=== PATIENT | female | born 1980 | race Caucasian/White ===

== ENCOUNTER 2023-08-12 08:25 | Outpatient (OUT) | payer OTHER, SELFPAY ==
[2023-08-12 09:38] LABS: Cholesterol 136 mg/dL (<=200); Glucose 84 mg/dL (74-106); HDL Cholesterol 46 mg/dL (40-60); Triglycerides 50 mg/dL (<=150)
== END 2023-08-12 08:26 | disposition home or self-care (01) ==
PROVIDERS: PCP Family Medicine; Visit Provider Family Medicine
DX: Z00.00 Encounter for general adult medical examination without abnormal findings (principal)
CPT/HCPCS: 36415; 80061; 82947

== ENCOUNTER 2024-02-26 10:38 | Emergency (ER) | payer OTHER, SELFPAY ==
[2024-02-26 10:43] VITALS: BP 126/83; PULSE 81; TEMP 36.6; O2SAT 99; BMI 25.8
--- NOTE | 2024-02-26 11:30 | ED_ITS ---
HPI - Dizziness General Chief Complaint: Dizziness Stated Complaint: DIZZINESS/VOMITTING Time Seen by Provider: 02/26/24 10:50 Source: patient Mode of arrival: walk-in Limitations: no limitations History of Present Illness HPI Narrative: When the patient woke this morning she had intense vertigo - the sensation of spinning that is worse with movement of the head or change in body position. She denied any recent injury to the head or neck. No ear pain or eac occlusion. No recent URI symptoms, although she did admit to sore throat yesterday. No fever or chills. She had similar episode about 5 years ago that responded to meclizine She admits to nausea and vomiting due to the intense vertigo. No visual changes. Related Data Home Medications ?Medication ?Instructions ?Recorded ?Confirmed L norgest/E estradiol-E estrad 1 tab PO Q24H 02/26/24 02/26/24 0.15 mg-30 mcg (84)/10 mcg(7) tabs,3mos (Jaimiess) bupropion HCl 300 mg 24 hr tablet, 300 mg PO DAILY 02/26/24 02/26/24 extended release hydroxychloroquine 200 mg tablet 200 mg PO DAILY 02/26/24 02/26/24 prucalopride 2 mg tablet 2 mg PO Q24H 02/26/24 02/26/24 (Motegrity) sertraline 25 mg tablet 25 mg PO DAILY 02/26/24 02/26/24 sucralfate 1 gram tablet 1 g PO Q6H 02/26/24 02/26/24 Previous Rx's ?Medication ?Instructions ?Recorded meclizine 25 mg tablet 25 mg PO TID PRN dizziness #20 tabs 02/26/24 ondansetron 4 mg disintegrating 4 mg PO Q6H PRN nausea and 02/26/24 tablet vomiting #14 tabs Allergies Allergy/AdvReac Type Severity Reaction Status Date / Time No Known Drug Allergies Allergy Verified 02/26/24 10:42 Exam Narrative Exam Narrative: Nurses notes and vital signs reviewed and patient is not hypoxic. afebrile General: Well-appearing and in no apparent distress. Skin: Warm, dry, no pallor noted. No rash. Head: Normocephalic, atraumatic. Neck: Supple, non-tender. No meningismus. No cervical lymphadenopathy Eye: Pupils are equal, round and EOMI. No scleral icterus. Mild horizontal nystagmus noted Ears, Nose, Mouth, and Throat: TM are clear, no posterior oropharynx erythema or nasal mucosal hypertrophy, uvula is mid-line Oral mucosa is moist Cardiovascular: Regular Rate and Rhythm without murmur, gallop or rub. Respiratory: No accessory muscle use or respiratory distress. Lungs are clear to auscultation, no wheezing, rales or rhonchi Musculoskeletal: normal ROM GI: Abdomen is soft, non-distended. Normal bowel sounds. No masses appreciated. No tenderness to palpation. No rebound, guarding, or rigidity noted. Neurological: A&O x4. No cranial nerve dysfunction observed. No truncal ataxia. Moves all extremities. Sensation intact. Psychiatric: Cooperative and interactive. Normal mood and affect. Constitutional Vital Signs, click to edit/add: Last Vital Signs Temp 97.8 F 02/26/24 10:43 Pulse 81 02/26/24 10:43 Resp 18 02/26/24 10:43 BP 126/83 02/26/24 10:43 Pulse Ox 99 02/26/24 10:43 Course Vital Signs Vital signs: Vital Signs Temperature 97.8 F 02/26/24 10:43 Pulse Rate 81 02/26/24 10:43 Respiratory Rate 18 02/26/24 10:43 Blood Pressure 126/83 02/26/24 10:43 Pulse Oximetry 99 02/26/24 10:43 Temperature 97.8 F 02/26/24 10:43 Pulse Rate 81 02/26/24 10:43 Respiratory Rate 18 02/26/24 10:43 Blood Pressure 126/83 02/26/24 10:43 Pulse Oximetry 99 02/26/24 10:43 MDM - Dizziness MDM Narrative Medical decision making narrative: The patient declined offer for peripheral IV access with IV medications. She has since that if we could try oral medication. She was given oral dissolvable Zofran and then a 25 mg dose of oral meclizine. On recheck at 1210pm, she didn't feel any better and decided to allow the IV placement, so she was given NS IVF, IV Valium, IV solumedrol. She immediately felt resolution of her vertigo after getting the IV Valium. She was discharged home with prescriptions for Meclizine and Zofran. Discharge Plan Discharge Stand Alone Forms: Portal Instructions Chief Complaint: Dizziness Clinical Impression: Vertigo Patient Disposition: Home, Self-Care Time of Disposition Decision: 12:38 Prescriptions / Home Meds: New meclizine 25 mg tablet 25 mg PO TID PRN (Reason: dizziness) Qty: 20 0RF ondansetron 4 mg tablet,disintegrating 4 mg PO Q6H PRN (Reason: nausea and vomiting) Qty: 14 0RF No Action bupropion HCl 300 mg tablet extended release 24 hr 300 mg PO DAILY hydroxychloroquine 200 mg tablet 200 mg PO DAILY L norgest/e.estradiol-e.estrad [Jaimiess] 0.15 mg-30 mcg (84)/10 mcg (7) tablets,dose pack,3 month 1 tab PO Q24H Motegrity 2 mg tablet 2 mg PO Q24H sertraline 25 mg tablet 25 mg PO DAILY sucralfate 1 gram tablet 1 g PO Q6H Print Language: Panamanian Instructions: Vertigo (ED) Referrals: Mimi Hoang MD [Primary Care Provider] - 1 week
[2024-02-26] MEDS: ONDANSETRON 4 MG RAPDIS TABLET SL (11:40)
[2024-02-26] MEDS: MECLIZINE HCL 12.5 MG TABLET 25 MG PO (11:41)
[2024-02-26] MEDS: DIAZEPAM 10 MG/2 ML SYRINGE 2 MG IV (12:19)
[2024-02-26] MEDS: 0.9 % SODIUM CHLORIDE 1,000 ML 1000 ML IV (12:19)
[2024-02-26] MEDS: METHYLPREDNISOLONE SOD SUCC PF 125 MG/2 ML VIAL IVP (12:20)
[2024-02-26 12:48] VITALS: BP 116/85; PULSE 65; O2SAT 98
== END 2024-02-26 12:50 | disposition home or self-care (01) ==
PROVIDERS: Emergency Provider Emergency Medicine; PCP Family Medicine
DX: R42 Dizziness and giddiness (principal); Z79.899 Other long term (current) drug therapy
CPT/HCPCS: 96374; 96375; 99284; J2919

== ENCOUNTER 2024-08-24 08:05 | Outpatient (OUT) | payer OTHER, SELFPAY ==
[2024-08-24 08:51] LABS: Estimated Average Glucose 85 mg/dL; Glycohemoglobin A1C 4.6 % (4.5-6.2)
[2024-08-24 08:59] LABS: Anion Gap 15.3; BUN Creatinine Ratio 12.1; Calcium 8.5 mg/dL (8.5-10.1); Carbon Dioxide 24.7 mmol/L (21.0-32.0); Chloride 105 mmol/L (98-107); Chol HDL Ratio 2.9; Cholesterol 142 mg/dL (<=200); Estimated GFR (African America >60 (>=60 mL/min/1.73m^2); Estimated GFR (Non-African Ame 56 (>=60 mL/min/1.73m^2); Glucose 75 mg/dL (74-106); HDL Cholesterol 49 mg/dL (40-60); LDL Cholesterol Calculated 81.4 mg/dL; Sodium 141 mmol/L (136-145); Triglycerides 58 mg/dL (<=150); VLDL CHOLESTEROL 11.6 mg/dL
== END 2024-08-24 08:06 | disposition home or self-care (01) ==
LOC: LAB 08:06
PROVIDERS: PCP Family Medicine; Visit Provider Family Medicine
DX: Z00.00 Encounter for general adult medical examination without abnormal findings (principal)
CPT/HCPCS: 36415; 80048; 80061; 83036

== ENCOUNTER 2025-08-08 06:44 | Outpatient (OUT) | payer OTHER, SELFPAY ==
--- OUTSIDE RECORDS SUMMARY | 2025-08-08 06:49 | XMS_ITS | CCD ---
Author Organization [facility] Care Team Providers Care Salesperson Books Name Role Phone Eveline Aleman Unavailable Unavailable Eveline Aleman Unavailable Unavailable ABIMAEL VALENZUELA~[id number] UNKNOWN Unavailable Unavailable ELICEO, JOSE ANTONIO Attending Unavailable BIANCA, ABIMAEL Primary Care Unavailable ELICEO, JOSE ANTONIO Attending Unavailable BIANCA, ABIMAEL Primary Care Unavailable ELICEO, JOSE ANTONIO Attending Unavailable BIANCA, ABIMAEL Primary Care Unavailable ELICEO, JOSE ANTONIO Attending Unavailable BIANCA, ABIMAEL Primary Care Unavailable Eliceo, Jose Antonio Unavailable Unavailable Abimael Valenzuela Unavailable Unavailable Eliceo, Jose Antonio Unavailable Unavailable Eliceo, Jose Antonio Unavailable Unavailable Abimael Valenzuela Unavailable Unavailable Unavailable DR ABIMAEL VALENZUELA Primary Care Unavailable NAPOLEON GILL Attending Unavailable NAPOLEON GILL Admitting Unavailable MATEUSZ STEVENS Consulting Unavailable NAPOLEON GILL Consulting Unavailable BIANCA, DR ABIMAEL Saenz Attending Unavailable BIANCA, DR ABIMAEL Saenz Consulting Unavailable BIANCA, DR ABIMAEL Saenz Primary Care Unavailable BIANCA, DR ABIMAEL Saenz Admitting Unavailable VALENZUELA, DR ABIMAEL Saenz Admitting Unavailable VALENZUELA, DR ABIMAEL Saenz Attending Unavailable BIANCA, DR ABIMAEL Saenz Consulting Unavailable BIANCA, DR ABIMAEL Saenz Primary Care Unavailable VALEZNUELA, DR ABIMAEL Saenz Attending Unavailable VALNEZUELA, DR ABIMAEL Saenz Primary Care Unavailable VALENZUELA, DR ABIMAEL Saenz Admitting Unavailable Abimael Valenzuela MD Primary Care Provider Micheal Galicia Unavailable MD Abimael Valenzuela Primary Care Provider DO Micheal Galicia Attending Provider [phone] Jose Antonio Fenton Attending Provider [phone] Abimael Valenzuela MD Primary Care Provider Abimael Valenzuela MD Primary Care Provider Abimael Valenzuela MD Primary Care Provider Abimael Valenzuela Unavailable Eliceo, Dr. Lr Referring Unavailabl e Eliceo, Dr. Lr Attending Unavailabl e Bianca, Dr. Abimael Stone Primary Care Unav ailable Bianca, Dr. Abimael Stone Primary Care Unav ailable Eliceo, Dr. Lr Attending Unavailabl e Bianca, Dr. Abimael Stone Referring Unav ailable MD Abimael Valenzuela Primary Care Provider Jose Antonio Fenton Attending Provider MD Abimael Valenzuela Primary Care Provider MD Abimael Valenzuela Attending Provider Abimael Valenzuela MD Primary Care Provider Abimael Valenzuela MD Primary Care Provider KARAMLOU, DIONNA Referring Unavailable VALENZUELA, ABIMAEL E Primary Care Unavailable KARAMLOU, DIONNA Referring Unavailable BIANCA ABIMAEL E Primary Care Unavailable Abimael Valenzuela MD Primary Care Provider Jose Antonio Fenton Attending Provider [phone] KARAMLOU, DIONNA Attending Unavailable VALENZUELA, ABIMAEL E Primary Care Unavailable KARAMLOU, DIONNA Referring Unavailable VALENZUELA, ABIMAEL E Primary Care Unavailable VALENZUELA, ABIMAEL E Primary Care Unavailable KARAMLOU, DIONNA Attending Unavailable VALENZUELA, ABIMAEL E Primary Care Unavailable KARAMLOU, DIONNA Referring Unavailable CAYLA REN Attending Unavailable VALENZUELA, ABIMAEL E Primary Care Unavailable KARAMLOU, DIONNA Referring Unavailable VALENZUELA, ABIMAEL E Primary Care Unavailable KARAMLOU, DIONNA Attending Unavailable VALENZUELA, ABIMAEL E Primary Care Unavailable KARAMLOU, DIONNA Referring Unavailable VALENZUELA, ABIMAEL E Primary Care Unavailable JOSE ANTONIO FENTON Attending Unavailable VALENZUELA, ABIMAEL E Primary Care Unavailable JOSE ANTONIO FENTON Attending Unavailable VALENZUELA, ABIMAEL E Primary Care Unavailable Abimael Valenzuela MD Primary Care Provider Abimael Valenzuela MD Attending Provider Abimael Valenzuela MD Referring Provider Self, Referral Attending Provider Unavailable Self, Referral Attending Unavailable Self, Referral Admitting Unavailable Valenzuela, Abimael E Referring Unavailable Abimael Valenzuela Primary Care Unavailable Abimael Valenzuela Primary Care Unavailable Jose Antonio Fenton Attending Unavailable Jose Antonio Fenton Admitting Unavailable Dionna Gutierrez MD Attending Provider Unavailelina saenz Allergies Allergy Classification Reported Allergen(s) Allergy Type Date of Onset Reaction(s) Facility (20 sources) environmental [Other] Propensity to adverse reactions 08-25-20 Other: See Comments [facility] (19 sources) diphenhydrAMINE Drug Allergy 07-22-20 irritablity [facility] (2 sources) Amoxicillin / Clavulanate Drug Allergy Unknown [facility] Other (13 sources) Minocycline Drug Allergy 07-22-20 Unknown, [facility] (2 sources) Allergies Reconciled Propensity to adverse reactions Unknown [facility] Other (2 sources) patient allergy list reviewed by nurse or physicia Propensity to adverse reactions 08-12-20 Comment:Done [facility] Other (6 sources) Amoxicillin / Clavulanate Drug Allergy Unknown [facility] Other (3 sources) Amoxicillin; Translations: [amoxicillin] Drug Allergy 07-22-20 [facility] (6 sources) Clavulanate; Translations: [clavulanic acid] Drug Allergy 07-22-20 [facility] (2 sources) OTHER; Translations: [OTHER] Propensity to adverse reactions (disorder) 08-25-20 [facility] Other [facility] (1 source) diphenhydrAMINE Drug Allergy 05-13-20 [facility] (1 source) Minocycline Drug Allergy 05-13-20 [facility] Medications Current Medications Medication Drug Class(es) Dates Sig (Normalized) Sig (Original) L Norgest/E.Estradio l-E.Estrad (20 sources) Progestin, Estrogen, Progestin-containin g Intrauterine Device Start: 05-14-2025 take 1 tablet by mouth once daily L Norgest/E.Estradi ol-E.Estrad 0.15 mg-30 mcg (84)/10 mcg (7) tablets,dose pack,3 month Active 0 .ROUTE .COMPLEX 91 Sera 25th, 2025 12:27pm TAKE 1 TABLET BY MOUTH EVERY DAY Complies with drug therapy Start: 05-14-2025 take 1 tablet by pina th once daily Start: 06-24-2024 End: 05-14-2025 take 1 tablet by mouth once daily L Norgest/E.Estradiol-E.Estrad 0.15 mg-30 mcg (84)/10 mcg (7) tablets,dose pack,3 month Discontinued 0 .ROUTE .COMPLEX June 24, 2024 9:40am May 14, 2025 12:27pm TAKE 1 TABLET BY MOUTH EVERY DAY Start: 06-24-2024 take 1 tablet by pina th once daily L Norgest/E.Estradiol-E.Estrad 0.15 mg-30 mcg (84)/10 mcg (7) tablets,dose pack,3 month Active 0 .ROUTE .COMPLEX June 24, 2024 8:40am TAKE 1 TABLET BY MOUTH EVERY DAY Start: 06-24-2024 take 1 tablet by pina th once daily L Norgest/E.Estradiol-E.Estrad Active 0 .ROUTE .COMPLEX June 24, 2024 9:40am TAKE 1 TABLET BY MOUTH EVERY DAY Start: 01-08-2024 End: 06-24-2024 take 1 tablet by mouth once daily L Norgest/E.Estradiol-E.Estrad 0.15 mg-30 mcg (84)/10 mcg (7) tablets,dose pack,3 month Discontinued 1 TAB PO Daily January 08, 2024 10:57am June 24, 2024 9:41am Start: 01-08-2024 End: 06-24-2024 take 1 tablet by mouth once daily L Norgest/E.Estradiol-E.Estrad 0.15 mg-30 mcg (84)/10 mcg (7) tablets,dose pack,3 month Discontinued 1 TAB PO Daily January 08, 2024 9:57am June 24, 2024 8:41am Start: 01-08-2024 End: 06-24-2024 take 1 tablet by mouth once daily L Norgest/E.Estradiol-E.Estrad Discontinued 1 TAB PO Daily January 08, 2024 10:57am June 24, 2024 9:41am Start: 01-08-2024 take 1 tablet by pina th once daily L Norgest/E.Estradiol-E.Estrad Active 1 TAB PO Daily January 08, 2024 10:57am Start: 01-08-2024 End: 01-08-2024 take 1 tablet by mouth once daily L Norgest/E.Estradiol-E.Estrad 0.15 mg-30 mcg (84)/10 mcg (7) tablets,dose pack,3 month Discontinued 1 TAB PO Daily January 08, 2024 1:00am January 08, 2024 10:58am Start: 01-08-2024 End: 01-08-2024 take 1 tablet by mouth once daily L Norgest/E.Estradiol-E.Estrad 0.15 mg-30 mcg (84)/10 mcg (7) tablets,dose pack,3 month Discontinued 1 TAB PO Daily January 08, 2024 12:00am January 08, 2024 9:58am Start: 01-08-2024 End: 01-08-2024 take 1 tablet by mouth once daily L Norgest/E.Estradiol-E.Estrad Discontinued 1 TAB PO Daily January 08, 2024 1:00am January 08, 2024 10:58am Start: 05-09-2022 End: 03-01-2024 take 1 tablet by mouth once daily L Norgest/E.Estradiol-E.Estrad 0.15 mg-30 mcg (84)/10 mcg (7) tablets,dose pack,3 month Discontinued 1 TAB PO Daily May 09, 2022 12:00am March 01, 2024 9:25am Start: 05-09-2022 End: 03-01-2024 take 1 tablet by mouth once daily L Norgest/E.Estradiol-E.Estrad 0.15 mg-30 mcg (84)/10 mcg (7) tablets,dose pack,3 month Discontinued 1 TAB PO Daily May 08, 2022 11:00pm March 01, 2024 8:25am Start: 05-09-2022 End: 03-01-2024 take 1 tablet by mouth once daily L Norgest/E.Estradiol-E.Estrad Discontinued 1 TAB PO Daily May 09, 2022 12:00am March 01, 2024 9:25am Start: 05-09-2022 take 1 tablet by pina once daily L Norgest/E.Estradiol-E.Estrad Active 1 TAB PO Daily May 08, 2022 11:00pm Start: 05-09-2022 take 1 tablet by pina th once daily L Norgest/E.Estradiol-E.Estrad Active 1 TAB PO Daily May 09, 2022 12:00am Start: 04-05-2022 End: 11-09-2022 take 1 tablet by mouth once daily L-Norgest and E Estradiol-E Estrad 0.15 mg-30 mcg (84)/10 mcg (7) Take 1 tablet by mouth once daily. 0 04/05/2022 11/09/2022 Discontinued (Duplicate Entry) Start: 04-05-2022 take 1 tablet by pina th once daily L-Norgest and E Estradiol-E Estrad 0.15 mg-30 mcg (84)/10 mcg (7) Take 1 tablet by mouth once daily. 0 04/05/2022 Active take 1 tablet by pina th once daily, then take 1 tablet by mouth every three months levonorgestrel-ethinyl estradiol 0.15 mg-30 mcg (91) per tab, 3 month pack Take 1 tablet by mouth once daily. Active take 1 tablet by pina th once daily levonorgestreL-ethinyl estrad (Seasonale) 0.15 mg-30 mcg (91) tablet Take 1 tablet by mouth once daily. Active take 1 tablet by pina th once daily Levonorgest-Eth Estrad 91-Day 0.15-0.03 &0.01 MG TAKE 1 TABLET BY MOUTH EVERY DAY for 91 Active take 1 tablet by pina th once daily, then take 1 tablet by mouth every three months levonorgestrel-ethinyl estradiol 0.15 mg-30 mcg (91) per tab, 3 month pack Take 1 tablet by mouth once daily. 0 Active Comment on above: Take 1 tablet by pina th once daily. hydroxychloroquine sulfate 200 mg oral tablet (20 sources) Antimalarial, Antirheumatic Agent Start: 2013 End: 2024 take 1 tablet by mouth once daily Hydroxychloroquine 200 mg tablet Active 200 MG PO Daily July 26, 2019 12:00am Complies with drug therapy Start: 02-12-2014 take 1 tablet by pina th twice daily at mealtime Hydroxychloroquine Sulfate 200 MG Oral Tablet TAKE 1 TABLET TWICE A DAY WITH FOOD Quantity: 180 Refills: 3 Ordered: 21-Jun-2021 Jose Antonio Fenton MD Start : 12-Feb-2014 Active Comment on above: Take 200 mg by mouth once daily. polyethylene glycol 3350 09406 mg powder for oral solution (18 sources) Osmotic Laxative Start: 05-12-2025 Polyethylene Glycol 3350 (Miralax) 17 gram/dose powder Active 17 GM FEEDTUBE as needed May 12, 2025 12:00am Medication Name: MiraLax; Note: Source Status: TakingPRN; Provider: Bianca Le ( ) Complies with drug therapy MiraLax PRN Acti ve prucalopride 2 mg oral tablet (20 sources) Start: 08-05-2025 take 1 tablet by mouth once daily Prucalopride (Motegrity) 2 mg tablet Active 0 .ROUTE .COMPLEX August 05, 2025 8:30am TAKE ONE TABLET BY MOUTH EVERY DAY Complies with drug therapy Start: 07-11-2019 End: 08-05-2025 take 1 tablet by mouth once daily Prucalopride (Motegrity) 2 mg tablet Discontinued 2 MG PO Daily January 08, 2024 10:58am October 09, 2024 12:33pm Comment on above: Take 1 tablet by pina once daily. sertraline 50 mg oral tablet (20 sources) Serotonin Reuptake Inhibitor Start: 01-13-2025 take 1 tablet by mouth once daily Sertraline 50 mg tablet Active 50 MG PO Daily January 13, 2025 4:48pm Complies with drug therapy Start: 08-10-2020 End: 12-18-2020 take 1 tablet by mouth once daily Sertraline 100 mg tablet Discontinued 100 MG PO Daily August 10, 2020 12:00am December 18, 2020 10:29am Start: 07-26-2019 End: 02-27-2025 take 1 tablet by mouth once daily Sertraline 25 mg tablet Discontinued 25 MG PO Daily January 08, 2024 10:57am January 13, 2025 4:52pm Start: 05-06-2015 take 2 tablets by mo [facility] once daily Sertraline HCl - 50 MG Oral Tablet TAKE 2 TABLETS DAILY. Quantity: 180 Refills: 1 Jose Antonio Fenton MD Start : 06-May-2015 Active sucralfate 1000 mg oral tablet (20 sources) Aluminum Complex Start: 05-09-2022 End: 12-28-2022 take 1 tablet by mouth at bedtime Sucralfate 1 gram tablet Active 1 GM PO Before meals and at bedtime May 09, 2022 12:00am Complies with drug therapy Start: 01-18-2022 End: 01-27-2023 take 1 tablet by mouth every six hours Carafate 1 GM 1 TABLET Orally FOUR TIMES A DAY for 30 days Jan, Active Start: 01-18-2022 take 1 tablet by pina th every six hours Carafate 1 GM 1 TABLET Orally FOUR TIMES A DAY for 30 days Jan, Active Comment on above: Take 1 tablet by pina th four times daily. Take 1 tablet by pina th once daily. terbinafine 250 mg oral tablet (2 sources) Allylamine Antifungal Start: 5 take 1 tablet by mouth once daily Terbinafine Hcl 250 mg tablet Active 250 MG PO daily May 13, 2025 12:00am Complies with drug therapy {20 (nirmatrelvir 150 MG Oral Tablet) / 10 (ritonavir 100 MG Oral Tablet) } Pack [Paxlovid 5-Day] (1 source) Start: 3 take 3 tablets by mouth every twelve hours Paxlovid (300/100) 20 x 150 MG & 10 x 100MG 3 tablets Orally Twice a day for 5 day(s) Jun, Active Completed/Discontinued Medications Medication Drug Class(es) Dates Sig (Normalized) Sig (Original) acetaminophen 325 mg oral tablet (1 source) Start: 07-02-2024 End: 07-02-2024 acetaminophen 650 mg tab(s) (TYLENOL) Start: 07-02-2024 End: 07-02-2024 acetaminophen 650 mg tab(s) (TYLENOL) Blisovi 24 Fe 1-20 MG-MCG(24) Oral Tablet (2 sources) Start: 03-11-2022 Blisovi 24 Fe 1-20 MG-MCG(24) Oral Tablet Quantity: 28 Refills: 0 Ordered: 11-Mar-2022 DO Start : 11-Mar-2022 Active 24 hr buPROPion hydrochloride 300 mg extended release oral tablet (20 sources) Aminoketone Start: 01-08-2024 End: 01-13-2025 take 1 tablet by mouth once daily in the morning Bupropion Hcl 300 mg tablet extended release 24 hr Discontinued 300 MG PO Every morning 90 January 08, 2024 10:57am January 13, 2025 4:52pm Start: 10-20-2022 buPROPion XL ( WELLBUTRIN XL) 300 mg 24 hr tablet 300 mg. 10/20/2022 Active Start: 10-20-2022 take 1 tablet by pina th once daily in the morning buPROPion XL (WELLBUTRIN XL) 150 mg 24 hr tablet TAKE 1 TABLET BY MOUTH EVERY DAY IN THE MORNING 0 10/20/2022 Active Comment on above: TAKE 1 TABLET BY PINA TH EVERY DAY IN THE MORNING 300 mg. busPIRone hydrochloride 10 mg oral tablet (14 sources) Start: End: take 1 tablet by mouth twice daily as needed Buspirone 10 mg tablet Discontinued 10 MG PO Daily May 13, 2025 12:00am May 13, 2025 9:26am FreeTextSig: TAKE 1 TABLET BY MOUTH TWICE A DAY NEEDED; Note: Source Status: Taking; Refills: 1; Qty: 180 Tablet; Provider: Bianca Le ( ) Start: 04-28-2023 End: 03-18-2024 take 1 tablet by mouth twice daily as needed busPIRone (BUSPAR) 10 mg tablet TAKE 1 TABLET BY MOUTH TWICE A DAY NEEDED FOR 30 DAYS 0 04/28/2023 03/18/2024 Discontinued (Discontinued by Patient) Comment on above: TAKE 1 TABLET BY PINA TH TWICE A DAY NEEDED FOR 30 DAYS ciprofloxacin 500 mg oral tablet (13 sources) Quinolone Antimicrobial Start: 05-11-20 take 1 tablet by mouth every twelve hours Cipro 500 MG 1 tablet Orally every 12 hrs for 5 days Apr, Not-Taking/PRN dicyclomine hydrochloride 20 mg oral tablet (15 sources) Anticholinergic Start: 05-13-20 End: 05-13-20 take 1 tablet by mouth four times daily Dicyclomine 20 mg tablet Discontinued 1 TAB PO Four times daily May 13, 2025 12:00am May 13, 2025 9:26am FreeTextSi tablet Orally Four times a day; Note: Source Status: Not-Takingundefined PRN; Refills: 11; Provider: Frida Edawrds Start: 05-11-2022 take 1 tablet by pina th every six hours Dicyclomine HCl 20 MG 1 tablet Orally Four times a day for 30 days Apr, Not-Taking/PRN diphenhydrAMINE hydrochloride 25 mg oral capsule (1 source) Histamine-1 Receptor Antagonist Start: 07-02-2024 End: 07-02-2024 diphenhydrAMINE 25 mg capsule (BENADRYL) Start: 07-02-2024 End: 07-02-2024 diphenhydrAMINE 25 mg capsul e (BENADRYL) ferric derisomaltose 1,000 mg in NaCl 0.9% 100 mL (MONOFERRIC) (1 source) Start: 07-02-2024 End: 07-02-2024 ferric derisomaltose 1,000 mg in NaCl 0.9% 100 mL (MONOFERRIC) Levonorgest-Eth Estrad 91-Day 0.15-0.03 &0.01 MG Oral Tablet (4 sources) Start: 04-05-2022 take 1 tablet by mouth once daily Levonorgest-Eth Estrad 91-Day 0.15-0.03 &0.01 MG Oral Tablet TAKE 1 TABLET DAILY. Quantity: 0 Refills: 0 Ordered: 05-Apr-2022 DO Start : 05-Apr-2022 Active linaclotide 0.29 mg oral capsule (5 sources) Guanylate Cyclase-C Agonist Start: 05-13-2025 End: 05-13-2025 Linaclotide 290 mcg capsule Discontinued 290 MCG PO Daily May 13, 2025 12:00am May 13, 2025 9:27am FreeTextSi capsule at least 30 minutes before the first meal of the day on an empty stomach Orally Once a day; Note: Source Status: Taking; Provider: Bianca Saenz Start: 11-21-2023 Linzess 290 MC G 1 capsule at least 30 minutes before the first meal of the day on an empty stomach Orally Once a day for 30 day(s) Nov, Active methylPREDNISolone 4 mg oral tablet (4 sources) Corticosteroid Start: 08-13-2024 End: 01-13-2025 take 1 tablet by mouth once Methylprednisolone (Medrol (Moises)) 4 mg tablets,dose pack Discontinued 0 PO per package directions August 13, 2024 12:00am January 13, 2025 4:27pm PO PER PKG DIR for 6 days Motegrity 2 MG Oral Tablet (4 sources) Start: 07-11-2019 take 1 tablet by mouth once daily Motegrity 2 MG Oral Tablet Take 1 tablet daily Refills: 0 DO Start : 11-Jul-2019 Active Start: 07-11-2019 take 1 tablet by pina once daily Motegrity 2 MG Oral Tablet Take 1 tablet daily Refills: 0 Start : 11-Jul-2019 Active ofloxacin 3 mg/ml otic solution (5 sources) Quinolone Antimicrobial Start: 07-22-2024 End: 01-13-2025 Ofloxacin 0.3 % drops Discontinued 10 DROPS OTIC Daily 03 26July 22, 2024 12:00am January 13, 2025 4:50pm to right ear Start: 07-22-2024 Ofloxacin Acti ve 10 DROPS OTIC Daily 03 26July 22, 2024 12:00am to right ear omeprazole 40 mg delayed release oral capsule (3 sources) Proton Pump Inhibitor Start: 12-28-2022 End: 05-11-2023 take 1 capsule by mouth twice daily omeprazole (PRILOSEC) 40 mg capsule Indications: Chronic superficial gastritis with bleeding Take 1 capsule by mouth twice daily. 60 capsule 2 12/28/2022 05/11/2023 Discontinued (Discontinued by Patient) Comment on above: Take 1 capsule by mo [facility] twice daily. ondansetron 4 mg disintegrating oral tablet (19 sources) Serotonin-3 Receptor Antagonist Start: 05-13-2025 End: 05-13-2025 take 1 tablet by mouth every four hours as needed Ondansetron 4 mg tablet,disintegrati ng Discontinued MG PO May 13, 2025 12:00am May 13, 2025 9:27am FreeTextSi tablet on the tongue and allow to dissolve Orally EVERY 4 HRS NEEDED; Note: Source Status: Taking; Refills: 0; Provider: Frida Edwards Start: 05-11-2022 take 1 tablet by pina th every four hours as needed Zofran ODT 4 MG 1 tablet on the tongue and allow to dissolve Orally EVERY 4 HRS NEEDED for 30 day(s) Apr, Active Start: 03-09-2021 End: 04-12-2022 take 1 tablet by mouth three times daily as needed ondansetron (ZOFRAN) 4 mg tablet TAKE 1 TABLET BY MOUTH THREE TIMES A DAY NEEDED 0 03/09/2021 04/12/2022 Discontinued (Discontinued by Patient) Comment on above: TAKE 1 TABLET BY PINA TH THREE TIMES A DAY NEEDED pantoprazole 40 mg delayed release oral tablet (20 sources) Proton Pump Inhibitor Start: 0 End: take 1 tablet by mouth once daily Pantoprazole 40 mg tablet,delayed release (DR/EC) Discontinued 40 MG PO Daily August 10, 2020 12:00am March 01, 2024 9:25am Start: 07-26-2019 End: 12-28-2022 take 1 tablet by mouth every twelve hours Pantoprazole Sodium 40 MG 1 tablet Orally bid for 30 days Jul, Not-Taking/PRN Comment on above: Take 40 mg by mouth twice daily. Sulfamethoxazole / Trimethoprim (3 sources) Dihydrofolate Reductase Inhibitor Antibacterial, Sulfonamide Antimicrobial End: 10-04-2022 sulfamethoxazole/trime thoprim (BACTRIM DS ORAL) Take by mouth. 0 10/04/2022 Discontinued sulfamethoxazole /trimethoprim (BACTRIM DS ORAL) Take by mouth. 0 Active Comment on above: Take by mouth. vitamin b12 1 mg oral capsule (20 sources) Vitamin B12 Start: 05-13-2025 End: 05-13-2025 take 1 capsule by mouth every month Cyanocobalamin (Vitamin B-12) 1,000 mcg capsule Discontinued 1000 MCG PO every month May 13, 2025 12:00am May 13, 2025 9:26am Start: 07-26-2019 take 1000 mg by mout h once daily Cyanocobalamin (Vitamin B-12) Active 1000 MG PO Daily July 26, 2019 12:00am Start: 02-21-2019 End: 01-13-2025 Cyanocobalamin (Vitamin B-12 ) 1,000 mcg tablet Discontinued 1000 MG PO Daily July 26, 2019 12:00am January 13, 2025 4:26pm Vitamin B 12 Act nell Comment on above: TAKE 1 TABLET BY PINA TH EVERY DAY Wrist Splint/Cock-Up/Right L (5 sources) Start: 11-11-2015 Wrist Splint/Cock-Up/Right L USE DIRECTED. Quantity: 1 Refills: 0 Jose Antonio Fenton MD Start : 11-Nov-2015 Active Problems Active Problems Problem Classification Problem Date Documented Da te Episodic/Chronic Abdominal pain (20 sources) Abdominal pain; Translations: [Unspecified abdominal pain] Onset: 01-22-2019 Resolved: 05-11-2022 Episodic Allergic reactions (20 sources) Gluten sensitivity; Translations: [Non-celiac gluten sensitivity] Onset: 09-16-2015 09-16-2015 Chronic Anxiety disorders (18 sources) Anxiety disorder; Translations: [Anxiety disorder, unspecified] 02-29-2024 Chronic Coagulation and hemorrhagic disorders (20 sources) Platelet count below reference range; Translations: [Thrombocytopenia, unspecified] Onset: 01-17-2011 01-17-2011 Chronic Conditions associated with dizziness or vertigo (20 sources) Benign paroxysmal vertigo, unspecified ear; Translations: [Dizziness and giddiness] Onset: 03-26-2021 Episodic Deficiency and other anemia (20 sources) Iron 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; Translations: [Iron deficiency anemia secondary to blood loss (chronic)] Onset: 02-21-2019 Chronic Deficiency and other anemia (2 sources) Iron deficiency anemia secondary to blood loss (chronic); Translations: [Iron deficiency anemia due to chronic blood loss] Onset: 02-21-2019 Chronic Deficiency and other anemia (20 sources) Iron deficiency anemia; Translations: [Iron deficiency anemia, unspecified] 07-26-2019 Episodic Deficiency and other anemia (3 sources) Nutritional anemia; Translations: [Nutritional anemia, unspecified] 03-18-2024 Episodic Deficiency and other anemia (2 sources) Megaloblastic anemia due to vitamin B>12< deficiency; Translations: [Vitamin B12 deficiency anemia, unspecified] Episodic Diseases of white blood cells (20 sources) Leukopenia; Translations: [Decreased white blood cell count, unspecified] Onset: 01-17-2011 Chronic Gastritis and duodenitis (1 source) Chronic superficial gastritis; Translations: [Chronic superficial gastritis with bleeding] Chronic Gastritis and duodenitis (16 sources) Gastritis; Translations: [Gastritis, unspecified, without bleeding] Episodic Gastroduodenal ulcer (except hemorrhage) (20 sources) Antral ulcer; Translations: [Gastric ulcer, unspecified as acute or chronic, without hemorrhage or perforation] Onset: 01-31-2022 Resolved: 05-11-2022 Chronic Gastroduodenal ulcer (except hemorrhage) (11 sources) H/O: peptic ulcer; Translations: [Personal history of peptic ulcer disease] 08-10-2020 Episodic Menstrual disorders (2 sources) Excessive and frequent menstruation; Translations: [Excessive and frequent menstruation with regular cycle] Chronic Miscellaneous mental health disorders (2 sources) Other symptoms and signs involving emotional state Episodic Mycoses (6 sources) Candidal vulvovaginitis; Translations: [Candidiasis of vulva and vagina] Onset: 02-17-2015 05-13-2025 Episodic Nausea and vomiting (16 sources) Nausea and vomiting; Translations: [Nausea with vomiting, unspecified] Onset: 05-11-2022 Resolved: 05-11-2022 Episodic Nonspecific chest pain (2 sources) Chest pain; Translations: [Other chest pain] Episodic Nutritional deficiencies (20 sources) Vitamin D deficiency; Translations: [Vitamin D deficiency, unspecified] Onset: 01-17-2011 01-17-2011 Chronic Other acquired deformities (1 source) Contracture of hip joint; Translations: [Contracture, right hip] Chronic Other acquired deformities (1 source) Contracture, right hip Chronic Other and unspecified benign neoplasm (14 sources) Gastric polyp; Translations: [Polyp of stomach and duodenum] Episodic Other circulatory disease (20 sources) Raynaud's phenomenon; Translations: [Raynaud's syndrome without gangrene] Onset: 01-17-2011 01-17-2011 Chronic Other ear and sense organ disorders (2 sources) Otitis externa; Translations: [Unspecified otitis externa, right ear] 07-22-2024 Chronic Other ear and sense organ disorders (1 source) Unspecified otitis externa, right ear; Translations: [Infective otitis externa, unspecified] 07-22-2024 Chronic Other ear and sense organ disorders (2 sources) Otitis externa of right ear; Translations: [Unspecified otitis externa, right ear] 01-14-2025 Chronic Other gastrointestinal disorders (20 sources) Irritable bowel syndrome; Translations: [Irritable bowel syndrome without diarrhea] Onset: 06-29-2015 06-29-2015 Chronic Other gastrointestinal disorders (20 sources) Irritable bowel syndrome characterized by constipation; Translations: [Irritable bowel syndrome with constipation] 02-29-2024 Chronic Other gastrointestinal disorders (1 source) Irritable bowel syndrome with constipation Onset: 04-27-2022 Resolved: 04-27-2022 Chronic Other gastrointestinal disorders (9 sources) Chronic idiopathic constipation; Translations: [Chronic idiopathic constipation] 02-29-2024 Chronic Other gastrointestinal disorders (1 source) Chronic idiopathic constipation Chronic Other gastrointestinal disorders (2 sources) Ulceration of intestine; Translations: [Ulcer of intestine] Episodic Other injuries and conditions due to external causes (1 source) Contusion; Translations: [Other injury of unspecified body region, initial encounter] 03-18-2024 Episodic Other nervous system disorders (12 sources) Carpal tunnel syndrome; Translations: [Carpal tunnel syndrome] Chronic Other non-traumatic joint disorders (2 sources) Arthralgia of the lower leg; Translations: [Pain in unspecified knee] Episodic Other nutritional; endocrine; and metabolic disorders (2 sources) Simple obesity ; Translations: [Other obesity due to excess calories] Onset: 02-09-2017 Chronic Other nutritional; endocrine; and metabolic disorders (2 sources) Body mass index 30+ - obesity; Translations: [Body mass index 30.0-30.9, adult] Onset: 02-09-2017 Chronic Other nutritional; endocrine; and metabolic disorders (2 sources) Body mass index 25-29 - overweight; Translations: [Body mass index (BMI) 25.0-25.9, adult] Episodic Other screening for suspected conditions (not mental disorders or infectious disease) (15 sources) Liver enzymes abnormal; Translations: [Other nonspecific abnormal serum enzyme levels] Onset: 06-19-2025 Episodic Other skin disorders (12 sources) Yellow skin; Translations: [Jaundice, unspecified, not of ] Episodic Other upper respiratory disease (20 sources) Allergic rhinitis; Translations: [Allergic rhinitis, unspecified] Onset: 01-17-2011 01-17-2011 Chronic Other upper respiratory disease (2 sources) Seasonal allergic rhinitis; Translations: [Other seasonal allergic rhinitis] Onset: 08-22-2018 Chronic Other upper respiratory disease (3 sources) Nasal congestion; Translations: [Nasal congestion] 08-14-2024 Episodic Superficial injury; contusion (7 sources) Cat scratch injury; Translations: [Abrasion, unspecified lower leg, initial encounter] 06-12-2024 Episodic Systemic lupus erythematosus and connective tissue disorders (20 sources) Systemic involvement of connective tissue, unspecified; Translations: [Systemic lupus erythematosus] Onset: 01-17-2011 Resolved: 01-31-2022 01-17-2011 Chronic Unclassified (3 sources) Unspecified jaundice; Translations: [Unspecified jaundice] Onset: 02-08-2019 Unclassified (2 sources) Vaccine product containing only acellular Bordetella pertussis and Clostridium tetani and Corynebacterium diphtheriae antigens (medicinal product); Translations: [Wbmfyuqqpw-fyeznkn-s ertussis, combined [DTP] [DtaP]] Onset: 04-18-2017 Unclassified (2 sources) Long-term current use of drug therapy; Translations: [Long-term (current) use of other medications] Onset: 02-09-2017 Viral infection (2 sources) Disease caused by 2019-nCoV; Translations: [COVID-19] Past or Other Problems Problem Classification Problem Date Documented Date Episodic/Chronic Allergic reactions (2 sources) Contact dermatitis; Translations: [Contact dermatitis and other eczema, due to unspecified cause] Onset: Episodic Deficiency and other anemia (1 source) Anemia, unspecified Onset: Episodic Deficiency and other anemia (4 sources) Nutritional anemia, unspecified; Translations: [NUTRITIONAL ANEMIA UNSPECIFIED] Onset: Episodic Deficiency and other anemia (3 sources) Iron deficiency anemia, unspecified Onset: 022 Resolve d: 022 Episodic Deficiency and other anemia (2 sources) Anemia; Translations: [Anemia, unspecified] Onset: Episodic Deficiency and other anemia (1 source) Other vitamin B12 deficiency anemias; Translations: [Other vitamin B12 deficiency anemia] Onset: Episodic Headache; including migraine (20 sources) Chronic headache disorder; Translations: [Chronic headache] Onset: 015 06-29-2015 Episodic Immunizations and screening for infectious disease (20 sources) Abnormal blood test; Translations: [Abnormal immunological finding in serum, unspecified] Onset: 011 11-15-2021 Episodic Malaise and fatigue (20 sources) Fatigue; Translations: [Other fatigue] Onset: 06-29-2015 Episodic Other aftercare (1 source) Other [place] [facility] (current[facility] drug therapy; Translations: [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] Onset: Episodic Other and unspecified benign neoplasm (1 source) Polyp of stomach and duodenum Onset: Resolve d: Episodic Other connective tissue disease (2 sources) Patellar tendonitis; Translations: [Patellar tendinitis] Onset: Episodic Other gastrointestinal disorders (20 sources) Constipation; Translations: [Constipation, unspecified] Onset: 09-14-2012 Episodic Other gastrointestinal disorders (20 sources) Bacterial overgrowth syndrome ; Translations: [Other specified diseases of intestine] Onset: 09-16-2015 Episodic Other hematologic conditions (20 sources) History of anemia; Translations: [Personal history of diseases of the blood and blood-forming organs and certain disorders involving the immune mechanism] Onset: 01-17-2011 Episodic Other liver diseases (3 sources) Abnormal levels of other serum enzymes; Translations: [Abnormal levels of other serum enzymes] Onset: Episodic Other liver diseases (2 sources) Jaundice; Translations: [Unspecified jaundice] Onset: Episodic Other nutritional; endocrine; and metabolic disorders (20 sources) Weight gain; Translations: [Abnormal weight gain] Onset: 06-29-2015 Episodic Other nutritional; endocrine; and metabolic disorders (4 sources) Weight increased; Translations: [Abnormal weight gain] Onset: 06-29-2015 Episodic Other skin disorders (2 sources) Atrophoderma; Translations: [Unspecified hypertrophic and atrophic condition of skin] Onset: Episodic Other upper respiratory infections (4 sources) Acute sinusitis; Translations: [Acute sinusitis, unspecified] Onset: Episodic Residual codes; unclassified (20 sources) Body fluid retention; Translations: [Edema, unspecified] Onset: 011 01-17-2011 Episodic Residual codes; unclassified (20 sources) Heterozygous methylenetetrahydrofolate reductase mutation; Translations: [Genetic susceptibility to other disease] Onset: 015 09-16-2015 Episodic Unclassified (3 sources) Onset: Resolve d: 024 05-08-2024 NEGATED: Highlighted row has not occurred!Residual codes; unclassified (20 sources) Disease Episodic Results Test Name Value Interpretation Reference Range Facility Basophils Auto (Bld) [#/Vol] Ordered By: Dionna Gutierrez on 06-24-2025 Basophils (Bld) [#/Vol] 10*3/uL <0.11 [facility] Basophils/100 WBC Auto (Bld) Ordered By: Dionna Gutierrez on 06-24-2025 Basophils/100 WBC (Bld) 0.7 % [facility] Blood manual differential co mment interpretation narrativeOrdered By: Dionna Gutierrez on 06-24-2025 Manual differential comment Victor M (Bld) [Interp] Auto [facility] Eosinophils/100 WBC Auto (Bl d)Ordered By: Dionna Gutierrez on 06-24-2025 Eosinophils/100 WBC (Bld) 0.0 % [facility] Erythrocyte distribution wid th Auto (RBC) [Ratio]Ordered By: Dionna Gutierrez on 06-24-2025 Erythrocyte distribution width (RBC) [Ratio] 13.6 % 11.5-15.0 [facility] Glomerular filtration rate [ Volume Rate/Area] in Serum, Plasma or Blood by CreatinineOrdered By: Dionna Gutierrez on 06-24-2025 Glomerular filtration rate [Volume Rate/Area] in Serum, Plasma or Blood by Creatinine 73 mL/min/1.73m??? >=60 [facility] Comment on above: Estimated Glomerular Filtration Rate (eGFR) is calculated using the 2020 CKD-EPI creatinine equation. This equation utilizes serum creatinine, sex, and age as parameters. The creatinine assay has traceable calibration to isotope dilution-mass spectrometry. Refer to KDIGO guidelines for clinical interpretation. In patients with unstable renal function, e.g. those with acute kidney injury, the eGFR may not accurately reflect actual GFR. Hematocrit Auto (Bld) [Volum e fraction]Ordered By: Dionna Gutierrez on 06-24-2025 Hematocrit (Bld) [Volume fraction] 42.0 % 36.0-46.0 [facility] Hemoglobin [Mass/volume] in BloodOrdered By: Dionnara Gutierrez on 06-24-2025 Hemoglobin (Bld) [Mass/Vol] 14.5 g/dL 11.5-15.5 [facility] Iron binding capacity [Mass/ volume] in Serum or PlasmaOrdered By: Dionna Gutierrez on 06-24-2025 Iron binding capacity [Mass/Vol] 294 ug/dL 232-386 [facility] Iron saturation [Mass Fracti on] in Serum or PlasmaOrdered By: Dionna Gutierrez on 06-24-2025 Iron saturation [Mass fraction] 41.8 % 15.0-57.0 [facility] Laboratory - Chemistry and C hemistry - challengeOrdered By: Dionna Gutierrez on 06-24-2025 Albumin [Mass/Vol] 3.8 g/dL Low 3.9-4.9 [facility] ALP [Catalytic activity/Vol] 92 U/L 34-123 [facility] ALT [Catalytic activity/Vol] 20 U/L 7-38 [facility] AST [Catalytic activity/Vol] 23 U/L 13-35 [facility] Bilirubin [Mass/Vol] 0.4 mg/dL 0.2-1.3 [facility] Calcium [Mass/Vol] 8.7 mg/dL 8.5-10.2 [facility] Chloride [Moles/Vol] 107 mmol/L 98-107 [facility] CO2 [Moles/Vol] 24 mmol/L 22-30 [facility] Creatinine [Mass/Vol] 0.98 mg/dL High 0.58-0.96 [facility] Ferritin [Mass/Vol] 41.4 ng/mL 14.7-205.1 [facility] Glucose [Mass/Vol] 105 mg/dL High 74-99 [facility] Comment on above: The [place] [employer] (ADA) provides guidance for cutoff values for fasting glucose and random glucose. The ADA defines fasting as no caloric intake for at least 8 hours. Fasting plasma glucose results between 100 to 125 mg/dL indicate increased risk for diabetes (prediabetes).Fasting plasma glucose results greater than or equal to 126 mg/dL meet the criteria for diagnosis of diabetes. In the absence of unequivocal hyperglycemia, results should be confirmed by repeat testing. In a patient with classic symptoms of hyperglycemia or hyperglycemic crisis, random plasma glucose results greater than or equal to 200 mg/dL meet the criteria for diagnosis of diabetes.Reference: Standards of Medical Care in Diabetes 2016, [place] [employer]. Diabetes Care. 2016.39(Suppl 1). Iron [Mass/Vol] 123 ug/dL 41-186 [facility] Potassium [Moles/Vol] 4.5 mmol/L 3.7-5.1 [facility] Sodium [Moles/Vol] 138 mmol/L 136-144 [facility] Urea nitrogen [Mass/Vol] 12 mg/dL 7-21 [facility] Laboratory - Hematology and Cell countsOrdered By: Dionna Gutierrez on 06-24-2025 Eosinophils (Bld) [#/Vol] 10*3/uL <0.46 [facility] Immature granulocytes/100 WBC (Bld) 0.0 % [facility] Leukocytes [#/volume] correc missael for nucleated erythrocytes in Blood by Automated counOrdered By: Dionna Gutierrez on 06-24-2025 WBC corrected for nucl RBC Auto (Bld) [#/Vol] 3.02 k/uL Low 3.70-11.00 [facility] Lymphocytes Auto (Bld) [#/Vo l]Ordered By: Dionna Gutierrez on 06-24-2025 Lymphocytes (Bld) [#/Vol] 1.33 10*3/uL 1.00-4.00 [facility] Lymphocytes/100 WBC Auto (Bl d)Ordered By: Dionna Gutierrez on 06-24-2025 Lymphocytes/100 WBC (Bld) 44.0 % [facility] MCH Auto (RBC) [Entitic mass ]Ordered By: Dionna Gutierrez on 06-24-2025 MCH (RBC) [Entitic mass] 33.7 pg 26.0-34.0 [facility] MCHC Auto (RBC) [Mass/Vol]Or dered By: Dionna Gutierrez on 06-24-2025 MCHC (RBC) [Mass/Vol] 34.5 g/dL 30.5-36.0 [facility] MCV Auto (RBC) [Entitic vol] Ordered By: Dionna Gutierrez on 06-24-2025 MCV (RBC) [Entitic vol] 97.7 fL 80.0-100.0 [facility] Monocytes Auto (Bld) [#/Vol] Ordered By: Dionna Gutierrez on 06-24-2025 Monocytes (Bld) [#/Vol] 0.43 10*3/uL <0.87 [facility] Monocytes/100 WBC Auto (Bld) Ordered By: Dionna Gutierrez on 06-24-2025 Monocytes/100 WBC (Bld) 14.2 % [facility] Neutrophils Auto (Bld) [#/Vo l]Ordered By: Dionna Gutierrez on 06-24-2025 Neutrophils (Bld) [#/Vol] 1.24 10*3/uL Low 1.45-7.50 [facility] Neutrophils/100 WBC Auto (Bl d)Ordered By: Dionna Gutierrez on 06-24-2025 Neutrophils/100 WBC (Bld) 41.1 % [facility] No Panel InformationOrdered By: Dionna Gutierrez on 06-24-2025 Immature Granulocyte # (Auto) <0.03 k/uL <0.10 [facility] Nucleated RBC Auto (Bld) [#/ Vol]Ordered By: Dionna Gutierrez on 06-24-2025 Nucleated RBC (Bld) [#/Vol] 10*3/uL <0.01 [facility] Nucleated erythrocytes [Pres ence] in Blood by Automated countOrdered By: Dionna Gutierrez on 06-24-2025 Nucleated RBC Auto Ql (Bld) 0.0 /100{WBC} [facility] Platelet mean volume Auto (B ld) [Entitic vol]Ordered By: Dionna Gutierrez on 06-24-2025 Platelet mean volume (Bld) [Entitic vol] 12.4 fL 9.0-12.7 [facility] Platelets Auto (Bld) [#/Vol] Ordered By: Dionna Gutierrez on 06-24-2025 Platelets (Bld) [#/Vol] 75 10*3/uL Low 150-400 [facility] Comment on above: No clot detected. Protein [Mass/volume] in Ser um or PlasmaOrdered By: Dionna Gutierrez on 06-24-2025 Protein [Mass/Vol] 6.3 g/dL 6.3-8.0 [facility] RBC Auto (Bld) [#/Vol]Ordere d By: Dionna Gutierrez on 06-24-2025 RBC (Bld) [#/Vol] 4.30 10*6/uL 3.90-5.20 [facility] Serum or plasma anion gap de terminationOrdered By: Dionna Gutierrez on 06-24-2025 Anion gap [Moles/Vol] 7 mmol/L Low 8-15 [facility] MM screening mammo BI w/CADo n 06-19-2025 MM screening mammo BI w/CAD [facility] [address] [place] [address] Mammography Report Signed Patient: Bertha Green MR#: [id number] : 1980 Acct:[id number] Age/Sex: 45 / F Adm Date: 06/19/25 Loc: [place] Room: Type: [facility] Attending Dr: Referral Self Ordering Provider: SELF,REFERRAL Date of Service: 06/19/25 Procedure(s): MM screening mammo BI w/CAD Accession Number(s): ([id number]) MM/MM screening mammo BI w/CAD: SCREENING Copies to: Abimael Valenzuela MD SELF,REFERRAL CLINICAL DATA: Screening for malignancy. BILATERAL SCREENING MAMMOGRAMS - FULL FIELD DIGITAL WITH TOMOSYNTHESIS AND CAD Tomosynthesis craniocaudal and mediolateral oblique views of both breasts were obtained using low- dose digital technique. Comparison is made to prior studies from 09/29/2023 and 04/23/2020. This examination was reviewed with the aid of CAD. There are scattered fibroglandular densities. Benign-appearing lymph nodes are noted along the chest wall. There are no dominant masses, typically malignant calcifications or architectural distortion. There has been no significant interval change. MM/MM screening mammo BI w/CAD IMPRESSION: NO MAMMOGRAPHIC EVIDENCE OF MALIGNANCY. ROUTINE FOLLOW-UP IS RECOMMENDED IN ONE YEAR. RESULT CODE: 1 Negative DENSITY CODE: 2 (approximately 25-50% glandular) There are scattered areas of fibroglandular density. FOLLOW UP: 1YR The false-negative rate of mammography is approximately 10-percent. Management of a palpable abnormality must be based on clinical grounds. Patient was entered into a reminder system with a target due date for the next mammogram. Impression dictated by: Gildardo Elena M.D. 06/19/2025 4:09 PM Dictation Location: [facility] Dictated By: Gildardo Elena II, MD 06/19/251605 Signed By: 06/19/25 1609 Normal [facility] Mammography reportOrdered By : Gildardo Elena on 06-19-2025 Diagnostic imaging study [facility] [address] [place] [address] Mammography Report Signed Patient: Bertha Green R#: [id number] : 1980 Acct:[id number] Age/Sex: 45 / F Adm Date: 5 Loc: [place] Room: Type: [facility] Attending Dr: Referral Self Ordering Provider: SELF,REFERRAL Date of Service: 06/19/25 Procedure(s): MM screening mammo BI w/CAD Accession Number(s): ([id number]) MM/MM screening mammo BI w/CAD: SCREENING Copies to: Abimael Valenzuela MD SELF,REFERRAL ~ CLINICAL DATA: Screening for malignancy. BILATERAL SCREENING MAMMOGRAMS - FULL FIELD DIGITAL WITH TOMOSYNTHESIS AND CAD Tomosynthesis craniocaudal and mediolateral oblique views of both breasts were obtained using low-dose digital technique. Comparison is made to prior studies from 09/29/2023 and 04/23/2020. This examination was reviewed with the aid of CAD. There are scattered fibroglandular densities. Benign-appearing lymph nodes are noted along the chest wall. There are no dominant masses, typically malignant calcifications or architectural distortion. There has been no significant interval change. MM/MM screening mammo BI w/CAD IMPRESSION: NO MAMMOGRAPHIC EVIDENCE OF MALIGNANCY. ROUTINE FOLLOW-UP IS RECOMMENDED IN ONE YEAR. RESULT CODE: 1 Negative DENSITY CODE: 2 (approximately 25-50% glandular) There are scattered areas of fibroglandular density. FOLLOW UP: 1YR The false-negative rate of mammography is approximately 10-percent. Management of a palpable abnormality must be based on clinical grounds. Patient was entered into a reminder system with a target due date for the next mammogram. Impression dictated by: Gildardo Elena M.D. 06/19/2025 4:09 PM Dictation Location: [facility] Dictated By: Gildardo Elena II, MD 06/19/25 1606 Signed By: 06/19/25 1608 [facility] Work Phone: [email or web address] 02-27-2025 [facility] Visit (SP) Office ([facility]) -------- GREENANITHA VICENTEBERTHA H ([id number]) 1980 F Date Time Provider Department 02/27/25 12:00 PM DIONNA GUTIERREZ During your visit today, we recorded the following information about you: Temperature Pulse Respiration Blood pressure 98.3 degrees 74/minute 18/minute 122/82 Weight Height 76.5 kg 1.702 m Dionna Gutierrez MD 02/27/2025 1:07 PM Signed PATIENT NAME: Bertha H Peter CLINIC NO.: [id number] ATTENDING PHYSICIAN: Dionna Gutierrez MD DATE OF SERVICE: February 27, 2025 Some of the elements of the node have been extracted from my previous progress note dated 10/22/2024. All the information has been reviewed carefully. Dear Dr. Abimael Valenzuela MD, here is an update on a follow up visit on female Berthaisacc Green at the clinic February 27, 2025 Diagnosis: B12 and Iron deficiency Anemia SLE on Hydroxychlroquine. Treatment History: 1. Injectafer - Last Monoferric 03/03/2021- EGD- gastritis Venofer 4 doses last 08/2021 Repeat Venofer 11/2022 2. B12 Oral replacement 02/20/2019 3. EGD 12/2022: Normal esophagus. - Three gastric polyps. Resected and retrieved. Clip was placed. 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 - Non-bleeding gastric ulcers with no stigmata of bleeding. - Normal examined duodenum. HPI: Alesia is a 44 year old year old female here for follow up. She is doing well and continues to take care of father , She had another EGD 12/2022 noted above. PAST MEDICAL HISTORY Diagnosis Date Anemia Gastric polyps Gastric ulcer Lupus (HCC) Right flank pain Social History Tobacco Use Smoking status: Never Passive exposure: Past Smokeless tobacco: Never Vaping Use Vaping status: Never Used Substance Use Topics Alcohol use: Never Drug use: Never FAMILY HISTORY Problem Relation Age of Onset other (schitzoaffective disorder) Mother Hypertension Father Schizophrenia Brother Diabetes Other other (scieroderma) Other Past medical, social and family history reviewed without any changes. REVIEW OF SYSTEMS GENERAL: No weight loss, malaise or fevers. No night sweats. HEENT: Negative for headaches, No changes in hearing or vision, no nose bleeds or other nasal problems. RESPIRATORY: Negative for cough, wheezing and shortness of breath CARDIOVASCULAR: Negative for chest pain, leg swelling and palpitations GI: Negative for abdominal discomfort, blood in stools or black stools and change in bowel habits : Negative for dysuria, frequency and incontinence MUSCULOSKELETAL: Negative for joint pain or swelling, back pain, and muscle pain. SKIN: Negative for lesions, rash, and itching. HEMATOLOGY/LYMPHOLOGY Negative for prolonged bleeding, bruising easily, and swollen nodes. NEURO: Negative for numbness or tingling of hands/feet. No weakness. PHYSICAL EXAMINATION: BP 122/82 Pulse 74 Temp (Src) 98.3 (Temporal Artery) Resp 18 Ht 5' 7 (1.70m) Wt 168 lb 8.7 oz (76.5kg) SpO2 97% LMP 11/22/2022 BMI 26.39 kg/(m2). Wt 83.9 kg (185 lb) BMI 29.31 kg/m2 Last 3 Encounter Wt Readings: Date: Wt: 04/29/2019 83.9 kg (185 lb) 02/20/2019 84.4 kg (186 lb) 07/04/2016 87.2 kg (192 lb 4.8 oz) General appearance:ECOG PERFORMANCE STATUS: 0- Fully active, able to carry on all pre-disease performance w/o restriction. Patient in NAD. Skin: Skin color, texture, turgor normal. No rashes or lesions. Eyes: Anicteric sclera. Pupils are equally round and reactive to light. Extraocular movements are intact. Breast: No palpable breast masses. No nipple change or discharge. Lymph Nodes: No cervical, supraclavicular, axillary or inguinal adenopathy. Oropharynx: Lips, mucosa, and tongue normal. Back: No pain to percussion. Negative SLR test Lungs clear to auscultation, No wheezing or rhonchi Heart: RRR without murmur, gallop, or rubs. Abdomen soft, non-tender. No masses, organomegaly Extremities: No deformities. No edema Neuro: Gait and speech normal. Reflexes normal and symmetric. Muscular strength intact. Sensation grossly intact. Rectal: Deferred : Deferred LABS: Glucose (mg/dL) Date Value 10/22/2024 88 11/16/2021 87 Potassium (mmol/L) Date Value 10/22/2024 4.9 11/16/2021 4.4 Sodium (mmol/L) Date Value 10/22/2024 139 11/16/2021 140 Chloride (mmol/L) Date Value 10/22/2024 105 11/16/2021 108 CO2 (mmol/L) Date Value 10/22/2024 22 11/16/2021 26 Creatinine (mg/dL) Date Value 10/22/2024 0.97 11/16/2021 0.87 BUN (mg/dL) Date Value 10/22/2024 13 11/16/2021 14 Anion Gap (mmol/L) Date Value 10/22/2024 12 11/16/2021 6 Calcium (mg/dL) Date Value 11/16/2021 8.6 Calcium, Total (mg/dL) Date Value 10/22/2024 8.7 Protein, Total (g/dL) Date Value 10/22/2024 6.7 11/16/2021 5.9 Albumin (g/dL) Date Value 10/22/2024 4.0 11/16/2021 3.9 Bilirubin, Total (mg/dL) Date Value 12 (more content not included)... Normal [facility] CBC W Auto Differential pane l (Bld)on 02-18-2025 Basophils (Bld) [#/Vol] 0.00 10*3/uL Normal <0.11 [facility] Comment on above: Order Comment: Speci men Type: BLOOD SPECIMENOrdering Facility: [facility] Address: [address] [place] [address] Performed By: #### 5 7021-8 ####[facility] LABCLIA [id number] [address] LABCLIA [id number] [place] [address] [place] Basophils/100 WBC (Bld) 0.0 % Normal [facility] Comment on above: Order Comment: Speci men Type: BLOOD SPECIMENOrdering Facility: [facility] Address: [address] [place] [address] Performed By: #### 5 7021-8 ####[facility] LABCLIA [id number] [address] LABCLIA [id number] [place] [address] [place] Differential cell count method Nom (Bld) Manual Normal [facility] Comment on above: Order Comment: Speci men Type: BLOOD SPECIMENOrdering Facility: [facility] Address: [address] [place] [address] Performed By: #### 5 7021-8 ####[facility] LABCLIA [id number] [address] LABCLIA [id number] [facility] [place] [address] [place] Eosinophils (Bld) [#/Vol] 0.18 10*3/uL Normal <0.46 [facility] Comment on above: Order Comment: Speci men Type: BLOOD SPECIMENOrdering Facility: [facility] Address: [address] [place] [address] Performed By: #### 5 7021-8 ####[facility] LABCLIA [id number] [address] LABCLIA [id number] [place] [address] [place] Eosinophils/100 WBC (Bld) 5.3 % Normal [facility] Comment on above: Order Comment: Speci men Type: BLOOD SPECIMENOrdering Facility: [facility] Address: [address] [place] [address] Performed By: #### 5 7021-8 ####[facility] LABCLIA [id number] [address] LABCLIA [id number] [place] [address] [place] Erythrocyte distribution width (RBC) [Ratio] 14.2 % Normal 11.5-15.0 [facility] Comment on above: Order Comment: Speci men Type: BLOOD SPECIMENOrdering Facility: [facility] Address: [address] [place] [address] Performed By: #### 5 7021-8 ####[facility] LABCLIA [id number] [address] LABCLIA [id number] [place] [address] [place] Hematocrit (Bld) [Volume fraction] 44.8 % Normal 36.0-46.0 [facility] Comment on above: Order Comment: Speci men Type: BLOOD SPECIMENOrdering Facility: [facility] Address: [address] [place] [address] Performed By: #### 5 7021-8 ####[facility] LABCLIA [id number] [place] [id number] LABCLIA [id number] [place] [address] [place] Hemoglobin (Bld) [Mass/Vol] 15.4 g/dL Normal 11.5-15.5 [facility] Comment on above: Order Comment: Speci men Type: BLOOD SPECIMENOrdering Facility: [facility] Address: [address] [place] [address] Performed By: #### 5 7021-8 ####[facility] LABCLIA [id number] [address] LABCLIA [id number] [place] [address] [place] Lymphocytes (Bld) [#/Vol] 1.90 10*3/uL Normal 1.00-4.00 [facility] Comment on above: Order Comment: Speci men Type: BLOOD SPECIMENOrdering Facility: [facility] Address: [address] [place] [address] Performed By: #### 5 7021-8 ####[facility] LABCLIA [id number] [address] LABCLIA [id number] [place] [address] [place] Lymphocytes/100 WBC (Bld) 55.3 % Normal [facility] Comment on above: Order Comment: Speci men Type: BLOOD SPECIMENOrdering Facility: [facility] Address: [address] [place] [address] Performed By: #### 5 7021-8 ####[facility] LABCLIA [id number] [address] LABCLIA [id number] [place] [address] [place] MCH (RBC) [Entitic mass] 33.5 pg Normal 26.0-34.0 [facility] Comment on above: Order Comment: Speci men Type: BLOOD SPECIMENOrdering Facility: [facility] Address: [address] [place] [address] Performed By: #### 5 7021-8 ####[facility] LABCLIA [id number] [address] LABCLIA [id number] [place] [address] [place] MCHC (RBC) [Mass/Vol] 34.4 g/dL Normal 30.5-36.0 [facility] Comment on above: Order Comment: Speci men Type: BLOOD SPECIMENOrdering Facility: [facility] Address: [address] [place] [address] Performed By: #### 5 7021-8 ####[facility] LABCLIA [id number] [address] LABCLIA [id number] [place] [address] [place] MCV (RBC) [Entitic vol] 97.4 fL Normal 80.0-100.0 [facility] Comment on above: Order Comment: Speci men Type: BLOOD SPECIMENOrdering Facility: [facility] Address: [address] [place] [address] Performed By: #### 5 7021-8 ####[facility] LABCLIA [id number] [address] LABCLIA [id number] [place] [address] [place] Monocytes (Bld) [#/Vol] 0.36 10*3/uL Normal <0.87 [facility] Comment on above: Order Comment: Speci men Type: BLOOD SPECIMENOrdering Facility: [facility] Address: [address] [place] [address] Performed By: #### 5 7021-8 ####[facility] LABCLIA [id number] [place] [id number] LABCLIA [id number] [place] [address] [place] Monocytes/100 WBC (Bld) 10.6 % Normal [facility] Comment on above: Order Comment: Speci men Type: BLOOD SPECIMENOrdering Facility: [facility] Address: [address] [place] [address] Performed By: #### 5 7021-8 ####[facility] LABCLIA [id number] [place] [address] LABCLIA [id number] [place] [address] [place] Neutrophils (Bld) [#/Vol] 0.99 10*3/uL Low 1.45-7.50 [facility] Comment on above: Order Comment: Speci men Type: BLOOD SPECIMENOrdering Facility: [facility] Address: [address] [place] [address] Performed By: #### 5 7021-8 ####[facility] LABCLIA [id number] [place] [address] LABCLIA [id number] [place] [address] [place] Neutrophils/100 WBC (Bld) 28.8 % Normal [facility] Comment on above: Order Comment: Speci men Type: BLOOD SPECIMENOrdering Facility: [facility] Address: [address] [place] [address] Performed By: #### 5 7021-8 ####[facility] LABCLIA [id number] [place] [id number] LABCLIA [id number] [place] [address] [place] Nucleated RBC (Bld) [#/Vol] 10*3/uL Normal <0.01 [facility] Comment on above: Order Comment: Speci men Type: BLOOD SPECIMENOrdering Facility: [facility] Address: [address] [place] [address] Performed By: #### 5 7021-8 ####[facility] LABCLIA [id number] [place] [id number] LABCLIA [id number] [place] [address] [place] Nucleated RBC/100 WBC (Bld) [Ratio] 0.0 /100 WBC Normal [facility] Comment on above: Order Comment: Speci men Type: BLOOD SPECIMENOrdering Facility: [facility] Address: [address] [place] [address] Performed By: #### 5 7021-8 ####[facility] LABCLIA [id number] [address] LABCLIA [id number] [place] [address] [place] Platelet mean volume (Bld) [Entitic vol] 13.1 fL High 9.0-12.7 [facility] Comment on above: Order Comment: Speci men Type: BLOOD SPECIMENOrdering Facility: [facility] Address: [address] [place] [address] Performed By: #### 5 7021-8 ####[facility] LABCLIA [id number] [address] LABCLIA [id number] [place] [address] [place] Platelets (Bld) [#/Vol] 76 10*3/uL Low 150-400 [facility] Comment on above: Order Comment: Speci men Type: BLOOD SPECIMENOrdering Facility: [facility] Address: [address] [place] [address] Result Comment: No c lot detected.Results checked and verified. Performed By: #### 5 7021-8 ####[facility] LABCLIA [id number] [facility]MILSGLR[facility] LABCLIA [id number] [address] [place] [address] [place] Platelets Estimate (Bld) [#/Vol] Decreased Normal [facility] Comment on above: Order Comment: Speci men Type: BLOOD SPECIMENOrdering Facility: [facility] Address: [address] [place] [address] Performed By: #### 5 7021-8 ####[facility] LABCLIA [id number] [place] [address] LABCLIA [id number] [address] [place] [address] [place] Polychromasia LM Ql (Bld) Slight Normal [facility] Comment on above: Order Comment: Speci men Type: BLOOD SPECIMENOrdering Facility: [facility] Address: [address] [place] [address] Performed By: #### 5 7021-8 ####[facility] LABCLIA [id number] [place] [address] LABCLIA [id number] [address] [place] [address] [place] RBC (Bld) [#/Vol] 4.60 10*6/uL Normal 3.90-5.20 [facility] Comment on above: Order Comment: Speci men Type: BLOOD SPECIMENOrdering Facility: [facility] Address: [address] [place] [address] Performed By: #### 5 7021-8 ####[facility] LABCLIA [id number] [place] [address] LABCLIA [id number] [address] [place] [address] [place] RED CELL MORPH Reviewed: unremarkable Normal [facility] Comment on above: Order Comment: Speci men Type: BLOOD SPECIMENOrdering Facility: [facility] Address: [address] [place] [address] Performed By: #### 5 7021-8 ####[facility] LABCLIA [id number] [place] [address] LABCLIA [id number] [place] [address] [place] WBC (Bld) [#/Vol] 3.44 10*3/uL Low 3.70-11.00 [facility] Comment on above: Order Comment: Speci men Type: BLOOD SPECIMENOrdering Facility: [facility] Address: [address] [place] [address] Result Comment: No c lot detected.Results checked and verified. Performed By: #### 5 7021-8 ####[facility] LABCLIA [id number] [place] [address] LABCLIA [id number] [place] [address] [place] Ferritin SerPl-ncon 2024 Ferritin [Mass/Vol] 48.7 ng/mL Normal 14.7-205.1 [facility] Comment on above: Order Comment: Speci men Type: BLOOD SPECIMENOrdering Facility: [facility] Address: [address] [place] [address] Performed By: #### 2 276-4, 68355-1 ####[facility] LABCLIA [id number] [place] [address] [place] Iron and Iron binding capaci ty panelon 02-18-2025 Iron [Mass/Vol] 69 ug/dL Normal 41-186 [facility] Comment on above: Order Comment: Speci men Type: BLOOD SPECIMENOrdering Facility: [facility] Address: [address] [place] [address] Performed By: #### 2 276-4, 95702-8 ####[facility] LABCLIA [id number] [place] [address] [place] Iron binding capacity [Mass/Vol] 285 ug/dL Normal 232-386 [facility] Comment on above: Order Comment: Speci men Type: BLOOD SPECIMENOrdering Facility: [facility] Address: [address] [place] [address] Performed By: #### 2 276-4, 70039-3 ####[facility] LABIA [id number] [address] Iron/TIBC [Molar ratio] 24.2 % Normal 15.0-57.0 [facility] Comment on above: Order Comment: Speci men Type: BLOOD SPECIMENOrdering Facility: [facility] Address: [address] [place] [address] Performed By: #### 2 276-4, 96218-3 ####[facility] LABCLIA [id number] [address] CNPIrma 02-04-2025 CNPN Telephone (HEMAVN) -------- BERTHA GREEN ([id number]) 1980 F Date Time Provider Department 02/04/25 IZABEL GLOVER HEMAVN During your visit today, we recorded the following information about you: Izabel Glover, RN 02/04/2025 3:45 PM Signed Pt left VM on [facility] phone that she needs to reschedule 02/20 appointments. [phone] (home) Please call with new appt options Allergies As of Date: 02/04/2025 Noted Allergy Reaction environmental [Other] 08/25/2005 14 - Other: See Comments Date Reviewed: 10/22/2024 Reviewed by: Bruna Rose MA - Fully Assessed Reason for Visit: Appointment [186] Prescriptions as of 02/04/2025 - sertraline (ZOLOFT) 25 mg tablet Take 25 mg by mouth once daily. - buPROPion XL (WELLBUTRIN XL) 300 mg 24 hr tablet 300 mg. - levonorgestrel-ethinyl estradiol 0.15 mg-30 mcg (91) per tab, 3 month pack Take 1 tablet by mouth once daily. - cyanocobalamin (VITAMIN B-12) 1,000 mcg tab TAKE 1 TABLET BY MOUTH EVERY DAY - MOTEGRITY 2 mg tab tablet Take 1 tablet by mouth once daily. Problem List As Of Date 02/04/2025 Noted Resolved Abnormal immunological finding in serum [R76.9] 01/17/2011 History of systemic lupus erythematosus (SLE) [*01/17/2011 Body fluid retention [R60.9] 01/17/2011 Allergic rhinitis [J30.9] 01/17/2011 History of anemia [Z86.2] 01/17/2011 History of Leukopenia [D72.819] 01/17/2011 History of Thrombocytopenia [D69.6] 01/17/2011 Raynaud's phenomenon (by history not observed) *01/17/2011 Vitamin D deficiency-Hist of [E55.9] 01/17/2011 Constipation [K59.00] 09/14/2012 JAVIER positive [R76.8] 06/29/2015 Fatigue [R53.83] 06/29/2015 IBS (irritable bowel syndrome) [K58.9] 06/29/2015 Weight gain [R63.5] 06/29/2015 Chronic headache [R51.9, G89.29] 06/29/2015 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*09/16/2015 Bacterial overgrowth syndrome [K63.89] 09/16/2015 Gluten intolerance [K90.41] 09/16/2015 Iron deficiency anemia due to chronic blood los*02/21/2019 Peptic ulcer disease [K27.9] 12/26/2022 Encounter Status:Closed by IZABEL GLOVER on 02/04/25 Normal [facility] CNOVSPon 10-22-2024 CNOVSP Visit (SP) Office (HEMAVN) -------- BERTHA GREEN ([id number]) 1980 F Date Time Provider Department 10/22/24 9:30 AM DIONNA GUTIERREZ During your visit today, we recorded the following information about you: Temperature Pulse Respiration Blood pressure 99.1 degrees 76/minute 18/minute 123/76 Weight Height 75 kg 1.702 m Dionna Gutierrez MD 10/22/2024 5:11 PM Signed PATIENT NAME: Bertha Green CLINIC NO.: [id number] ATTENDING PHYSICIAN: Dionna Gutierrez MD DATE OF SERVICE: October 22, 2024 Some of the elements of the node have been extracted from my previous progress note dated 06/20/2024. All the information has been reviewed carefully. Dear Dr. Abimael Valenzuela MD, here is an update on a follow up visit on female Bertha Green at the clinic October 22, 2024 Diagnosis: B12 and Iron deficiency Anemia SLE on Hydroxychlroquine. Treatment History: 1. Injectafer - Last Monoferric 03/03/2021- EGD- gastritis Venofer 4 doses last 08/2021 Repeat Venofer 11/2022 2. B12 Oral replacement 02/20/2019 3. EGD 12/2022: Normal esophagus. - Three gastric polyps. Resected and retrieved. Clip was placed. 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 - Non-bleeding gastric ulcers with no stigmata of bleeding. - Normal examined duodenum. HPI: Alesia is a 44 year old year old female here for follow up. Doing well and also father had an SD and she is taking care of him. Denies any new complaints. She had another EGD 12/2022 noted above. PAST MEDICAL HISTORY Diagnosis Date Anemia Gastric polyps Gastric ulcer Lupus (HCC) Right flank pain Social History Tobacco Use Smoking status: Never Passive exposure: Past Smokeless tobacco: Never Vaping Use Vaping status: Never Used Substance Use Topics Alcohol use: Never Drug use: Never FAMILY HISTORY Problem Relation Age of Onset other (schitzoaffective disorder) Mother Hypertension Father Schizophrenia Brother Diabetes Other other (scieroderma) Other Past medical, social and family history reviewed without any changes. REVIEW OF SYSTEMS GENERAL: No weight loss, malaise or fevers. No night sweats. HEENT: Negative for headaches, No changes in hearing or vision, no nose bleeds or other nasal problems. RESPIRATORY: Negative for cough, wheezing and shortness of breath CARDIOVASCULAR: Negative for chest pain, leg swelling and palpitations GI: Negative for abdominal discomfort, blood in stools or black stools and change in bowel habits : Negative for dysuria, frequency and incontinence MUSCULOSKELETAL: Negative for joint pain or swelling, back pain, and muscle pain. SKIN: Negative for lesions, rash, and itching. HEMATOLOGY/LYMPHOLOGY Negative for prolonged bleeding, bruising easily, and swollen nodes. NEURO: Negative for numbness or tingling of hands/feet. No weakness. PHYSICAL EXAMINATION: BP 123/76 Pulse 76 Temp (Src) 99.1 (Temporal Artery) Resp 18 Ht 5' 7 (1.70m) Wt 165 lb 5.5 oz (75.0kg) SpO2 100% LMP 11/22/2022 BMI 25.89 kg/(m2). Wt 83.9 kg (185 lb) BMI 29.31 kg/m2 Last 3 Encounter Wt Readings: Date: Wt: 04/29/2019 83.9 kg (185 lb) 02/20/2019 84.4 kg (186 lb) 07/04/2016 87.2 kg (192 lb 4.8 oz) General appearance:ECOG PERFORMANCE STATUS: 0- Fully active, able to carry on all pre-disease performance w/o restriction. Patient in NAD. Skin: Skin color, texture, turgor normal. No rashes or lesions. Eyes: Anicteric sclera. Pupils are equally round and reactive to light. Extraocular movements are intact. Breast: No palpable breast masses. No nipple change or discharge. Lymph Nodes: No cervical, supraclavicular, axillary or inguinal adenopathy. Oropharynx: Lips, mucosa, and tongue normal. Back: No pain to percussion. Negative SLR test Lungs clear to auscultation, No wheezing or rhonchi Heart: RRR without murmur, gallop, or rubs. Abdomen soft, non-tender. No masses, organomegaly Extremities: No deformities. No edema Neuro: Gait and speech normal. Reflexes normal and symmetric. Muscular strength intact. Sensation grossly intact. Rectal: Deferred : Deferred LABS: Glucose (mg/dL) Date Value 03/18/2024 105 11/16/2021 87 Potassium (mmol/L) Date Value 03/18/2024 4.5 11/16/2021 4.4 Sodium (mmol/L) Date Value 03/18/2024 139 11/16/2021 140 Chloride (mmol/L) Date Value 03/18/2024 108 11/16/2021 108 CO2 (mmol/L) Date Value 03/18/2024 23 11/16/2021 26 Creatinine (mg/dL) Date Value 03/18/2024 1.19 11/16/2021 0.87 BUN (mg/dL) Date Value 03/18/2024 18 11/16/2021 14 Anion Gap (mmol/L) Date Value 03/18/2024 8 11/16/2021 6 Calcium (mg/dL) Date Value 11/16/2021 8.6 Calcium, Total (mg/dL) Date Value 03/18/2024 8.7 Protein, Total (g/dL) Date Value 03/18/2024 6.4 11/16/2021 5.9 Albumin (g/dL) Date Value 03/18/2024 4.0 11/16/2021 3.9 B (more content not included)... Normal [facility] Comprehensive metabolic 2000 panelon 10-22-2024 Albumin [Mass/Vol] 4.0 g/dL Normal 3.9-4.9 [facility] Comment on above: Order Comment: Speci cornelius Type: BLOOD SPECIMEN Ordering Facility: [facility] Address: [address] [place] [address] Performed By: #### 2 4323-8, 2276-4, 65845-1 #### [facility] CLIA [id number] [address] [facility] [place] [address] [place] ALP [Catalytic activity/Vol] 88 U/L Normal 34-123 [facility] Comment on above: Order Comment: Speci men Type: BLOOD SPECIMEN Ordering Facility: [facility] Address: [address] [place] [address] Performed By: #### 2 4323-8, 6-4, 90799-4 #### [facility] CLIA [id number] [address] [place] [address] [place] ALT [Catalytic activity/Vol] 22 U/L Normal 7-38 [facility] Comment on above: Order Comment: Speci men Type: BLOOD SPECIMEN Ordering Facility: [facility] Address: [address] [place] [address] Performed By: #### 2 4323-8, 2275-4, 09449-1 #### [facility] CLIA [id number] [address] [place] [address] [place] Anion gap [Moles/Vol] 12 mmol/L Normal 8-15 [facility] Comment on above: Order Comment: Speci men Type: BLOOD SPECIMEN Ordering Facility: [facility] Address: [address] [place], [place] [address] Performed By: #### 2 4323-8, 2275-4, 41742-2 #### [facility] CLIA [id number] [address] [place] [address] [place] AST [Catalytic activity/Vol] 28 U/L Normal 13-35 [facility] Comment on above: Order Comment: Speci men Type: BLOOD SPECIMEN Ordering Facility: [facility] Address: [address] [place] [address] Performed By: #### 2 4323-8, 4, 04677-4 #### [facility] CLIA [id number] [address] [place] [address] [place] Bilirubin [Mass/Vol] 0.4 mg/dL Normal 0.2-1.3 [facility] Comment on above: Order Comment: Speci men Type: BLOOD SPECIMEN Ordering Facility: [facility] Address: [address] [place] [address] Performed By: #### 2 4323-8, 2275-4, 61395-5 #### [facility] CLIA [id number] [address] [place] [address] [place] Calcium [Mass/Vol] 8.7 mg/dL Normal 8.5-10.2 [facility] Comment on above: Order Comment: Speci men Type: BLOOD SPECIMEN Ordering Facility: [facility] Address: [address] [place] [address] Performed By: #### 2 4323-8, 6-4, 08639-4 #### [facility] CLIA [id number] [address] [place] [address] [place] Chloride [Moles/Vol] 105 mmol/L Normal 98-107 [facility] Comment on above: Order Comment: Speci men Type: BLOOD SPECIMEN Ordering Facility: [facility] Address: [address] [place] [address] Performed By: #### 2 4323-8, 2275-4, 20353-9 #### [facility] CLIA [id number] [address] [place] [address] [place] CO2 [Moles/Vol] 22 mmol/L Normal 22-30 [facility] Comment on above: Order Comment: Speci men Type: BLOOD SPECIMEN Ordering Facility: [facility] Address: [address] [place] [address] Performed By: #### 2 4323-8, 2275-4, 23235-6 #### [facility] CLIA [id number] [address] [place] [address] [place] Creatinine [Mass/Vol] 0.97 mg/dL High 0.58-0.96 [facility] Comment on above: Order Comment: Speci men Type: BLOOD SPECIMEN Ordering Facility: [facility] Address: [address] [place] [address] Performed By: #### 2 4323-8, 2275-4, 53882-0 #### [facility] CLIA [id number] [place] [id number] [place] Creatinine and Glomerular filtration rate.predicted panel (S/P/Bld) 74 mL/min/1.73m??? Normal >=60 [facility] Comment on above: Order Comment: Leesa shields Type: BLOOD SPECIMEN Ordering Facility: [facility] Address: [address] [place] [address] Result Comment: Wali mated Glomerular Filtration Rate (eGFR) is calculated using the 2020 CKD-EPI creatinine equation. This equation utilizes serum creatinine, sex, and age as parameters. The creatinine assay has traceable calibration to isotope dilution-mass spectrometry. Refer to KDIGO guidelines for clinical interpretation. In patients with unstable renal function, e.g. those with acute kidney injury, the eGFR may not accurately reflect actual GFR. Performed By: #### 2 4323-8, 2276-4, 31462-9 #### [facility] CLIA [id number] [facility] [place] [address] [place] Glucose [Mass/Vol] 88 mg/dL Normal 74-99 [facility] Comment on above: Order Comment: Leesa shields Type: BLOOD SPECIMEN Ordering Facility: [facility] Address: [address] [place] [address] Result Comment: The [place] Diabetes Association (ADA) provides guidance for cutoff values for fasting glucose and random glucose. The ADA defines fasting as no caloric intake for at least 8 hours. Fasting plasma glucose results between 100 to 125 mg/dL indicate increased risk for diabetes (prediabetes). Fasting plasma glucose results greater than or equal to 126 mg/dL meet the criteria for diagnosis of diabetes. In the absence of unequivocal hyperglycemia, results should be confirmed by repeat testing. In a patient with classic symptoms of hyperglycemia or hyperglycemic crisis, random plasma glucose results greater than or equal to 200 mg/dL meet the criteria for diagnosis of diabetes. Reference: Standards of Medical Care in Diabetes 2016, [place] [employer]. Diabetes Care. 2016.39(Suppl 1). Performed By: #### 2 4323-8, 2276-4, 44131-0 #### [facility] CLIA [id number] [facility] [place] [address] [place] Potassium [Moles/Vol] 4.9 mmol/L Normal 3.7-5.1 [facility] Comment on above: Order Comment: Leesa shields Type: BLOOD SPECIMEN Ordering Facility: [facility] Address: [address] [place] [address] Performed By: #### 2 4323-8, 6-4, 04540-2 #### [facility] CLIA [id number] [address] [place] [address] [place] Protein [Mass/Vol] 6.7 g/dL Normal 6.3-8.0 [facility] Comment on above: Order Comment: Speci men Type: BLOOD SPECIMEN Ordering Facility: [facility] Address: [address] [place], [place] [id number] Performed By: #### 2 4323-8, 6-4, 97343-6 #### [facility] CLIA [id number] [address] [place] [address] [place] Sodium [Moles/Vol] 139 mmol/L Normal 136-144 [facility] Comment on above: Order Comment: Speci men Type: BLOOD SPECIMEN Ordering Facility: [facility] Address: [address] [place], [place] [id number] Performed By: #### 2 4323-8, 2275-4, 45618-6 #### [facility] CLIA [id number] [address] [place] [address] [place] Urea nitrogen [Mass/Vol] 13 mg/dL Normal 7-21 [facility] Comment on above: Order Comment: Speci men Type: BLOOD SPECIMEN Ordering Facility: [facility] Address: [address] [place] [address] Performed By: #### 2 4323-8, 2275-4, 43191-8 #### [facility] CLIA [id number] [address] [place] [address] [place] Ferritin SerPl-mCncon 2023 Ferritin [Mass/Vol] 120.0 ng/mL Normal 14.7-205.1 [facility] Comment on above: Order Comment: Speci men Type: BLOOD SPECIMEN Ordering Facility: [facility] Address: [address] [place] [address] Performed By: #### 2 4323-8, 2275-4, 08561-1 #### [facility] CLIA [id number] [facility] [place] [address] [place] Iron and Iron binding capaci ty panelon 10-22-2024 Iron [Mass/Vol] 126 ug/dL Normal 41-186 [facility] Comment on above: Order Comment: Speci men Type: BLOOD SPECIMEN Ordering Facility: [facility] Address: [address] [place] [address] Performed By: #### 2 4323-8, 2276-4, 20369-4 #### [facility] CLIA [id number] [address] [place] [address] [place] Iron binding capacity [Mass/Vol] Normal [facility] Comment on above: Order Comment: Speci men Type: BLOOD SPECIMEN Ordering Facility: [facility] Address: [address] [place] [address] Result Comment: Unab le to calculate due to hemolysis. Performed By: #### 2 4323-8, 2276-4, 76705-6 #### [facility] CLIA [id number] [facility] [place] [address] [place] Iron/TIBC [Molar ratio] Normal [facility] Comment on above: Order Comment: Speci men Type: BLOOD SPECIMEN Ordering Facility: [facility] Address: [address] [place] [address] Result Comment: Unab le to calculate due to hemolysis. Performed By: #### 2 4323-8, 6-4, 09626-6 #### [facility] CLIA [id number] [facility] [place] [address] [place] Iron binding capacity [Mass/ volume] in Serum or Plasmaon 10-22-2024 Iron binding capacity [Mass/Vol] Iron binding capacity [Mass/volume] in Serum or Plasma [facility] Comment on above: Unable to calculate due to hemolysis. Iron saturation [Mass Fracti on] in Serum or Plasmaon 10-22-2024 Iron saturation [Mass fraction] Iron saturation [Mass Fraction] in Serum or Plasma [facility] Comment on above: Unable to calculate due to hemolysis. Laboratory - Chemistry and C hemistry - challengeon 10-22-2024 Albumin [Mass/Vol] 4.0 g/dL 3.9-4.9 [facility] ALP [Catalytic activity/Vol] 88 U/L 34-123 [facility] ALT [Catalytic activity/Vol] 22 U/L 7-38 [facility] AST [Catalytic activity/Vol] 28 U/L 13-35 [facility] Bilirubin [Mass/Vol] 0.4 mg/dL 0.2-1.3 [facility] Calcium [Mass/Vol] 8.7 mg/dL 8.5-10.2 [facility] Chloride [Moles/Vol] 105 mmol/L 98-107 [facility] CO2 [Moles/Vol] 22 mmol/L 22-30 [facility] Creatinine [Mass/Vol] 0.97 mg/dL High 0.58-0.96 [facility] Ferritin [Mass/Vol] 120.0 ng/mL 14.7-205.1 [facility] Glucose [Mass/Vol] 88 mg/dL 74-99 [facility] Comment on above: The [place] Diabete s Association (ADA) provides guidance for cutoff values for fasting glucose and random glucose. The ADA defines fasting as no caloric intake for at least 8 hours. Fasting plasma glucose results between 100 to 125 mg/dL indicate increased risk for diabetes (prediabetes).Fasting plasma glucose results greater than or equal to 126 mg/dL meet the criteria for diagnosis of diabetes. In the absence of unequivocal hyperglycemia, results should be confirmed by repeat testing. In a patient with classic symptoms of hyperglycemia or hyperglycemic crisis, random plasma glucose results greater than or equal to 200 mg/dL meet the criteria for diagnosis of diabetes.Reference: Standards of Medical Care in Diabetes 2016, [place] [employer]. Diabetes Care. 2016.39(Suppl 1). Iron [Mass/Vol] 126 ug/dL 41-186 [facility] Potassium [Moles/Vol] 4.9 mmol/L 3.7-5.1 [facility] Sodium [Moles/Vol] 139 mmol/L 136-144 [facility] Urea nitrogen [Mass/Vol] 13 mg/dL 7-21 [facility] No Panel Informationon 10-22 Estimated GFR (CKD-EPI) 74 mL/min/1.73m??? >=60 [facility] Comment on above: Estimated Glomerular Filtration Rate (eGFR) is calculated using the 2020 CKD-EPI creatinine equation. This equation utilizes serum creatinine, sex, and age as parameters. The creatinine assay has traceable calibration to isotope dilution-mass spectrometry. Refer to KDIGO guidelines for clinical interpretation. In patients with unstable renal function, e.g. those with acute kidney injury, the eGFR may not accurately reflect actual GFR. Protein [Mass/volume] in Ser um or Plasmaon 10-22-2024 Protein [Mass/Vol] Protein [Mass/volume ] in Serum or Plasma 6.3-8.0 [facility] Serum or plasma anion gap de terminationon 10-22-2024 Anion gap [Moles/Vol] Serum or plasma an ion gap determination 8-15 [facility] JAVIER Reflex Testingon 024 JAVIER with Reflex Positive Critically abnormal Negative [facility] Comment on above: Result Comment: PERF ORMED BY: [place] [address] PATHOLOGIST HELMINTHOLOGIST NEYMAR GÓMEZ M.D. Performed By: #### U RTP, UA #### [address] #### JAVIER RFX ADD ON #### [facility] , Anti-Centromere B Antibodies <0.2 Normal 0.0-0.9 [facility] Comment on above: Performed By: #### U RTP, UA #### [facility] [address] [place] [address] #### JAVIER RFX ADD ON #### [facility] , Anti-dsDNA(DBL)Ab 3 [IU]/mL Normal 0-9 [facility] Comment on above: Result Comment: Nega tive <5 Equivocal 5 - 9 Positive >9 Performed By: #### U RTP, UA #### [place] [address] [place] #### JAVIER RFX ADD ON #### [facility] , Anti-POLICE DEPARTMENT SECRETARY 0.3 Normal 0.0-0.9 [facility] Comment on above: Performed By: #### U RTP, UA #### [facility] [address] [place] [address] #### JAVIER RFX ADD ON #### [facility] , Anti-Jackson Antibodies <0.2 Normal 0.0-0.9 [facility] Comment on above: Performed By: #### U RTP, UA #### [facility] [address] [place] [address] #### JAVIER RFX ADD ON #### [facility] , Chromatin Antibody <0.2 Normal 0.0-0.9 [facility] Comment on above: Performed By: #### U RTP, UA #### [facility] [address] [place] [address] [place] #### JAVIER RFX ADD ON #### [facility] , KRISTY-1 Antibody <0.2 Normal 0.0-0.9 [facility] Comment on above: Performed By: #### U RTP, UA #### [facility] [address] [place] [address] [place] #### JAVIER RFX ADD ON #### [facility] , Scleroderma 70 Antibodies <0.2 Normal 0.0-0.9 [facility] Comment on above: Performed By: #### U RTP, UA #### [facility] [address] [place] [address] #### JAVIER RFX ADD ON #### [facility] , See Below: Comment Normal . [facility] Comment on above: Result Comment: Auto antibody Disease Association Condition Frequency --------- Antinuclear Antibody, SLE, mixed connective Direct (JAVIER-D) tissue diseases --------- dsDNA SLE 40 - 60% --------- Chromatin Drug induced SLE 90% SLE 48 - 97% --------- SSA (Ro) SLE 25 - 35% Sjogren's Syndrome 40 - 70% Lupus 100% --------- SSB (La) SLE 10% Sjogren's Syndrome 30% --------- Sm (anti-Jackson) SLE 15 - 30% --------- POLICE DEPARTMENT SECRETARY Mixed Connective Tissue Disease 95% (U1 nRNP, SLE 30 - 50% anti-ribonucleoprotein) Polymyositis and/or Dermatomyositis 20% --------- Scl-70 (antiDNA Scleroderma (diffuse) 20 - 35% topoisomerase) Crest 13% --------- Kristy-1 Polymyositis and/or Dermatomyositis 20 - 40% --------- Centromere B Scleroderma - Crest variant 80% Performed at: [facility] [id number] Forepart Laster: Favio Soto PhD, Phone: [phone] PERFORMED BY: [place] [address] PATHOLOGIST HELMINTHOLOGIST NEYMAR GÓMEZ M.D. Performed By: #### U RTP, UA #### [facility] [address] [place] [address] #### JAVIER RFX ADD ON #### [facility] , SS-A/Ro Sjogrens Antibody 7.7 High 0.0-0.9 [facility] Comment on above: Performed By: #### U RTP, UA #### [facility] [address] [place] [address] [place] #### JAVIER RFX ADD ON #### [facility] , SS-B/La Sjogrens Antibody <0.2 Normal 0.0-0.9 [facility] Comment on above: Performed By: #### U RTP, UA #### [facility] [address] [place] [address] [place] #### JAVIER RFX ADD ON #### [facility] , Appearance of UrineOrdered B y: Jose Antonio Fenton on 10-16-2024 Appearance (U) Urine appearance Clear [facility] Bilirubin Test strip Ql (U)O rdered By: Jose Antonio Fenton on 10-16-2024 Bilirubin Ql (U) Bilirubin.total [Presence] in Urine by Test strip Negative [facility] Color Auto (U)Ordered By: Cristal Fenton on 10-16-2024 Color (U) Color of Urine by Auto Yellow Fi [facility] DNA double strand Ab [Units/ volume] in SerumOrdered By: Jose Antonio Fenton on 10-16-2024 DNA double strand Ab Qn (S) DNA double strand Ab [Units/volume] in Serum 0-9 [facility] Comment on above: Negative <5 Equivoca l 5 - 9 Positive >9 Glucose [Mass/volume] in Uri ne by Test stripOrdered By: Jose Antonio Fenton on 10-16-2024 Glucose Test strip (U) [Mass/Vol] Glucose [Mass/volume] in Urine by Test strip Normal [facility] Hemoglobin Test strip Ql (U) Ordered By: Jose Antonio Fenton on 10-16-2024 Hemoglobin Ql (U) Hemoglobin [Presence ] in Urine by Test strip Negative [facility] Ketones Test strip Ql (U)Ord ered By: Jose Antonio Fenton on 10-16-2024 Ketones Ql (U) Ketones [Presence] i n Urine by Test strip Negative [facility] Leukocyte esterase [Presence ] in Urine by Test stripOrdered By: Jose Antonio Fenton on 10-16-2024 Leukocyte esterase Test strip Ql (U) Leukocyte esterase [Presence] in Urine by Test strip Negative [facility] Nitrite Test strip Ql (U)Ord ered By: Jose Antonio Fenton on 10-16-2024 Nitrite Ql (U) Nitrite [Presence] i n Urine by Test strip Negative [facility] No Panel InformationOrdered By: Jose Antonio Fenton on 10-16-2024 Anti-Nuclear Antibody Interpret Comment . [facility] Comment on above: Autoantibody Disease Association ------- Condition Frequency ---------Antinuclear Antibody, SLE, mixed connectiveDirect (JAVIER-D) tissue diseases ---------dsDNA SLE 40 - 60% ---------Chromatin Drug induced SLE 90% SLE 48 - 97% ---------SSA (Ro) SLE 25 - 35% Sjogren's Syndrome 40 - 70% Lupus 100% ---------SSB (La) SLE 10% Sjogren's Syndrome 30% ---------Sm (anti-Jackson) SLE 15 - 30% ---------POLICE DEPARTMENT SECRETARY Mixed Connective Tissue Disease 95%(U1 nRNP, SLE 30 - 50%anti-ribonucleoprotein) Polymyositis and/or Dermatomyositis 20% ---------Scl-70 (antiDNA Scleroderma (diffuse) 20 - 35%topoisomerase) Crest 13% ---------Kristy-1 Polymyositis and/or Dermatomyositis 20 - 40% ---------Centromere B Scleroderma - Crest variant 80%Performed at: [facility] [id number] Director: Favio Soto PhD, Phone: [phone] Protein Test strip (U) [Mass /Vol]Ordered By: Jose Antonio Fenton on 10-16-2024 Protein (U) [Mass/Vol] Protein [Mass/volume] in Urine by Test strip Negative [facility] Protein [Mass/volume] in Uri neOrdered By: Jose Antonio Fenton on 10-16-2024 Protein (U) [Mass/Vol] Protein [Mass/volume] in Urine 0-9 [facility] Ribonucleoprotein antibody a ssayOrdered By: Jose Antonio Fenton on 10-16-2024 POLICE DEPARTMENT SECRETARY Antibody 0.3 AI 0.0-0.9 [facility] Scl-70 antibody assayOrdered By: Jose Antonio Fenton on 10-16-2024 Scl-70 (Scleroderma) Antibody <0.2 AI 0.0-0.9 [facility] Serum Kristy-1 extractable nucle ar antibody assay (units/volume)Ordered By: Jose Antonio Fenton on 10-16-2024 Kristy-1 extractable nuclear Ab Qn (S) Serum Kristy-1 extractable nuclear antibody assay (units/volume) 0.0-0.9 [facility] Serum Sjogrens syndrome-A ex tractable nuclear antibody assay (units/volume)Ordered By: Jose Antonio Fenton on 10-16-2024 Sjogrens syndrome-A extractable nuclear Ab Qn (S) Serum Sjogrens syndrome-A extractable nuclear antibody assay (units/volume) High 0.0-0.9 [facility] Serum Sjogrens syndrome-B ex tractable nuclear antibody assay (units/volume)Ordered By: Jose Antonio Fenton on 10-16-2024 Sjogrens syndrome-B extractable nuclear Ab Qn (S) Serum Sjogrens syndrome-B extractable nuclear antibody assay (units/volume) 0.0-0.9 [facility] Serum Jackson extractable nucl ear antigen (JOSE F) antibody assay (units/volume)Ordered By: Jose Antonio Fenton on 10-16-2024 Jackson extractable nuclear Ab Qn (S) Serum Jackson extractable nuclear antigen (JOSE F) antibody assay (units/volume) 0.0-0.9 [facility] Serum centromere protein B a ntibody assay (units/volume)Ordered By: Jose Antonio Fenton on 10-16-2024 Centromere protein B Ab Qn (S) Serum centromere protein B antibody assay (units/volume) 0.0-0.9 [facility] Serum or plasma chromatin an tibody assay (units/volume)Ordered By: Jose Antonio Fenton on 10-16-2024 Chromatin Ab Qn Serum or plasma chromatin antibody assay (units/volume) 0.0-0.9 [facility] Serum or plasma free cefurox kenny measurement (mass/volume)Ordered By: Jose Antonio Fenton on 10-16-2024 Cefuroxime free [Mass/Vol] Serum or plasma free cefuroxime measurement (mass/volume) Abnormal Negative [facility] Specific gravity Test strip (U) [Rel density]Ordered By: Jose Antonio Fenton on 10-16-2024 Specific gravity (U) [Rel density] Specific gravity of Urine by Test strip 1.001-1.030 [facility] Total Protein, Urineon 10-16 Total Protein, Urine <4 Normal 0-9 [facility] Comment on above: Result Comment: PERF ORMED BY: [facility] [address] [place] [address] PATHOLOGIST HELMINTHOLOGIST NEYMAR GÓMEZ M.D. Performed By: #### U RTP, UA #### [address] #### JAVIER RFX ADD ON #### [facility] , Urinalysison 10-16-2024 Appearance (U) Clear Normal Clear [facility] Comment on above: Order Comment: Name Collection Type:: Clean-Voided Midstream Performed By: #### U RTP, UA #### [address] #### JAVIER RFX ADD ON #### [facility] , Bilirubin,Urine Negative Normal Negative [facility] Comment on above: Order Comment: Name Collection Type:: Clean-Voided Midstream Performed By: #### U RTP, UA #### [address] #### JAVIER RFX ADD ON #### [facility] , Color (U) Colorless Normal Yellow [facility] Comment on above: Order Comment: Name Collection Type:: Clean-Voided Midstream Performed By: #### U RTP, UA #### [address] #### JAVIER RFX ADD ON #### [facility] , Glucose Ql (U) Normal Normal Normal [facility] Comment on above: Order Comment: Name Collection Type:: Clean-Voided Midstream Performed By: #### U RTP, UA #### [facility] [address] [place] [address] #### JAVIER RFX ADD ON #### [facility] , Ketones Ql (U) Negative Normal Negative [facility] Comment on above: Order Comment: Name Collection Type:: Clean-Voided Midstream Performed By: #### U RTP, UA #### [address] #### JAVIER RFX ADD ON #### [facility] , Leukocyte esterase Test strip Ql (U) Negative Normal Negative [facility] Comment on above: Order Comment: Name Collection Type:: Clean-Voided Midstream Performed By: #### U RTP, UA #### [address] #### JAVIER RFX ADD ON #### [facility] , Nitrite,Urine Negative Normal Negative [facility] Comment on above: Order Comment: Name Collection Type:: Clean-Voided Midstream Performed By: #### U RTP, UA #### [address] #### JAVIER RFX ADD ON #### [facility] , Occult Blood,Urine Negative Normal Negative [facility] Comment on above: Order Comment: Name Collection Type:: Clean-Voided Midstream Result Comment: PERF ORMED BY: [place] [address] PATHOLOGIST HELMINTHOLOGIST NEYMAR GÓMEZ M.D. Performed By: #### U RTP, UA #### [address] #### JAVIER RFX ADD ON #### [facility] , pH (U) 6.0 [pH] Normal 5.0-9.0 [facility] Comment on above: Order Comment: Name Collection Type:: Clean-Voided Midstream Performed By: #### U RTP, UA #### [facility] [address] [place] [address] #### JAVIER RFX ADD ON #### [facility] , Protein,Urine Negative Normal Negative [facility] Comment on above: Order Comment: Name Collection Type:: Clean-Voided Midstream Performed By: #### U RTP, UA #### [place] [address] [place] #### JAVIER RFX ADD ON #### [facility] , Specificy [place],Urine 1.006 Normal 1.001-1.030 [facility] Comment on above: Order Comment: Name Collection Type:: Clean-Voided Midstream Performed By: #### U RTP, UA #### [facility] [address] [place] [address] [place] #### JAVIER RFX ADD ON #### [facility] , Urobilinogen,Urine Normal Normal Normal [facility] Comment on above: Order Comment: Name Collection Type:: Clean-Voided Midstream Performed By: #### U RTP, UA #### [facility] [address] #### JAVIER RFX ADD ON #### [facility] , Urobilinogen Test strip (U) [Mass/Vol]Ordered By: Jose Antonio Fenton on 10-16-2024 Urobilinogen (U) [Mass/Vol] Urobilinogen [Mass/volume] in Urine by Test strip Normal [facility] pH Test strip (U)Ordered By: Jose Antonio Fenton on 10-16-2024 pH (U) pH of Urine by Test strip 5.0-9.0 [facility] CNPNon 06-21-2024 CNPN Telephone ([facility]) -------- BERTHA GREEN ([id number]) 1980 F Date Time Provider Department 06/21/24 ALONDRA HOLDER During your visit today, we recorded the following information about you: Alondra Holder RN 06/21/2024 10:34 AM Signed ----- Message from Vicenta Syed RN sent at 06/21/2024 9:16 AM EDT ----- ----- Message ----- From: Dionna Gutierrez MD Sent: 06/20/2024 7:12 PM EDT To: Vicenta Syed RN Can you please arrange IV Iron for her at [place] and she already has follow up with me in [place]. Thanks Alondra Holder RN 06/21/2024 10:42 AM Signed Pt notified and verbalizes understanding. PSS: Please call pt and schedule her for IV iron ( Monferric ) infusion only. 3 hours. Thanks! .ADAM Kam Amy S 06/21/2024 10:54 AM Signed Can we see if we can get this IV iron infusion approved AND scheduled?? Thank you. Noa Kaur, PSS Dionna Gutierrez MD 06/21/2024 11:10 AM Signed Suraj Lechuga 06/24/2024 12:06 PM Signed Call placed to patient, no answer. Left message on voicemail to call back to schedule for Iron. Suraj He 06/24/2024 12:10 PM Signed Patient called back and has been scheduled for Monoferric on Monday, 07/02. Thanks! Suraj Lunsfrod Allergies As of Date: 06/21/2024 Noted Allergy Reaction environmental [Other] 08/25/2005 14 - Other: See Comments Date Reviewed: 06/20/2024 Reviewed by: Dionna Gutierrez MD - Fully Assessed Reason for Visit: Results [95] Prescriptions as of 06/24/2024 - sertraline (ZOLOFT) 25 mg tablet Take 25 mg by mouth once daily. - buPROPion XL (WELLBUTRIN XL) 300 mg 24 hr tablet 300 mg. - levonorgestrel-ethinyl estradiol 0.15 mg-30 mcg (91) per tab, 3 month pack Take 1 tablet by mouth once daily. - cyanocobalamin (VITAMIN B-12) 1,000 mcg tab TAKE 1 TABLET BY MOUTH EVERY DAY - MOTEGRITY 2 mg tab tablet Take 1 tablet by mouth once daily. Problem List As Of Date 06/21/2024 Noted Resolved Abnormal immunological finding in serum [R76.9] 01/17/2011 History of systemic lupus erythematosus (SLE) [*01/17/2011 Body fluid retention [R60.9] 01/17/2011 Allergic rhinitis [J30.9] 01/17/2011 History of anemia [Z86.2] 01/17/2011 History of Leukopenia [D72.819] 01/17/2011 History of Thrombocytopenia [D69.6] 01/17/2011 Raynaud's phenomenon (by history not observed) *01/17/2011 Vitamin D deficiency-Hist of [E55.9] 01/17/2011 Constipation [K59.00] 09/14/2012 JAVIER positive [R76.8] 06/29/2015 Fatigue [R53.83] 06/29/2015 IBS (irritable bowel syndrome) [K58.9] 06/29/2015 Weight gain [R63.5] 06/29/2015 Chronic headache [R51.9, G89.29] 06/29/2015 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*09/16/2015 Bacterial overgrowth syndrome [K63.89] 09/16/2015 Gluten intolerance [K90.41] 09/16/2015 Iron deficiency anemia due to chronic blood los*02/21/2019 Peptic ulcer disease [K27.9] 12/26/2022 Encounter Status:Closed by SURAJ LUNSFORD on 06/24/24 Normal [facility] Basophils Auto (Bld) [#/Vol] on 06-20-2024 Basophils (Bld) [#/Vol] 0.04 10*3/uL <0.11 [facility] Basophils/100 WBC Auto (Bld) on 06-20-2024 Basophils/100 WBC (Bld) 1.0 % [facility] Blood manual differential co mment interpretation narrativeon 06-20-2024 Manual differential comment Victor M (Bld) [Interp] Auto [facility] CBC W Auto Differential pane l (Bld)on 06-20-2024 Basophils (Bld) [#/Vol] 0.04 10*3/uL NINF [facility] Basophils/100 WBC (Bld) 1.0 % [facility] Differential cell count method Nom (Bld) Auto [facility] Eosinophils (Bld) [#/Vol] 0.06 10*3/uL [facility] Eosinophils/100 WBC (Bld) 1.5 % [facility] Erythrocyte distribution width (RBC) [Ratio] 12.9 % 11.5 - 15.0 % [facility] Hematocrit (Bld) [Volume fraction] 44.2 % 36.0 - 46.0 % [facility] Hemoglobin (Bld) [Mass/Vol] 14.8 g/dL 11.5 - 15.5 g/dL [facility] Immature granulocytes (Bld) [#/Vol] [facility] Immature granulocytes/100 WBC (Bld) 0.2 % [facility] Interpretation and review of laboratory results Abnormal [facility] Lymphocytes (Bld) [#/Vol] 1.64 10*3/uL [facility] Lymphocytes/100 WBC (Bld) 40.5 % [facility] MCH (RBC) [Entitic mass] 30.8 pg 26.0 - 34.0 pg [facility] MCHC (RBC) [Mass/Vol] 33.5 g/dL 30.5 - 36.0 g/dL [facility] MCV (RBC) [Entitic vol] 91.9 fL 80.0 - 100.0 fL [facility] Monocytes (Bld) [#/Vol] 0.41 10*3/uL [facility] Monocytes/100 WBC (Bld) 10.1 % [facility] Neutrophils (Bld) [#/Vol] 1.89 10*3/uL [facility] Neutrophils/100 WBC (Bld) 46.7 % [facility] Nucleated RBC (Bld) [#/Vol] [facility] Nucleated RBC/100 WBC (Bld) [Ratio] 0.0 % /100 WBC [facility] Platelet mean volume (Bld) [Entitic vol] 12.6 fL 9.0 - 12.7 fL [facility] Platelets (Bld) [#/Vol] 116 10*3/uL Low [facility] RBC (Bld) [#/Vol] 4.81 10*6/uL 3.90 - 5.2 0 m/uL [facility] WBC (Bld) [#/Vol] 4.05 10*3/uL [facility] Basophils (Bld) [#/Vol] 0.04 10*3/uL Normal <0.11 [facility] Comment on above: Order Comment: Speci men Type: BLOOD SPECIMEN Ordering Facility: [facility] Address: [address] [place] [address] Performed By: #### 5 7021-8 #### [facility] CLIA [id number] [place] [address] [place] Basophils/100 WBC (Bld) 1.0 % [facility] Comment on above: Order Comment: Speci men Type: BLOOD SPECIMEN Ordering Facility: [facility] Address: [address] [place] [address] Performed By: #### 5 7021-8 #### [facility] CLIA [id number] [address] [place] [address] [place] Differential cell count method Nom (Bld) Auto Normal [facility] Comment on above: Order Comment: Speci men Type: BLOOD SPECIMEN Ordering Facility: [facility] Address: [address] [place] [address] Performed By: #### 5 7021-8 #### [facility] CLIA [id number] [address] [place] [id number] [place] Eosinophils (Bld) [#/Vol] 0.06 10*3/uL Normal <0.46 [facility] Comment on above: Order Comment: Speci men Type: BLOOD SPECIMEN Ordering Facility: [facility] Address: [address] [place] [address] Performed By: #### 5 7021-8 #### [facility] CLIA [id number] [address] [place] [address] [place] Eosinophils/100 WBC (Bld) 1.5 % Normal [facility] Comment on above: Order Comment: Speci men Type: BLOOD SPECIMEN Ordering Facility: [facility] Address: [address] [place] [address] Performed By: #### 5 7021-8 #### [facility] CLIA [id number] [facility] [place] [address] [place] Erythrocyte distribution width (RBC) [Ratio] 12.9 % Normal 11.5-15.0 [facility] Comment on above: Order Comment: Speci men Type: BLOOD SPECIMEN Ordering Facility: [facility] Address: [address] [place] [address] Performed By: #### 5 7021-8 #### [facility] CLIA [id number] [address] [place], [place] [id number] [place] [address] [place] Hematocrit (Bld) [Volume fraction] 44.2 % Normal 36.0-46.0 [facility] Comment on above: Order Comment: Speci men Type: BLOOD SPECIMEN Ordering Facility: [facility] Address: [address] [place] [address] Performed By: #### 5 7021-8 #### [facility] CLIA [id number] [address] [place] [address] [place] Hemoglobin (Bld) [Mass/Vol] 14.8 g/dL Normal 11.5-15.5 [facility] Comment on above: Order Comment: Speci men Type: BLOOD SPECIMEN Ordering Facility: [facility] Address: [address] [place] [address] Performed By: #### 5 7021-8 #### [facility] CLIA [id number] [place] Immature granulocytes (Bld) [#/Vol] 10*3/uL Normal <0.10 [facility] Comment on above: Order Comment: Speci men Type: BLOOD SPECIMEN Ordering Facility: [facility] Address: [address] [place] [address] Performed By: #### 5 7021-8 #### [facility] CLIA [id number] [place] Immature granulocytes/100 WBC (Bld) 0.2 % Normal [facility] Comment on above: Order Comment: Speci men Type: BLOOD SPECIMEN Ordering Facility: [facility] Address: [address] [place] [address] Performed By: #### 5 7021-8 #### [facility] [place] [id number] [address] [place] [address] [place] Lymphocytes (Bld) [#/Vol] 1.64 10*3/uL Normal 1.00-4.00 [facility] Comment on above: Order Comment: Speci men Type: BLOOD SPECIMEN Ordering Facility: [facility] Address: [address] [place] [address] Performed By: #### 5 7021-8 #### [facility] IA [id number] [address] [place] [address] [place] Lymphocytes/100 WBC (Bld) 40.5 % Normal [facility] Comment on above: Order Comment: Speci men Type: BLOOD SPECIMEN Ordering Facility: [facility] Address: [address] [place] [address] Performed By: #### 5 7021-8 #### [facility] [place] [id number] [place] [address] [place] MCH (RBC) [Entitic mass] 30.8 pg Normal 26.0-34.0 [facility] Comment on above: Order Comment: Speci men Type: BLOOD SPECIMEN Ordering Facility: [facility] Address: [address] [place] [address] Performed By: #### 5 7021-8 #### [facility] IA [id number] [address] [place] [address] [place] MCHC (RBC) [Mass/Vol] 33.5 g/dL Normal 30.5-36.0 [facility] Comment on above: Order Comment: Speci men Type: BLOOD SPECIMEN Ordering Facility: [facility] Address: [address] [place] [address] Performed By: #### 5 7021-8 #### [facility] IA [id number] [address] [place] [address] [place] MCV (RBC) [Entitic vol] 91.9 fL Normal 80.0-100.0 [facility] Comment on above: Order Comment: Speci men Type: BLOOD SPECIMEN Ordering Facility: [facility] Address: [address] [place] [address] Performed By: #### 5 7021-8 #### [facility] IA [id number] [address] [place] [address] [place] Monocytes (Bld) [#/Vol] 0.41 10*3/uL Normal <0.87 [facility] Comment on above: Order Comment: Speci men Type: BLOOD SPECIMEN Ordering Facility: [facility] Address: [address] [place] [address] Performed By: #### 5 7021-8 #### [facility] IA [id number] [address] [place] [address] [place] Monocytes/100 WBC (Bld) 10.1 % Normal [facility] Comment on above: Order Comment: Speci men Type: BLOOD SPECIMEN Ordering Facility: [facility] Address: [address] [place] [address] Performed By: #### 5 7021-8 #### [facility] IA [id number] [address] [place] [address] [place] Neutrophils (Bld) [#/Vol] 1.89 10*3/uL Normal 1.45-7.50 [facility] Comment on above: Order Comment: Speci men Type: BLOOD SPECIMEN Ordering Facility: [facility] Address: [address] [place] [address] Performed By: #### 5 7021-8 #### [facility] IA [id number] [address] [place] [address] [place] Neutrophils/100 WBC (Bld) 46.7 % Normal [facility] Comment on above: Order Comment: Speci men Type: BLOOD SPECIMEN Ordering Facility: [facility] Address: [address] [place] [address] Performed By: #### 5 7021-8 #### [facility] IA [id number] [address] [place] [address] [place] Nucleated RBC (Bld) [#/Vol] 10*3/uL Normal <0.01 [facility] Comment on above: Order Comment: Speci men Type: BLOOD SPECIMEN Ordering Facility: [facility] Address: [address] [place] [address] Performed By: #### 5 7021-8 #### [facility] CLIA [id number] [address] [place] [address] [place] Nucleated RBC/100 WBC (Bld) [Ratio] 0.0 /100 WBC Normal [facility] Comment on above: Order Comment: Speci men Type: BLOOD SPECIMEN Ordering Facility: [facility] Address: [address] [place] [address] Performed By: #### 5 7021-8 #### [facility] CLIA [id number] [address] [place] [address] [place] Platelet mean volume (Bld) [Entitic vol] 12.6 fL Normal 9.0-12.7 [facility] Comment on above: Order Comment: Speci men Type: BLOOD SPECIMEN Ordering Facility: [facility] Address: [address] [place] [address] Performed By: #### 5 7021-8 #### [facility] CLIA [id number] [address] [place] [address] [place] Platelets (Bld) [#/Vol] 116 10*3/uL Low 150-400 [facility] Comment on above: Order Comment: Speci men Type: BLOOD SPECIMEN Ordering Facility: [facility] Address: [address] [place] [address] Performed By: #### 5 7021-8 #### [facility] CLIA [id number] [address] [place] [address] [place] RBC (Bld) [#/Vol] 4.81 10*6/uL Normal 3.90-5.20 [facility] Comment on above: Order Comment: Speci men Type: BLOOD SPECIMEN Ordering Facility: [facility] Address: [address] [place] [address] Performed By: #### 5 7021-8 #### [facility] CLIA [id number] [address] [facility], [place] [id number] [place] [address] [place] WBC (Bld) [#/Vol] 4.05 10*3/uL Normal 3.70-11.00 [facility] Comment on above: Order Comment: Speci men Type: BLOOD SPECIMEN Ordering Facility: [facility] Address: [address] [place] [address] Performed By: #### 5 7021-8 #### [facility] CLIA [id number] [address] [place] [address] [facility] CNOVSPon 06-20-2024 CNOVSP Visit (SP) Office (HEMAVN) -------- ANITHA GREENZABENAYELI Proctor ([id number]) 1980 F Date Time Provider Department 06/20/24 3:00 PM DIONNA GUTIERREZ HEMAVN During your visit today, we recorded the following information about you: Temperature Pulse Respiration Blood pressure 98.5 degrees 87/minute 18/minute 132/86 Weight Height 75.4 kg 1.702 m Dionna Gutierrez MD 06/21/2024 12:36 PM Signed PATIENT NAME: Bertha Green CLINIC NO.: [id number] ATTENDING PHYSICIAN: Dionna Gutierrez MD DATE OF SERVICE: June 20, 2024 Some of the elements of the node have been extracted from my previous progress note dated 11/17/2023. All the information has been reviewed carefully. Dear Dr. Abimael Valenzuela MD, here is an update on a follow up visit on female Bertha Green at the clinic June 20, 2024 Diagnosis: B12 and Iron deficiency Anemia SLE on Hydroxychlroquine. Treatment History: 1. Injectafer - Last Monoferric 03/03/2021- EGD- gastritis Venofer 4 doses last 08/2021 Repeat Venofer 11/2022 2. B12 Oral replacement 02/20/2019 3. EGD 12/2022: Normal esophagus. - Three gastric polyps. Resected and retrieved. Clip was placed. 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 - Non-bleeding gastric ulcers with no stigmata of bleeding. - Normal examined duodenum. HPI: Alesia is a 44 year old year old female here for follow up. Doing well and denies any new complaints. Continues to have a great relationship with her foster parents family. She had another EGD 12/2022 noted above. PAST MEDICAL HISTORY No date: Anemia No date: Gastric polyps No date: Gastric ulcer No date: Lupus (HCC) No date: Right flank pain Social History Tobacco Use Smoking status: Never Passive exposure: Past Smokeless tobacco: Never Vaping Use Vaping Use: Never used Substance Use Topics Alcohol use: Never Drug use: Never FAMILY HISTORY Problem Relation Age of Onset other (schitzoaffective disorder) Mother Hypertension Father Schizophrenia Brother Diabetes Other other (scieroderma) Other Past medical, social and family history reviewed without any changes. REVIEW OF SYSTEMS GENERAL: No weight loss, malaise or fevers. No night sweats. HEENT: Negative for headaches, No changes in hearing or vision, no nose bleeds or other nasal problems. RESPIRATORY: Negative for cough, wheezing and shortness of breath CARDIOVASCULAR: Negative for chest pain, leg swelling and palpitations GI: Negative for abdominal discomfort, blood in stools or black stools and change in bowel habits : Negative for dysuria, frequency and incontinence MUSCULOSKELETAL: Negative for joint pain or swelling, back pain, and muscle pain. SKIN: Negative for lesions, rash, and itching. HEMATOLOGY/LYMPHOLOGY Negative for prolonged bleeding, bruising easily, and swollen nodes. NEURO: Negative for numbness or tingling of hands/feet. No weakness. PHYSICAL EXAMINATION: BP 132/86 Pulse 87 Temp (Src) 98.5 (Oral) Resp 18 Ht 5' 7 (1.70m) Wt 166 lb 3.6 oz (75.4kg) SpO2 98% LMP 11/22/2022 BMI 26.03 kg/(m2). Wt 83.9 kg (185 lb) BMI 29.31 kg/m2 Last 3 Encounter Wt Readings: Date: Wt: 04/29/2019 83.9 kg (185 lb) 02/20/2019 84.4 kg (186 lb) 07/04/2016 87.2 kg (192 lb 4.8 oz) General appearance:ECOG PERFORMANCE STATUS: 0- Fully active, able to carry on all pre-disease performance w/o restriction. Patient in NAD. Skin: Skin color, texture, turgor normal. No rashes or lesions. Eyes: Anicteric sclera. Pupils are equally round and reactive to light. Extraocular movements are intact. Breast: No palpable breast masses. No nipple change or discharge. Lymph Nodes: No cervical, supraclavicular, axillary or inguinal adenopathy. Oropharynx: Lips, mucosa, and tongue normal. Back: No pain to percussion. Negative SLR test Lungs clear to auscultation, No wheezing or rhonchi Heart: RRR without murmur, gallop, or rubs. Abdomen soft, non-tender. No masses, organomegaly Extremities: No deformities. No edema Neuro: Gait and speech normal. Reflexes normal and symmetric. Muscular strength intact. Sensation grossly intact. Rectal: Deferred : Deferred LABS: Glucose (mg/dL) Date Value 03/18/2024 105 11/16/2021 87 Potassium (mmol/L) Date Value 03/18/2024 4.5 11/16/2021 4.4 Sodium (mmol/L) Date Value 03/18/2024 139 11/16/2021 140 Chloride (mmol/L) Date Value 03/18/2024 108 11/16/2021 108 CO2 (mmol/L) Date Value 03/18/2024 23 11/16/2021 26 Creatinine (mg/dL) Date Value 03/18/2024 1.19 11/16/2021 0.87 BUN (mg/dL) Date Value 03/18/2024 18 11/16/2021 14 Anion Gap (mmol/L) Date Value 03/18/2024 8 11/16/2021 6 Calcium (mg/dL) Date Value 11/16/2021 8.6 Calcium, Total (mg/dL) Date Value 03/18/2024 8.7 Protein, Total (g/dL) Date Value 03/18/2024 6.4 11/16/2021 5.9 Albumin (g/dL) Date Value (more content not included)... Normal [facility] Eosinophils/100 WBC Auto (Bl d)on 06-20-2024 Eosinophils/100 WBC (Bld) 1.5 % [facility] Erythrocyte distribution wid th Auto (RBC) [Ratio]on 06-20-2024 Erythrocyte distribution width (RBC) [Ratio] 12.9 % 11.5-15.0 [facility] FERRITINon 06-20-2024 Ferritin [Mass/Vol] 12.2 ng/mL Low 14.7 - 2 05.1 ng/mL [facility] Ferritin SerPl-mCncon 2023 Ferritin [Mass/Vol] 12.2 ng/mL Low 14.7-205.1 [facility] Comment on above: Order Comment: Speci men Type: BLOOD SPECIMEN Ordering Facility: [facility] Address: [address] [place] [address] Performed By: #### 2 276-4, 62105-2 #### [facility] CLIA [id number] [address] [facility] [place] [address] [place] Hematocrit Auto (Bld) [Volum e fraction]on 06-20-2024 Hematocrit (Bld) [Volume fraction] 44.2 % 36.0-46.0 [facility] Hemoglobin [Mass/volume] in Bloodon 06-20-2024 Hemoglobin (Bld) [Mass/Vol] 14.8 g/dL 11.5-15.5 [facility] Iron and Iron binding capaci ty panelon 06-20-2024 Iron [Mass/Vol] 78 ug/dL 41 - 186 ug/dL [facility] Iron binding capacity [Mass/Vol] 396 ug/dL High 232 - 386 ug/dL [facility] Iron/TIBC [Molar ratio] 19.7 % 15.0 - 57.0 % [facility] Iron [Mass/Vol] 78 ug/dL Normal 41-186 [facility] Comment on above: Order Comment: Speci men Type: BLOOD SPECIMEN Ordering Facility: [facility] Address: [address] [place] [id number] Performed By: #### 2 276-4, 81949-4 #### [facility] CLIA [id number] [facility] [place] [address] [place] Iron binding capacity [Mass/Vol] 396 ug/dL High 232-386 [facility] Comment on above: Order Comment: Speci men Type: BLOOD SPECIMEN Ordering Facility: [facility] Address: [address] [place] [address] Performed By: #### 2 276-4, 00243-3 #### [facility] CLIA [id number] [address] [place] [address] [place] Iron/TIBC [Molar ratio] 19.7 % Normal 15.0-57.0 [facility] Comment on above: Order Comment: Speci men Type: BLOOD SPECIMEN Ordering Facility: [facility] Address: [address] [place] [address] Performed By: #### 2 276-4, 66841-5 #### [facility] CLIA [id number] [address] [place] [address] [place] Iron binding capacity [Mass/ volume] in Serum or Plasmaon 06-20-2024 Iron binding capacity [Mass/Vol] 396 ug/dL High 232-386 [facility] Iron saturation [Mass Fracti on] in Serum or Plasmaon 06-20-2024 Iron saturation [Mass fraction] 19.7 % 15.0-57.0 [facility] Laboratory - Chemistry and C hemistry - challengeon 06-20-2024 Ferritin [Mass/Vol] 12.2 ng/mL Low 14.7-205.1 [facility] Iron [Mass/Vol] 78 ug/dL 41-186 [facility] Laboratory - Hematology and Cell countson 06-20-2024 Eosinophils (Bld) [#/Vol] 0.06 10*3/uL <0.46 [facility] Immature granulocytes/100 WBC (Bld) 0.2 % [facility] Leukocytes [#/volume] correc missael for nucleated erythrocytes in Blood by Automated counon 06-20-2024 WBC corrected for nucl RBC Auto (Bld) [#/Vol] 4.05 k/uL 3.70-11.00 [facility] Lymphocytes Auto (Bld) [#/Vo l]on 06-20-2024 Lymphocytes (Bld) [#/Vol] 1.64 10*3/uL 1.00-4.00 [facility] Lymphocytes/100 WBC Auto (Bl d)on 06-20-2024 Lymphocytes/100 WBC (Bld) 40.5 % [facility] MCH Auto (RBC) [Entitic mass ]on 06-20-2024 MCH (RBC) [Entitic mass] 30.8 pg 26.0-34.0 [facility] MCHC Auto (RBC) [Mass/Vol]on 06-20-2024 MCHC (RBC) [Mass/Vol] 33.5 g/dL 30.5-36.0 [facility] MCV Auto (RBC) [Entitic vol] on 06-20-2024 MCV (RBC) [Entitic vol] 91.9 fL 80.0-100.0 [facility] Monocytes Auto (Bld) [#/Vol] on 06-20-2024 Monocytes (Bld) [#/Vol] 0.41 10*3/uL <0.87 [facility] Monocytes/100 WBC Auto (Bld) on 06-20-2024 Monocytes/100 WBC (Bld) 10.1 % [facility] Neutrophils Auto (Bld) [#/Vo l]on 06-20-2024 Neutrophils (Bld) [#/Vol] 1.89 10*3/uL 1.45-7.50 [facility] Neutrophils/100 WBC Auto (Bl d)on 06-20-2024 Neutrophils/100 WBC (Bld) 46.7 % [facility] No Panel Informationon 06-20 Interpretation and review of laboratory results Abnormal [facility] Immature Granulocyte # (Auto) <0.03 k/uL <0.10 [facility] Nucleated RBC Auto (Bld) [#/ Vol]on 06-20-2024 Nucleated RBC (Bld) [#/Vol] 10*3/uL <0.01 [facility] Nucleated erythrocytes [Pres ence] in Blood by Automated counton 06-20-2024 Nucleated RBC Auto Ql (Bld) 0.0 /100{WBC} [facility] Platelet mean volume Auto (B ld) [Entitic vol]on 06-20-2024 Platelet mean volume (Bld) [Entitic vol] 12.6 fL 9.0-12.7 [facility] Platelets Auto (Bld) [#/Vol] on 06-20-2024 Platelets (Bld) [#/Vol] 116 10*3/uL Low 150-400 [facility] RBC Auto (Bld) [#/Vol]on RBC (Bld) [#/Vol] 4.81 10*6/uL 3.90-5.20 [facility] CNPNon 06-17-2024 CNPN Telephone (NCCAP) -------- BERTHA GREEN ([id number]) 1980 F Date Time Provider Department 06/17/24 DIONNA GUTIERREZ NCCAP During your visit today, we recorded the following information about you: Robyn Odell 06/17/2024 10:05 AM Signed Hey there, This patient would like to reschedule her appt on 07/03 for labs and 16 week follow up with Dr. Gutierrez. Could you please reach out to her to get her scheduled. Thanks so much, Kayli Ruiz 06/18/2024 10:11 AM Signed Patient has been scheduled for 06/20 at 3pm in [place] with Dr. Gutierrez Allergies As of Date: 06/17/2024 Noted Allergy Reaction environmental [Other] 08/25/2005 14 - Other: See Comments Date Reviewed: 03/19/2024 Reviewed by: Cayla Ren PA-C - Fully Assessed Prescriptions as of 06/18/2024 - sertraline (ZOLOFT) 25 mg tablet Take 25 mg by mouth once daily. - buPROPion XL (WELLBUTRIN XL) 300 mg 24 hr tablet 300 mg. - levonorgestrel-ethinyl estradiol 0.15 mg-30 mcg (91) per tab, 3 month pack Take 1 tablet by mouth once daily. - cyanocobalamin (VITAMIN B-12) 1,000 mcg tab TAKE 1 TABLET BY MOUTH EVERY DAY - MOTEGRITY 2 mg tab tablet Take 1 tablet by mouth once daily. Problem List As Of Date 06/17/2024 Noted Resolved Abnormal immunological finding in serum [R76.9] 01/17/2011 History of systemic lupus erythematosus (SLE) [*01/17/2011 Body fluid retention [R60.9] 01/17/2011 Allergic rhinitis [J30.9] 01/17/2011 History of anemia [Z86.2] 01/17/2011 History of Leukopenia [D72.819] 01/17/2011 History of Thrombocytopenia [D69.6] 01/17/2011 Raynaud's phenomenon (by history not observed) *01/17/2011 Vitamin D deficiency-Hist of [E55.9] 01/17/2011 Constipation [K59.00] 09/14/2012 JAVIRE positive [R76.8] 06/29/2015 Fatigue [R53.83] 06/29/2015 IBS (irritable bowel syndrome) [K58.9] 06/29/2015 Weight gain [R63.5] 06/29/2015 Chronic headache [R51.9, G89.29] 06/29/2015 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) [Z15.8*09/16/2015 Bacterial overgrowth syndrome [K63.89] 09/16/2015 Gluten intolerance [K90.41] 09/16/2015 Iron deficiency anemia due to chronic blood los*02/21/2019 Peptic ulcer disease [K27.9] 12/26/2022 Encounter Status:Closed by ROBYN ODELL on 06/17/24 Normal [facility] ACTIVATED PARTIAL THROMBOPLA LEELA Chiu 03-19-2024 aPTT Coag (PPP) [Time] 25.8 s [facility] Comment on above: Frozen Plasma Edwino t Norma 03-19-2024 ALETHEAN Telephone (HEMASA) -------- BERTHA GREEN ([id number]) 1980 F Date Time Provider Department 03/19/24 CAYLA REN During your visit today, we recorded the following information about you: Cayla Ren PA-C 03/19/2024 1:27 PM Signed Please call with lab results. Iron stable. And coag studies show no indication of any reason for her bruising. DEE Simpson Natalie, RN 03/19/2024 1:34 PM Signed Pt informed of MM message. Pt concerned kidney function steadily increasing . She did see nephrology in October and will call for their recommendations. Pt denies additional questions, needs or concerns at this time, for our provider at this time. Appointment verified. Juve Israel RN Allergies As of Date: 03/19/2024 Noted Allergy Reaction environmental [Other] 08/25/2005 14 - Other: See Comments Date Reviewed: 03/19/2024 Reviewed by: Cayla Ren PA-C - Fully Assessed Reason for Visit: Results [95] Prescriptions as of 03/19/2024 - sertraline (ZOLOFT) 25 mg tablet Take 25 mg by mouth once daily. - buPROPion XL (WELLBUTRIN XL) 300 mg 24 hr tablet 300 mg. - levonorgestrel-ethinyl estradiol 0.15 mg-30 mcg (91) per tab, 3 month pack Take 1 tablet by mouth once daily. - cyanocobalamin (VITAMIN B-12) 1,000 mcg tab TAKE 1 TABLET BY MOUTH EVERY DAY - MOTEGRITY 2 mg tab tablet Take 1 tablet by mouth once daily. Problem List As Of Date 03/19/2024 Noted Resolved Abnormal immunological finding in serum [R76.9] 01/17/2011 History of systemic lupus erythematosus (SLE) [*01/17/2011 Body fluid retention [R60.9] 01/17/2011 Allergic rhinitis [J30.9] 01/17/2011 History of anemia [Z86.2] 01/17/2011 History of Leukopenia [D72.819] 01/17/2011 History of Thrombocytopenia [D69.6] 01/17/2011 Raynaud's phenomenon (by history not observed) *01/17/2011 Vitamin D deficiency-Hist of [E55.9] 01/17/2011 Constipation [K59.00] 09/14/2012 JAVIER positive [R76.8] 06/29/2015 Fatigue [R53.83] 06/29/2015 IBS (irritable bowel syndrome) [K58.9] 06/29/2015 Weight gain [R63.5] 06/29/2015 Chronic headache [R51.9, G89.29] 06/29/2015 Heterozygous MTHFR mutation O4816J (HCC) [Z15.8*09/16/2015 Bacterial overgrowth syndrome [K63.89] 09/16/2015 Gluten intolerance [K90.41] 09/16/2015 Iron deficiency anemia due to chronic blood los*02/21/2019 Peptic ulcer disease [K27.9] 12/26/2022 Encounter Status:Closed by JUVE ISRAEL on 03/19/24 Normal [facility] FIBRINOGENon 03-19-2024 Fibrinogen Coag (PPP) [Mass/Vol] 285 mg/dL 200 - 400 mg/dL [facility] Comment on above: Frozen Plasma Aliquo t No Panel InformationOrdered By: Wendy Kessler on 03-19-2024 Interpretation and review of laboratory results Normal [facility] PT panel Coag (PPP)Ordered B y: Wendy Kessler on 03-19-2024 INR Coag (PPP) [Relative time] 1.0 {INR} 0.9 - 1.3 [facility] Comment on above: Vitamin K Antagonist (VKA) Therapeutic Range: INR 2 to 3 (Target INR of 2.5) Note: For patients treated with VKA drugs, such as warfarin, the [place] [employer] 2012 Guideline recommends a therapeutic INR range of 2 to 3 (target INR of 2.5). This recommendation includes high-risk patients with antiphospholipid syndrome with previous arterial or venous thromboembolism, current-generation mechanical or bioprosthetic aortic heart valve replacement. Note: Patients with mechanical aortic valve replacement and additional risk factors for thromboembolic events (atrial fibrillation, previous thromboembolism, LV dysfunction, hypercoagulable conditions) or an older generation mechanical AVR (i.e., ball in-Cage) or any mechanical MVR should have a INR therapeutic range of 2.5 to 3.5 (target INR of 3). Orlando GH, et al. Chest 2012, 141:7S-47S Roro RA, et al. [facility] 2017, 70: 252-289 PT Coag (PPP) [Time] 10.4 s [facility] aPTT Coag (PPP) [Time]on Unfractionated Hepar in Therapeutic Ranges: Standard Heparin Nomogram: 53 to 78 seconds (anti-Xa level of 0.3 to 0.7 U/ml) Low Dose/ACS Nomogram: 49 to 67 seconds (anti-Xa level of 0.2 to 0.5 U/ml) Stroke Treatment Nomogram: 49 to 67 seconds (anti-Xa level of 0.2 to 0.5 U/ml) Note: The APTT therapeutic range has been determined for the current lot of laboratory APTT reagent in use throughout the [facility]. [facility] Activated partial thrombopla stin time (aPTT) in platelet poor plasma by coagulation aon 03-18-2024 aPTT Coag (PPP) [Time] 25.8 s 23.0-32.4 [facility] Comment on above: Frozen Plasma Aliquo t Basophils Auto (Bld) [#/Vol] on 03-18-2024 Basophils (Bld) [#/Vol] 0.03 10*3/uL <0.11 [facility] Basophils/100 WBC Auto (Bld) on 03-18-2024 Basophils/100 WBC (Bld) 0.8 % [facility] Blood manual differential co mment interpretation narrativeon 03-18-2024 Manual differential comment Victor M (Bld) [Interp] Auto [facility] CBC W Auto Differential pane l (Bld)on 03-18-2024 Basophils (Bld) [#/Vol] 0.03 10*3/uL Normal <0.11 [facility] Comment on above: Order Comment: Speci men Type: BLOOD SPECIMENOrdering Facility: [facility] Address: [address] [place], [place] [address] Performed By: #### 5 7021-8 ####[facility] LABCLIA [id number] [place] [address] Basophils/100 WBC (Bld) 0.8 % Normal [facility] Comment on above: Order Comment: Speci men Type: BLOOD SPECIMENOrdering Facility: [facility] Address: [address] [place] [address] Performed By: #### 5 7021-8 ####[facility] LABCLIA [id number] [place] [address] Differential cell count method Nom (Bld) Auto Normal [facility] Comment on above: Order Comment: Speci men Type: BLOOD SPECIMENOrdering Facility: [facility] Address: [address] [place] [address] Performed By: #### 5 7021-8 ####[facility] LABCLIA [id number] [place] [address] Eosinophils (Bld) [#/Vol] 0.08 10*3/uL Normal <0.46 [facility] Comment on above: Order Comment: Speci men Type: BLOOD SPECIMENOrdering Facility: [facility] Address: [address] [place] [address] Performed By: #### 5 7021-8 ####[facility] LABCLIA [id number] [place] [address] Eosinophils/100 WBC (Bld) 2.2 % Normal [facility] Comment on above: Order Comment: Speci men Type: BLOOD SPECIMENOrdering Facility: [facility] Address: [address] [place] [address] Performed By: #### 5 7021-8 ####[facility] LABCLIA [id number] [place] [address] Erythrocyte distribution width (RBC) [Ratio] 14.1 % Normal 11.5-15.0 [facility] Comment on above: Order Comment: Speci men Type: BLOOD SPECIMENOrdering Facility: [facility] Address: [address] [place] [address] Performed By: #### 5 7021-8 ####[facility] LABCLIA [id number] [place] [address] Hematocrit (Bld) [Volume fraction] 42.8 % Normal 36.0-46.0 [facility] Comment on above: Order Comment: Speci men Type: BLOOD SPECIMENOrdering Facility: [facility] Address: [address] [place] [address] Performed By: #### 5 7021-8 ####[facility] LABCLIA [id number] [place] [address] Hemoglobin (Bld) [Mass/Vol] 14.3 g/dL Normal 11.5-15.5 [facility] Comment on above: Order Comment: Speci men Type: BLOOD SPECIMENOrdering Facility: [facility] Address: [address] [place] [address] Performed By: #### 5 7021-8 ####[facility] LABCLIA [id number] [place] [address] Immature granulocytes (Bld) [#/Vol] 10*3/uL Normal <0.10 [facility] Comment on above: Order Comment: Speci men Type: BLOOD SPECIMENOrdering Facility: [facility] Address: [address] [place] [address] Performed By: #### 5 7021-8 ####[facility] LABCLIA [id number] [place] [address] Immature granulocytes/100 WBC (Bld) 0.0 % Normal [facility] Comment on above: Order Comment: Speci men Type: BLOOD SPECIMENOrdering Facility: [facility] Address: [address] [place] [address] Performed By: #### 5 7021-8 ####[facility] LABCLIA [id number] [place] [address] Lymphocytes (Bld) [#/Vol] 1.40 10*3/uL Normal 1.00-4.00 [facility] Comment on above: Order Comment: Speci men Type: BLOOD SPECIMENOrdering Facility: [facility] Address: [address] [place] [address] Performed By: #### 5 7021-8 ####[facility] LABCLIA [id number] [place] [address] Lymphocytes/100 WBC (Bld) 38.6 % Normal [facility] Comment on above: Order Comment: Speci men Type: BLOOD SPECIMENOrdering Facility: [facility] Address: [address] [place] [address] Performed By: #### 5 7021-8 ####[facility] LABCLIA [id number] [place] [address] MCH (RBC) [Entitic mass] 31.0 pg Normal 26.0-34.0 [facility] Comment on above: Order Comment: Speci men Type: BLOOD SPECIMENOrdering Facility: [facility] Address: [address] [place] [address] Performed By: #### 5 7021-8 ####[facility] LABCLIA [id number] [place] [address] MCHC (RBC) [Mass/Vol] 33.4 g/dL Normal 30.5-36.0 [facility] Comment on above: Order Comment: Speci men Type: BLOOD SPECIMENOrdering Facility: [facility] Address: [address] [place] [address] Performed By: #### 5 7021-8 ####[facility] LABCLIA [id number] [place] [address] MCV (RBC) [Entitic vol] 92.8 fL Normal 80.0-100.0 [facility] Comment on above: Order Comment: Speci men Type: BLOOD SPECIMENOrdering Facility: [facility] Address: [address] [place] [address] Performed By: #### 5 7021-8 ####[facility] LABCLIA [id number] [place] [address] Monocytes (Bld) [#/Vol] 0.45 10*3/uL Normal <0.87 [facility] Comment on above: Order Comment: Speci men Type: BLOOD SPECIMENOrdering Facility: [facility] Address: [address] [place] [address] Performed By: #### 5 7021-8 ####[facility] LABCLIA [id number] [place] [address] Monocytes/100 WBC (Bld) 12.4 % Normal [facility] Comment on above: Order Comment: Speci men Type: BLOOD SPECIMENOrdering Facility: [facility] Address: [address] [place] [address] Performed By: #### 5 7021-8 ####[facility] LABCLIA [id number] [place] [address] Neutrophils (Bld) [#/Vol] 1.67 10*3/uL Normal 1.45-7.50 [facility] Comment on above: Order Comment: Speci men Type: BLOOD SPECIMENOrdering Facility: [facility] Address: [address] [place] [address] Performed By: #### 5 7021-8 ####[facility] LABCLIA [id number] [place] [address] Neutrophils/100 WBC (Bld) 46.0 % Normal [facility] Comment on above: Order Comment: Speci men Type: BLOOD SPECIMENOrdering Facility: [facility] Address: [address] [place] [address] Performed By: #### 5 7021-8 ####[facility] LABCLIA [id number] [place] [address] Nucleated RBC (Bld) [#/Vol] 10*3/uL Normal <0.01 [facility] Comment on above: Order Comment: Speci men Type: BLOOD SPECIMENOrdering Facility: [facility] Address: [address] [place] [address] Performed By: #### 5 7021-8 ####[facility] LABCLIA [id number] [place] [address] Nucleated RBC/100 WBC (Bld) [Ratio] 0.0 /100 WBC Normal [facility] Comment on above: Order Comment: Speci men Type: BLOOD SPECIMENOrdering Facility: [facility] Address: [address] [place] [address] Performed By: #### 5 7021-8 ####[facility] LABCLIA [id number] [place] [address] Platelet mean volume (Bld) [Entitic vol] 12.9 fL High 9.0-12.7 [facility] Comment on above: Order Comment: Speci men Type: BLOOD SPECIMENOrdering Facility: [facility] Address: [address] [place] [address] Performed By: #### 5 7021-8 ####[facility] LABCLIA [id number] [place] [address] Platelets (Bld) [#/Vol] 86 10*3/uL Low 150-400 [facility] Comment on above: Order Comment: Speci men Type: BLOOD SPECIMENOrdering Facility: [facility] Address: [address] [place] [address] Result Comment: No c lot detected. Performed By: #### 5 7021-8 ####[facility] LABCLIA [id number] [place] [address] RBC (Bld) [#/Vol] 4.61 10*6/uL Normal 3.90-5.20 [facility] Comment on above: Order Comment: Speci men Type: BLOOD SPECIMENOrdering Facility: [facility] Address: [address] [place] [address] Performed By: #### 5 7021-8 ####[facility] LABCLIA [id number] [place] [address] WBC (Bld) [#/Vol] 3.63 10*3/uL Low 3.70-11.00 [facility] Comment on above: Order Comment: Speci men Type: BLOOD SPECIMENOrdering Facility: [facility] Address: [address] [address] Performed By: #### 5 7021-8 ####[facility] LABCLIA [id number] [place] [address] CNOVSPon 03-18-2024 CNOVSP Visit (SP) Office (HEMASA) -------- BERTHA GREEN ([id number]) 1980 F Date Time Provider Department 03/18/24 2:00 PM CAYLA REN During your visit today, we recorded the following information about you: Temperature Pulse Respiration Blood pressure 98.7 degrees 70/minute 16/minute 126/70 Weight Height 76.3 kg 1.676 m Cayla Ren PA-C 03/18/2024 3:08 PM Signed PATIENT NAME: Bertha Proctor Peter CLINIC NO.: [id number] ATTENDING PHYSICIAN: Dionna Gutierrez MD DATE OF SERVICE: March 18, 2024 (Elements copied from Dr. Gutierrez's note dated November 17, 2023, have been reviewed and updated where appropriate, and all reflect current assessment and medical decision making during today's encounter, March 18, 2024) CC: Follow up Diagnosis: B12 and Iron deficiency Anemia SLE on Hydroxychlroquine. Treatment History: 1. Injectafer - Last Monoferric 03/03/2021- EGD- gastritis Venofer 4 doses last 08/2021 Repeat Venofer 11/2022 2. B12 Oral replacement 02/20/2019 3. EGD 12/2022: Normal esophagus. - Three gastric polyps. Resected and retrieved. Clip was placed. 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 - Non-bleeding gastric ulcers with no stigmata of bleeding. - Normal examined duodenum. HPI: Alesia returns for 4 month follow up. Overall doing well. 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 She has noticed increased bruising on her arms and legs. They are always round bruises. No bleeding. PAST MEDICAL HISTORY Diagnosis Date Anemia Gastric polyps Gastric ulcer Lupus (HCC) Right flank pain Social History Tobacco Use Smoking status: Never Passive exposure: Past Smokeless tobacco: Never Vaping Use Vaping Use: Never used Substance Use Topics Alcohol use: Never Drug use: Never FAMILY HISTORY Problem Relation Age of Onset other (schitzoaffective disorder) Mother Hypertension Father Schizophrenia Brother Diabetes Other other (scieroderma) Other Past medical, social and family history reviewed without any changes. REVIEW OF SYSTEMS GENERAL: No weight loss, malaise or fevers. No night sweats. HEENT: Negative for headaches, No changes in hearing or vision, no nose bleeds or other nasal problems. RESPIRATORY: Negative for cough, wheezing and shortness of breath CARDIOVASCULAR: Negative for chest pain, leg swelling and palpitations GI: Negative for abdominal discomfort, blood in stools or black stools and change in bowel habits : Negative for dysuria, frequency and incontinence MUSCULOSKELETAL: Negative for joint pain or swelling, back pain, and muscle pain. SKIN: Negative for lesions, rash, and itching. HEMATOLOGY/LYMPHOLOGY Negative for prolonged bleeding, and swollen nodes. +easy bruising NEURO: Negative for numbness or tingling of hands/feet. No weakness. PHYSICAL EXAMINATION: BP 126/70 Pulse 70 Temp (Src) 98.7 (Temporal) Resp 16 Ht 5' 5.984 (1.68m) Wt 168 lb 3.4 oz (76.3kg) SpO2 100% LMP 11/22/2022 BMI 27.16 kg/(m2). ECOG PERFORMANCE STATUS: 0- Fully active, able to carry on all pre-disease performance w/o restriction. General: Alert and oriented, no distress, pleasant and cooperative. Heart: Regular, normal S1 and S2, no murmurs, rubs, or gallops Lungs: Clear to auscultation bilaterally Abdomen: Benign Extremities: Feet/ankles without edema, posterior tibial pulses full and symmetrical Skin: bruising noted to right arm LABS: Glucose (mg/dL) Date Value 03/18/2024 105 11/16/2021 87 Potassium (mmol/L) Date Value 03/18/2024 4.5 11/16/2021 4.4 Sodium (mmol/L) Date Value 03/18/2024 139 11/16/2021 140 Chloride (mmol/L) Date Value 03/18/2024 108 11/16/2021 108 CO2 (mmol/L) Date Value 03/18/2024 23 11/16/2021 26 Creatinine (mg/dL) Date Value 03/18/2024 1.19 11/16/2021 0.87 BUN (mg/dL) Date Value 03/18/2024 18 11/16/2021 14 Anion Gap (mmol/L) Date Value 03/18/2024 8 11/16/2021 6 Calcium (mg/dL) Date Value 11/16/2021 8.6 Calcium, Total (mg/dL) Date Value 03/18/2024 8.7 Protein, Total (g/dL) Date Value 03/18/2024 6.4 11/16/2021 5.9 Albumin (g/dL) Date Value 03/18/2024 4.0 11/16/2021 3.9 Bilirubin, Total (mg/dL) Date Value 03/18/2024 0.3 11/16/2021 0.3 Alkaline Phosphatase (U/L) Date Value 03/18/2024 101 11/16/2021 101 AST (U/L) Date Value 03/18/2024 26 11/16/2021 27 ALT (U/L) Date Value 03/18/2024 20 11/16/2021 27 WBC Date Value Ref Range Status 03/18/2024 3.63 (L) 3.70 - 11.00 k/uL Final RBC Date Value Ref Range Status 03/18/2024 4.61 3.90 - 5.20 m/uL Final Hemoglobin Date Value Ref Range Status 03/18/2024 14.3 11.5 - 15.5 g/dL Final Hematocrit Date Value Ref Range Status 03/18/2024 42.8 36.0 - 46.0 % Final MCV Date Value Ref Range Status 03/18/2024 (more content not included)... Normal [place] [address] panelon 03-18-2024 Albumin [Mass/Vol] 4.0 g/dL Normal 3.9-4.9 [facility] Comment on above: Order Comment: Speci men Type: BLOOD SPECIMENOrdering Facility: [facility] Address: [address] [place] [address] Performed By: #### 2 4323-8 ####[facility] LABCLIA [id number] [place] [address] ALP [Catalytic activity/Vol] 101 U/L Normal 34-123 [facility] Comment on above: Order Comment: Speci men Type: BLOOD SPECIMENOrdering Facility: [facility] Address: [address] [place] [address] Performed By: #### 2 4323-8 ####[facility] LABCLIA [id number] [place] [address] ALT [Catalytic activity/Vol] 20 U/L Normal 7-38 [facility] Comment on above: Order Comment: Speci men Type: BLOOD SPECIMENOrdering Facility: [facility] Address: [address] [place] [address] Performed By: #### 2 4323-8 ####[facility] LABCLIA [id number] [place] [address] Anion gap [Moles/Vol] 8 mmol/L Low 9-18 [facility] Comment on above: Order Comment: Speci men Type: BLOOD SPECIMENOrdering Facility: [facility] Address: [address] [place] [address] Performed By: #### 2 4323-8 ####[facility] LABCLIA [id number] [place] [address] AST [Catalytic activity/Vol] 26 U/L Normal 13-35 [facility] Comment on above: Order Comment: Speci men Type: BLOOD SPECIMENOrdering Facility: [facility] Address: [address] [place] [address] Performed By: #### 2 4323-8 ####[facility] LABCLIA [id number] [place] [address] Bilirubin [Mass/Vol] 0.3 mg/dL Normal 0.2-1.3 [facility] Comment on above: Order Comment: Speci men Type: BLOOD SPECIMENOrdering Facility: [facility] Address: [address] [place] [address] Performed By: #### 2 4323-8 ####[facility] LABCLIA [id number] [place] [address] Calcium [Mass/Vol] 8.7 mg/dL Normal 8.5-10.2 [facility] Comment on above: Order Comment: Speci men Type: BLOOD SPECIMENOrdering Facility: [facility] Address: [address] [place] [address] Performed By: #### 2 4323-8 ####[facility] LABCLIA [id number] [place] [address] Chloride [Moles/Vol] 108 mmol/L High 97-105 [facility] Comment on above: Order Comment: Speci men Type: BLOOD SPECIMENOrdering Facility: [facility] Address: [address] [place] [address] Performed By: #### 2 4323-8 ####[facility] LABCLIA [id number] [place] [address] CO2 [Moles/Vol] 23 mmol/L Normal 22-30 [facility] Comment on above: Order Comment: Speci men Type: BLOOD SPECIMENOrdering Facility: [facility] Address: [address] [place] [address] Performed By: #### 2 4323-8 ####[facility] LABCLIA [id number] [place] [address] Creatinine [Mass/Vol] 1.19 mg/dL High 0.58-0.96 [facility] Comment on above: Order Comment: Speci men Type: BLOOD SPECIMENOrdering Facility: [facility] Address: [address] [place], [place] [address] Performed By: #### 2 4323-8 ####[facility] LABCLIA [id number] [place] [address] Creatinine and Glomerular filtration rate.predicted panel (S/P/Bld) 58 mL/min/1.73m??? Low >=60 [facility] Comment on above: Order Comment: Timlayla shields Type: BLOOD SPECIMENOrdering Facility: [facility] Address: [address] [place] [address] Result Comment: Wali mated Glomerular Filtration Rate (eGFR) is calculated using the 2020 CKD-EPI creatinine equation. This equation utilizes serum creatinine, sex, and age as parameters. The creatinine assay has traceable calibration to isotope dilution-mass spectrometry. Refer to KDIGO guidelines for clinical interpretation. In patients with unstable renal function, e.g. those with acute kidney injury, the eGFR may not accurately reflect actual GFR. Performed By: #### 2 4323-8 ####[facility] LABCLIA [id number] [place] [address] Glucose [Mass/Vol] 105 mg/dL High 74-99 [facility] Comment on above: Order Comment: Leesa shields Type: BLOOD SPECIMENOrdering Facility: [facility] Address: [address] [place] [address] Result Comment: The [place] [employer] (ADA) provides guidance for cutoff values for fasting glucose and random glucose. The ADA defines fasting as no caloric intake for at least 8 hours. Fasting plasma glucose results between 100 to 125 mg/dL indicate increased risk for diabetes (prediabetes). Fasting plasma glucose results greater than or equal to 126 mg/dL meet the criteria for diagnosis of diabetes. In the absence of unequivocal hyperglycemia, results should be confirmed by repeat testing. In a patient with classic symptoms of hyperglycemia or hyperglycemic crisis, random plasma glucose results greater than or equal to 200 mg/dL meet the criteria for diagnosis of diabetes. Reference: Standards of Medical Care in Diabetes 2016, [place] [employer]. Diabetes Care. 2016.39(Suppl 1). Performed By: #### 2 4323-8 ####[facility] [facility] LABCLIA [id number] [place] [address] Potassium [Moles/Vol] 4.5 mmol/L Normal 3.7-5.1 [facility] Comment on above: Order Comment: Speci men Type: BLOOD SPECIMENOrdering Facility: [facility] Address: [address] [place] [address] Performed By: #### 2 4323-8 ####[facility] LABCLIA [id number] [place] [address] Protein [Mass/Vol] 6.4 g/dL Normal 6.3-8.0 [facility] Comment on above: Order Comment: Speci men Type: BLOOD SPECIMENOrdering Facility: [facility] Address: [address] [place] [address] Performed By: #### 2 4323-8 ####[facility] LABCLIA [id number] [place] [address] Sodium [Moles/Vol] 139 mmol/L Normal 136-144 [facility] Comment on above: Order Comment: Speci men Type: BLOOD SPECIMENOrdering Facility: [facility] Address: [address] [place] [address] Performed By: #### 2 4323-8 ####[facility] LABCLIA [id number] [place] [address] Urea nitrogen [Mass/Vol] 18 mg/dL Normal 7-21 [facility] Comment on above: Order Comment: Speci men Type: BLOOD SPECIMENOrdering Facility: [facility] Address: [address] [place] [address] Performed By: #### 2 4323-8 ####[facility] LABCLIA [id number] [place] [address] Eosinophils/100 WBC Auto (Bl d)on 03-18-2024 Eosinophils/100 WBC (Bld) 2.2 % [facility] Erythrocyte distribution wid th Auto (RBC) [Ratio]on 03-18-2024 Erythrocyte distribution width (RBC) [Ratio] 14.1 % 11.5-15.0 [facility] Ferritin SerPl-mCncon 2023 Ferritin [Mass/Vol] 16.2 ng/mL Normal 14.7-205.1 [facility] Comment on above: Order Comment: Speci men Type: BLOOD SPECIMENOrdering Facility: [facility] Address: [address] [place] [address] Performed By: #### 5 0190-8, 2276-4 ####[facility] LABIA [id number] [place] [address] [place] Fibrinogen PPP-mCncon 2023 Fibrinogen Coag (PPP) [Mass/Vol] 285 mg/dL Normal 200-400 [facility] Comment on above: Order Comment: Speci men Type: BLOOD SPECIMENOrdering Facility: [facility] Address: [address] [place] [address] Result Comment: Froz en Plasma Aliquot Performed By: #### 3 4528-0, 98333-5, 3255-7 ####[facility] LABIA [id number] [place] [address] [place] Fibrinogen [Mass/volume] in Platelet poor plasma by Coagulation assayon 03-18-2024 Fibrinogen Coag (PPP) [Mass/Vol] 285 mg/dL 200-400 [facility] Comment on above: Frozen Plasma Aliquo t Hematocrit Auto (Bld) [Volum e fraction]on 03-18-2024 Hematocrit (Bld) [Volume fraction] 42.8 % 36.0-46.0 [facility] Hemoglobin [Mass/volume] in Bloodon 03-18-2024 Hemoglobin (Bld) [Mass/Vol] 14.3 g/dL 11.5-15.5 [facility] INR in Platelet poor plasma by Coagulation assayon 03-18-2024 INR Coag (PPP) [Relative time] 1.0 {INR} 0.9-1.3 [facility] Comment on above: Vitamin K Antagonist (VKA) Therapeutic Range: INR 2 to 3 (Target INR of 2.5)Note: For patients treated with VKA drugs, such as warfarin, the [place] [employer] 2012 Guideline recommends a therapeutic INR range of 2 to 3 (target INR of 2.5). This recommendation includes high-risk patients with antiphospholipid syndrome with previous arterial or venous thromboembolism, current-generation mechanical or bioprosthetic aortic heart valve replacement.Note: Patients with mechanical aortic valve replacement and additional risk factors for thromboembolic events (atrial fibrillation, previous thromboembolism, LV dysfunction, hypercoagulable conditions) or an older generation mechanical AVR (i.e., ball in-Cage) or any mechanical MVR should have a INR therapeutic range of 2.5 to 3.5 (target INR of 3).Orlando GH, et al. Chest 2012, 141:7S-47SNishantony RA, et al. [facility] 2017, 70: 252-289 Iron and Iron binding capaci [facility] 03-18-2024 Iron [Mass/Vol] 105 ug/dL Normal 41-186 [facility] Comment on above: Order Comment: Leesa shields Type: BLOOD SPECIMENOrdering Facility: [facility] Address: [address] [place] [address] Performed By: #### 5 0190-8, 2276-4 ####[facility] LABIA [id number] [place] [address] [place] Iron binding capacity [Mass/Vol] 371 ug/dL Normal 232-386 [facility] Comment on above: Order Comment: Leesa shields Type: BLOOD SPECIMENOrdering Facility: [facility] Address: [address] [place] [address] Performed By: #### 5 0190-8, 2276-4 ####[facility] LABCLIA [id number] [place] [address] [place] Iron/TIBC [Molar ratio] 28.3 % Normal 15.0-57.0 [facility] Comment on above: Order Comment: Leesa shields Type: BLOOD SPECIMENOrdering Facility: [facility] Address: [address] [place] [address] Performed By: #### 5 0190-8, 2276-4 ####[facility] LABCLIA [id number] [address] [id number] [id number] [place] Iron binding capacity [Mass/ volume] in Serum or Plasmaon 03-18-2024 Iron binding capacity [Mass/Vol] 371 ug/dL 232-386 [facility] Iron saturation [Mass Fracti on] in Serum or Plasmaon 03-18-2024 Iron saturation [Mass fraction] 28.3 % 15.0-57.0 [facility] Laboratory - Chemistry and C hemistry - challengeon 03-18-2024 Albumin [Mass/Vol] 4.0 g/dL 3.9-4.9 [facility] ALP [Catalytic activity/Vol] 101 U/L 34-123 [facility] ALT [Catalytic activity/Vol] 20 U/L 7-38 [facility] AST [Catalytic activity/Vol] 26 U/L 13-35 [facility] Bilirubin [Mass/Vol] 0.3 mg/dL 0.2-1.3 [facility] Calcium [Mass/Vol] 8.7 mg/dL 8.5-10.2 [facility] Chloride [Moles/Vol] 108 mmol/L High 97-105 [facility] CO2 [Moles/Vol] 23 mmol/L 22-30 [facility] Creatinine [Mass/Vol] 1.19 mg/dL High 0.58-0.96 [facility] Ferritin [Mass/Vol] 16.2 ng/mL 14.7-205.1 [facility] Glucose [Mass/Vol] 105 mg/dL High 74-99 [facility] Comment on above: The [place] [employer] Association (ADA) provides guidance for cutoff values for fasting glucose and random glucose. The ADA defines fasting as no caloric intake for at least 8 hours. Fasting plasma glucose results between 100 to 125 mg/dL indicate increased risk for diabetes (prediabetes).Fasting plasma glucose results greater than or equal to 126 mg/dL meet the criteria for diagnosis of diabetes. In the absence of unequivocal hyperglycemia, results should be confirmed by repeat testing. In a patient with classic symptoms of hyperglycemia or hyperglycemic crisis, random plasma glucose results greater than or equal to 200 mg/dL meet the criteria for diagnosis of diabetes.Reference: Standards of Medical Care in Diabetes 2016, [place] [employer]. Diabetes Care. 2016.39(Suppl 1). Iron [Mass/Vol] 105 ug/dL 41-186 [facility] Potassium [Moles/Vol] 4.5 mmol/L 3.7-5.1 [facility] Sodium [Moles/Vol] 139 mmol/L 136-144 [facility] Urea nitrogen [Mass/Vol] 18 mg/dL 7-21 [facility] Laboratory - Hematology and Cell countson 03-18-2024 Eosinophils (Bld) [#/Vol] 0.08 10*3/uL <0.46 [facility] Immature granulocytes/100 WBC (Bld) 0.0 % [facility] Leukocytes [#/volume] correc missael for nucleated erythrocytes in Blood by Automated counon 03-18-2024 WBC corrected for nucl RBC Auto (Bld) [#/Vol] 3.63 k/uL Low 3.70-11.00 [facility] Lymphocytes Auto (Bld) [#/Vo l]on 03-18-2024 Lymphocytes (Bld) [#/Vol] 1.40 10*3/uL 1.00-4.00 [facility] Lymphocytes/100 WBC Auto (Bl d)on 03-18-2024 Lymphocytes/100 WBC (Bld) 38.6 % [facility] MCH Auto (RBC) [Entitic mass ]on 03-18-2024 MCH (RBC) [Entitic mass] 31.0 pg 26.0-34.0 [facility] MCHC Auto (RBC) [Mass/Vol]on 03-18-2024 MCHC (RBC) [Mass/Vol] 33.4 g/dL 30.5-36.0 [facility] MCV Auto (RBC) [Entitic vol] on 03-18-2024 MCV (RBC) [Entitic vol] 92.8 fL 80.0-100.0 [facility] Monocytes Auto (Bld) [#/Vol] on 03-18-2024 Monocytes (Bld) [#/Vol] 0.45 10*3/uL <0.87 [facility] Monocytes/100 WBC Auto (Bld) on 03-18-2024 Monocytes/100 WBC (Bld) 12.4 % [facility] Neutrophils Auto (Bld) [#/Vo l]on 03-18-2024 Neutrophils (Bld) [#/Vol] 1.67 10*3/uL 1.45-7.50 [facility] Neutrophils/100 WBC Auto (Bl d)on 03-18-2024 Neutrophils/100 WBC (Bld) 46.0 % [facility] No Panel Informationon 03-18 Estimated GFR (CKD-EPI) 58 mL/min/1.73m??? Low >=60 [facility] Comment on above: Estimated Glomerular Filtration Rate (eGFR) is calculated using the 2020 CKD-EPI creatinine equation. This equation utilizes serum creatinine, sex, and age as parameters. The creatinine assay has traceable calibration to isotope dilution-mass spectrometry. Refer to KDIGO guidelines for clinical interpretation. In patients with unstable renal function, e.g. those with acute kidney injury, the eGFR may not accurately reflect actual GFR. Immature Granulocyte # (Auto) <0.03 k/uL <0.10 [facility] Nucleated RBC Auto (Bld) [#/ Vol]on 03-18-2024 Nucleated RBC (Bld) [#/Vol] 10*3/uL <0.01 [facility] Nucleated erythrocytes [Pres ence] in Blood by Automated counton 03-18-2024 Nucleated RBC Auto Ql (Bld) 0.0 /100{WBC} [facility] PT panel Coag (PPP)on 2023 INR Coag (PPP) [Relative time] 1.0 {INR} Normal 0.9-1.3 [facility] Comment on above: Order Comment: Speci men Type: BLOOD SPECIMENOrdering Facility: [facility] Address: [address] [place] [address] Result Comment: Yael min K Antagonist (VKA) Therapeutic Range: INR 2 to 3 (Target INR of 2.5) Note: For patients treated with VKA drugs, such as warfarin, the [place] [employer] 2012 Guideline recommends a therapeutic INR range of 2 to 3 (target INR of 2.5). This recommendation includes high-risk patients with antiphospholipid syndrome with previous arterial or venous thromboembolism, current-generation mechanical or bioprosthetic aortic heart valve replacement. Note: Patients with mechanical aortic valve replacement and additional risk factors for thromboembolic events (atrial fibrillation, previous thromboembolism, LV dysfunction, hypercoagulable conditions) or an older generation mechanical AVR (i.e., ball in-Cage) or any mechanical MVR should have a INR therapeutic range of 2.5 to 3.5 (target INR of 3). Orlando GH, et al. Chest 2012, 141:7S-47S Roro RA, et al. [facility] 2017, 70: 252-289 Performed By: #### 3 4528-0, 71749-2, 3255-7 ####[facility] LABCLIA [id number] [place] [address] [place] PT Coag (PPP) [Time] 10.4 s Normal 9.7-13.0 [facility] Comment on above: Order Comment: Speci men Type: BLOOD SPECIMENOrdering Facility: [facility] Address: [address] [place] [address] Performed By: #### 3 4528-0, 11403-9, 3255-7 ####[facility] [id number] [place] [address] [place] Platelet mean volume Auto (B ld) [Entitic vol]on 03-18-2024 Platelet mean volume (Bld) [Entitic vol] 12.9 fL High 9.0-12.7 [facility] Platelets Auto (Bld) [#/Vol] on 03-18-2024 Platelets (Bld) [#/Vol] 86 10*3/uL Low 150-400 [facility] Comment on above: No clot detected. Protein [Mass/volume] in Ser um or Plasmaon 03-18-2024 Protein [Mass/Vol] 6.4 g/dL 6.3-8.0 [facility] Prothrombin time (PT)on 02-19 PT Coag (PPP) [Time] 10.4 s 9.7-13.0 [facility] RBC Auto (Bld) [#/Vol]on RBC (Bld) [#/Vol] 4.61 10*6/uL 3.90-5.20 [facility] Serum or plasma anion gap de terminationon 03-18-2024 Anion gap [Moles/Vol] 8 mmol/L Low 9-18 [facility] aPTT PPPon 03-18-2024 aPTT Coag (PPP) [Time] 25.8 s Normal 23.0-32.4 [facility] Comment on above: Order Comment: Speci men Type: BLOOD SPECIMENOrdering Facility: [facility] Address: [address] [place] [address] Result Comment: Froz en Plasma Aliquot Performed By: #### 3 4528-0, 36173-0, 3255-7 ####[facility] LABCLIA [id number] [place] [address] [place] Anisocytosis LM Ql (Bld)Orde red By: Jose Antonio Fenton on 06-17-2023 Anisocytosis Ql (Bld) Slight [facility] Basophils Auto (Bld) [#/Vol] Ordered By: Jose Antonio Fenton on 06-17-2023 Basophils (Bld) [#/Vol] 0.0 10*3/uL 0.0-0.2 [facility] Basophils/100 WBC Auto (Bld) Ordered By: Jose Antonio Fenton on 06-17-2023 Basophils/100 WBC (Bld) 0.6 % . [facility] C reactive protein [Mass/vol ume] in Serum or PlasmaOrdered By: Jose Antonio Fenton on 06-17-2023 CRP [Mass/Vol] < 0.5 mg/dL 0.0-0.5 [facility] Eosinophils Auto (Bld) [#/Vo l]Ordered By: Jose Antonio Fenton on 06-17-2023 Eosinophils (Bld) [#/Vol] 0.1 10*3/uL 0.0-0.45 [facility] Eosinophils/100 WBC Auto (Bl d)Ordered By: Jose Antonio Fenton on 06-17-2023 Eosinophils/100 WBC (Bld) 2.1 % . [facility] Erythrocyte distribution wid th Auto (RBC) [Ratio]Ordered By: Jose Antonio Fenton on 06-17-2023 Erythrocyte distribution width (RBC) [Ratio] 13.3 % 11.9-15.3 [facility] Hematocrit Auto (Bld) [Volum e fraction]Ordered By: Jose Antonio Fenton on 06-17-2023 Hematocrit (Bld) [Volume fraction] 44.6 % 34.0-46.4 [facility] Hemoglobin [Mass/volume] in BloodOrdered By: Jose Antonio Fenton on 06-17-2023 Hemoglobin (Bld) [Mass/Vol] 15.2 g/dL 11.8-15.4 [facility] Leukocytes [#/volume] correc missael for nucleated erythrocytes in Blood by Automated counOrdered By: Jose Antonio Fenton on 06-17-2023 WBC corrected for nucl RBC Auto (Bld) [#/Vol] 3.3 10*3/uL 3.8-11.6 [facility] Lymphocytes Auto (Bld) [#/Vo l]Ordered By: Jose Antonio Fenton on 06-17-2023 Lymphocytes (Bld) [#/Vol] 0.7 10*3/uL 1.00-4.8 [facility] Lymphocytes/100 WBC Auto (Bl d)Ordered By: Jose Antonio Fenton on 06-17-2023 Lymphocytes/100 WBC (Bld) 20.6 % . [facility] MCH Auto (RBC) [Entitic mass ]Ordered By: Jose Antonio Fenton on 06-17-2023 MCH (RBC) [Entitic mass] 31.3 pg 24.7-34.3 [facility] MCHC Auto (RBC) [Mass/Vol]Or dered By: Jose Antonio Fenton on 06-17-2023 MCHC (RBC) [Mass/Vol] 34.1 g/dL 32.0-35.0 [facility] MCV Auto (RBC) [Entitic vol] Ordered By: Jose Antonio Fenton on 06-17-2023 MCV (RBC) [Entitic vol] 91.8 fL 80-100 [facility] Monocytes Auto (Bld) [#/Vol] Ordered By: Jose Antonio Fenton on 06-17-2023 Monocytes (Bld) [#/Vol] 0.4 10*3/uL 0.0-0.8 [facility] Monocytes/100 WBC Auto (Bld) Ordered By: Jose Antonio Fenton on 06-17-2023 Monocytes/100 WBC (Bld) 12.9 % . [facility] Neutrophils Auto (Bld) [#/Vo l]Ordered By: Jose Antonio Fenton on 06-17-2023 Neutrophils (Bld) [#/Vol] 2.1 10*3/uL 1.8-7.7 [facility] Neutrophils/100 WBC Auto (Bl d)Ordered By: Jose Antonio Fenton on 06-17-2023 Neutrophils/100 WBC (Bld) 63.8 % . [facility] Nucleated erythrocytes [Pres ence] in Blood by Automated countOrdered By: Jose Antonio Fenton on 06-17-2023 Nucleated RBC Auto Ql (Bld) 0.8 /100{WBC} 0-0.5 [facility] Platelet adequacy [Presence] in Blood by Light microscopyOrdered By: Jose Antonio Fenton on 06-17-2023 Platelets LM Ql (Bld) Decreased Normal [facility] Platelet mean volume Auto (B ld) [Entitic vol]Ordered By: Jose Antonio Fenton on 06-17-2023 Platelet mean volume (Bld) [Entitic vol] 11.8 fL 6.3-10.7 [facility] Platelet morphology finding [Identifier] in BloodOrdered By: Jose Antonio Fenton on 06-17-2023 Platelet morphology finding Nom (Bld) N/A [facility] Platelets Auto (Bld) [#/Vol] Ordered By: Jose Antonio Fenton on 06-17-2023 Platelets (Bld) [#/Vol] 59 10*3/uL 150-450 [facility] Platelets Large [Presence] i n Blood by Light microscopyOrdered By: Jose Antonio Fenton on 06-17-2023 Platelets Large LM Ql (Bld) Moderate [facility] RBC Auto (Bld) [#/Vol]Ordere d By: Jose Antonio Fenton on 06-17-2023 RBC (Bld) [#/Vol] 4.86 10*6/uL 3.60-5.00 [facility] RBC morphologyOrdered By: Cristal Fenton on 06-17-2023 RBC morphology finding Nom (Bld) N/A [facility] WBC Auto (Bld) [#/Vol]Ordere d By: Jose Antonio Fenton on 06-17-2023 WBC (Bld) [#/Vol] 3.3 10*3/uL 3.8-11.6 [facility] Blood Pressure Cuff Sizeon 0 05-10-2023 Fall risk assessment a) No falls within the last year [facility] Work Phone: Tobacco use status CPHS b) No [facility] Work Phone: Blood Pressure Cuff Size Adult [facility] Work Phone: Follow Up (Rheumatology)on 0 05-10-2023 Follow Up (Rheumatology) Chief Complaint 6 month follow up visit. LW History of Present IllnessShe denies any joint pain. She has not had any significant abdominal pain. The Prilosec was discontinued because of gastric polyps. She continues to take Carafate. She is following up with gastroenterology and with hematology regarding leukopenia and thrombocytopenia. She does note recurrent rash in the malar aspect of the face bilaterally. She continues to take hydroxychloroquine 200 mg daily. There is good passive range of motion of the upper and lower extremity joints without joint effusions. There is slight crepitus on range of motion of the knees. There is good active range of motion of the cervical spine. There is reddish discoloration in the malar aspect of the face bilaterally. The lungs, heart, abdomen, and extremities are benign. Laboratory (02/01/2023) WBC 2.57, hemoglobin 15.4, hematocrit 45.2, MCV 92.4, MCHC 34.1, platelets 83, absolute neutrophil count 0.95, BUN 14, creatinine 1.08, glucose 94, sodium 137, potassium 4.4, chloride 103, bicarbonate 22, alkaline phosphatase 71, AST 23, ALT 26, (11/10/2022) C3 111, C4 22, haptoglobin 113. Renal ultrasound (11/10/2022) normal echogenicity of both kidneys. The left kidney measures 11.5 cm in the right kidney 11.3 cm. There is a 5 mm calculus in the upper pole of the left kidney. Esophagogastroduodenosco py (12/26/2022) normal esophagus and normal duodenum. There are 3 gastric polyps with and nonbleeding gastric ulcers. The systemic lupus appears to be under good control with respect to the musculoskeletal system. However she has chronic leukopenia and has some progression of the thrombocytopenia that may be either related to lupus or potentially related to the hydroxychloroquine. She has history of iron deficiency anemia and gastritis. She has slightly elevated serum creatinine. She is to stop the hydroxychloroquine for 3 weeks and then have a repeat blood test for CBC with differential. NAD to consider changing or discontinuing the hydroxychloroquine hematologic evaluation improves of the hydroxychloroquine. She is to return at the next available office appointment. Active Problems Problems Abnormal liver enzymes (790.5) (R74.8) Carpal tunnel syndrome (354.0) (G56.00) Constipation (564.00) (K59.00) Systemic lupus erythematosus (710.0) (M32.9) Yellow skin (782.4) (R17) Social History Problems Never smoker Allergies Medication No Known Drug Allergies Recorded By: Karrie Wen; 01/08/2014 11:07:00 AM Current Meds Medication NameInstruction Blisovi 24 Fe 1-20 MG-MCG(24) Oral Tablet [facility] Vitamin B-12 1000 MCG Oral TabletTAKE 1 TABLET DAILY DIRECTED. Hydroxychloroquine Sulfate 200 MG Oral TabletTAKE 1 TABLET DAILY WITH FOOD Levonorgest-Eth Estrad -Day 0.15-0.03 AND0.01 MG Oral TabletTAKE 1 TABLET DAILY. Motegrity 2 MG Oral TabletTake 1 tablet daily Pantoprazole Sodium 40 MG Oral Tablet Delayed ReleaseTAKE 1 TABLET TWICE DAILY 30 MINUTES BEFORE BREAKFAST AND DINNER. Sucralfate 1 GM Oral TabletTAKE 1 TABLET 4 TIMES DAILY. Wrist Splint/Cock-Up/Right LUSE DIRECTED. Vitals Vital Signs Recorded: 10May2023 09:31AM Stenpalztim28.6 F Heart Rate70 Cwkkdhoc607 Urpucjyhq04 Blood Pressure Cuff SizeAdult Height5 ft 7 in Kgovey644 lb BMI Bihjadeyvx61.53 kg/m2 BSA Calculated1.85 Tobacco Useb) No Falls Screening (Age 18+)a) No falls within the last year Pain Scale0 Signatures Electronically signed by : Jose Antonio Fenton MD; May 11 2023 7:43AM EST (Author) Normal Touchworks CBC W Auto Differential pane l (Bld)on 12-01-2022 Basophils (Bld) [#/Vol] <0.11 k/uL [facility] Basophils/100 WBC (Bld) 0.4 % [facility] Differential cell count method Nom (Bld) Auto [facility] Eosinophils (Bld) [#/Vol] 0.04 10*3/uL <0.46 k/uL [facility] Eosinophils/100 WBC (Bld) 1.4 % [facility] Erythrocyte distribution width (RBC) [Ratio] 14.1 % 11.5 - 15.0 % [facility] Hematocrit (Bld) [Volume fraction] 38.1 % 36.0 - 46.0 % [facility] Hemoglobin (Bld) [Mass/Vol] 12.8 g/dL 11.5 - 15.5 g/dL [facility] Immature granulocytes (Bld) [#/Vol] <0.10 k/uL [facility] Immature granulocytes/100 WBC (Bld) 0.0 % [facility] Lymphocytes (Bld) [#/Vol] 1.33 10*3/uL 1.00 - 4.00 k/uL [facility] Lymphocytes/100 WBC (Bld) 46.7 % [facility] MCH (RBC) [Entitic mass] 30.3 pg 26.0 - 34.0 pg [facility] MCHC (RBC) [Mass/Vol] 33.6 g/dL 30.5 - 36.0 g/dL [facility] MCV (RBC) [Entitic vol] 90.1 fL 80.0 - 100.0 fL [facility] Monocytes (Bld) [#/Vol] 0.32 10*3/uL <0.87 k/uL [facility] Monocytes/100 WBC (Bld) 11.2 % [facility] Neutrophils (Bld) [#/Vol] 1.15 10*3/uL Low 1.45 - 7.50 k/uL [facility] Neutrophils/100 WBC (Bld) 40.3 % [facility] Nucleated RBC (Bld) [#/Vol] <0.01 k/uL [facility] Nucleated RBC/100 WBC (Bld) [Ratio] 0.0 /100 WBC [facility] Platelet mean volume (Bld) [Entitic vol] 12.4 fL 9.0 - 12.7 fL [facility] Platelets (Bld) [#/Vol] 84 10*3/uL Low 150 - 400 k/uL [facility] RBC (Bld) [#/Vol] 4.23 10*6/uL 3.90 - 5.2 0 m/uL [facility] WBC (Bld) [#/Vol] 2.85 10*3/uL Low 3.70 - 11. 00 k/uL [facility] US KIDNEY/BLADDERon 11-10-20 [facility] Follow Up (Rheumatology)on 12-19-2021 Follow Up (Rheumatology) Chief Complaint F/u RW, MA History of Present IllnessShe denies any musculoskeletal pain. She had developed significant abdominal pain and nausea the day after undergoing upper endoscopy with gastric biopsy 05/16/2022. The gastric biopsy demonstrated benign gastric hyperplastic polyp with erosions and reactive epithelial. She lost weight, but the gastrointestinal symptoms have since resolved. She had another iron infusion because of recurrence of low iron levels. She has menstrual periods that have not been excessively heavy taking control pills. She has not noted any rashes but did have a nasal sore. She has not noted any joint swelling. She is referred to nephrology regarding gradually increasing serum creatinine level. She has continued to take hydroxychloroquine 200 mg once per day. She notes that the hair is thinning on her scalp. There is thinning of hair on the top of her scalp without any ulcerations. The lungs, heart, abdomen, and extremities are benign. The musculoskeletal examination does not show any active synovitis. Laboratory (10/04/2022) urinalysis: No protein glucose or leukocytes, (08/15/2022) WBC 2.23, hemoglobin 12.8, hematocrit 37.3, MCV 90.3, MCHC 34.3, platelets 97, alkaline phosphatase 57, AST 29, ALT 22, BUN 9, creatinine 1.13, glucose 95, ferritin 18.5, iron 63, TIBC 339, saturation 18.6%, (04/12/2022) WBC 2.75, hemoglobin 11.1, hematocrit 36.2, MCV 91.4, MCHC 30.7, platelets 105, ferritin 13.1, iron 24, TIBC 394, saturation 6%. She has systemic lupus erythematosus, leukopenia, thrombocytopenia, slightly elevated serum creatinine, recurrent iron deficiency anemia, recurrent gastritis with recent development of gastric polyp. Question leukopenia and thrombocytopenia to be associated with systemic lupus erythematosus or hydroxychloroquine therapy. She is to continue with plans for laboratory testing per nephrology for evaluation for possible lupus nephritis. She is planning to have laboratory for C3, C4, dsDNA, haptoglobin and 10/2022. No new medications were prescribed pending test results. She is to return at the next available office appointment. Active Problems Problems Abnormal liver enzymes (790.5) (R74.8) Carpal tunnel syndrome (354.0) (G56.00) Constipation (564.00) (K59.00) Systemic lupus erythematosus (710.0) (M32.9) Yellow skin (782.4) (R17) Social History Problems Never smoker Allergies Medication No Known Drug Allergies Recorded By: Karrie Wen; 01/08/2014 11:07:00 AM Current Meds Medication NameInstruction [facility] Vitamin B-12 1000 MCG Oral TabletTAKE 1 TABLET DAILY DIRECTED. Hydroxychloroquine Sulfate 200 MG Oral TabletTAKE 1 TABLET DAILY WITH FOOD Levonorgest-Eth Estrad -Day 0.15-0.03 AND0.01 MG Oral TabletTAKE 1 TABLET DAILY. Motegrity 2 MG Oral TabletTake 1 tablet daily Pantoprazole Sodium 40 MG Oral Tablet Delayed ReleaseTAKE 1 TABLET TWICE DAILY 30 MINUTES BEFORE BREAKFAST AND DINNER. Sucralfate 1 GM Oral TabletTAKE 1 TABLET 4 TIMES DAILY. Wrist Splint/Cock-Up/Right LUSE DIRECTED. Vitals Vital Signs Recorded: 19Oct2022 03:23PM Zeureldekkj11 F Heart Rate70 Pasdtyza882 Mngpbgnzu07 Height5 ft 7 in Haahdc891 lb BMI Hcmhelxdng88.53 kg/m2 BSA Calculated1.85 Tobacco Useb) No Falls Screening (Age 18+)a) No falls within the last year Pain Scale0 Signatures Electronically signed by : Jose Antonio Fenton MD; Oct 19 2022 7:32PM EST (Author) Normal [employer] UA DIP, URINE (POC)on 2021 BILIRUBIN UA (POCT) Negative Negative [facility] CLARITY UA (POCT) Clear [facility] COLOR UA (POCT) Light yellow [facility] GLUCOSE UA (POCT) Negative Negative mg/dL [facility] HEMOGLOBIN/BLOOD UA (POCT) Trace-intact Abnormal Negative [facility] KETONE UA (POCT) Negative Negative mg/dL [facility] LEUKOCYTES UA (POCT) Negative [facility] NITRITE UA (POCT) Negative Negative [facility] PH UA (POCT) 7.0 4.5 - 8.0 [facility] Protein Ql (U) Negative Negative mg/dL [facility] SPECIFIC GRAVITY UA (POCT) 1.010 1.005 - 1.030 [facility] UROBILINOGEN UA (POCT) 0.2 E.U./dL Normal E.U./dL [facility] Bilirubin Auto test strip Ql (U)Ordered By: Jose Antonio Fenton on 06-23-2022 Bilirubin Ql (U) Negative Negative [facility] IgA [Mass/volume] in Serum o r PlasmaOrdered By: Jose Antonio Fenton on 06-23-2022 IgA [Mass/Vol] 236 mg/dL 87-352 [facility] IgG [Mass/volume] in Serum o r PlasmaOrdered By: Jose Antonio Fenton on 06-23-2022 IgG [Mass/Vol] 947 mg/dL [phone] [facility] IgM [Mass/volume] in Serum o r PlasmaOrdered By: Jose Antonio Fenton on 06-23-2022 IgM [Mass/Vol] 176 mg/dL 26-217 [facility] Comment on above: Performed at: [address] [id number] Forepart Laster: Favio Soto PhD, Phone: [phone] Ketones Auto test strip (U) [Mass/Vol]Ordered By: Jose Antonio Fenton on 06-23-2022 Ketones (U) [Mass/Vol] Negative Negative [facility] Myeloperoxidase Ab [Units/vo lume] in Serum by ImmunoassayOrdered By: Jose Antonio Fenton on 06-23-2022 Myeloperoxidase Ab IA Qn (S) 0.8 units 0.0-0.9 [facility] Protein Auto test strip (U) [Mass/Vol]Ordered By: Jose Antonio Fenton on 06-23-2022 Protein (U) [Mass/Vol] Negative Negative [facility] Proteinase 3 Ab [Units/volum e] in Serum by ImmunoassayOrdered By: Jose Antonio Fenton on 06-23-2022 Proteinase 3 Ab IA Qn (S) <0.2 units 0.0-0.9 [facility] Comment on above: Performed at: - [facility] [address] [id number] Forepart Laster: José Beckett MD, Phone: [phone] Serum cryoglobulin detection Ordered By: Jose Antonio Fenton on 06-23-2022 Cryoglobulin Ql (S) See comment None detected [facility] Comment on above: None Detected at 72 hours This test was developed and its performance characteristics determined by [employer]. It has not been cleared or approved by the Food and Drug Administration. Performed at: [facility] [id number] Forepart Laster: Favio Soto PhD, Phone: [phone] Urine appearanceOrdered By: Jose Antonio Fenton on 06-23-2022 Appearance (U) Clear Clear [facility] Urine colorOrdered By: Jose Antonio mota on 06-23-2022 Color (U) Yellow Yellow [facility] Urine glucose measurement by automated test strip (mass/volume)Ordered By: Jose Antonio Fenton on 06-23-2022 Glucose Auto test strip (U) [Mass/Vol] Normal mg/dL Normal [facility] Urine hemoglobin detection b y automated test stripOrdered By: Jose Antonio Fenton on 06-23-2022 Hemoglobin Auto test strip Ql (U) Negative Negative [facility] Urine leukocyte esterase det ection by automated test stripOrdered By: Jose Antonio Fenton on 06-23-2022 Leukocyte esterase Auto test strip Ql (U) Negative Negative [facility] Urine nitrite detection by a utomated test stripOrdered By: Jose Antonio Fenton on 06-23-2022 Nitrite Auto test strip Ql (U) Negative Negative [facility] Urobilinogen Auto test strip (U) [Mass/Vol]Ordered By: Jose Antonio Fenton on 06-23-2022 Urobilinogen (U) [Mass/Vol] Normal mg/dL Normal [facility] pH Auto test strip (U)Ordere d By: Jose Antonio Fenton on 06-23-2022 pH (U) 1.005 [pH] 1.001-1.030 [facility] pH (U) 7.0 [pH] 5.0-9.0 [facility] XR acute abdomen serieson XR acute abdomen series [facility] Other XR acute abdomen series [facility] Other XR acute abdomen series [address] [facility] [place] [address] [facility] Other XR acute abdomen series XRay Report [facility] Other XR acute abdomen series Signed [facility] Other XR acute abdomen series Patient: Bertha Green MR#: [id number] Other XR acute abdomen series [id number] [facility] Other XR acute abdomen series : 1980 Acct:[id number] [facility] Other XR acute abdomen series Age/Sex: 42 / F ADM Date: 05/11/22 [facility] Other XR acute abdomen series Loc: XD Room: [facility] Other XR acute abdomen series Attending Dr: Micheal Galicia DO [facility] Other XR acute abdomen series Copies to: Micheal Galicia Jr, DO [facility] Other XR acute abdomen series Ordering Provider: Micheal Galicia Jr, [facility] Other XR acute abdomen series Date of Service: 05/11/22 [facility] Other XR acute abdomen series XR/XR acute abdomen series: Abdominal pain [facility] Other XR acute abdomen series Acute abdominal series [facility] [employer] Other XR acute abdomen series COMPARISON: None [place] [employer] Other XR acute abdomen series HISTORY: No acute chest findings. [facility] Other XR acute abdomen series Nondistended air-filled small bowel loops identified. [facility] Other XR acute abdomen series Moderate amount of stool is in the proximal portion of the colon. [facility] Other XR acute abdomen series No abdominal calcification identified. [facility] Other XR acute abdomen series No soft tissue mass seen. [facility] Other XR acute abdomen series Bony structures are intact. [facility] Other XR acute abdomen series XR/XR acute abdomen series [place] [employer] Other XR acute abdomen series IMPRESSION: Moderate stool proximal colon. No pneumoperitoneum. [facility] Other XR acute abdomen series Impression dictated by: Tino Ennis M.D.05/11/2022 2:48 PM [facility] Other XR acute abdomen series Dictation Location: [place] [address] [facility] Other XR acute abdomen series Transcribed By: JEANETTE 05/11/22 [facility] Other XR acute abdomen series Dictated By: Tino Ennis DO 05/11/22 [facility] Other XR acute abdomen series Signed By: [facility] Other XR acute abdomen series 05/11/22 [facility] Other HCG ( test) IA.rapi d Ql (U)Ordered By: Micheal Galicia on 05-10-2022 HCG ( test) Ql (U) Negative [facility] COVID-19 Positive/NegativeOr dered By: Micheal Galicia on 05-06-2022 SARS-CoV-2 (COVID-19) N gene EMEKA+probe Ql (Resp) Negative Negative [facility] Comment on above: Testing for SARS-CoV -2 by RT-PCR This test was developed and its performance characteristics determined by [employer] ([employer]) and validated at the [facility]. This test has not been FDA cleared or approved. This test has been authorized by FDA under an Emergency Use Authorization (EUA). This test has been validated in accordance with the FDA's Guidance Document (Policy for Diagnostics Testing in Laboratories Certified to Perform High Complexity Testing under CLIA prior to Emergency Use Authorization for Coronavirus Disease-2019 during the Public Health Emergency) issued on February 20, 2020. This test is only authorized for the duration of time the declaration that circumstances exist justifying the authorization of the emergency use of in vitro diagnostic tests for detection of SARS-CoV-2 virus and/or diagnosis of COVID-19 infection under section 564(b)(1) of the Act, 21 U.S.C. 360bbb-3(b)(1), unless the authorization is terminated or revoked sooner. Tobacco Screening.on 022 Fall risk assessment a) No falls within the last year [facility] Work Phone: Tobacco use status [facility] b) No [facility] Work Phone: ANTI-CHROMATINon 07-31-2021 ANTI-CHROMATIN <0.2 Normal [facility] Comment on above: Order Comment: call critical results to [phone] Result Comment: REF VALUES < 1.0 = NEGATIVE >=1.0 = POSITIVE Performed By: #### A -CHR #### [facility] [address] [place] [address] ANTI-DNA [DS]on 07-31-2021 ANTI-DNA [DS] 1.0 IU/mL Normal [facility] Comment on above: Order Comment: call critical results to [phone] Result Comment: REF VALUES NEGATIVE: <= 4 IU/ML EQUIVOCAL: 5- 9 IU/ML POSITIVE: >=10 IU/ML Performed By: #### D NADS #### [facility] [address] [place] [address] ANTI-SM/RNPon 07-31-2021 ANTI-SM/POLICE DEPARTMENT SECRETARY <0.2 Normal [facility] Comment on above: Order Comment: call critical results to [phone] Result Comment: REF VALUES < 1.0 = NEGATIVE >=1.0 = POSITIVE Performed By: #### A SMRN #### [facility] [address] [place] [address] C3 COMPLEMENTon 07-31-2021 C3 COMPLEMENT 92 mg/dL Normal 87 - 200 [facility] Comment on above: Order Comment: call critical results to [phone] Performed By: #### C 3 #### [facility] [address] [place] [address] C4 COMPLEMENTon 07-31-2021 C4 COMPLEMENT 17 mg/dL Normal 10 - 50 [facility] Comment on above: Order Comment: call critical results to [phone] Performed By: #### C 4 #### [facility] [address] [place] [address] G-6-PD SCREENon 07-31-2021 G-6-PD SCREEN NORMAL Normal NORMAL [facility] Comment on above: Order Comment: call critical results to [phone] Performed By: #### G PD #### [facility] [address] [place] [address] Anti Sm/Rnpon 07-30-2021 [facility] extractable nuclear Ab+Ribonucleoprotein extractable nuclear Ab IA Ql (S) <0.2 [facility] [address] Work Phone: Comment on above: REF VALUES < 1.0 = N EGATIVE >=1.0 = POSITIVE Anti-Chromatinon 07-30-2021 Chromatin Ab Qn <0.2 MG-Rheuma tolo [facility] [address] Work Phone: [phone] Comment on above: REF VALUES < 1.0 = N EGATIVE >=1.0 = POSITIVE Anti-dsDNA (Double Stranded) Antibodieson 07-30-2021 DNA double strand Ab Qn (S) 1.0 [IU]/mL [address] Work Phone: Comment on above: REF VALUESNEGATIVE: <= 4 IU/MLEQUIVOCAL: 5- 9 IU/MLPOSITIVE: >=10 IU/ML C Reactive Protein, Serumon 07-30-2021 CRP [Mass/Vol] mg/L [address] Work Phone: Comment on above: REF VALUE< 1.00 C-REACTIVE PROTEINon 021 CRP [Mass/Vol] mg/L Normal [facility] Comment on above: Order Comment: call critical results to [phone] Result Comment: REF VALUE < 1.00 Performed By: #### C RP #### [address] [id number] C3 Complement, Serumon 07-30 Complement C3 [Mass/Vol] 92 mg/dL 87 - [address] Work Phone: C4 Complement, Serumon 07-30 Complement C4 [Mass/Vol] 17 mg/dL 10 - [address] Work Phone: FOLATE, SERUMon 07-30-2021 Folate [Mass/Vol] 5.3 ng/mL Normal >5.0 [facility] Comment on above: Order Comment: call critical results to [phone] Result Comment: Low <3.4 Borderline 3.4-5.0 Normal >5.0 . Patients receiving more than 5 mg/day of biotin may have interference in test results. A sample should be taken no sooner than eight hours after previous dose. Contact the testing laboratory for additional information. Performed By: #### F OLA2 #### [address] [id number] Folate, Serumon 07-30-2021 Folate [Mass/Vol] 5.3 ng/mL >5.0 -[facility] [address] [facility] Work Phone: Comment on above: Low <3.4Borderline 3 .4-5.0Normal >5.0. Patients receiving more than 5 mg/day of biotin may have interference in test results. A sample should be taken no sooner than eight hours after previous dose. Contact the testing laboratory for additional information. Glucose 6-Phosphate Dehydrog enase Screenon 07-30-2021 G6PD Ql (RBC) NORMAL NORMAL -Rheumato [facility] [address] [facility] Work Phone: VITAMIN B12on 07-30-2021 Cobalamin (Vitamin B12) [Mass/Vol] 1370 pg/mL High 211 - 911 [facility] Comment on above: Order Comment: call critical results to [phone] Performed By: #### V TB12 #### [address] [id number] Vitamin B12, Serumon 021 Cobalamin (Vitamin B12) [Mass/Vol] 1370 pg/mL above high threshold 211 - 911 [facility] [address] [facility] Work Phone: Tobacco Screening.on 021 Fall risk assessment a) No falls within the last year [facility] Work Phone: Tobacco use status [facility] b) No [facility] Work Phone: CBC AUTO DIFFon 06-25-2021 BASO # 0.0 103/ul Normal 0.0-0.1 [facility] Comment on above: Performed By: #### C BC #### [facility] [address] [place], [place] [address] Hong Amarilis Basophils/100 WBC (Bld) 0.7 % Normal 0.2-2.0 [facility] Comment on above: Performed By: #### C BC #### [facility] [address] [place] [address] Hong Amarilis EO # 0.2 103/ul Normal 0.0-0.7 [facility] Comment on above: Performed By: #### C BC #### [facility] [address] [place] [address] [place] Amarilis Eosinophils/100 WBC (Bld) 6.4 % Normal 0.9-7.0 [facility] Comment on above: Performed By: #### C BC #### [facility] [address] [place] [address] [place] Amarilis Erythrocyte distribution width (RBC) [Ratio] 13.7 % Normal 11.0-15.0 [facility] Comment on above: Performed By: #### C BC #### [facility] [address] [place] [address] Hong Amarilis Hematocrit (Bld) [Volume fraction] 37.6 % Normal 36.0-48.0 [facility] Comment on above: Performed By: #### C BC #### [facility] [address] [place] [address] [place]arilis Hemoglobin (Bld) [Mass/Vol] 12.1 g/dL Normal 12.0-16.0 [facility] Comment on above: Performed By: #### C BC #### [facility] [address] [place] [address] Hong Amarilis IG # 0.01 10e3/ul Normal 0.00-0.03 [facility] Comment on above: Performed By: #### C BC #### [facility] [address] [place] [address] Hong Amarilis IG % 0.4 % Normal 0.0-0.5 [facility] Comment on above: Performed By: #### C BC #### [facility] [address] [place] [address] Hong Amarilis LYMPH # 1.1 103/ul Critically low 1.2-3.8 [facility] Comment on above: Performed By: #### C BC #### [facility] [address] [place], [place] [id number] Hong [place]mos Lymphocytes/100 WBC (Bld) 38.2 % Normal 20.5-60.0 [facility] Comment on above: Performed By: #### C BC #### [facility] [address] [place], [place] [id number] [place] MANUAL DIFF REQ NO Normal [facility] Comment on above: Performed By: #### C BC #### [facility] [address] [place], [place] [id number] Hongsusan Olmos MCH (RBC) [Entitic mass] 32.4 pg Normal 26.7-34.0 [facility] Comment on above: Performed By: #### C BC #### [facility] [address] [place], [place] [id number] Hong Olmos MCHC (RBC) [Mass/Vol] 32.2 g/dL Normal 29.9-35.2 [facility] Comment on above: Performed By: #### C BC #### [facility] [address] [place] [address] Hongsusan Olmos MCV (RBC) [Entitic vol] 100.5 fL Critically high 81.0-99.0 [facility] Comment on above: Performed By: #### C BC #### [facility] [address] [place], [place] [address] Hongsusan Randhawaen MONO # 0.4 103/ul Normal 0.3-0.8 [facility] Comment on above: Performed By: #### C BC #### [facility] [address] [place] [address] Hong Olmos Monocytes/100 WBC (Bld) 13.9 % Critically high 1.7-12.0 [facility] Comment on above: Performed By: #### C BC #### [facility] [address] [place], [place] [address] Hong Amarilis NEUT # 1.1 103/ul Critically low 1.4-6.5 [facility] Comment on above: Performed By: #### C BC #### [facility] [address] [place], [place] [address] Hong Amarilis Neutrophils/100 WBC (Bld) 40.4 % Critically low 43.0-75.0 [facility] Comment on above: Performed By: #### C BC #### [facility] [address] [place] [id number] Hong Olmos Platelet mean volume (Bld) [Entitic vol] 13.7 fL Critically high 9.5-13.5 [facility] Comment on above: Performed By: #### C BC #### [facility] [address] [place] [id number] Hong Amarilis PLT 78 103/ul Critically low 150-450 [facility] Comment on above: Performed By: #### C BC #### [facility] [address] [place], [place] [address] Hong Randhawaen RBC 3.74 106/ul Critically low 4.20-5.40 [facility] Comment on above: Performed By: #### C BC #### [facility] [address] [place] [id number] Hongsusan Randhawaen WBC 2.8 103/ul Critically low 4.0-11.0 [facility] Comment on above: Performed By: #### C BC #### [facility] [address] [place], [place] [address] Hong [place]mos GLUCOSE BLOODon 06-25-2021 Glucose [Mass/Vol] 78 mg/dL Normal 74-[address] [facility] Comment on above: Performed By: #### G FARHAN, LIPID #### [facility] [address] [place], [place] [address] Hong [place] LIPID PROFILEon 06-25-2021 CHOL-HDL RATIO NORM SEE BELOW Normal [facility] Comment on above: Result Comment: 3.3 - 4.4 LOW RISK 4.4 - 7.1 AVERAGE RISK 7.1 - 11.0 MODERATE RISK >11.0 HIGH RISK Performed By: #### G FARHAN, LIPID #### [facility] [address] [place], [place] [address] Hongsusan Olmos Cholesterol [Mass/Vol] 119 mg/dL Normal <=200 [facility] Comment on above: Performed By: #### G FARHAN, LIPID #### [facility] [address] [place], [place] [address] Hong Amarilis Cholesterol in HDL [Mass/Vol] 53 mg/dL Normal [facility] Comment on above: Performed By: #### G FARHAN, LIPID #### [facility] [address] [place], [place] [address] Hong Amarilis Cholesterol in LDL [Mass/Vol] 58.6 mg/dL Normal [facility] Comment on above: Performed By: #### G FARHAN, LIPID #### [facility] [address] [place], [place] [address] Hong Amarilis Cholesterol.total/Cho lesterol in HDL [Mass ratio] 2.2 {ratio} Normal [facility] Comment on above: Performed By: #### G FARHAN, LIPID #### [facility] [address] [place], [place] [address] Hong Amarilis HDL NORMAL > or = 60 mg/dl - LO W CARDIOVASCULAR RISK <40 mg/dl - HIGH CARDIOVASCULAR RISK Normal [facility] Comment on above: Performed By: #### G FARHAN, LIPID #### [facility] [address] [place], [place] [address] Hong Amarilis LDL CALC NORMAL SEE BELOW Normal [facility] Comment on above: Result Comment: <100 mg/dl OPTIMAL 100 - 129 mg/dl NEAR OR ABOVE OPTIMAL 130 - 159 mg/dl BORDERLINE HIGH 160 - 189 mg/dl HIGH >190 mg/dl VERY HIGH Performed By: #### G FARHAN, LIPID #### [facility] [address] [place] [id number] Hong Amarilis Triglyceride [Mass/Vol] 37 mg/dL Normal <=150 [facility] Comment on above: Performed By: #### G FARHAN, LIPID #### [facility] [address] [place], [place] [address] Hong Amarilis VLDL CALC 7.4 mg/dL Normal [facility] Comment on above: Performed By: #### G FARHAN, LIPID #### [facility] [address] [place], [place] [address] HEAD WO CONon 03-26-2021 CT HEAD WO CON EXAM TYPE: CT HEAD W O CON EXAM DATE AND TIME: 03/26/2021 5:26 PM EDT INDICATION: 40 years old Female with dizziness COMPARISON: None. TECHNIQUE: Multiple axial CT images of the head were obtained without contrast. Dose reduction techniques were achieved by using automated exposure control and/or adjustment of mA and/or kV according to patient size and/or use of iterative reconstruction technique. FINDINGS: Ventricles and sulci are normal in size and configuration. No extra-axial collection. No intracranial hemorrhage. No mass effect or edema. No CT evidence of large territorial infarction. Visualized paranasal sinuses are well aerated. Mastoids are clear. Calvarium is unremarkable. IMPRESSION: No intracranial hemorrhage or mass effect. Electronically authenticated by: MATEUSZ STEVENS Date: 2021-03-26 18:31 Normal [facility] CBC AUTO DIFFon 11-30-2020 BASO # 0.0 103/ul Normal 0.0-0.1 [facility] Comment on above: Performed By: #### C BC #### [facility] [address] [place], [place] [id number] Hong Amarilis Basophils/100 WBC (Bld) 0.9 % Normal 0.2-2.0 [facility] Comment on above: Performed By: #### C BC #### [facility] [address] [place], [place] [address] Hong Amarilis EO # 0.1 103/ul Normal 0.0-0.7 [facility] Comment on above: Performed By: #### C BC #### [facility] [address] [place], [place] [id number] Hong Amarilis Eosinophils/100 WBC (Bld) 3.1 % Normal 0.9-7.0 [facility] Comment on above: Performed By: #### C BC #### [facility] [address] [place] [address] Hong Amarilis Erythrocyte distribution width (RBC) [Ratio] 15.7 % Critically high 11.0-15.0 [facility] Comment on above: Performed By: #### C BC #### [facility] [address] [place], [place] [phone] Hong Amarilis Hematocrit (Bld) [Volume fraction] 36.8 % Normal 36.0-48.0 [facility] Comment on above: Performed By: #### C BC #### [facility] [address] [phone] Hong Amarilis Hemoglobin (Bld) [Mass/Vol] 11.4 g/dL Critically low 12.0-16.0 [facility] Comment on above: Performed By: #### C BC #### [facility] [address] [phone] Hong Amarilis IG # 0.01 10e3/ul Normal 0.00-0.03 [facility] Comment on above: Performed By: #### C BC #### [facility] [address] [place] [address] Hong Amarilis IG % 0.3 % Normal 0.0-0.5 [facility] Comment on above: Performed By: #### C BC #### [facility] [address] [place] [address] Hong Amarilis LYMPH # 1.0 103/ul Critically low 1.2-3.8 [facility] Comment on above: Performed By: #### C BC #### [facility] [address] [place], [place] [phone] Hong Olmos Lymphocytes/100 WBC (Bld) 31.1 % Normal 20.5-60.0 [facility] Comment on above: Performed By: #### C BC #### [facility] [address] [place], [place] [address] Hong Olmos MANUAL DIFF REQ NO Normal [facility] Comment on above: Performed By: #### C BC #### [facility] [address] [place], [place] [phone] Hong Amarilis MCH (RBC) [Entitic mass] 28.7 pg Normal 26.7-34.0 [facility] Comment on above: Performed By: #### C BC #### [facility] [address] [place], [place] [phone] Hongsusan Randhawaen MCHC (RBC) [Mass/Vol] 31.0 g/dL Normal 29.9-35.2 [facility] Comment on above: Performed By: #### C BC #### [facility] [address] [place], [place] [address] Hongsusan Olmos MCV (RBC) [Entitic vol] 92.7 fL Normal 81.0-99.0 [facility] Comment on above: Performed By: #### C BC #### [facility] [address] [phone] Hong Amarilis MONO # 0.4 103/ul Normal 0.3-0.8 [facility] Comment on above: Performed By: #### C BC #### [facility] [address] [phone] Hong Amarilis Monocytes/100 WBC (Bld) 12.7 % Critically high 1.7-12.0 [facility] Comment on above: Performed By: #### C BC #### [facility] [address] [address] Hong Amarilis NEUT # 1.7 103/ul Normal 1.4-6.5 [facility] Comment on above: Performed By: #### C BC #### [facility] [address] [phone] Hong Olmos Neutrophils/100 WBC (Bld) 51.9 % Normal 43.0-75.0 [facility] Comment on above: Performed By: #### C BC #### [facility] [address] [place], [place] [address] Hongsusan Olmos Platelet mean volume (Bld) [Entitic vol] 13.0 fL Normal 9.5-13.5 [facility] Comment on above: Performed By: #### C BC #### [facility] [address] [phone] Hong Amarilis PLT 135 103/ul Critically low 150-450 [facility] Comment on above: Performed By: #### C BC #### [facility] [address] [phone] Hong Amarilis RBC 3.97 106/ul Critically low 4.20-5.40 [facility] Comment on above: Performed By: #### C BC #### [facility] [address] [address] Hong Olmos WBC 3.2 103/ul Critically low 4.0-11.0 [facility] Comment on above: Performed By: #### C BC #### [facility] [address] [place], [place] [address] Hong Olmos Anti Nuclear Antibody (refle xes JOSE F panel if Positive)on 07-24-2019 Nuclear Ab Hep2 substrate Ql (S) Positive Abnormal NEGATIVE [facility] [address] [employer] Work Phone: Creatinine, Serumon 07-24-20 19 Creatinine [Mass/Vol] 0.93 mg/dL See Below MG- Rheumatolo gy-Admin Marie Work Phone: Comment on above: Reference Range: 0.5 0 - 1.05 Creatinine [Mass/Vol] mg/dL >60 [facility]- [facility]umatolo [facility]-Admin Marie Work Phone: Comment on above: CALCULATIONS OF WALI MATED GFR ARE PERFORMED USING THE MDRD STUDY EQUATION FOR THE IDMS-TRACEABLE CREATININE METHODS. CLIN CHEM 2007;53:766-72 Imm/Pathon 07-24-2019 DNA double strand Ab Qn (S) 1.0 {IU/mL} [facility] Marie Work Phone: Comment on above: REF VALUESNEGATIVE: <= 4 IU/MLEQUIVOCAL: 5- 9 IU/MLPOSITIVE: >=10 IU/ML Nuclear Ab IF (S) [Titer] 1:80 [facility] [address] Work Phone: Nuclear Ab pattern (S) [Interp] [facility] [address] Work Phone: Otheron 07-24-2019 Centromere protein B Ab Qn (S) <0.2 [facility]umatolo [facility]-Admin Marie Work Phone: Comment on above: REF VALUES < 1.0 = N EGATIVE >=1.0 = POSITIVE Chromatin Ab Qn <0.2 MG-Rheuma tolo gy-Admin Marie Work Phone: Comment on above: REF VALUES < 1.0 = N EGATIVE >=1.0 = POSITIVE Kristy-1 extractable nuclear Ab IA Ql (S) <0.2 MG-Rheumato lo gy-Admin [employer] Work Phone: Comment on above: REF VALUES < 1.0 = N EGATIVE >=1.0 = POSITIVE Ribonucleoprotein extractable nuclear Ab IA Qn (S) <0.2 [facility]-Rheumatolo gy-Admin [employer] Work Phone: Comment on above: REF VALUES < 1.0 = N EGATIVE >=1.0 = POSITIVE Ribosomal P Ab Qn (S) <0.2 MG- Rheumatolo gy-Admin [employer] Work Phone: Comment on above: REF VALUES < 1.0 = N EGATIVE >=1.0 = POSITIVE SCL-70 extractable nuclear Ab IA Ql (S) <0.2 MG-Rheumato lo gy-Admin [employer] Work Phone: Comment on above: REF VALUES < 1.0 = N EGATIVE >=1.0 = POSITIVE Sjogrens syndrome-A extractable nuclear Ab IA Qn (S) >8.0 Abnormal MG-Rheumatolo gy-Admin [employer] Work Phone: Comment on above: REF VALUES < 1.0 = N EGATIVE >=1.0 = POSITIVE Sjogrens syndrome-B extractable nuclear Ab IA Qn (S) <0.2 [facility]-Rheumatolo gy-Admin [employer] Work Phone: Comment on above: REF VALUES < 1.0 = N EGATIVE >=1.0 = POSITIVE Jackson extractable nuclear Ab IA Qn (S) <0.2 [facility]-Rheumato lo gy-Admin [employer] Work Phone: Comment on above: REF VALUES < 1.0 = N EGATIVE >=1.0 = POSITIVE Jackson extractable nuclear Ab+Ribonucleoprotein extractable nuclear Ab IA Ql (S) <0.2 [facility]umatolo [facility]-Admin [employer] Work Phone: Comment on above: REF VALUES < 1.0 = N EGATIVE >=1.0 = POSITIVE Imm/Pathon 05-30-2019 IgG [Mass/Vol] 538 mg/dL below low threshold 700 - 1600 [facility]-[address] Work Phone: Comment on above: MONOCLONAL PROTEINS MAY CAUSE FALSELY LOWRESULTS IN THIS ASSAY. SERUM PROTEINELECTROPHORESIS SHOULD BE DONE THEFIRST TEST TO EVALUATE MONOCLONAL GAMMOPATHY. Otheron 05-30-2019 339 mg/dL below low threshold 490 - 1140 [facility]-Rheumatolo [facility] [address] [facility] Work Phone: 143 mg/dL below low threshold 150 - 640 [facility] [address] [facility] Work Phone: 38 mg/dL 11 - 85 [facility] [address] [facility] Work Phone: 8 mg/dL 3 - 200 [facility] [id number] [facility] Work Phone: Comment on above: DUE TO INHERENT IMPR ECISION OF METHODS, THE SUM OF COMPONENTS MAY DIFFER FROM TOTAL IGG BY MUCH 20%. CBC With Differentialon 01-19 Absolute Neutrophil Count 3.04 10*3/uL Normal 1.95-6.85 [facility] Comment on above: Performed By: #### 2 [id number] #### [facility] [address] [place] [address] Acanthocytes Few Normal [facility] Comment on above: Performed By: #### 2 [id number] #### [facility] [address] [place] [address] Bands 0.0 % Normal 0.0-4.0 [facility] Comment on above: Performed By: #### 2 [id number] #### [facility] [address] [place] [address] Eosinophils/100 WBC (Bld) 9.0 % High 0.0-8.1 [facility] Comment on above: Performed By: #### 2 [id number] #### [facility] [address] [place] [address] Erythrocyte distribution width Ratio (RBC) 19.3 % High 12.0-15.4 [facility] Comment on above: Performed By: #### 2 [id number] #### [facility] [address] [place] [address] Hematocrit Volume Fraction (Bld) 20.2 % Low 36.5-46.6 [facility] Comment on above: Performed By: #### 2 [id number] #### [facility] [address] [place] [address] Hemoglobin mass conc (Bld) 5.6 g/dL Critically low 11.8-15.3 [facility] Comment on above: Performed By: #### 2 [id number] #### [facility] [address] [place] [address] Hypochromia Few Normal [facility] Comment on above: Performed By: #### 2 [id number] #### [facility] [address] [place] [address] Lymphocytes #/vol (Bld) 1.58 10*3/uL Normal 0.40-2.84 [facility] Comment on above: Performed By: #### 2 [id number] #### [facility] [address] [place] [address] Lymphocytes/100 WBC (Bld) 28.0 % Normal 15.7-50.5 [facility] Comment on above: Performed By: #### 2 [id number] #### [facility] [address] [place] [address] MCH Entitic mass (RBC) 20.7 pg Low 27.5-33.0 [facility] Comment on above: Performed By: #### 2 [id number] #### [facility] [address] [place] [address] MCHC mass conc (RBC) 27.7 g/dL Low 30.1-35.0 [facility] Comment on above: Performed By: #### 2 [id number] #### [facility] [address] [place] [address] MCV Entitic volume (RBC) 74.8 fL Low 85.4-100.0 [facility] Comment on above: Performed By: #### 2 [id number] #### [facility] [address] [place] [address] Microcytosis Few Normal [facility] Comment on above: Performed By: #### 2 [id number] #### [facility] [address] [place] [address] Monocytes/100 WBC (Bld) 9.0 % Normal 4.8-12.7 [facility] Comment on above: Performed By: #### 2 [id number] #### [facility] [address] [place] [address] Neutrophils/100 WBC (Bld) 54.0 % Normal 36.8-73.2 [facility] Comment on above: Performed By: #### 2 [id number] #### [facility] [address] [place] [address] NRBC Absolute 0.00 10*3/uL Normal [facility] Comment on above: Performed By: #### 2 [id number] #### [facility] [address] [place] [address] NRBC Automated 0.0 /100{WBCs} Normal [facility] Comment on above: Performed By: #### 2 [id number] #### [facility] [address] [place] [address] Platelet mean volume Entitic volume (Bld) 11.3 fL Normal 9.9-12.1 [facility] Comment on above: Performed By: #### 2 [id number] #### [facility] [address] [place] [address] Platelet Morphology Adequate Normal [facility] Comment on above: Performed By: #### 2 [id number] #### [facility] [address] [place] [address] Platelets #/vol (Bld) 199 10*3/uL Normal 155-404 [facility] Comment on above: Performed By: #### 2 [id number] #### [facility] [address] [place] [address] RBC #/vol (Bld) 2.70 10*6/uL Low 3.85-5.10 [facility] Comment on above: Performed By: #### 2 [id number] #### [facility] [address] [place] [address] RDW SD 51.9 fL High 39.3-48.6 [facility] Comment on above: Performed By: #### 2 [id number] #### [facility] [address] [place] [address] WBC #/vol (Bld) 5.6 10*3/uL Normal 4.4-9.9 [facility] Comment on above: Performed By: #### 2 [id number] #### [facility] [address] [place] [address] Carotene, Serum, Totalon Carotene, Serum, Total 120 ug/dL Normal 60-200 [facility] Comment on above: Result Comment: Spec imen exposed to light. Specimen integrity may be compromised and affect the validity of the result. Performed by [facility], [address] [place] [address],[place] [address] [email or web address] Martin [email or web address] MD - Lab. Director Performed By: #### 2 [id number] #### [facility] [address] [place] [address] Ferritinon 02-08-2019 Ferritin mass conc 2 ng/mL Low 8-150 [facility] Comment on above: Performed By: #### 2 [id number] #### [facility] [address] [place] [address] Iron Profileon 02-08-2019 Iron Binding Capacity 419 ug/dL Normal 250-565 [facility] Comment on above: Performed By: #### 2 [id number] #### [facility] [address] [place] [address] Iron mass conc 12 ug/dL Low 35-150 [facility] Comment on above: Performed By: #### 2 [id number] #### [facility] [address] [place] [address] Percent Saturation 3 % Low 14-27 [facility] Comment on above: Performed By: #### 2 952196 #### [facility] [address] [place] [address] Unbound Iron Binding Capacity 407 ug/dL High 90-340 [facility] Comment on above: Performed By: #### 2 [id number] #### [facility] [address] [place] [address] Hepatitis Panel, Acuteon Hepatitis A IgM Antibody NON-REACTIVE Normal NONREACTIVE [facility] Comment on above: Result Comment: Faiza ents receiving more than 5 mg/day of biotin may have interf in test results. A sample should be taken no sooner than eight ho after previous dose. Contact [phone] for additional information. Hepatitis B Core Antibody NON-REACTIVE Normal NONREACTIVE [facility] Comment on above: Result Comment: Fa[place] ents receiving more than 5 mg/day of biotin may have interf in test results. A sample should be taken no sooner than eight after previous dose. Contact [phone] for additional infor Hepatitis B Surface Antigen NONREACTIVE Normal NONREACTIVE [facility] Comment on above: Result Comment: [place] ents receiving more than 5 mg/day of biotin may have interf in test results. A sample should be taken no sooner than eight after previous dose. Contact [phone] for additional infor Hepatitis C Antibody NON-REACTIVE Normal NONREACTIVE [facility] Comment on above: Result Comment: Fa[place] ents receiving more than 5 mg/day of biotin may have interf in test results. A sample should be taken no sooner than eight after previous dose. Contact [phone] for additional infor ALT (SGPT)on 10-26-2018 ALT enzyme act/vol 76 U/L High 7-45 [facility] Comment on above: Performed By: #### 1 [id number] #### [facility] [address] [place] [address] AST (SGOT)on 10-26-2018 AST enzyme act/vol 54 U/L High 13-39 [facility] Comment on above: Performed By: #### 1 [id number] #### [facility] [address] [place] [address] Alkaline Phosphataseon 10-26 ALP enzyme act/vol 122 U/L High 45-117 [facility] Comment on above: Performed By: #### 1 [id number] #### [facility] [address] [place] [address] Basic Metabolic Panelon 12-0 Anion gap molar conc 11 mmol/L Normal 10-20 [facility] Comment on above: Performed By: #### 1 [id number] #### [facility] [address] [place] [address] Calcium mass conc 9.2 mg/dL Normal 8.6-10.3 [facility] Comment on above: Performed By: #### 1 [id number] #### [facility] [address] [place] [address] Chloride molar conc 104 mmol/L Normal 98-107 [facility] Comment on above: Performed By: #### 1 [id number] #### [facility] [address] [place] [address] Creatinine mass conc 0.78 mg/dL Normal 0.50-1.05 [facility] Comment on above: Performed By: #### 1 [id number] #### [facility] [address] [place] [address] GFR/1.73 sq M.predicted MDRD vol rate/area mL/min/{1.73_m2} Normal [facility] Comment on above: Result Comment: Inte rpretation for Chronic Kidney Disease: Stages 1&2 >60 Healthy or potential kidney damage. Mild decrease of GFR. Stage 3 30-59 Moderate decrease of GFR. Stage 4 15-29 Severe decrease of GFR. Stage 5 <15 Kidney failure or on dialysis. Performed By: #### 1 [id number] #### [facility] [address] [place] [address] Glucose mass conc 89 mg/dL Normal 70-100 [facility] Comment on above: Performed By: #### 1 [id number] #### [facility] [address] [place] [address] HCO3 molar conc (Bld) 26 mmol/L Normal 21-32 [facility] Comment on above: Performed By: #### 1 [id number] #### [facility] [address] [place] [address] Potassium molar conc 4.0 mmol/L Normal 3.5-5.1 [facility] Comment on above: Performed By: #### 1 405007 #### [facility] [address] [place] [address] Sodium molar conc 137 mmol/L Normal 136-145 [facility] Comment on above: Performed By: #### 1 [id number] #### [facility] [address] [place] [address] Urea nitrogen mass conc 20 mg/dL Normal 6-23 [facility] Comment on above: Performed By: #### 1 [id number] #### [facility] [address] [place] [address] Urea nitrogen/Creatinine mass ratio 26 mg/mg High 5-25 [facility] Comment on above: Performed By: #### 1 [id number] #### [facility] [address] [place] [address] Bilirubin, Directon 10-26-20 18 Bilirubin.direct mass conc 0.1 mg/dL Normal 0.0-0.3 [facility] Comment on above: Performed By: #### 1 [id number] #### [facility] [address] [place] [address] Bilirubin, Totalon 8 Bilirubin mass conc 0.4 mg/dL Normal 0.0-1.2 [facility] Comment on above: Performed By: #### 1 [id number] #### [facility] [address] [place] [address] CBC With Differentialon 12-0 Basophils #/vol (Bld) 0.02 10*3/uL Normal 0.01-0.07 [facility] Comment on above: Performed By: #### 2 [id number] #### [facility] [address] [place] [address] Basophils/100 WBC (Bld) 0.4 % Normal 0.1-1.2 [facility] Comment on above: Performed By: #### 2 354883 #### [facility] [address] [place] [address] Eosinophils #/vol (Bld) 0.23 10*3/uL Normal 0.04-0.50 [facility] Comment on above: Performed By: #### 2 [id number] #### [facility] [address] [place] [address] Eosinophils/100 WBC (Bld) 4.1 % Normal 0.0-8.1 [facility] Comment on above: Performed By: #### 2 552279 #### [facility] [address] [place] [address] Erythrocyte distribution width Ratio (RBC) 20.0 % High 12.0-15.4 [facility] Comment on above: Performed By: #### 2 848065 #### [facility] [address] [place] [address] Hematocrit Volume Fraction (Bld) 31.3 % Low 36.5-46.6 [facility] Comment on above: Performed By: #### 2 [id number] #### [facility] [address] [place] [address] Hemoglobin mass conc (Bld) 8.9 g/dL Low 11.8-15.3 [facility] Comment on above: Performed By: #### 2 794629 #### [facility] [address] [place] [address] Imm Grans Absolute 0.01 10*3/uL Normal 0.00-0.21 [facility] Comment on above: Performed By: #### 2 [id number] #### [facility] [address] [place] [address] Immature granulocytes #/vol (Bld) 0.2 % Normal [facility] Comment on above: Performed By: #### 2 [id number] #### [facility] [address] [place] [address] Lymphocytes #/vol (Bld) 1.26 10*3/uL Normal 0.40-2.84 [facility] Comment on above: Performed By: #### 2 607003 #### [facility] [address] [place] [address] Lymphocytes/100 WBC (Bld) 22.5 % Normal 15.7-50.5 [facility] Comment on above: Performed By: #### 2 [id number] #### [facility] [address] [place] [address] MCH Entitic mass (RBC) 22.2 pg Low 27.5-33.0 [facility] Comment on above: Performed By: #### 2 [id number] #### [facility] [address] [place] [address] MCHC mass conc (RBC) 28.4 g/dL Low 30.1-35.0 [facility] Comment on above: Performed By: #### 2 [id number] #### [facility] [address] [place] [address] MCV Entitic volume (RBC) 78.1 fL Low 85.4-100.0 [facility] Comment on above: Performed By: #### 2 [id number] #### [facility] [address] [place] [address] Monocytes #/vol (Bld) 0.72 10*3/uL Normal 0.25-0.83 [facility] Comment on above: Performed By: #### 2 [id number] #### [facility] [address] [place] [address] Monocytes/100 WBC (Bld) 12.9 % High 4.8-12.7 [facility] Comment on above: Performed By: #### 2 [id number] #### [facility] [address] [place] [address] Neutrophils Absolute 3.36 10*3/uL Normal 1.95-6.85 [facility] Comment on above: Performed By: #### 2 [id number] #### [facility] [address] [place] [address] Neutrophils/100 WBC (Bld) 59.9 % Normal 36.8-73.2 [facility] Comment on above: Performed By: #### 2 [id number] #### [facility] [address] [place] [address] NRBC Absolute 0.00 10*3/uL Normal [facility] Comment on above: Performed By: #### 2 [id number] #### [facility] [address] [place] [address] NRBC Automated 0.0 /100{WBCs} Normal [facility] Comment on above: Performed By: #### 2 [id number] #### [facility] [address] [place] [address] Platelet mean volume Entitic volume (Bld) 11.5 fL Normal 9.9-12.1 [facility] Comment on above: Performed By: #### 2 [id number] #### [facility] [address] [place] [address] Platelets #/vol (Bld) 199 10*3/uL Normal 155-404 [facility] Comment on above: Performed By: #### 2 [id number] #### [facility] [address] [place] [address] RBC #/vol (Bld) 4.01 10*6/uL Normal 3.85-5.10 [facility] Comment on above: Performed By: #### 2 [id number] #### [facility] [address] [place] [address] RDW SD 56.9 fL High 39.3-48.6 [facility] Comment on above: Performed By: #### 2 924055 #### [facility] [address] [place] [address] WBC #/vol (Bld) 5.6 10*3/uL Normal 4.4-9.9 [facility] Comment on above: Performed By: #### 2 [id number] #### [facility] [address] [place] [address] Carotene, Serum, Totalon Carotene, Serum, Total 597 ug/dL High 60-200 [facility] Comment on above: Result Comment: Spec imen exposed to light. Specimen integrity may be compromised and affect the validity of the result. Performed by [employer], [facility] [address] www.Ranberry, Martin Baugh MD - Lab. Director Performed By: #### 2 [id number] #### [facility] [address] [place] [address] Direct [place]son 10-26-2018 Direct Ria C3 Negative Normal [facility] Comment on above: Performed By: #### 2 [id number] #### [facility] [address] [place] [address] Direct Ria IGG Negative Normal [facility] Comment on above: Performed By: #### 2 [id number] #### [facility] [address] [place] [id number] ESR, Westergrenon 10-26-2018 ESR, Westergren 14 mm/h Normal 0-20 [facility] Comment on above: Performed By: #### 2 [id number] #### [facility] [address] [place] [address] Fibrinogenon 10-26-2018 Fibrinogen 281 mg/dL Normal 200-400 [facility] Comment on above: Result Comment: NOTE NEW REFERENCE RANGE OF 12/07/2017 Performed By: #### 3 [id number] #### [facility] [address] [place] [address] Fibrinogen Degrad Split Prod on 10-26-2018 Protein mass conc g/dL Normal <10 [facility] Healthcare Gluc-6-Phos Dehydrogon 10-26 Gluc-6-Phos Dehydrog 20.5 U/g Hb High 9.9-16.6 [facility] Comment on above: Result Comment: Gluc pqe-2-sqpgvkhkz dehydrogenase activity that is greater than the reference interval is of no known clinical importance. Performed by [employer], [address] [place] [id number] www.Ranberry, Martin Baugh MD - Lab. Director Performed By: #### 2 [id number] #### [facility] [address] [place] [address] Haptoglobinon 10-26-2018 Haptoglobin 149 mg/dL Normal 30-200 [facility] Healthcare Retic Counton 10-26-2018 Absolute Reticulocyte 0.0581 10*6/uL Normal [facility] Comment on above: Performed By: #### 2 [id number] #### [facility] [address] [place] [address] Immature Retic Fraction 29.8 % High 5.0-25.0 [facility] Comment on above: Performed By: #### 2 [id number] #### [facility] [address] [place] [address] Percent Reticulocyte 1.45 % Normal 0.86-1.92 [facility] Comment on above: Performed By: #### 2 [id number] #### [facility] [address] [place] [address] Reticulocyte Hemoglobin Equivalent 23.0 pg Low 28.0-38.0 [facility] Comment on above: Performed By: #### 2 [id number] #### [facility] [address] [place] [address] dsDNA Ab, IgGon 10-26-2018 dsDNA Ab, IgG 1.0 IU/mL Normal [facility] Comment on above: Result Comment: REF VALUES NEGATIVE: <= 4 IU/ML EQUIVOCAL: 5- 9 IU/ML POSITIVE: >=10 IU/ML Coding Summary.on 07-13-2017 Coding Summary. CODING DATE: 017 FINAL [facility] STATUS: Home (Routine DC) PAYOR: [facility] [place] ADMIT DX: REASON FOR VISIT DX: Z01.419 Encounter for gynecological examination (general) (routine) without abnormal findings FINAL DX: PRINCIPAL: Z01.419 Encounter for gynecological examination (general) (routine) without abnormal findings SECONDARY: Z11.51 Encounter for screening for human papillomavirus (HPV) PROCEDURES DOCTOR NAME DATE NOTE: The code number assigned matches the documented diagnosis and / or procedure in the patient's chart. However, the narrative phrase printed from the coding software may appear abbreviated, or result in slightly different terminology. Revised Coded By: Salud Patel Revised Date Saved: 07/12/2017 11:46 am Normal [facility] IG PAP [id number] HPV-hron 07-13 Internal Grinder (cervix/vaginal) Comment Invalid Interpretation Code [facility] Comment on above: Result Comment: Gema Arroyo, Grain Sampler (ASCP) Performed By: #### 1 [id number] ####[facility] [id number] [place] [address] Cytology report (cervical/vaginal) COMMENT Invalid Interpretation Code [facility] Comment on above: Result Comment: The [employer](R) [employer] was unable to read and evaluate thisspecimen. Therefore a manual review was performed. Performed By: #### 1 [id number] ####[place] [address] Diagnosis: Comment Invalid Interpretation Code [facility] Comment on above: Result Comment: NEGA TIVE FOR INTRAEPITHELIAL LESION AND MALIGNANCY. Performed By: #### 1 [id number] ####[place] [address] HPV (subset 1 of 2) Presence Negative Invalid Interpretation Code Negative [facility] Comment on above: Result Comment: This test was developed and its performance characteristicsdetermined by [employer]. It has not been cleared or approvedby the Food and Drug Administration.This high-risk HPV test detects thirteen high-risk types(16/18/31/33/35/39/45/51/52/56/58/59/68) without differentiation.No. of containers..01 [facility] Collection VialPerformed at: [facility] [id number] [facility], [place] [id number] MD Yadiel MackPerformed at: =G [address] [facility], [place] [id number] MD Yadiel Mack Performed By: #### 1 [id number] ####[place] [id number] MICROSCOPIC OBSERVATION:PRID:[id number] XX:NOM:XXX STAIN . Invalid Interpretation Code [facility] Comment on above: Performed By: #### 1 [id number] ####[place] [id number] Note Comment Invalid Interpretation Code [facility] Comment on above: Result Comment: The Pap smear is a screening test designed to aid in the detection ofpremalignant and malignant conditions of the uterine cervix. It is not adiagnostic procedure and should not be used as the sole means of detectingcervical cancer. Both false-positive and false-negative reports do occur. Performed By: #### 1 [id number] ####[place] [id number] Statement of adequacy (cervix/vaginal) Comment Invalid Interpretation Code [facility] Comment on above: Result Comment: Sati sfactory for evaluation. Endocervical and/or squamous metaplasticcells (endocervical component) are present. Performed By: #### 1 [id number] ####[facility] [id number] [place] [id number] Vital Signs Date Time Vital Sign Value Performing Clinician Facility 08-06-2025 10:39-0400 Body height 170.18 cm Abimael Valenzuela MD Work Phone: [facility] 08-06-2025 10:39-0400 Body mass index (BMI) [Ratio] 24.5 kg/m2 Abimael Valenzuela MD Work Phone: [facility] 08-06-2025 10:39-0400 Body weight 71.21 kg Abimael Valenzuela MD Work Phone: [facility] 08-06-2025 10:39-0400 Diastolic blood pressure 78 mm[Hg] Abimael Valenzuela MD Work Phone: [facility] 08-06-2025 10:39-0400 Heart rate 78 /min Abimael Valenzuela MD Work Phone: [facility] 08-06-2025 10:39-0400 Systolic blood pressure 115 mm[Hg] Abimael Valenzuela MD Work Phone: [facility] 05-14-2025 08:56-0400 Body height 170.2 cm Jose Antonio Fenton MD Work Phone: [facility] 05-14-2025 08:56-0400 Body mass index (BMI) [Ratio] 24.9 kg/m2 Jose Antonio Fenton MD Work Phone: [facility] 05-14-2025 08:56-0400 Body weight 72.12 kg Jose Antonio Fenton MD Work Phone: [facility] 05-14-2025 08:56-0400 Diastolic blood pressure 59 mm[Hg] Jose Antonio Fenton MD Work Phone: [facility] 05-14-2025 08:56-0400 Heart rate 66 /min Jose Antonio Fenton MD Work Phone: [facility] 05-14-2025 08:56-0400 Systolic blood pressure 103 mm[Hg] Jose Antonio Fenton MD Work Phone: [facility] 05-13-2025 09:23-0400 Body height 170.18 cm Abimael Valenzuela MD Work Phone: [facility] 05-13-2025 09:23-0400 Body mass index (BMI) [Ratio] 24.5 kg/m2 Abimael Valenzuela MD Work Phone: [facility] 05-13-2025 09:23-0400 Body weight 71.21 kg Abimael Valenzuela MD Work Phone: [facility] 05-13-2025 09:23-0400 Diastolic blood pressure 70 mm[Hg] Abimael Valenzuela MD Work Phone: [facility] 05-13-2025 09:23-0400 Heart rate 72 /min Abimael Valenzuela MD Work Phone: [facility] 05-13-2025 09:23-0400 Systolic blood pressure 101 mm[Hg] Abimael Valenzuela MD Work Phone: [facility] 02-27-2025 11:23-0400 Body height 170.2 cm Dionna Gutierrez MD Work Phone: [facility] 02-27-2025 11:23-0400 Body mass index (BMI) [Ratio] 26.4 kg/m2 Dionna Gutierrez MD Work Phone: [facility] 02-27-2025 11:23-0400 Body temperature 98.29 [degF] Dionna Gutierrez MD Work Phone: [facility] 02-27-2025 11:23-0400 Body weight 76.45 kg Dionna Gutierrez MD Work Phone: [facility] 02-27-2025 11:23-0400 Diastolic blood pressure 82 mm[Hg] Dionna Gutierrez MD Work Phone: [facility] 02-27-2025 11:23-0400 Heart rate 74 /min Dionna Gutierrez MD Work Phone: [facility] 02-27-2025 11:23-0400 Respiratory rate 18 /min Dionna Gutierrez MD Work Phone: [facility] 02-27-2025 11:23-0400 SaO2% (BldA) [Mass fraction] 97 % Dionna Gutierrez MD Work Phone: [facility] 02-27-2025 11:23-0400 Systolic blood pressure 122 mm[Hg] Dionna Gutierrez MD Work Phone: [facility] 01-13-2025 15:24-0500 Body height 170.18 cm Abimael Valenzuela MD Work Phone: [facility] 01-13-2025 15:24-0500 Body mass index (BMI) [Ratio] 25.9 kg/m2 Abimael Valenzuela MD Work Phone: [facility] 01-13-2025 15:24-0500 Body weight 75.29 kg Abimael Valenzuela MD Work Phone: [facility] 01-13-2025 15:24-0500 Diastolic blood pressure 60 mm[Hg] Abimael Valenzuela MD Work Phone: [facility] 01-13-2025 15:24-0500 Heart rate 70 /min Abimael Valenzuela MD Work Phone: [facility] 01-13-2025 15:24-0500 Respiratory rate 18 /min Abimael Valenzuela MD Work Phone: [facility] 01-13-2025 15:24-0500 SaO2% (BldA) [Mass fraction] 98 % Abimael Valenzuela MD Work Phone: [facility] 01-13-2025 15:24-0500 Systolic blood pressure 110 mm[Hg] Abimael Valenzuela MD Work Phone: [facility] 11-06-2024 09:18-0500 Body mass index (BMI) [Ratio] 26 kg/m2 Jose Antonio Fenton MD Work Phone: [facility] 11-06-2024 09:18-0500 Body weight 75.3 kg Jose Antonio Fenton MD Work Phone: [facility] 11-06-2024 09:18-0500 Diastolic blood pressure 67 mm[Hg] Jose Antonio Fenton MD Work Phone: [facility] 11-06-2024 09:18-0500 Heart rate 67 /min Jose Antonio Fenton MD Work Phone: [facility] 11-06-2024 09:18-0500 Systolic blood pressure 99 mm[Hg] Jose Antonio Fenton MD Work Phone: [facility] 10-22-2024 09:45-0500 Body height 170.2 cm Dionna Gutierrez MD Work Phone: [facility] 10-22-2024 09:45-0500 Body mass index (BMI) [Ratio] 25.9 kg/m2 Dionna Gutierrez MD Work Phone: [facility] 10-22-2024 09:45-0500 Body temperature 99.1 [degF] Dionna Gutierrez MD Work Phone: [facility] 10-22-2024 09:45-0500 Body weight 75 kg Dionna Gutierrez MD Work Phone: [facility] 10-22-2024 09:45-0500 Diastolic blood pressure 76 mm[Hg] Dionna Gutierrez MD Work Phone: [facility] 10-22-2024 09:45-0500 Heart rate 76 /min Dionna Gutierrez MD Work Phone: [facility] 10-22-2024 09:45-0500 Respiratory rate 18 /min Dionna Gutierrez MD Work Phone: [facility] 10-22-2024 09:45-0500 SaO2% (BldA) [Mass fraction] 100 % Dionna Gutierrez MD Work Phone: [facility] 10-22-2024 09:45-0500 Systolic blood pressure 123 mm[Hg] Dionna Gutierrez MD Work Phone: [facility] 08-13-2024 15:57-0400 Body height 170.18 cm [facility] 08-13-2024 15:57-0400 Body mass index (BMI) [Ratio] 26 kg/m2 [facility] 08-13-2024 15:57-0400 Body weight 75.46 kg [facility] 08-13-2024 15:57-0400 Diastolic blood pressure 79 mm[Hg] [facility] 08-13-2024 15:57-0400 Heart rate 85 /min [facility] 08-13-2024 15:57-0400 Systolic blood pressure 117 mm[Hg] [facility] 07-22-2024 12:04-0400 Body height 170.18 cm [facility] 07-22-2024 12:04-0400 Body mass index (BMI) [Ratio] 25.9 kg/m2 [facility] 07-22-2024 12:04-0400 Body temperature 98.5 [degF] [facility] 07-22-2024 12:04-0400 Body weight 75.29 kg [facility] 07-22-2024 12:04-0400 Heart rate 71 /min [facility] 07-22-2024 12:04-0400 Respiratory rate 18 /min [facility] 07-22-2024 12:04-0400 SaO2% (BldA) [Mass fraction] 99 % [facility] 07-02-2024 13:00-0400 Body temperature 98.01 [degF] Chair April Work Phone: [facility] 07-02-2024 13:00-0400 Diastolic blood pressure 77 mm[Hg] Chair April Work Phone: [facility] 07-02-2024 13:00-0400 Heart rate 90 /min Chair Bathgate Work Phone: [facility] 07-02-2024 13:00-0400 Respiratory rate 16 /min Chair Chen Work Phone: [facility] 07-02-2024 13:00-0400 SaO2% (BldA) [Mass fraction] 97 % Chair Chen Work Phone: [facility] 07-02-2024 13:00-0400 Systolic blood pressure 111 mm[Hg] Chair Chen Work Phone: [facility] 06-20-2024 14:19-0400 Body height 170.2 cm Dionna Gutierrez MD Work Phone: [facility] 06-20-2024 14:19-0400 Body mass index (BMI) [Ratio] 26.03 kg/m2 Dionna Gutierrez MD Work Phone: [facility] 06-20-2024 14:19-0400 Body temperature 98.49 [degF] Dionna Gutierrez MD Work Phone: [facility] 06-20-2024 14:19-0400 Body weight 75.4 kg Dionna Gutierrez MD Work Phone: [facility] 06-20-2024 14:19-0400 Diastolic blood pressure 86 mm[Hg] Dionna Gutierrez MD Work Phone: [facility] 06-20-2024 14:19-0400 Heart rate 87 /min Dionna Gutierrez MD Work Phone: [facility] 06-20-2024 14:19-0400 Respiratory rate 18 /min Dionna Gutierrez MD Work Phone: [facility] 06-20-2024 14:19-0400 SaO2% (BldA) [Mass fraction] 98 % Dionna Gutierrez MD Work Phone: [facility] 06-20-2024 14:19-0400 Systolic blood pressure 132 mm[Hg] Dionna Gutierrez MD Work Phone: [facility] 05-30-2024 11:59-0400 Body height 168.91 cm [facility] 05-30-2024 11:59-0400 Body mass index (BMI) [Ratio] 26 kg/m2 [facility] 05-30-2024 11:59-0400 Body weight 74.38 kg [facility] 05-30-2024 11:59-0400 Diastolic blood pressure 77 mm[Hg] [facility] 05-30-2024 11:59-0400 Heart rate 78 /min [facility] 05-30-2024 11:59-0400 Systolic blood pressure 116 mm[Hg] [facility] 05-08-2024 10:18-0400 Body mass index (BMI) [Ratio] 25.84 kg/m2 Jose Antonio Fenton MD Work Phone: [facility] 05-08-2024 10:18-0400 Body weight 74.84 kg Jose Antonio Fenton MD Work Phone: [facility] 05-08-2024 10:18-0400 Diastolic blood pressure 61 mm[Hg] Jose Antonio Fenton MD Work Phone: [facility] 05-08-2024 10:18-0400 Heart rate 73 /min Jose Antonio Fenton MD Work Phone: [facility] 05-08-2024 10:18-0400 Systolic blood pressure 108 mm[Hg] Jose Antonio Fenton MD Work Phone: [facility] 03-18-2024 13:57-0400 Body height 167.6 cm Cayla Phillip PA-C Work Phone: [facility] 03-18-2024 13:57-0400 Body mass index (BMI) [Ratio] 27.16 kg/m2 Cayla Phillip PA-C Work Phone: [facility] 03-18-2024 13:57-0400 Body temperature 98.71 [degF] Cayla Phillip PA-C Work Phone: [facility] 03-18-2024 13:57-0400 Body weight 76.3 kg Cayla Phillip PA-C Work Phone: [facility] 03-18-2024 13:57-0400 Diastolic blood pressure 70 mm[Hg] Cayla Phillip PA-C Work Phone: [facility] 03-18-2024 13:57-0400 Heart rate 70 /min Cayla Phillip PA-C Work Phone: [facility] 03-18-2024 13:57-0400 Respiratory rate 16 /min Cayla Phillip PA-C Work Phone: [facility] 03-18-2024 13:57-0400 SaO2% (BldA) [Mass fraction] 100 % Cayla Phillip PA-C Work Phone: [facility] 03-18-2024 13:57-0400 Systolic blood pressure 126 mm[Hg] Cayla Phillip PA-C Work Phone: [facility] 03-01-2024 09:18-0400 Body height 168.91 cm [facility] 03-01-2024 09:18-0400 Body mass index (BMI) [Ratio] 26.9 kg/m2 [facility] 03-01-2024 09:18-0400 Body weight 76.77 kg [facility] 03-01-2024 09:18-0400 Diastolic blood pressure 79 mm[Hg] [facility] 03-01-2024 09:18-0400 Heart rate 70 /min [facility] 03-01-2024 09:18-0400 Systolic blood pressure 118 mm[Hg] [facility] 12-21-2023 15:00-0500 Body height 168.91 cm Abimael Valenzuela Other [facility] 12-21-2023 15:00-0500 Body mass index (BMI) [Ratio] 26.99 kg/m2 Abimael Valenzuela Other [facility] Other 12-21-2023 15:00-0500 Body weight 77.02 kg Abimael Valenzuela Other [facility] [employer] Other 12-21-2023 15:00-0500 Body weight 77.01 kg [facility] 12-21-2023 15:00-0500 Diastolic blood pressure 73 mm[Hg] Abimael Valenzuela Other [facility] 12-21-2023 15:00-0500 Systolic blood pressure 108 mm[Hg] Abimael Valenzuela Other [facility] 09-26-2023 13:00-0500 Body height 168.91 cm Abimael Valenzuela Other [facility] [employer] Other 09-26-2023 13:00-0500 Body mass index (BMI) [Ratio] 25.59 kg/m2 Abimael Valenzuela Other [facility] [employer] Other 09-26-2023 13:00-0500 Body weight 73.03 kg Abimael Valenzuela Other [facility] Other 09-26-2023 13:00-0500 Diastolic blood pressure 74 mm[Hg] Abimael Valenzuela Other [facility] Other 09-26-2023 13:00-0500 Systolic blood pressure 115 mm[Hg] Abimael Valenzuela Other [facility] Other 08-11-2023 08:30-0400 Body height 168.91 cm Abimael Valenzuela Other [facility] Other 08-11-2023 08:30-0400 Body mass index (BMI) [Ratio] 24.96 kg/m2 Abimael Valenzuela Other [facility] Other 08-11-2023 08:30-0400 Body weight 71.22 kg Aibmael Valenzuela Other [facility] Other 08-11-2023 08:30-0400 Diastolic blood pressure 83 mm[Hg] Abimael Valenzuela Other [facility] Other 08-11-2023 08:30-0400 Systolic blood pressure 123 mm[Hg] Abimael Valenzuela Other [facility] Other 05-11-2023 10:29-0400 Body height 167.6 cm Dionna Gutierrez MD Work Phone: [facility] 05-11-2023 10:29-0400 Body temperature 97.81 [degF] Dionna Gutierrez MD Work Phone: [facility] 05-11-2023 10:29-0400 Body weight 72.94 kg Dionna Gutierrez MD Work Phone: [facility] 05-11-2023 10:29-0400 Diastolic blood pressure 76 mm[Hg] Dionna Gutierrez MD Work Phone: [facility] 05-11-2023 10:29-0400 Heart rate 66 /min Dionna Gutierrez MD Work Phone: [facility] 05-11-2023 10:29-0400 Respiratory rate 18 /min Dionna Gutierrez MD Work Phone: [facility] 05-11-2023 10:29-0400 SaO2% (BldA) [Mass fraction] 100 % Dionna Gutierrez MD Work Phone: [facility] 05-11-2023 10:29-0400 Systolic blood pressure 129 mm[Hg] Dionna Gutierrez MD Work Phone: [facility] 05-10-2023 09:31-0400 Body height 170.18 cm Abimael Valenzuela Work Phone: [facility] Work Phone: 05-10-2023 09:31-0400 Body mass index (BMI) [Ratio] 25.53 kg/m2 Abimael Valenzuela Work Phone: [facility] [place] Work Phone: 05-10-2023 09:31-0400 Body surface area Derived from formula 1.85 m2 Abimael Valenzuela Work Phone: [facility]Sy[facility]q [place] Work Phone: 05-10-2023 09:31-0400 Body temperature 98.6 [degF] Abimael Valenzuela Work Phone: [facility] [place] Work Phone: 05-10-2023 09:31-0400 Body weight 73.94 kg Abimael Valenzuela Work Phone: [facility]ytsgvcdpj[facility]Cgid [place] Work Phone: 05-10-2023 09:31-0400 Diastolic blood pressure 60 mm[Hg] Abimael Valenzuela Work Phone: [facility] [place] Work Phone: 05-10-2023 09:31-0400 Heart rate 70 /min Abimael Valenzuela Work Phone: [facility]as[facility] [place] Work Phone: 05-10-2023 09:31-0400 Systolic blood pressure 114 mm[Hg] Abimael Valenzuela Work Phone: [facility]Hmhc[facility]ensfzi[facility]Gwjq [place] Work Phone: 05-10-2023 09:31-0400 0 1 Abimael Valenzuela Work Phone: NM[facility]Otkmsrfnoyhp-Tjda [place] Work Phone: Comment on above: [employer] 02-01-2023 09:48-0400 Body height 167.6 cm Dionna Gutierrez MD Work Phone: [facility] 02-01-2023 09:48-0400 Body temperature 98.2 [degF] Dionna Gutierrez MD Work Phone: [facility] 02-01-2023 09:48-0400 Body weight 73.94 kg Dionna Gutierrez MD Work Phone: [facility] 02-01-2023 09:48-0400 Diastolic blood pressure 84 mm[Hg] Dionna Gutierrez MD Work Phone: [facility] 02-01-2023 09:48-0400 Heart rate 70 /min Dionna Gutierrez MD Work Phone: [facility] 02-01-2023 09:48-0400 Respiratory rate 16 /min Dionna Gutierrez MD Work Phone: [facility] 02-01-2023 09:48-0400 SaO2% (BldA) [Mass fraction] 100 % Dionna Gutierrez MD Work Phone: [facility] 02-01-2023 09:48-0400 Systolic blood pressure 140 mm[Hg] Dionna Gutierrez MD Work Phone: [facility] 12-14-2022 09:16-0500 Body temperature 98.01 [degF] Chair Bathgate Work Phone: [facility] 12-14-2022 09:16-0500 Diastolic blood pressure 86 mm[Hg] Chair April Work Phone: [facility] 12-14-2022 09:16-0500 Heart rate 68 /min Chair Bathgate Work Phone: [facility] 12-14-2022 09:16-0500 Respiratory rate 18 /min Chair April Work Phone: [facility] 12-14-2022 09:16-0500 SaO2% (BldA) [Mass fraction] 100 % Chair Bathgate Work Phone: [facility] 12-14-2022 09:16-0500 Systolic blood pressure 122 mm[Hg] Chair Bathgate Work Phone: [facility] 12-02-2022 08:11-0500 Body weight 76.2 kg Micheal Galicia Jr., DO Work Phone: [facility] 12-02-2022 08:11-0500 Diastolic blood pressure 74 mm[Hg] Micheal Galicia Jr., DO Work Phone: [facility] 12-02-2022 08:11-0500 Heart rate 66 /min Micheal Galicia Jr., DO Work Phone: [facility] 12-02-2022 08:11-0500 SaO2% (BldA) [Mass fraction] 100 % Micheal Galicia Jr., DO Work Phone: [facility] 12-02-2022 08:11-0500 Systolic blood pressure 119 mm[Hg] Micheal Galicia Jr., DO Work Phone: [facility] 12-01-2022 13:19-0500 Body temperature 98.29 [degF] Chair Bathgate Work Phone: [facility] 12-01-2022 13:19-0500 Diastolic blood pressure 68 mm[Hg] Chair April Work Phone: [facility] 12-01-2022 13:19-0500 Heart rate 67 /min Chair Bathgate Work Phone: [facility] 12-01-2022 13:19-0500 Respiratory rate 18 /min Chair Bathgate Work Phone: [facility] 12-01-2022 13:19-0500 Systolic blood pressure 115 mm[Hg] Chair Bathgate Work Phone: [facility] 11-09-2022 09:40-0500 Body height 167.6 cm Dionna Gutierrez MD Work Phone: [facility] 11-09-2022 09:40-0500 Body temperature 98.8 [degF] Dionna Gutierrez MD Work Phone: [facility] 11-09-2022 09:40-0500 Body weight 74.93 kg Dionna Gutierrez MD Work Phone: [facility] 11-09-2022 09:40-0500 Diastolic blood pressure 72 mm[Hg] Dionna Gutierrez MD Work Phone: [facility] 11-09-2022 09:40-0500 Heart rate 88 /min Dionna Gutierrez MD Work Phone: [facility] 11-09-2022 09:40-0500 Respiratory rate 18 /min Dionna Gutierrez MD Work Phone: [facility] 11-09-2022 09:40-0500 SaO2% (BldA) [Mass fraction] 100 % Dionna Gutierrez MD Work Phone: [facility] 11-09-2022 09:40-0500 Systolic blood pressure 124 mm[Hg] Dionna Gutierrez MD Work Phone: [facility] 10-04-2022 10:14-0500 Body height 167.6 cm Donaldo Mendez MD Work Phone: [facility] 10-04-2022 10:14-0500 Body weight 71.67 kg Donaldo Mendez MD Work Phone: [facility] 10-04-2022 10:14-0500 Diastolic blood pressure 77 mm[Hg] Donaldo Mendez MD Work Phone: [facility] 10-04-2022 10:14-0500 Heart rate 66 /min Donaldo Mendez MD Work Phone: [facility] 10-04-2022 10:14-0500 Systolic blood pressure 119 mm[Hg] Donaldo Mendez MD Work Phone: [facility] 05-11-2022 14:00-0400 Body height 168.91 cm Micheal Galicia Other [facility] Other 05-11-2022 14:00-0400 Body mass index (BMI) [Ratio] 23.85 kg/m2 Micheal Galicia Other [facility] [employer] Other 05-11-2022 14:00-0400 Body weight 68.04 kg Micheal Galicia Other [place] [employer] Other 05-11-2022 14:00-0400 Diastolic blood pressure 85 mm[Hg] Micheal Galicia Other [facility] [employer] Other 05-11-2022 14:00-0400 Systolic blood pressure 125 mm[Hg] Micheal Galicia Other [facility] [employer] Other 05-10-2022 11:10-0400 Diastolic blood pressure 57 mm[Hg] MD Abimael Valenzuela Work Phone: [facility] 05-10-2022 11:10-0400 Heart rate 65 /min MD Abimael Valenzuela Work Phone: [facility] 05-10-2022 11:10-0400 Respiratory rate 18 /min MD Abimael Valenzuela Work Phone: [facility] 05-10-2022 11:10-0400 SaO2% (BldA) [Mass fraction] 99 % MD Abimael Valenzuela Work Phone: [facility] 05-10-2022 11:10-0400 Systolic blood pressure 103 mm[Hg] MD Abimael Valenzuela Work Phone: [facility] 05-10-2022 09:06-0400 Body height 170.18 cm MD Abimael Valenzuela Work Phone: [facility] 05-10-2022 09:06-0400 Body mass index (BMI) [Ratio] 25.2 kg/m2 MD Abimael Valenzuela Work Phone: [facility] 05-10-2022 09:06-0400 Body temperature 98 [degF] MD Abimael Valenzuela Work Phone: [facility] 05-10-2022 09:06-0400 Body weight 73.02 kg MD Abimael Valenzuela Work Phone: [facility] 04-27-2022 14:15-0400 Body height 168.91 cm Micheal Galicia Other [facility] Other 04-27-2022 14:15-0400 Body mass index (BMI) [Ratio] 25.59 kg/m2 Micheal Galicia Other [facility] [employer] Other 04-27-2022 14:15-0400 Body weight 73.03 kg Micheal Galicia Other [facility] [employer] Other 04-26-2022 13:20-0400 Body temperature 98.71 [degF] Chair Bathgate Work Phone: [facility] 04-26-2022 13:20-0400 Diastolic blood pressure 60 mm[Hg] Chair Bathgate Work Phone: [facility] 04-26-2022 13:20-0400 Heart rate 52 /min Chair Bathgate Work Phone: [facility] 04-26-2022 13:20-0400 Respiratory rate 16 /min Chair April Work Phone: [facility] 04-26-2022 13:20-0400 SaO2% (BldA) [Mass fraction] 97 % Chair Bathgate Work Phone: [facility] 04-26-2022 13:20-0400 Systolic blood pressure 104 mm[Hg] Chair Bathgate Work Phone: [facility] 04-12-2022 10:34-0400 Body height 169.2 cm Dionna Gutierrez MD Work Phone: [facility] 04-12-2022 10:34-0400 Body temperature 97.59 [degF] Dionna Gutierrez MD Work Phone: [facility] 04-12-2022 10:34-0400 Body weight 74.93 kg Dionna Gutierrez MD Work Phone: [facility] 04-12-2022 10:34-0400 Diastolic blood pressure 79 mm[Hg] Dionna Gutierrez MD Work Phone: [facility] 04-12-2022 10:34-0400 Heart rate 67 /min Dionna Gutierrez MD Work Phone: [facility] 04-12-2022 10:34-0400 Respiratory rate 16 /min Dionna Gutierrez MD Work Phone: [facility] 04-12-2022 10:34-0400 SaO2% (BldA) [Mass fraction] 100 % Dionna Gutierrez MD Work Phone: [facility] 04-12-2022 10:34-0400 Systolic blood pressure 130 mm[Hg] Dionna Gutierrez MD Work Phone: [facility] 04-06-2022 14:15-0400 Body height 170.18 cm Abimael Valenzuela Work Phone: IR-Twyvwlwlvuhs-Zaaq [place] Work Phone: 04-06-2022 14:15-0400 Body mass index (BMI) [Ratio] 26.16 kg/m2 Abimael Valenzuela Work Phone: ST-Uktemouuypyu-Zblr [place] Work Phone: 04-06-2022 14:15-0400 Body surface area Derived from formula 1.87 m2 Abimael Valenzuela Work Phone: KF-Lhlzkhdpxhyn-Kchc [place] Work Phone: 04-06-2022 14:15-0400 Body temperature 97.1 [degF] Abimael Valenzuela Work Phone: CU-Bgcobjutfvvu-Fzbz [place] Work Phone: 04-06-2022 14:15-0400 Body weight 75.75 kg Abimael Valenzuela Work Phone: MY-Gpkblktbwzpm-Akdm [place] Work Phone: 04-06-2022 14:15-0400 Diastolic blood pressure 69 mm[Hg] Abimael Valenzuela Work Phone: MC-Dzkctrwysilc-Orxp [place] Work Phone: 04-06-2022 14:15-0400 Heart rate 63 /min Abimael Valenzuela Work Phone: AJ-Etwlffomtdyr-Gbaz [place] Work Phone: 04-06-2022 14:15-0400 Systolic blood pressure 105 mm[Hg] Abimael Valenzuela Work Phone: YJ-Ltpjrsrpfhmz-Bkmd [place] Work Phone: 04-06-2022 14:15-0400 0 1 Abimael Valenzuela Work Phone: RB-Yilbjcwzzkwf-Njja [place] Work Phone: Comment on above: [employer] 01-31-2022 10:00-0400 Body height 168.91 cm Micheal Kingsleylaura Other [facility] Other 01-31-2022 10:00-0400 Body mass index (BMI) [Ratio] 24.8 kg/m2 Micheal Galicia Other [facility] Other 01-31-2022 10:00-0400 Body weight 70.76 kg Micheal Galicia Other [facility] Other 01-31-2022 10:00-0400 Diastolic blood pressure 74 mm[Hg] Micheal Galicia Other [facility] Other 01-31-2022 10:00-0400 Systolic blood pressure 107 mm[Hg] Micheal Galicia Other [facility] Other 07-28-2021 14:43-0400 Body height 170.18 cm Abimael Valenzuela Work Phone: IT-Fqmrohlemqpi-Uoye [place] Work Phone: 07-28-2021 14:43-0400 Body mass index (BMI) [Ratio] 26 kg/m2 Abimael Valenzuela Work Phone: XU-Lqhsferfpyky-Xuft [place] Work Phone: 07-28-2021 14:43-0400 Body surface area Derived from formula 1.87 m2 Abimael Valenzuela Work Phone: GO-Cbmbxedahaqc-Xwxg [place] Work Phone: 07-28-2021 14:43-0400 Body temperature 97.7 [degF] Abimael Valenzuela Work Phone: NT-Pmavvcjthkaq-Bzmz [place] Work Phone: 07-28-2021 14:43-0400 Body weight 75.3 kg Abimael Valenzuela Work Phone: WJ-Vxfvcnvkjslh-Kofe [place] Work Phone: 07-28-2021 14:43-0400 Diastolic blood pressure 72 mm[Hg] Abimael Valenzuela Work Phone: CV-Yikggyoegotn-Skco [place] Work Phone: 07-28-2021 14:43-0400 Heart rate 66 /min Abimael Valenzuela Work Phone: UW-Rynrdveqzrfc-Rsif [place] Work Phone: 07-28-2021 14:43-0400 Systolic blood pressure 110 mm[Hg] Abimael Valenzuela Work Phone: KG-Vzuvqshrcbhh-Cpuy [place] Work Phone: 07-28-2021 14:43-0400 0 1 Abimael Valenzuela Work Phone: TX-Jjyzqxglcoau-Dxfq [place] Work Phone: Comment on above: [place] 07-24-2019 11:51-0400 BMI (Body Mass Index) 28.27 kg/m2 Jose Antonio Fenton MH-Ekrlkgufburi-Skkk [place] Work Phone: 07-24-2019 11:51-0400 Body Temperature 98.3 [degF] Jose Antonio MOE-Rheumatology -[place] Work Phone: 07-24-2019 11:51-0400 Body weight 81.87 kg Jose Antonio Fenton MG-Rheumatology- [place] Work Phone: 07-24-2019 11:51-0400 BP Diastolic 65 mm[Hg] Jose Antonio MOE-Rheumatology- [place] Work Phone: 07-24-2019 11:51-0400 BP Systolic 116 mm[Hg] Jose Antonio Fenton MG-Rheumatology- [place] Work Phone: 07-24-2019 11:51-0400 BSA (Body Surface Area) 1.94 m2 Jose Antonio MOEJU-Ylomsdqftudj-Kiyn [place] Work Phone: 07-24-2019 11:51-0400 Height 170.18 cm Jose Antonio MOE-Rheumatology- [place] Work Phone: 07-24-2019 11:51-0400 Pulse (Heart Rate) 68 /min Jose Antonio GUZMANRheumatolo gy-Stro [place] Work Phone: Encounters Encounter Date Encounter Type Care Provider Facility Start: 08-06-2025 End: 08-06-2025 ambulatory Abimael Valenzuela MD Work Phone: [facility] Work Phone: Start: 08-06-2025 End: 08-06-2025 Patient encounter procedure Abimael Valenzuela MD -[facility] Work Phone: Start: 08-06-2025 End: 08-06-2025 Patient encounter status Abimael Valenzuela MD [facility] Start: 06-24-2025 Non-patient / Non-visit Dionna Gutierrez MD -[facility] Work Phone: Start: 06-19-2025 End: 06-19-2025 Patient encounter procedure [facility]AL SELF [facility] Work Phone: Start: 06-19-2025 End: 06-19-2025 ambulatory Abimael Valenzuela MD Work Phone: [facility] Work Phone: Start: 05-14-2025 End: 05-14-2025 Office outpatient visit 15 minutes Jose Antonio Fenton MD Work Phone: [facility] Comment on above: Sjogren's syndrome, with unspecified organ involvement (Multi) (Primary Dx) Start: 05-14-2025 End: 05-14-2025 ambulatory WHEATON Nolan [facility] Ambulatory Start: 05-13-2025 End: 05-13-2025 Patient encounter procedure Abimael Valenzuela MD -[facility] Work Phone: Start: 02-27-2025 End: 02-27-2025 Patient encounter procedure Dionna Gutierrez MD Work Phone: Hematology Comment on above: Iron deficiency anem ia due to chronic blood loss (Primary Dx) Start: 02-27-2025 End: 02-27-2025 ambulatory [facility] Start: 02-19-2025 End: 04-21-2025 Follow-up encounter Dionna Gutierrez MD Work Phone: Hematology Start: 02-18-2025 End: 02-18-2025 ambulatory [facility] Start: 02-04-2025 End: 02-04-2025 Telephone encounter Izabel Glover RN Hematology Comment on above: Appointment Start: 01-13-2025 End: 01-13-2025 ambulatory Abimael Valenzuela MD Work Phone: [facility] Work Phone: Start: 01-13-2025 End: 01-13-2025 Patient encounter procedure Abimael Valenzuela MD Work Phone: [facility] Work Phone: Start: 11-06-2024 End: 11-06-2024 Office outpatient visit 15 minutes Jose Antonio Fenton MD Work Phone: [facility] Comment on above: Sjogren syndrome wit h dental involvement (Primary Dx) Start: 11-06-2024 End: 11-06-2024 ambulatory [facility] Start: 10-22-2024 End: 10-22-2024 Patient encounter procedure Dionna Gutierrez MD Work Phone: Hematology Comment on above: Iron deficiency anem ia due to chronic blood loss (Primary Dx) Start: 10-22-2024 Non-patient / Non-visit Abimael Valenzuela MD [facility] Phone[facility] Work Phone: Start: 10-22-2024 End: 10-22-2024 ambulatory DIONNA GUTIERREZ [facility] Start: 10-16-2024 End: 10-16-2024 Patient encounter procedure Abimael Valenzuela MD Work Phone: [facility] [place] Work Phone: Start: 10-16-2024 End: 10-16-2024 ambulatory Abimael Valenzuela Facility:[facility] Start: 08-13-2024 Patient encounter status [facility] Start: 08-13-2024 End: 08-13-2024 ambulatory [facility] Work Phone: Start: 08-13-2024 End: 08-13-2024 Encounter for general adult medical examination without abnormal findings [facility] Start: 08-13-2024 End: 08-13-2024 Patient encounter procedure [facility] Work Phone: Start: 07-22-2024 End: 07-22-2024 ambulatory [facility] [place] Work Phone: Start: 07-22-2024 End: 07-22-2024 Patient encounter procedure [facility] Work Phone: Start: 07-02-2024 End: 07-03-2024 ambulatory Chair 11 April Work Phone: Hematology/Oncology Comment on above: Iron deficiency anem ia due to chronic blood loss (Primary Dx) Start: 06-28-2024 Social Work Mile Thomas [employer] Hematolo gy/Oncology Start: 06-21-2024 Telephone encounter Alondra Holder RN [facility] Comment on above: Results Start: 06-20-2024 End: 06-20-2024 Patient encounter procedure Dionna Gutierrez MD Work Phone: Hematology Comment on above: Iron deficiency anem ia due to chronic blood loss (Primary Dx) Start: 06-20-2024 Non-patient / Non-visit [facility] Work Phone: Start: 06-20-2024 End: 06-20-2024 ambulatory DIONNA GUTIERREZ [facility] Start: 06-17-2024 Telephone encounter [facility]res [facility] Start: 05-30-2024 End: 05-30-2024 ambulatory [facility] Work Phone: Start: 05-30-2024 End: 05-30-2024 Patient encounter procedure [facility] Work Phone: Start: 05-08-2024 End: 05-08-2024 Office outpatient visit 15 minutes Jose Antonio Fenton MD Work Phone: [facility] Comment on above: Systemic lupus eryth ematosus, unspecified SLE type, unspecified organ involvement status (Multi) (Primary Dx) Start: 03-19-2024 Telephone encounter Cayla turcios PA-C Work Phone: Hematology/Oncology Comment on above: Results Start: 03-18-2024 End: 03-18-2024 Office outpatient visit 15 minutes Cayla SANTILLANC Work Phone: Hematology/Oncology Comment on above: Iron deficiency anem ia due to chronic blood loss (Primary Dx); Other vitamin B12 deficiency anemia; Bruising Start: 03-18-2024 End: 03-18-2024 ambulatory DIONNA GUTIERREZ Facility:[facility] Start: 03-18-2024 Non-patient / Non-visit [facility] Work Phone: Start: 03-01-2024 End: 03-01-2024 ambulatory [facility] Work Phone: Start: 03-01-2024 End: 03-01-2024 Patient encounter procedure [facility] Work Phone: Start: 01-08-2024 Non-patient / Non-visit [facility] Work Phone: Start: 12-21-2023 End: 12-21-2023 ambulatory Abimael Valenzuela Other [facility] Other Start: 12-21-2023 Office outpatient visit 15 minutes Abimael Valenzuela [facility] Start: 12-21-2023 End: 12-21-2023 Patient encounter procedure [facility]- Start: 12-18-2023 End: 12-18-2023 ambulatory Abimael Valenzuela Other [facility] Other Start: 12-18-2023 Telephone encounter Abimael Valenzuela [facility] Start: 11-21-2023 End: 11-21-2023 ambulatory Abimael Valenzuela Other [facility] Other Start: 11-21-2023 Telephone encounter Abimael Valenzuela [facility] Start: 09-29-2023 End: 09-29-2023 ambulatory MD Abimael Valenzuela Work Phone: [facility] Work Phone: Start: 09-29-2023 End: 09-29-2023 Patient encounter procedure MD Abimael Valenzuela Work Phone: [facility] Work Phone: Start: 09-26-2023 End: 09-26-2023 ambulatory Abimael Valenzuela Other [facility] Other Start: 09-26-2023 Encounter for genera l adult medical examination without abnormal findings Abimael Bianca [facility] Start: 09-26-2023 Office outpatient visit 15 minutes Abimael Bianca [facility] Start: 08-14-2023 Telephone encounter Cayla M To annr PA-C Work Phone: Hematology/Oncology Comment on above: Results Start: 08-11-2023 End: 08-11-2023 ambulatory Abimael Valenzuela Other [facility] Other Start: 08-11-2023 Encounter for genera l adult medical examination without abnormal findings Abimael Bianca [facility] Start: 08-11-2023 Periodic preventive med est patient 40-64yrs Abimael Valenzuela [facility] Start: 07-12-2023 End: 07-12-2023 ambulatory Abimael Valenzuela Other [facility] Other Start: 07-12-2023 Telephone encounter Abimael Bianca [facility] Start: 07-10-2023 End: 07-10-2023 ambulatory Abimael Valenzuela Other [facility] Other Start: 07-10-2023 Telephone encounter Abimael Valenzuela [facility] Start: 06-17-2023 End: 06-17-2023 ambulatory MD Abimael Valenzuela Work Phone: [facility] Work Phone: Start: 06-17-2023 End: 06-17-2023 Patient encounter procedure MD Abimael Valenzuela Work Phone: [facility] [place] Work Phone: Start: 05-12-2023 Telephone encounter Vicenta Syed RN Work Phone: Hematology/Oncology Comment on above: Results, Lab Start: 05-11-2023 End: 05-11-2023 ambulatory Dionna Gutierrez MD Work Phone: Hematology/Oncology Comment on above: Iron deficiency anem ia due to chronic blood loss (Primary Dx) Start: 05-11-2023 End: 05-11-2023 Patient encounter procedure Dionna Gutierrez MD Work Phone: APRIL Start: 05-10-2023 Office outpatient visit 15 minutes Abimael Valenzuela Work Phone: LE-Uktovctgamwr-Ldemvpvcpr le Work Phone: Start: 05-10-2023 Patient encounter procedure Abimael Valenzuela Work Phone: PR-Yjuzsnspqhci-Tgbeuuyoer le Work Phone: Start: 05-10-[address] Abimael Valenzuela Facility:[id number] Start: 02-01-2023 End: 02-01-2023 ambulatory Dionna Gutierrez MD Work Phone: Hematology/Oncology Comment on above: Iron deficiency anem ia due to chronic blood loss (Primary Dx) Start: 02-01-2023 End: 02-01-2023 Patient encounter procedure Dionna Gutierrez MD Work Phone: APRIL Start: 12-28-2022 Telephone encounter Micheal sanchez DO Work Phone: Gastroenterology Comment on above: Results Start: 12-14-2022 End: 12-14-2022 ambulatory Chair Byron Chen Work Phone: Hematology/Oncology Comment on above: Iron deficiency anem ia due to chronic blood loss (Primary Dx) Start: 12-02-2022 Telephone encounter Micheal sanchez DO Work Phone: Internal Medicine [facility] Comment on above: Orders Start: 12-02-2022 End: 12-02-2022 Patient encounter procedure Micheal Galicia DO Work Phone: Gastgroenterology Comment on above: Chronic gastric ulce r without hemorrhage and without perforation (Primary Dx); Gastric polyps; Systemic lupus erythematosus, unspecified SLE type, unspecified organ involvement status (HCC) Start: 12-01-2022 End: 12-01-2022 ambulatory Chair 11 April Work Phone: Hematology/Oncology Comment on above: Iron deficiency anem ia due to chronic blood loss (Primary Dx) Start: 11-30-2022 End: 11-30-2022 ambulatory Abimael Valenzuela Other [facility] Other Start: 11-30-2022 Telephone encounter Abimael Bianca [facility] Start: 11-10-2022 ambulatory Evy Hills RT(R) Radiol ogy Comment on above: Radiology US Start: 11-10-2022 Patient encounter procedure Evy Hills RT(R) [facility] Start: 11-10-2022 End: 11-10-2022 Subsequent hospital visit by physician [facility] Comment on above: Elevated serum creat inine [R79.89] Start: 11-09-2022 End: 11-09-2022 ambulatory Dionna Gutierrez MD Work Phone: Hematology/Oncology Comment on above: Iron deficiency anem ia due to chronic blood loss (Primary Dx) Start: 11-09-2022 End: 11-09-2022 Patient encounter procedure Dionna Gutierrez MD Work Phone: APRIL Start: 10-19-[address] Wise Facility:[id number] Start: 10-19-2022 Adult health examination Abimael Valenzuela Other [facility] Other Start: 10-04-2022 End: 10-04-2022 Patient encounter procedure Donaldo Mendez MD Work Phone: Kidney Medicine Comment on above: Elevated serum creat inine (Primary Dx); Systemic lupus erythematosus, unspecified SLE type, unspecified organ involvement status (HCC); Iron deficiency anemia, unspecified iron deficiency anemia type; Thrombocytopenia (HCC) Start: 08-17-2022 Telephone encounter Vicenta Syed RN Work Phone: Hematology/Oncology Comment on above: Care Coordination (L ab results) Start: 08-16-2022 Telephone encounter Juve Norman Hematology/Oncology Comment on above: Results Start: 08-07-2022 Rx Renewal Abimael Valenzuela Work Phone: [facility] [address] Work Phone: Start: 07-29-2022 Telephone encounter Dionna torres MD Work Phone: Cancer Appts Comment on above: Appointment Start: 06-23-2022 End: 06-23-2022 Patient encounter procedure MD Abimael Valenzuela Work Phone: [facility] Start: 06-07-2022 End: 06-07-2022 ambulatory Micheal Galicia Other [facility] Other Start: 06-07-2022 Telephone encounter Micheal Galicia [facility] Start: 06-02-2022 End: 06-02-2022 ambulatory Micheal Galicia Other [facility] Other Start: 06-02-2022 Telephone encounter Micheal Galicia [facility] Start: 05-11-2022 End: 05-11-2022 ambulatory Micheal Galicia Other [facility] Other Start: 05-11-2022 Office outpatient visit 15 minutes Micheal Galicia [facility] Start: 05-11-2022 Telephone encounter Micheal Galicia [facility] Start: 05-11-2022 End: 05-11-2022 Patient encounter procedure MD Abimael Valenzuela Work Phone: [facility] [place] Start: 05-10-2022 End: 05-10-2022 Admission to same day surgery center MD Abimael Valenzuela Work Phone: [facility]Digestive [facility] Start: 05-06-2022 End: 05-06-2022 Patient encounter procedure MD Abimael Valenzuela Work Phone: [facility]-Pre-Surgical Testing Start: 04-27-2022 End: 04-27-2022 ambulatory Micheal Frida Other [facility] Other Start: 04-27-2022 Office outpatient visit 25 minutes Micheal Galicia [facility] Gastroenterology Start: 04-26-2022 End: 04-26-2022 ambulatory Chair Vika Chen Work Phone: Hematology/Oncology Comment on above: Iron deficiency anem ia due to chronic blood loss (Primary Dx) Start: 04-19-2022 End: 04-19-2022 ambulatory Micheal Kingsleylaura Other [facility] Other Start: 04-19-2022 Telephone encounter Micheal Galicia [facility] Gastroenterology Start: 04-13-2022 Telephone encounter Cayla BRADSHAW-Chey Work Phone: Hematology/Oncology Comment on above: Results Start: 04-12-2022 End: 04-12-2022 ambulatory Dionna Gutierrez MD Work Phone: Hematology/Oncology Comment on above: Iron deficiency anem ia due to chronic blood loss (Primary Dx); Leukopenia, unspecified type Start: 04-12-2022 End: 04-12-2022 Patient encounter procedure Dionna Gutierrez MD Work Phone: APRIL Start: 04-06-2022 Office outpatient visit 15 minutes Abimael Valenzuela Work Phone: KF-Okirbadnuqbm-Gcpkeffxsg le Work Phone: Start: 01-31-2022 End: 01-31-2022 ambulatory Micheal Galicia Other [facility] Other Start: 01-31-2022 Office outpatient visit 25 minutes Mciheal Galicia [facility] Gastroenterology Start: 08-03-2021 Chart Update Abimael Valenzuela Work Phone: [facility] [address] Work Phone: Start: 07-28-2021 Office outpatient visit 15 minutes Abimael Valenzuela Work Phone: BF-Qnpqkiulzwuw-Kfdznhclph le Work Phone: Start: 06-30-2021 Encounter for genera l adult medical examination without abnormal findings DR ABIMAEL VALENZUELA [facility] Start: 06-25-2021 End: 06-26-[address] ABIMAEL VALENZUELA Facility:H1 Start: 06-25-2021 End: 06-26-2021 Encounter for general adult medical examination without abnormal findings DR ABIMAEL VALENZUELA Facility:[facility] Start: 06-21-2021 Rx Renewal Abimael Valenzuela Work Phone: [facility]prvjjxnwo[facility] [address] [facility] Work Phone: Start: 04-08-2021 End: 04-08-[address] ABIMAEL VALENZUELA Facility:[facility]1 Start: 03-26-2021 End: 03-26-[address] ABIMAEL VALENZUELA Facility:[facility]1 Start: 11-30-2020 End: 12-01-[address] ABIMAEL VALENZUELA Facility:H1 Start: 04-08-2020 Patient encounter procedure Jose Antonio Eliceo RI-Rnagvmfcvwxq-Wuztgabasd le Work Phone: Start: 12-11-2019 Patient encounter procedure Jose Antonio Fenton FU-Jbmfhezastkb-Stxuzuupmv le Work Phone: Start: 07-24-2019 Patient encounter procedure Jose Antonio Fenton QG-Reoqubmjkvkd-Uxvkoazzxf le Work Phone: Start: 03-06-2019 Patient encounter procedure Jose Antonoi Menjivaren OL-Uyekxhgdktdy-[facility]ovnntcPresent[facility] [address] Work Phone: Start: 02-08-2019 Patient encounter procedure VAN ELICEO Facility:[facility] Start: 11-23-2018 Patient encounter procedure Van Eliceo RI[facility]Deuubouxzfhb-WfviasfPresent[facility] [address] Work Phone: Start: 11-07-2018 Patient encounter procedure JOSE ANTONIO ELICEO Facility:[facility] Start: 10-26-2018 Patient encounter procedure VAN ELICEO Facility:[facility] Start: 10-26-2018 Patient encounter procedure VAN ELICEO Facility:[id number] Start: 10-19-2018 Patient encounter procedure Jose Antonio [facility] [address] [facility] Work Phone: Start: 08-15-2018 Patient encounter procedure Jose Antonio Fenton [facility] [address] [facility] Work Phone: Start: 04-18-2018 Patient encounter procedure Jose Antonio Fenton [facility] [address] [facility] Work Phone: Start: 10-11-2017 Patient encounter procedure Jose Antonio [facility] [address] [facility] Work Phone: Start: 07-06-2017 End: 07-07-2017 Ambulatory Eveline Aleman Facility:[facility] Procedures Date Procedure Procedure Detail Performing Clinician Start: 06-19-2025 Screening mammography of bilateral breasts Abimael Valenzuela MD Work Phone: Start: 11-06-2024 Follow-up visit Follow-up JOSE ANTONIO FENTON Start: 09-29-2023 Screening mammography of bilateral breasts MD Abimael Valenzuela Work Phone: Start: 12-01-2022 Blood count complete auto&auto difrntl wbc Tate Amaya MD Work Phone: Start: 11-10-2022 Us retroperitoneal real time w/image complete Donaldo Mendez MD Work Phone: Start: 10-04-2022 Urnls dip stick/tablet rgnt auto w/o microscopy Donaldo Mendez MD Work Phone: Start: 05-11-2022 Diagnostic radiography of abdomen MD Nichole Valenzuela Work Phone: Start: 05-10-2022 Esophagogastroduodenoscopy MD Abimael vieira Work Phone: Start: 01-17-2022 Adult depression screening assessment Dionna Gutierrez MD Work Phone: Start: 06-26-2014 General examination of patient Abimael valencia Other Screening for malign ant neoplasm of breast Abimael Valenzuela Other Plan of Treatment Date Care Activity Detail Author Start: 04-02-2034 DTaP/Tdap/Td Vaccine s (4 - Td or Tdap) DTaP/Tdap/Td Vaccines (4 - Td or Tdap) [facility] Start: 04-02-2034 Urine microalbumin profile DTaP,Tdap,Td Vaccine (4 - Td or Tdap) [facility] Start: 2030 Zoster Vaccines (1 o f 2) Zoster Vaccines (1 of 2) [facility] Start: 10-22-2027 Diabetes Screening Diabetes Screenin g [facility] Start: 04-18-2027 Urine microalbumin profile [facility] Start: 12-03-2025 End: 12-03-2025 Patient encounter procedure 12/03/2025 9:00 AM EST Office Visit [facility] [address] [place] [id number] Jose Antonio Fenton MD [address] [facility] [address] [place], [place] [id number] [facility] Start: 07-01-2025 End: 07-01-2025 Patient encounter procedure Hematology Comment on above: Schedule OV with Dr. Gutierrez w/ phlebotomy 06/29/25, labs prior phlebotomy Start: 06-29-2025 End: 09-28-2025 CBC W Auto Differential panel - Blood COMPLETE BLOOD COUNT AND DIFFERENTIAL Lab Routine Iron deficiency anemia due to chronic blood loss Expected: 06/29/2025 (Approximate), Expires: 09/28/2025 [facility] Comment on above: Expected: 06/29/2025 (Approximate), Expires: 09/28/2025 Start: 06-29-2025 End: 09-28-2025 Comprehensive metabolic 2000 panel - Serum or Plasma COMPREHENSIVE METABOLIC PANEL Lab Routine Iron deficiency anemia due to chronic blood loss Expected: 06/29/2025 (Approximate), Expires: 09/28/2025 [facility] Work Phone: Comment on above: Expected: 06/29/2025 (Approximate), Expires: 09/28/2025 Start: 06-29-2025 End: 09-28-2025 Ferritin [Mass/volume] in Serum or Plasma FERRITIN Lab Routine Iron deficiency anemia due to chronic blood loss Expected: 06/29/2025 (Approximate), Expires: 09/28/2025 [facility] Comment on above: Expected: 06/29/2025 (Approximate), Expires: 09/28/2025 Start: 06-29-2025 End: 09-28-2025 Iron and Iron binding capacity panel - Serum or Plasma IRON AND TIBC Lab Routine Iron deficiency anemia due to chronic blood loss Expected: 06/29/2025 (Approximate), Expires: 09/28/2025 [facility] Comment on above: Expected: 06/29/2025 (Approximate), Expires: 09/28/2025 Start: 05-14-2025 End: 05-14-2025 Patient encounter procedure 05/14/2025 9:00 AM EDT Office Visit [facility] [address] [place] [id number] Jose Antonio Fenton MD [address] [facility] [address] [place] [address] [facility] Start: 2025 Lipid panel Lipid Screening [facility] Start: 2025 Screening for malign ant neoplasm of colon [facility] Start: 02-20-2025 End: 05-22-2025 CBC W Auto Differential panel - Blood COMPLETE BLOOD COUNT AND DIFFERENTIAL Lab Routine Iron deficiency anemia due to chronic blood loss Expected: 02/20/2025 (Approximate), Expires: 05/22/2025 [facility] Comment on above: Expected: 02/20/2025 (Approximate), Expires: 05/22/2025 Start: 02-20-2025 End: 05-22-2025 Ferritin [Mass/volume] in Serum or Plasma FERRITIN Lab Routine Iron deficiency anemia due to chronic blood loss Expected: 02/20/2025 (Approximate), Expires: 05/22/2025 [facility] Comment on above: Expected: 02/20/2025 (Approximate), Expires: 05/22/2025 Start: 02-20-2025 End: 05-22-2025 Iron and Iron binding capacity panel - Serum or Plasma IRON AND TIBC Lab Routine Iron deficiency anemia due to chronic blood loss Expected: 02/20/2025 (Approximate), Expires: 05/22/2025 [facility] Comment on above: Expected: 02/20/2025 (Approximate), Expires: 05/22/2025 Start: 02-20-2025 End: 02-20-2025 Patient encounter procedure Hematology Comment on above: Schedule labs prior to Office visit with Dr George and Iron tx in [place] Start: 11-06-2024 End: 11-06-2024 Patient encounter procedure 11/06/2024 9:20 AM EST Office Visit [facility] [address] [facility] [address] [place] [address] Jose Antonio Fenton MD [address] [facility] [address] [place], [place] [id number] [facility] Start: 10-22-2024 End: 01-21-2025 CBC W Auto Differential panel - Blood COMPLETE BLOOD COUNT AND DIFFERENTIAL Lab STAT Iron deficiency anemia due to chronic blood loss Expected: 10/22/2024 (Approximate), Expires: 01/21/2025 [facility] Work Phone: Comment on above: Expected: 10/22/2024 (Approximate), Expires: 01/21/2025 Start: 10-22-2024 End: 10-22-2024 Follow-up encounter 10/22/2024 9:30 AM EST Visit (SP) Office Hematology [address] [place] [address] Dionna Gutierrez MD [address] [place] [id number] 4 month follow up Hematology Comment on above: 4 month follow up Start: 10-20-2024 End: 01-19-2025 Comprehensive metabolic 2000 panel - Serum or Plasma COMPREHENSIVE METABOLIC PANEL Lab Routine Iron deficiency anemia due to chronic blood loss Expected: 10/20/2024 (Approximate), Expires: 01/19/2025 [facility] Work Phone: Comment on above: Expected: 10/20/2024 (Approximate), Expires: 01/19/2025 Start: 10-20-2024 End: 01-19-2025 Ferritin [Mass/volume] in Serum or Plasma FERRITIN Lab Routine Iron deficiency anemia due to chronic blood loss Expected: 10/20/2024 (Approximate), Expires: 01/19/2025 [facility] Comment on above: Expected: 10/20/2024 (Approximate), Expires: 01/19/2025 Start: 10-20-2024 End: 01-19-2025 Iron and Iron binding capacity panel - Serum or Plasma IRON AND TIBC Lab Routine Iron deficiency anemia due to chronic blood loss Expected: 10/20/2024 (Approximate), Expires: 01/19/2025 [facility] Comment on above: Expected: 10/20/2024 (Approximate), Expires: 01/19/2025 Start: 08-12-2024 Yearly Adult Physical Yearly Adult P [facility] Start: 07-21-2024 Influenza vaccination Influenza Vacc ine (#1) [facility] Start: 07-18-2024 End: 10-17-2024 Ferritin [Mass/volume] in Serum or Plasma FERRITIN Lab Routine Iron deficiency anemia due to chronic blood loss Other vitamin B12 deficiency anemia Bruising Expected: 07/18/2024 (Approximate), Expires: 10/17/2024 [facility] Comment on above: Expected: 07/18/2024 (Approximate), Expires: 10/17/2024 Start: 07-18-2024 End: 10-17-2024 Iron and Iron binding capacity panel - Serum or Plasma IRON AND TIBC Lab Routine Iron deficiency anemia due to chronic blood loss Other vitamin B12 deficiency anemia Bruising Expected: 07/18/2024 (Approximate), Expires: 10/17/2024 [facility] Comment on above: Expected: 07/18/2024 (Approximate), Expires: 10/17/2024 Start: 07-03-2024 End: 07-03-2024 Follow-up encounter 07/03/2024 11:15 AM EDT Visit (SP) Office Hematology/Oncology [address] [place] [address] [place] [address] Dionna Gutierrez MD [address] [place] [address] [place] [address] 16 week follow up lab Hematology/Oncology Comment on above: 16 week follow up la b Start: 07-03-2024 End: 07-03-2024 Patient encounter procedure 07/03/2024 11:00 AM EDT Office Visit [facility] [address] [place] [address] 16 week follow up lab [facility] Comment on above: 16 week follow up la b Start: 07-02-2024 End: 07-02-2024 ambulatory 07/02/2024 1:00 PM EDT [facility] Hematology/Oncology [address] [place] [address] [facility] Hematology/Oncology Comment on above: [facility] Start: 06-17-2024 End: 09-16-2024 aPTT in Platelet poor plasma by Coagulation assay ACTIVATED PARTIAL THROMBOPLASTIN TIME Lab Routine Iron deficiency anemia due to chronic blood loss Other vitamin B12 deficiency anemia Bruising Expected: 06/17/2024 (Approximate), Expires: 09/16/2024 [facility] Comment on above: Expected: 06/17/2024 (Approximate), Expires: 09/16/2024 Start: 06-17-2024 End: 09-16-2024 Fibrinogen [Mass/volume] in Platelet poor plasma by Coagulation assay FIBRINOGEN Lab Routine Iron deficiency anemia due to chronic blood loss Other vitamin B12 deficiency anemia Bruising Expected: 06/17/2024 (Approximate), Expires: 09/16/2024 [facility] Comment on above: Expected: 06/17/2024 (Approximate), Expires: 09/16/2024 Start: 06-17-2024 End: 09-16-2024 PT panel - Platelet poor plasma by Coagulation assay PROTHROMBIN TIME Lab Routine Iron deficiency anemia due to chronic blood loss Other vitamin B12 deficiency anemia Bruising Expected: 06/17/2024 (Approximate), Expires: 09/16/2024 [facility] Work Phone: Comment on above: Expected: 06/17/2024 (Approximate), Expires: 09/16/2024 Start: 05-08-2024 End: 05-08-2025 JAVIER + JOSE F Panel JAVIER + JOSE F Panel Lab Routine Systemic lupus erythematosus, unspecified SLE type, unspecified organ involvement status (Multi) Expected: 05/08/2024 (Approximate), Expires: 05/08/2025 [facility] Work Phone: Comment on above: Expected: 05/08/2024 (Approximate), Expires: 05/08/2025 Start: 05-08-2024 End: 05-08-2025 Protein, Urine Random Protein, Urine Random Lab Routine Systemic lupus erythematosus, unspecified SLE type, unspecified organ involvement status (Multi) Expected: 05/08/2024 (Approximate), Expires: 05/08/2025 [facility] Work Phone: Comment on above: Expected: 05/08/2024 (Approximate), Expires: 05/08/2025 Start: 05-08-2024 End: 05-08-2025 Urinalysis complete panel - Urine Urinalysis with Reflex Microscopic Lab Routine Systemic lupus erythematosus, unspecified SLE type, unspecified organ involvement status (Multi) Expected: 05/08/2024 (Approximate), Expires: 05/08/2025 [facility] Work Phone: Comment on above: Expected: 05/08/2024 (Approximate), Expires: 05/08/2025 Start: 11-20-2023 Behavioral Health Screening Behavioral Health Screening [facility] Start: 11-01-2023 FUV, Provider: Jose Antonio Fenton, Status: Clement, Time: 10:40 AM FUV, Provider: Jose Antonio Fenton, Status: Clement, Time: 10:40 AM WD-[place]n-[place] Work Phone: Start: 08-11-2023 End: 10-11-2023 CBC W Auto Differential panel - Blood CBC + DIFF Lab Routine Iron deficiency anemia due to chronic blood loss Expected: 08/11/2023 (Approximate), Expires: 10/11/2023 [facility] Work Phone: Comment on above: Expected: 08/11/2023 (Approximate), Expires: 10/11/2023 Start: 08-11-2023 End: 10-11-2023 Comprehensive metabolic 2000 panel - Serum or Plasma COMP METABOLIC PANEL Lab Routine Iron deficiency anemia due to chronic blood loss Expected: 08/11/2023 (Approximate), Expires: 10/11/2023 [facility] Work Phone: Comment on above: Expected: 08/11/2023 (Approximate), Expires: 10/11/2023 Start: 08-11-2023 End: 05-11-2024 Ferritin [Mass/volume] in Serum or Plasma FERRITIN BLD Lab Routine Iron deficiency anemia due to chronic blood loss Expected: 08/11/2023 (Approximate), Expires: 05/11/2024 [facility] Work Phone: Comment on above: Expected: 08/11/2023 (Approximate), Expires: 05/11/2024 Start: 08-11-2023 End: 05-11-2024 Iron and Iron binding capacity panel - Serum or Plasma IRON + TIBC Lab Routine Iron deficiency anemia due to chronic blood loss Expected: 08/11/2023 (Approximate), Expires: 05/11/2024 [facility] Work Phone: Comment on above: Expected: 08/11/2023 (Approximate), Expires: 05/11/2024 Start: 08-11-2023 End: 10-11-2023 RETIC COUNT RETIC COUNT Lab Routine Iron deficiency anemia due to chronic blood loss Expected: 08/11/2023 (Approximate), Expires: 10/11/2023 [facility] Work Phone: Comment on above: Expected: 08/11/2023 (Approximate), Expires: 10/11/2023 Start: 07-21-2023 Influenza vaccination C [facility] Start: 05-04-2023 End: 07-04-2023 CBC W Auto Differential panel - Blood CBC + DIFF Lab Routine Iron deficiency anemia due to chronic blood loss Expected: 05/04/2023 (Approximate), Expires: 07/04/2023 [facility] Work Phone: Comment on above: Expected: 05/04/2023 (Approximate), Expires: 07/04/2023 Start: 05-04-2023 End: 07-04-2023 Comprehensive metabolic 2000 panel - Serum or Plasma COMP METABOLIC PANEL Lab Routine Iron deficiency anemia due to chronic blood loss Expected: 05/04/2023 (Approximate), Expires: 07/04/2023 [facility] Work Phone: Comment on above: Expected: 05/04/2023 (Approximate), Expires: 07/04/2023 Start: 05-04-2023 End: 02-02-2024 Ferritin [Mass/volume] in Serum or Plasma FERRITIN BLD Lab Routine Iron deficiency anemia due to chronic blood loss Expected: 05/04/2023 (Approximate), Expires: 02/02/2024 [facility] Work Phone: Comment on above: Expected: 05/04/2023 (Approximate), Expires: 02/02/2024 Start: 05-04-2023 End: 02-02-2024 Iron and Iron binding capacity panel - Serum or Plasma IRON + TIBC Lab Routine Iron deficiency anemia due to chronic blood loss Expected: 05/04/2023 (Approximate), Expires: 02/02/2024 [facility] Work Phone: Comment on above: Expected: 05/04/2023 (Approximate), Expires: 02/02/2024 Start: 02-07-2023 End: 04-09-2023 CBC W Auto Differential panel - Blood CBC + DIFF Lab Routine Iron deficiency anemia due to chronic blood loss Expected: 02/07/2023 (Approximate), Expires: 04/09/2023 [facility] Work Phone: Comment on above: Expected: 02/07/2023 (Approximate), Expires: 04/09/2023 Start: 02-07-2023 End: 04-09-2023 Comprehensive metabolic 2000 panel - Serum or Plasma COMP METABOLIC PANEL Lab Routine Iron deficiency anemia due to chronic blood loss Expected: 02/07/2023 (Approximate), Expires: 04/09/2023 [facility] Work Phone: Comment on above: Expected: 02/07/2023 (Approximate), Expires: 04/09/2023 Start: 02-07-2023 End: 11-09-2023 Ferritin [Mass/volume] in Serum or Plasma FERRITIN BLD Lab Routine Iron deficiency anemia due to chronic blood loss Expected: 02/07/2023 (Approximate), Expires: 11/09/2023 [facility] Work Phone: Comment on above: Expected: 02/07/2023 (Approximate), Expires: 11/09/2023 Start: 02-07-2023 End: 11-09-2023 Iron and Iron binding capacity panel - Serum or Plasma IRON + TIBC Lab Routine Iron deficiency anemia due to chronic blood loss Expected: 02/07/2023 (Approximate), Expires: 11/09/2023 [facility] Work Phone: Comment on above: Expected: 02/07/2023 (Approximate), Expires: 11/09/2023 Start: 01-17-2023 Adult depression screening assessment DEPRESSION SCREENING [facility] Start: 11-20-2022 DEPRESSION ASSESSMENT DEPRESSION ASS ESSMENT [facility] Start: 10-19-2022 FUV, Provider: Jose Antonio Fenton, Status: Pen, Time: 3:00 PM FUV, Provider: Jose Antonio Fenton, Status: Pen, Time: 3:00 PM ZY-[place]zf-[place] Work Phone: Start: 10-04-2022 End: 12-04-2022 CBC W Auto Differential panel - Blood CBC + DIFF Lab Routine Elevated serum creatinine Expected: 10/04/2022, Expires: 12/04/2022 [facility] Work Phone: Comment on above: Expected: 10/04/2022 , Expires: 12/04/2022 Start: 10-04-2022 End: 12-04-2022 Complement C3 [Mass/volume] in Serum or Plasma C3 COMPLEMENT BLD Lab Routine Elevated serum creatinine Expected: 10/04/2022, Expires: 12/04/2022 [facility] Work Phone: Comment on above: Expected: 10/04/2022 , Expires: 12/04/2022 Start: 10-04-2022 End: 12-04-2022 Complement C4 [Mass/volume] in Serum or Plasma C4 COMPLEMENT BLD Lab Routine Elevated serum creatinine Expected: 10/04/2022, Expires: 12/04/2022 [facility] Work Phone: Comment on above: Expected: 10/04/2022 , Expires: 12/04/2022 Start: 10-04-2022 End: 12-04-2022 Comprehensive metabolic 2000 panel - Serum or Plasma COMP METABOLIC PANEL Lab Routine Elevated serum creatinine Expected: 10/04/2022, Expires: 12/04/2022 [facility] Work Phone: Comment on above: Expected: 10/04/2022 , Expires: 12/04/2022 Start: 10-04-2022 End: 12-04-2022 DNA ANTIBODY DS BLD DNA ANTIBODY DS BLD Lab Routine Elevated serum creatinine Expected: 10/04/2022, Expires: 12/04/2022 [facility] Work Phone: Comment on above: Expected: 10/04/2022 , Expires: 12/04/2022 Start: 10-04-2022 End: 12-04-2022 Haptoglobin [Mass/volume] in Serum or Plasma HAPTOGLOBIN BLD Lab Routine Elevated serum creatinine Expected: 10/04/2022, Expires: 12/04/2022 [facility] Work Phone: Comment on above: Expected: 10/04/2022 , Expires: 12/04/2022 Start: 10-04-2022 End: 12-04-2022 Lactate dehydrogenase [Enzymatic activity/volume] in Serum or Plasma LD LACTATE DEHYDRO Lab Routine Elevated serum creatinine Expected: 10/04/2022, Expires: 12/04/2022 [facility] Work Phone: Comment on above: Expected: 10/04/2022 , Expires: 12/04/2022 Start: 10-04-2022 End: 12-04-2022 Nuclear Ab [Presence] in Serum by Immunoassay JAVIER BLOOD Lab Routine Elevated serum creatinine Expected: 10/04/2022, Expires: 12/04/2022 [facility] Work Phone: Comment on above: Expected: 10/04/2022 , Expires: 12/04/2022 Start: 10-04-2022 End: 12-04-2022 URINALYSIS, DIPSTICK ONLY URINALYSIS, DIPSTICK ONLY Lab Routine Elevated serum creatinine Expected: 10/04/2022, Expires: 12/04/2022 [facility] Work Phone: Comment on above: Expected: 10/04/2022 , Expires: 12/04/2022 Start: 07-21-2022 Influenza vaccination [facility] Start: 07-13-2022 End: 09-12-2022 CBC W Auto Differential panel - Blood CBC + DIFF Lab Routine Iron deficiency anemia due to chronic blood loss Expected: 07/13/2022 (Approximate), Expires: 09/12/2022 [facility] Work Phone: Comment on above: Expected: 07/13/2022 (Approximate), Expires: 09/12/2022 Start: 07-13-2022 End: 09-12-2022 Comprehensive metabolic 2000 panel - Serum or Plasma COMP METABOLIC PANEL Lab Routine Iron deficiency anemia due to chronic blood loss Expected: 07/13/2022 (Approximate), Expires: 09/12/2022 [facility] Work Phone: Comment on above: Expected: 07/13/2022 (Approximate), Expires: 09/12/2022 Start: 07-13-2022 End: 04-12-2023 FERRITIN BLD FERRITIN BLD Lab Routine Iron deficiency anemia due to chronic blood loss Expected: 07/13/2022 (Approximate), Expires: 04/12/2023 [facility] Work Phone: Comment on above: Expected: 07/13/2022 (Approximate), Expires: 04/12/2023 Start: 07-13-2022 End: 04-12-2023 IRON + TIBC IRON + TIBC Lab Routine Iron deficiency anemia due to chronic blood loss Expected: 07/13/2022 (Approximate), Expires: 04/12/2023 [facility] Work Phone: Comment on above: Expected: 07/13/2022 (Approximate), Expires: 04/12/2023 Start: 07-13-2022 End: 09-12-2022 RETIC COUNT RETIC COUNT Lab Routine Iron deficiency anemia due to chronic blood loss Expected: 07/13/2022 (Approximate), Expires: 09/12/2022 [facility] Work Phone: Comment on above: Expected: 07/13/2022 (Approximate), Expires: 09/12/2022 Start: 05-10-2022 [facility] Work Phone: Start: 11-24-2021 FUV, Provider: Jose Antonio Fenton, Status: Pen, Time: 2:40 PM FUV, Provider: Jose Antonio Fenton, Status: Pen, Time: 2:40 PM CA-Rigejbmgzmwc-Dvxi [facility] Work Phone: Start: 11-20-2021 DEPRESSION ASSESSMENT DEPRESSION ASS ESSMENT [facility] Start: 10-30-2021 COVID-19 VACCINE (4 - Booster for Pfizer series) COVID-19 VACCINE (4 - Booster for Pfizer series) [facility] Start: 10-23-2021 COVID-19 VACCINE (4 - Booster for Pfizer series) COVID-19 VACCINE (4 - Booster for Pfizer series) [facility] Start: 09-25-2021 COVID-19 VACCINE (4 - Booster for Pfizer series) COVID-19 VACCINE (4 - Booster for Pfizer series) [facility] Start: 07-28-2021 FUV, Provider: Jose Antonio Fenton, Status: Pen, Time: 2:40 PM FUV, Provider: Jose Antonio Fenton, Status: Pen, Time: 2:40 PM XW-Iewrfgogxvys-Ohcq rin [facility] [address] [facility] Work Phone: Start: 2020 Mammography [facility] Start: 2020 Screening for malign ant neoplasm of breast [facility] Start: 2010 HPV TESTING HPV TESTING [facility] Start: 2010 Screening for malign ant neoplasm of cervix HPV Testing [facility] Start: 2001 PAP TESTING PAP TESTING [facility] Start: 2001 Screening for malign ant neoplasm of cervix [facility] Start: 1999 Hepatitis B Vaccine (1 of 3 - 19+ 3-dose series) Hepatitis B Vaccine (1 of 3 - 19+ 3-dose series) [facility] Start: 1999 Hepatitis B Vaccines (1 of 3 - 19+ 3-dose series) Hepatitis B Vaccines (1 of 3 - 19+ 3-dose series) [facility] Start: 1999 SHINGRIX VACCINE (1 of 2) SHINGRIX VACCINE (1 of 2) [facility] Start: 1998 Anxiety Screening Anxiety Screening [facility] Start: 1998 Depression Screening Depression Scre ening [facility] Start: 1998 Diabetes mellitus screening Diabetes Screening [facility] Start: 1998 Hepatitis C screening Hepatitis C [facility] Start: 1998 HIV SCREENING HIV SCREENING [facility] Start: 1998 HIV screening HIV Screening [facility] Start: 1991 Screening for malign ant neoplasm of cervix Cervical Cancer Screening [facility] Start: 1986 PNEUMOCOCCAL (1 - PCV) PNEUMOCOCCAL (1 - PCV) [facility] Start: 1981 MMR Vaccines (1 of 1 - Standard series) MMR Vaccines (1 of 1 - Standard series) [facility] Start: 1980 HEPATITIS B (1 of 3 - 3-dose series) HEPATITIS B (1 of 3 - 3-dose series) [facility] Start: 1980 Hepatitis B Vaccine (1 of 3 - 3-dose series) Hepatitis B Vaccine (1 of 3 - 3-dose series) [facility] Start: 1980 HIV screening HIV Screening [facility] Start: 1980 Lipid panel Lipid Panel [facility] Start: 1980 Screening for malign ant neoplasm of colon [facility] Start: 1980 Skin Cancer Screening Skin Cancer [facility] Start: 1980 Yearly Adult Physical Yearly Adult P hysical [facility] End: 12-02-2023 EGD DIAGNOSTIC EGD DIAGNOSTIC Endoscopy Routine Chronic gastric ulcer without hemorrhage and without perforation 1 Occurrences starting 12/02/2022 until 12/02/2023 [facility] Work Phone: Comment on above: 1 Occurrences starti ng 12/02/2022 until 12/02/2023 Protein/Creatinine [Mass Ratio] in Urine PROTEIN CREATININE RATIO Lab Routine Elevated serum creatinine 10/04/2022 10:36 AM EST [facility] Work Phone: End: 11-03-2023 US KIDNEY/BLADDER US KIDNEY/BLADDER Radiology Routine Elevated serum creatinine 1 Occurrences starting 10/04/2022 until 11/03/2023 [facility] Work Phone: Comment on above: 1 Occurrences starti ng 10/04/2022 until 11/03/2023 [facility] Immunizations Immunization Date Immunization Notes Care Provider Fa [facility] 10-06-2023 Influenza, injectabl e, Madin [place] Canine Kidney, preservative free, quadrivalent Cayla Ren PA-C Work Phone: [facility] 10-06-2023 influenza virus vaccine, unspecified formulation Dionna Gutierrez MD Work Phone: [facility] 09-14-2022 Influenza, injectabl e, Madin [place] Canine Kidney, preservative free, quadrivalent Dionna Gutierrez MD Work Phone: [facility] 09-14-2022 influenza virus vaccine, unspecified formulation Cayla Ren PA-C Work Phone: [facility] 07-31-2021 COVID-19 mRNAMichel (Pfizer) MD Abimael Valenzuela Work Phone: [facility] 01-22-2021 COVID-19 mRNA Comsophie (Pfizer) MD Abimael Valenzuela Work Phone: [facility] 01-08-2021 COVID-19 Vaccine Pfi zer - Documentation Purposes Only Abimael Valenzuela Other [facility] 01-01-2021 COVID-19 Gildardo, Michel (Pfizer) MD Abimael Valenzuela Work Phone: [facility] 08-11-2020 influenza virus vaccine, split virus (incl. purified surface antigen) Abimael Valenzuela Other [facility] Other 08-11-2020 influenza virus vaccine, unspecified formulation [facility] 08-23-2019 Influenza, injectabl e, Madin Debbie Canine Kidney, preservative free, quadrivalent Dionna Gutierrez MD Work Phone: [facility] 04-18-2017 diphtheria, tetanus toxoids and acellular pertussis vaccine, unspecified formulation Abimael Valenzuela Other [facility] 04-18-2017 tetanus toxoid, redu ruiz diphtheria toxoid, and acellular pertussis vaccine, adsorbed Dionna Gutierrez MD Work Phone: [facility] Payers Date Payer Category Payer Self-pay [id number] 2024 Private Health Insurance MMO S [id number] 2023 [facility] (Private) [facility] [id number] 2019 Unknown MMO MMO [employer] [id number] 2019-Present [phone] [address] [place] [address] PPO [id number] 2017 Unknown [id number] 2014 Unknown 1980 Unknown [id number] [id number]. 355 1980 Unknown [id number] 2.16840.1.611244.3.579.2. 355 1980 Unknown [id number] 2.16.840.1.059596.3.579.2. 355 1980 Unknown [id number] 2.16.840.1.668365.3.579.2. 355 1980 Unknown [id number] 2.16.840.1.490609.3.579.2. 593 1980 Unknown [id number] 2.16840.1.719665.3.579.2. 593 1980 Unknown [id number] 2.16.840.1.007326.3.579.2. 593 1980 Unknown [id number] 2.16.840.1.850627.3.579.2. 59 1980 Unknown [id number] 2.16.840.1.392460.3.579.2. 356 1980 Unknown [id number] 2.16.840.1.165831.3.579.2. 356 1980 Unknown [id number] 2.16.840.1.824139.3.579.2. 1244 1980 Unknown [id number] 2.16.840.1.811679.3.579.2. 1244 1959 Unknown [id number] Unknown [id number] Unknown [id number] Unknown [id number] 2.16.840.1.756713.3.579.2. 531 Unknown [id number] [id number]. 531 Social History Date Type Detail Facility Start: 08-21-2020 End: 05-14-2025 Never smoker Never smoker [facility] Start: 12-23-2010 End: 12-21-2023 Tobacco smoking status NHIS Never smoked tobacco [facility] Start: 12-23-2010 End: 11-01-2023 Tobacco use and exposure Smokeless tobacco non-user [facility] Start: 04-12-2022 End: 05-14-2025 Alcohol intake Lifetime non-drinker (finding) [facility] Start: 08-21-2020 History SDOH Alcohol Frequency 1 [facility] Start: 1980 Sex Assigned At Not on file [facility] Start: 04-02-2022 End: 11-06-2024 Exposure to SARS-CoV-2 (event) Not sure [facility] Start: 08-21-2020 End: 05-14-2025 Sex Assigned At [facility] Start: 1980 Sex Assigned At Female [facility] History of tobacco use Passive smoker [facility] How often to you hav e a drink containing alcohol? Never [facility] Average Number of Drinks Not on file [facility] Start: 01-13-2025 Sex Female (finding) [facility] NEGATED: Highlighted row - - [facility] [address] [facility] Work Phone: NEGATED: Highlighted row [facility] Goals Date Patient Goal Desired Activity /State Functional Status Date Assessment Result Facility NEGATED: Highlighted row Functional performance Functional status health issues are not documented Disease [id number] Work Phone: Mental Status Date Assessment Result Facility NEGATED: Highlighted row Cognitive function [Interpretation] Cognitive status health issues are not documented Disease [id number] [address] [facility] Work Phone: Clinical Notes 11-08-2021 to 05-14-2025 Jose Antonio Fenton MD - 05/14/2025 9:00 AM EDT Note Date & Type Note Facility 05-14-2025 History of Present illness Narrative She presents for follow-up evaluation without any significant musculoskeletal complaints. She continues to note subcutaneous swelling in the lower abdomen and the proximal medial thighs. She continues to have tightness in the right hip. She continues to note eye and mouth dryness. She has not had any excessive bruising. She has had laboratory testing that demonstrated fluctuations in the platelet count. She notes abdominal bloating with sensation of incomplete emptying of her bowels. Examination shows good passive range of motion of the upper and lower extremity joints except for limitation to abduction and external rotation of the right hip. There is mild tenderness overlying the right greater trochanter. The lungs, heart, abdomen, and extremities are benign. There is fluctuant skin along the medial aspect of the left calf and in the lower abdomen. She has some yellowish coloration of the palms of her hands. The sclera are not icteric. Laboratory (02/18/2025) WBC 3.44, hemoglobin 15.4, hematocrit 44.8, MCV 97.4, MCHC 34.4, platelets 76. She has Sjogren syndrome with positive JAVIER and positive SSA antibody with sicca symptoms. She has a history of slightly elevated serum creatinine, migraine headaches, iron deficiency anemia, thrombocytopenia, and mild leukopenia. Question some skin discoloration may be related to the hydroxychloroquine. Otherwise there is no suggestion of hemolytic anemia. She is to continue hydroxychloroquine 200 mg daily. She has a follow-up with gastroenterology and continue follow-up with hematology. She is to return for follow-up evaluation in 6 months. documented in this encounter [facility] Work Phone: 05-13-2025 Evaluation note Diagnosis Onset Date Resolution Tinea corporis acute May 13, 2025 9:13am [facility] Work Phone: 1(729) 136-350806-24-2025 Evaluation note* Diagnosis Onset Date Resolution Status Admit Date Tinea corporis acute May 13, 2025 9:13am Wellness examination acute Sept emb2024 10:37am [facility] Work Phone: 1(786) 536-816304-10-2025 Instructions* Patient Instructions* Zina Mora LPN - 02/27/2025 11:59 AM EDT Schedule OV with Dr. Gutierrez 06/29/25 w. phlebotomy, labs prior [facility] NoteHNO ID: [id number] Author: DIONNA GUTIERREZ MD Service: ? Author Type: Physician Type: Progress Notes Filed: 02/27/2025 13:07 Note Text: PATIENT NAME: Bertha Green CLINIC NO.: [id number] ATTENDING PHYSICIAN: Dionna Gutierrez MD DATE OF SERVICE: February 27, 2025 Some of the elements of the node have been extracted from my previous progress note dated 10/22/2024. All the information has been reviewed carefully. Dear Dr. Abimael Valenzuela MD, here is an update on a follow up visit on female Bertha Green at the clinic February 27, 2025 Diagnosis: B12 and Iron deficiency Anemia SLE on Hydroxychlroquine. Treatment History: 1. Injectafer - Last Monoferric 03/03/2021- EGD- gastritis Venofer 4 doses last 08/2021 Repeat Venofer 11/2022 2. B12 Oral replacement 02/20/2019 3. EGD 12/2022: Normal esophagus. - Three gastric polyps. Resected and retrieved. Clip was placed. 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 - Non-bleeding gastric ulcers with no stigmata of bleeding. - Normal examined duodenum. HPI: Aelsia is a 44 year old year old female here for follow up. She is doing well and continues to take care of father , She had another EGD 12/2022 noted above. PAST MEDICAL HISTORY Diagnosis Date Anemia Gastric polyps Gastric ulcer Lupus (HCC) Right flank pain Social History Tobacco Use Smoking status: Never Passive exposure: Past Smokeless tobacco: Never Vaping Use Vaping status: Never Used Substance Use Topics Alcohol use: Never Drug use: Never FAMILY HISTORY Problem Relation Age of Onset other (schitzoaffective disorder) Mother Hypertension Father Schizophrenia Brother Diabetes Other other (scieroderma) Other Past medical, social and family history reviewed without any changes. REVIEW OF SYSTEMS GENERAL: No weight loss, malaise or fevers. No night sweats. HEENT: Negative for headaches, No changes in hearing or vision, no nose bleeds or other nasal problems. RESPIRATORY: Negative for cough, wheezing and shortness of breath CARDIOVASCULAR: Negative for chest pain, leg swelling and palpitations GI: Negative for abdominal discomfort, blood in stools or black stools and change in bowel habits : Negative for dysuria, frequency and incontinence MUSCULOSKELETAL: Negative for joint pain or swelling, back pain, and muscle pain. SKIN: Negative for lesions, rash, and itching. HEMATOLOGY/LYMPHOLOGY Negative for prolonged bleeding, bruising easily, and swollen nodes. NEURO: Negative for numbness or tingling of hands/feet. No weakness. PHYSICAL EXAMINATION: BP 122/82 Pulse 74 Temp (Src) 98.3 (Temporal Artery) Resp 18 Ht 5' 7 (1.70m) Wt 168 lb 8.7 oz (76.5kg) SpO2 97% LMP 11/22/2022 BMI 26.39 kg/(m2). Wt 83.9 kg (185 lb) BMI 29.31 kg/m2 Last 3 Encounter Wt Readings: Date: Wt: 04/29/2019 83.9 kg (185 lb) 02/20/2019 84.4 kg (186 lb) 07/04/2016 87.2 kg (192 lb 4.8 oz) General appearance:ECOG PERFORMANCE STATUS: 0- Fully active, able to carry on all pre-disease performance w/o restriction. Patient in NAD. Skin: Skin color, texture, turgor normal. No rashes or lesions. Eyes: Anicteric sclera. Pupils are equally round and reactive to light. Extraocular movements are intact. Breast: No palpable breast masses. No nipple change or discharge. Lymph Nodes: No cervical, supraclavicular, axillary or inguinal adenopathy. Oropharynx: Lips, mucosa, and tongue normal. Back: No pain to percussion. Negative SLR test Lungs clear to auscultation, No wheezing or rhonchi Heart: RRR without murmur, gallop, or rubs. Abdomen soft, non-tender. No masses, organomegaly Extremities: No deformities. No edema Neuro: Gait and speech normal. Reflexes normal and symmetric. Muscular strength intact. Sensation grossly intact. Rectal: Deferred : Deferred LABS: Glucose (mg/dL) Date Value 10/22/2024 88 11/16/2021 87 Potassium (mmol/L) Date Value 10/22/2024 4.9 11/16/2021 4.4 Sodium (mmol/L) Date Value 10/22/2024 139 11/16/2021 140 Chloride (mmol/L) Date Value 10/22/2024 105 11/16/2021 108 CO2 (mmol/L) Date Value 10/22/2024 22 11/16/2021 26 Creatinine (mg/dL) Date Value 10/22/2024 0.97 11/16/2021 0.87 BUN (mg/dL) Date Value 10/22/2024 13 11/16/2021 14 Anion Gap (mmol/L) Date Value 10/22/2024 12 11/16/2021 6 Calcium (mg/dL) Date Value 11/16/2021 8.6 Calcium, Total (mg/dL) Date Value 10/22/2024 8.7 Protein, Total (g/dL) Date Value 10/22/2024 6.7 11/16/2021 5.9 Albumin (g/dL) Date Value 10/22/2024 4.0 11/16/2021 3.9 Bilirubin, Total (mg/dL) Date Value 10/22/2024 0.4 11/16/2021 0.3 Alkaline Phosphatase (U/L) Date Value 10/22/2024 88 11/16/2021 101 AST (U/L) Date Value 10/22/2024 28 11/16/2021 27 ALT (U/L) Date Value 10/22/2024 22 11/16/2021 27 WBC Date Value Ref Range Status 02/18/2025 3.44 (L) 3.70 - 11.00 k/uL Final Comment: No clot det (more content not included)...[facility]04-10-2025 History of Present illness Narrative* Dionna Gutierrez MD - 02/27/2025 11:28 AM EDT PATIENT NAME: Bertha Green [facility] NO.: [id number] ATTENDING PHYSICIAN: Dionna Gutierrez MD DATE OF SERVICE: February 27, 2025 Some of the elements of the node have been extracted from my previous progress note dated 10/22/2024. All the information has been reviewed carefully. Dear Dr. Abimael Valenzuela MD, here is an update on a follow up visit on female Bertha H Green [facility] [address] February 27, 2025 Diagnosis: B12 and Iron deficiency Anemia SLE on Hydroxychlroquine. Treatment History: 1. Injectafer - Last Monoferric 03/03/2021- EGD- gastritis Venofer 4 doses last 08/2021 Repeat Venofer 11/2022 2. B12 Oral replacement 02/20/2019 3. EGD 12/2022: Normal esophagus. - Three gastric polyps. Resected and retrieved. Clip was placed. 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 - Non-bleeding gastric ulcers with no stigmata of bleeding. - Normal examined duodenum. HPI: Alesia is a 44 year old year old female here for follow up. She is doing well and continues to take care of father , She had another EGD 12/2022 noted above. PAST MEDICAL HISTORY Diagnosis Date Anemia Gastric polyps Gastric ulcer Lupus (HCC) Right flank pain Social History Tobacco Use Smoking status: Never Passive exposure: Past Smokeless tobacco: Never Vaping Use Vaping status: Never Used Substance Use Topics Alcohol use: Never Drug use: Never FAMILY HISTORY Problem Relation Age of Onset other (schitzoaffective disorder) Mother Hypertension Father Schizophrenia Brother Diabetes Other other (scieroderma) Other Past medical, social and family history reviewed without any changes. REVIEW OF SYSTEMS GENERAL: No weight loss, malaise or fevers. No night sweats. HEENT: Negative for headaches, No changes in hearing or vision, no nose bleeds or other nasal problems. RESPIRATORY: Negative for cough, wheezing and shortness of breath CARDIOVASCULAR: Negative for chest pain, leg swelling and palpitations GI: Negative for abdominal discomfort, blood in stools or black stools and change in bowel habits : Negative for dysuria, frequency and incontinence MUSCULOSKELETAL: Negative for joint pain or swelling, back pain, and muscle pain. SKIN: Negative for lesions, rash, and itching. HEMATOLOGY/LYMPHOLOGY Negative for prolonged bleeding, bruising easily, and swollen nodes. NEURO: Negative for numbness or tingling of hands/feet. No weakness. PHYSICAL EXAMINATION: BP 122/82 Pulse 74 Temp (Src) 98.3 (Temporal Artery) Resp 18 Ht 5' 7 (1.70m) Wt 168 lb 8.7 oz (76.5kg) SpO2 97% LMP 11/22/2022 BMI 26.39 kg/(m^2). Wt 83.9 kg (185 lb) BMI 29.31 kg/m2 Last 3 Encounter Wt Readings: Date: Wt: 04/29/2019 83.9 kg (185 lb) 02/20/2019 84.4 kg (186 lb) 07/04/2016 87.2 kg (192 lb 4.8 oz) General appearance:ECOG PERFORMANCE STATUS: 0- Fully active, able to carry on all pre-disease performance w/o restriction. Patient in NAD. Skin: Skin color, texture, turgor normal. No rashes or lesions. Eyes: Anicteric sclera. Pupils are equally round and reactive to light. Extraocular movements are intact. Breast: No palpable breast masses. No nipple change or discharge. Lymph Nodes: No cervical, supraclavicular, axillary or inguinal adenopathy. Oropharynx: Lips, mucosa, and tongue normal. Back: No pain to percussion. Negative SLR test Lungs clear to auscultation, No wheezing or rhonchi Heart: RRR without murmur, gallop, or rubs. Abdomen soft, non-tender. No masses, organomegaly Extremities: No deformities. No edema Neuro: Gait and speech normal. Reflexes normal and symmetric. Muscular strength intact. Sensation grossly intact. Rectal: Deferred : Deferred LABS: Glucose (mg/dL) Date Value 10/22/2024 88 11/16/2021 87 Potassium (mmol/L) Date Value 10/22/2024 4.9 11/16/2021 4.4 Sodium (mmol/L) Date Value 10/22/2024 139 11/16/2021 140 Chloride (mmol/L) Date Value 10/22/2024 105 11/16/2021 108 CO2 (mmol/L) Date Value 10/22/2024 22 11/16/2021 26 Creatinine (mg/dL) Date Value 10/22/2024 0.97 11/16/2021 0.87 BUN (mg/dL) Date Value 10/22/2024 13 11/16/2021 14 Anion Gap (mmol/L) Date Value 10/22/2024 12 11/16/2021 6 Calcium (mg/dL) Date Value 11/16/2021 8.6 Calcium, Total (mg/dL) Date Value 10/22/2024 8.7 Protein, Total (g/dL) Date Value 10/22/2024 6.7 11/16/2021 5.9 Albumin (g/dL) Date Value 10/22/2024 4.0 11/16/2021 3.9 Bilirubin, Total (mg/dL) Date Value 10/22/2024 0.4 11/16/2021 0.3 Alkaline Phosphatase (U/L) Date Value 10/22/2024 88 11/16/2021 101 AST (U/L) Date Value 10/22/2024 28 11/16/2021 27 ALT (U/L) Date Value 10/22/2024 22 11/16/2021 27 WBC Date Value Ref Range Status 02/18/2025 3.44 (L) 3.70 - 11.00 k/uL Final Comment: No clot detected.Results checked and verified. RBC Date Value Ref Range Status 02/18/2025 4.60 3.90 - 5.20 m/uL Final Hemoglobin Date Value Ref Range Status 02/18/2025 15.4 11.5 - 15.5 g/dL Final Hematocrit Date Value Ref Range Status 02/18/2025 44.8 36.0 - 46.0 % Final MCV Date Value Ref Range Status 02/18/2025 97.4 80.0 - 100.0 fL Final MCH Date Value Ref Range Status 02/18/2025 33.5 26.0 - 34.0 pg Final MCHC Date Value Ref Range Status 02/18/2025 34.4 30.5 - 36.0 g/dL Final RDW-CV Date Value Ref Range Status 02/18/2025 14.2 11.5 - 15.0 % Final Platelet Count Date Value Ref Range Status 02/18/2025 76 (L) 150 - 400 k/uL Final Comment: No clot detected.Results checked and verified. MPV Date Value Ref Range Status 02/18/2025 13.1 (H) 9.0 - 12.7 fL Final Abs Neut (Segs + Bands) Date Value Ref Range Status 02/18/2025 0.99 (L) 1.45 - 7.50 k/uL Final Lymphocytes % Date Value Ref Range Status 02/18/2025 55.3 % Final Abs Lymph (Normal + Reactive) Date Value Ref Range Status 02/18/2025 1.90 1.00 - 4.00 k/uL Final Monocytes % Date Value Ref Range Status 02/18/2025 10.6 % Final Abs [place] Date Value Ref Range Status 02/18/2025 0.36 <0.87 k/uL Final Eosin% Date Value Ref Range Status 02/18/2025 5.3 % Final Abs Eosin Date Value Ref Range Status 02/18/2025 0.18 <0.46 k/uL Final Basophils % Date Value Ref Range Status 02/18/2025 0.0 % Final Abs Baso Date Value Ref Range Status 02/18/2025 0.00 <0.11 k/uL Final Assessment and Plan: Bertha Green is a 44 year old year old female here for follow up. 1. Iron deficiency- Post infusion 06/2024. Follow up on Iron studies 2. B12 deficiency- Continue oral B12 replacement. 3. Follow up with Rheum, Off Plaquenil. 4. 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 Renal- etablished care with Nephrology 8. Gastric polyps- Follows GI See back in 4 months for repeat labs Thank you for the kind referral. If there are any questions and or concerns please do not hesitate to contact me at [phone]. Dionna Gutierrez MD Hematology/Medical Oncology [facility] CC: Abimael Valenzuela MD - (Active), In Basket (Inactive) - User (Inactive) [address] [facility] [address] (Ph) documented [facility] Telephone encounter Note * Telephone Encounter - Izabel Glover RN - 02/04/2025 3:45 PM EDT Pt left VM on RN phone that she needs to reschedule 4/3 appointments. [phone] (home) Please call with new appt options [facility]03-18-2025 Miscellaneous Notes* Telephone Encounter - Izabel Glover RN - 02/04/2025 3:45 PM EDT Pt left VM on RNCC phone that she needs to reschedule 4/3 appointments. [phone] (home) Please call with new appt options documented in this [facility]12-[facility]24 History of Present illness Narrative* Jose Antonio Fenton MD - 11/06/2024 9:20 AM EST She notes generalized dryness. She continues to note intermittent abdominal discomfort. She has tightness with limited range of motion of the right hip. She has attended chiropractic therapy as well as physical therapy for muscle tightness in the right hip. She had an iron infusion recently with follow-up iron studies been within normal limits. Examination shows the lungs, heart, abdomen, and extremities to be benign. Musculoskeletal examination shows some limitation to external and to lesser extent internal rotation of the right hip. Otherwise there is preserved passive range of motion of the upper and lower extremity joints. Laboratory (10/22/2024) albumin 4.0, calcium 8.7, alkaline phosphatase 88, AST 28, ALT 22, glucose 88, BUN 13, creatinine 0.97, iron 126, ferritin 120, (10/16/2024) JAVIER positive, SSA 7.7. She has Sjogren syndrome with positive JAVIER positive SSA, sicca symptoms. She has slightly elevated serum creatinine migraine headaches, iron deficiency anemia corrected following recent iron infusion, thrombocytopenia that has improved. She has limited internal and external rotation of the right hip related to tight muscles but question possible hip joint involvement. She is encouraged to be more consistent with stretching exercises. She is to try XyliMelts to improve dry mouth symptoms. She will also try flaxseed oil for her eye and mouth dryness. She is to continue hydroxychloroquine 200 mg once per day. Consider radiographs of the right hip if symptoms do notimprove. She is to return at the next available office appointment. [facility] Work Phone: 1(528) 931-150012-03-2024 Instructions* Patient Instructions* Lesvia Omer LPN - 10/22/2024 10:21 AM EST Schedule labs prior to Office visit with Dr George and Iron tx in sade documented in this encounterSy[facility]12-03-2024 NoteHNO ID: [id number] Author: DIONNA GUTIERREZ MD Service: ? Author Type: Physician Type: Progress Notes Filed: 10/22/2024 17:11 Note Text: PATIENT NAME: Bertha Green CLINIC NO.: [id number] ATTENDING PHYSICIAN: Dionna Gutierrez MD DATE OF SERVICE: October 22, 2024 Some of the elements of the node have been extracted from my previous progress note dated 06/20/2024. All the information has been reviewed carefully. Dear Dr. Abimael Valenzuela MD, here is an update on a follow up visit on female Bertha Green at the clinic October 22, 2024 Diagnosis: B12 and Iron deficiency Anemia SLE on Hydroxychlroquine. Treatment History: 1. Injectafer - Last Monoferric 03/03/2021- EGD- gastritis Venofer 4 doses last 08/2021 Repeat Venofer 11/2022 2. B12 Oral replacement 02/20/2019 3. EGD 12/2022: Normal esophagus. - Three gastric polyps. Resected and retrieved. Clip was placed. 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 - Non-bleeding gastric ulcers with no stigmata of bleeding. - Normal examined duodenum. HPI: Alesia is a 44 year old year old female here for follow up. Doing well and also father had an SD and she is taking care of him. Denies any new complaints. She had another EGD 12/2022 noted above. PAST MEDICAL HISTORY Diagnosis Date Anemia Gastric polyps Gastric ulcer Lupus (HCC) Right flank pain Social History Tobacco Use Smoking status: Never Passive exposure: Past Smokeless tobacco: Never Vaping Use Vaping status: Never Used Substance Use Topics Alcohol use: Never Drug use: Never FAMILY HISTORY Problem Relation Age of Onset other (schitzoaffective disorder) Mother Hypertension Father Schizophrenia Brother Diabetes Other other (scieroderma) Other Past medical, social and family history reviewed without any changes. REVIEW OF SYSTEMS GENERAL: No weight loss, malaise or fevers. No night sweats. HEENT: Negative for headaches, No changes in hearing or vision, no nose bleeds or other nasal problems. RESPIRATORY: Negative for cough, wheezing and shortness of breath CARDIOVASCULAR: Negative for chest pain, leg swelling and palpitations GI: Negative for abdominal discomfort, blood in stools or black stools and change in bowel habits : Negative for dysuria, frequency and incontinence MUSCULOSKELETAL: Negative for joint pain or swelling, back pain, and muscle pain. SKIN: Negative for lesions, rash, and itching. HEMATOLOGY/LYMPHOLOGY Negative for prolonged bleeding, bruising easily, and swollen nodes. NEURO: Negative for numbness or tingling of hands/feet. No weakness. PHYSICAL EXAMINATION: BP 123/76 Pulse 76 Temp (Src) 99.1 (Temporal Artery) Resp 18 Ht 5' 7 (1.70m) Wt 165 lb 5.5 oz (75.0kg) SpO2 100% LMP 11/22/2022 BMI 25.89 kg/(m2). Wt 83.9 kg (185 lb) BMI 29.31 kg/m2 Last 3 Encounter Wt Readings: Date: Wt: 04/29/2019 83.9 kg (185 lb) 02/20/2019 84.4 kg (186 lb) 07/04/2016 87.2 kg (192 lb 4.8 oz) General appearance:ECOG PERFORMANCE STATUS: 0- Fully active, able to carry on all pre-disease performance w/o restriction. Patient in NAD. Skin: Skin color, texture, turgor normal. No rashes or lesions. Eyes: Anicteric sclera. Pupils are equally round and reactive to light. Extraocular movements are intact. Breast: No palpable breast masses. No nipple change or discharge. Lymph Nodes: No cervical, supraclavicular, axillary or inguinal adenopathy. Oropharynx: Lips, mucosa, and tongue normal. Back: No pain to percussion. Negative SLR test Lungs clear to auscultation, No wheezing or rhonchi Heart: RRR without murmur, gallop, or rubs. Abdomen soft, non-tender. No masses, organomegaly Extremities: No deformities. No edema Neuro: Gait and speech normal. Reflexes normal and symmetric. Muscular strength intact. Sensation grossly intact. Rectal: Deferred : Deferred LABS: Glucose (mg/dL) Date Value 03/18/2024 105 11/16/2021 87 Potassium (mmol/L) Date Value 03/18/2024 4.5 11/16/2021 4.4 Sodium (mmol/L) Date Value 03/18/2024 139 11/16/2021 140 Chloride (mmol/L) Date Value 03/18/2024 108 11/16/2021 108 CO2 (mmol/L) Date Value 03/18/2024 23 11/16/2021 26 Creatinine (mg/dL) Date Value 03/18/2024 1.19 11/16/2021 0.87 BUN (mg/dL) Date Value 03/18/2024 18 11/16/2021 14 Anion Gap (mmol/L) Date Value 03/18/2024 8 11/16/2021 6 Calcium (mg/dL) Date Value 11/16/2021 8.6 Calcium, Total (mg/dL) Date Value 03/18/2024 8.7 Protein, Total (g/dL) Date Value 03/18/2024 6.4 11/16/2021 5.9 Albumin (g/dL) Date Value 03/18/2024 4.0 11/16/2021 3.9 Bilirubin, Total (mg/dL) Date Value 03/18/2024 0.3 11/16/2021 0.3 Alkaline Phosphatase (U/L) Date Value 03/18/2024 101 11/16/2021 101 AST (U/L) Date Value 03/18/2024 26 11/16/2021 27 ALT (U/L) Date Value 03/18/2024 20 11/16/2021 27 WBC Date Value Ref Range Status 06/20/2024 4.05 3.70 - (more content not included)...[facility] 10-22-2024 History of Present illness Narrative* Dionna Gutierrez MD - 10/22/2024 9:56 AM EST PATIENT NAME: Bertha Proctor Green [facility] NO.: [id number] ATTENDING PHYSICIAN: Dionna Gutierrez MD DATE OF SERVICE: October 22, 2024 Some of the elements of the node have been extracted from my previous progress note dated 06/20/2024.All the information has been reviewed carefully. Dear Dr. Abimael Valenzuela MD, here is an update on a follow up visit on female Bertha H [facility] October 22, 2024 Diagnosis: B12 and Iron deficiency Anemia SLE on Hydroxychlroquine. Treatment History: 1. Injectafer - Last Monoferric 03/03/2021- EGD- gastritis Venofer 4 doses last 08/2021 Repeat Venofer 11/2022 2. B12 Oral replacement 02/20/2019 3. EGD 12/2022: Normal esophagus. - Three gastric polyps. Resected and retrieved. Clip was placed. 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 - Non-bleeding gastric ulcers with no stigmata of bleeding. - Normal examined duodenum. HPI: Alesia is a 44 year old year old female here for follow up. Doing well and also father had an SD and she is taking care of him. Denies any new complaints. She had another EGD 12/2022 noted above. PAST MEDICAL HISTORY Diagnosis Date Anemia Gastric polyps Gastric ulcer Lupus (HCC) Right flank pain Social History Tobacco Use Smoking status: Never Passive exposure: Past Smokeless tobacco: Never Vaping Use Vaping status: Never Used Substance Use Topics Alcohol use: Never Drug use: Never FAMILY HISTORY Problem Relation Age of Onset other (schitzoaffective disorder) Mother Hypertension Father Schizophrenia Brother Diabetes Other other (scieroderma) Other Past medical, social and family history reviewed without any changes. REVIEW OF SYSTEMS GENERAL: No weight loss, malaise or fevers. No night sweats. HEENT: Negative for headaches, No changes in hearing or vision, no nose bleeds or other nasal problems. RESPIRATORY: Negative for cough, wheezing and shortness of breath CARDIOVASCULAR: Negative for chest pain, leg swelling and palpitations GI: Negative for abdominal discomfort, blood in stools or black stools and change in bowel habits : Negative for dysuria, frequency and incontinence MUSCULOSKELETAL: Negative for joint pain or swelling, back pain, and muscle pain. SKIN: Negative for lesions, rash, and itching. HEMATOLOGY/LYMPHOLOGY Negative for prolonged bleeding, bruising easily, and swollen nodes. NEURO: Negative for numbness or tingling of hands/feet. No weakness. PHYSICAL EXAMINATION: BP 123/76 Pulse 76 Temp (Src) 99.1 (Temporal Artery) Resp 18 Ht 5' 7 (1.70m) Wt 165 lb 5.5 oz (75.0kg) SpO2 100% LMP 11/22/2022 BMI 25.89 kg/(m^2). Wt 83.9 kg (185 lb) BMI 29.31 kg/m2 Last 3 Encounter Wt Readings: Date: Wt: 04/29/2019 83.9 kg (185 lb) 02/20/2019 84.4 kg (186 lb) 07/04/2016 87.2 kg (192 lb 4.8 oz) General appearance:ECOG PERFORMANCE STATUS: 0- Fully active, able to carry on all pre-disease performance w/o restriction. Patient in NAD. Skin: Skin color, texture, turgor normal. No rashes or lesions. Eyes: Anicteric sclera. Pupils are equally round and reactive to light. Extraocular movements are intact. Breast: No palpable breast masses. No nipple change or discharge. Lymph Nodes: No cervical, supraclavicular, axillary or inguinal adenopathy. Oropharynx: Lips, mucosa, and tongue normal. Back: No pain to percussion. Negative SLR test Lungs clear to auscultation, No wheezing or rhonchi Heart: RRR without murmur, gallop, or rubs. Abdomen soft, non-tender. No masses, organomegaly Extremities: No deformities. No edema Neuro: Gait and speech normal. Reflexes normal and symmetric. Muscular strength intact. Sensation grossly intact. Rectal: Deferred : Deferred LABS: Glucose (mg/dL) Date Value 03/18/2024 105 11/16/2021 87 Potassium (mmol/L) Date Value 03/18/2024 4.5 11/16/2021 4.4 Sodium (mmol/L) Date Value 03/18/2024 139 11/16/2021 140 Chloride (mmol/L) Date Value 03/18/2024 108 11/16/2021 108 CO2 (mmol/L) Date Value 03/18/2024 23 11/16/2021 26 Creatinine (mg/dL) Date Value 03/18/2024 1.19 11/16/2021 0.87 BUN (mg/dL) Date Value 03/18/2024 18 11/16/2021 14 Anion Gap (mmol/L) Date Value 03/18/2024 8 11/16/2021 6 Calcium (mg/dL) Date Value 11/16/2021 8.6 Calcium, Total (mg/dL) Date Value 03/18/2024 8.7 Protein, Total (g/dL) Date Value 03/18/2024 6.4 11/16/2021 5.9 Albumin (g/dL) Date Value 03/18/2024 4.0 11/16/2021 3.9 Bilirubin, Total (mg/dL) Date Value 03/18/2024 0.3 11/16/2021 0.3 Alkaline Phosphatase (U/L) Date Value 03/18/2024 101 11/16/2021 101 AST (U/L) Date Value 03/18/2024 26 11/16/2021 27 ALT (U/L) Date Value 03/18/2024 20 11/16/2021 27 WBC Date Value Ref Range Status 06/20/2024 4.05 3.70 - 11.00 k/uL Final RBC Date Value Ref Range Status 06/20/2024 4.81 3.90 - 5.20 m/uL Final Hemoglobin Date Value Ref Range Status 06/20/2024 14.8 11.5 - 15.5 g/dL Final Hematocrit Date Value Ref Range Status 06/20/2024 44.2 36.0 - 46.0 % Final MCV Date Value Ref Range Status 06/20/2024 91.9 80.0 - 100.0 fL Final MCH Date Value Ref Range Status 06/20/2024 30.8 26.0 - 34.0 pg Final MCHC Date Value Ref Range Status 06/20/2024 33.5 30.5 - 36.0 g/dL Final RDW-CV Date Value Ref Range Status 06/20/2024 12.9 11.5 - 15.0 % Final Platelet Count Date Value Ref Range Status 06/20/2024 116 (L) 150 - 400 k/uL Final MPV Date Value Ref Range Status 06/20/2024 12.6 9.0 - 12.7 fL Final Abs Neut Date Value Ref Range Status 06/20/2024 1.89 1.45 - 7.50 k/uL Final Lymphocytes % Date Value Ref Range Status 06/20/2024 40.5 % Final Abs Lymph Date Value Ref Range Status 06/20/2024 1.64 1.00 - 4.00 k/uL Final Monocytes % Date Value Ref Range Status 06/20/2024 10.1 % Final Abs Bulloch Date Value Ref Range Status 06/20/2024 0.41 <0.87 k/uL Final Abs Eosin Date Value Ref Range Status 06/20/2024 0.06 <0.46 k/uL Final Basophils % Date Value Ref Range Status 06/20/2024 1.0 % Final Abs Baso Date Value Ref Range Status 06/20/2024 0.04 <0.11 k/uL Final Assessment and Plan: Bertha Green is a 44 year old year old female here for follow up. 1. Iron deficiency- Post infusion 06/2024. Follow up on Iron studies 2. B12 deficiency- Continue oral B12 replacement. 3. Follow up with Rheum, Off Plaquenil. 4. 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 Renal- etablished care with Nephrology 8. Gastric polyps- Follows GI See back in 4 months for repeat labs Thank you for the kind referral. If there are any questions and or concerns please do not hesitate to contact me at [phone]. Doinna Gutierrez MD Hematology/Medical Oncology [facility] April CC: Abimael Valenzuela MD - (Active), In Basket (Inactive) - User (Inactive) [address] [place] [address] () documented in this encounterSycamore [facility] Center08-09-2024 NoteHNO ID: [id number] Author: MILE THOMAS LSW Service: ? Author Type: Heel Seat Sander Type: Progress Notes Filed: 06/28/2024 09:27 Note Text: Patient appears on the [facility] Time Treatment List for a non-oncology treatment. No psychosocial assessment is indicated. DEEPAK Garnett Goals of Care Advance Directives are not on file. SIGNATURE: NASIR Garnett PATIENT NAME: Bertha Green DATE: June 28, 2024 TIME: 9:26 AM PAGER/CONTACT #:[facility]08-09-2024 History of Present illness Narrative* Mile Thomas LSW - 06/28/2024 9:26 AM EDT Patient appears on the [facility] Time Treatment List for a non-oncology treatment. No psychosocial assessment is indicated. DEEPAK Garnett Goals of Care Advance Directives are not on file. SIGNATURE: NASIR Garnett PATIENT NAME: Bertha Green DATE: June 28, 2024 TIME: 9:26 AM PAGER/CONTACT #: documented in this encounterSycamore Medical Center08-05-2024 Telephone encounter Note * Telephone Encounter - Suraj Lunsford - 06/24/2024 12:10 PM EDT Patient called back and has been scheduled for Monoferric on Monday, 07/02. Thanks! Suraj Lunsford [facility]08-05-2024 Miscellaneous Notes* Telephone Encounter - Suraj Lunsford - 06/24/2024 12:10 PM EDT Patient called back and has been scheduled for Monoferric on Monday, 07/02. Thanks! Suraj Lunsford * Telephone Encounter - Suraj Lunsford - 06/24/2024 12:05 PM EDT Call placed to patient, no answer. Left message on voicemail to call back to schedule for Iron. Suraj Lunsford * Telephone Encounter - Dionna Gutierrez MD - 06/21/2024 11:10 AM EDT Thanks * Telephone Encounter - Noa Kaur - 06/21/2024 10:52 AM EDT Can we see if we can get this IV iron infusion approved & scheduled?? Thank you. APRIL Contreras * Telephone Encounter - Alondra Holder RN - 06/21/2024 10:36 AM EDT Pt notified and verbalizes understanding. PSS: Please call pt and schedule her for IV iron ( Monferric ) infusion only. 3 hours. Thanks! .Alondra Holder RN * Telephone Encounter - Alondra Holder RN - 06/21/2024 10:34 AM EDT ----- Message from Vicenta ySed RN sent at 06/21/2024 9:16 AM EDT ----- ----- Message ----- From: Dionna Gutierrez MD Sent: 06/20/2024 7:12 PM EDT To: Vicenta Syed RN Can you please arrange IV Iron for her at [place] and she already has follow up with me in [place]. Thanks documented in this encounterSycamore Medical Center08-05-2024 Telephone encounter Note * Telephone Encounter - Suraj Lunsford - 06/24/2024 12:05 PM EDT Call placed to patient, no answer. Left message on voicemail to call back to schedule for Iron. Suraj Lunsford [facility]08-02-2024 Telephone encounter Note* Telephone Encounter - Dionna Gutierrez MD - 06/21/2024 11:10 AM EDT Thanks [facility]08-02-[facility] Telephone encounter Note* Telephone Encounter - Noa Kaur - 06/21/2024 10:52 AM EDT Can we see if we can get this IV iron infusion approved & scheduled?? Thank you. APRIL Contreras [facility]08-02-20[facility] Telephone encounter Note* Telephone Encounter - Alondra Holder RN - 06/21/2024 10:36 AM EDT Pt notified and verbalizes understanding. PSS: Please call pt and schedule her for IV iron ( Monferric ) infusion only. 3 hours. Thanks! .Alondra Holder RN [facility]08-02-2024 Telephone encounter Note* Telephone Encounter - Alondra Holder RN - 06/21/2024 10:34 AM EDT ----- Message from Vicenta Syed RN sent at 06/21/2024 9:16 AM EDT ----- ----- Message ----- From: Dionna Gutierrez MD Sent: 06/20/2024 7:12 PM EDT To: Vicenta Syed RN Can you please arrange IV Iron for her at [place] and she already has follow up with me in [place]. Thanks [facility]08-01-2024 NoteHNO ID: [id number] Author: DIONNA GUTIERREZ MD Service: ? Author Type: Physician Type: Progress Notes Filed: 06/21/2024 12:36 Note Text: PATIENT NAME: Bertha Green CLINIC NO.: [id number] ATTENDING PHYSICIAN: Dionna Gutierrez MD DATE OF SERVICE: June 20, 2024 Some of the elements of the node have been extracted from my previous progress note dated 11/17/2023. All the information has been reviewed carefully. Dear Dr. Abimael Valenzuela MD, here is an update on a follow up visit on female Bertha Green at the clinic June 20, 2024 Diagnosis: B12 and Iron deficiency Anemia SLE on Hydroxychlroquine. Treatment History: 1. Injectafer - Last Monoferric 03/03/2021- EGD- gastritis Venofer 4 doses last 08/2021 Repeat Venofer 11/2022 2. B12 Oral replacement 02/20/2019 3. EGD 12/2022: Normal esophagus. - Three gastric polyps. Resected and retrieved. Clip was placed. 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 - Non-bleeding gastric ulcers with no stigmata of bleeding. - Normal examined duodenum. HPI: Alesia is a 44 year old year old female here for follow up. Doing well and denies any new complaints. Continues to have a great relationship with her foster parents family. She had another EGD 12/2022 noted above. PAST MEDICAL HISTORY No date: Anemia No date: Gastric polyps No date: Gastric ulcer No date: Lupus (HCC) No date: Right flank pain Social History Tobacco Use Smoking status: Never Passive exposure: Past Smokeless tobacco: Never Vaping Use Vaping Use: Never used Substance Use Topics Alcohol use: Never Drug use: Never FAMILY HISTORY Problem Relation Age of Onset other (schitzoaffective disorder) Mother Hypertension Father Schizophrenia Brother Diabetes Other other (scieroderma) Other Past medical, social and family history reviewed without any changes. REVIEW OF SYSTEMS GENERAL: No weight loss, malaise or fevers. No night sweats. HEENT: Negative for headaches, No changes in hearing or vision, no nose bleeds or other nasal problems. RESPIRATORY: Negative for cough, wheezing and shortness of breath CARDIOVASCULAR: Negative for chest pain, leg swelling and palpitations GI: Negative for abdominal discomfort, blood in stools or black stools and change in bowel habits : Negative for dysuria, frequency and incontinence MUSCULOSKELETAL: Negative for joint pain or swelling, back pain, and muscle pain. SKIN: Negative for lesions, rash, and itching. HEMATOLOGY/LYMPHOLOGY Negative for prolonged bleeding, bruising easily, and swollen nodes. NEURO: Negative for numbness or tingling of hands/feet. No weakness. PHYSICAL EXAMINATION: BP 132/86 Pulse 87 Temp (Src) 98.5 (Oral) Resp 18 Ht 5' 7 (1.70m) Wt 166 lb 3.6 oz (75.4kg) SpO2 98% LMP 11/22/2022 BMI 26.03 kg/(m2). Wt 83.9 kg (185 lb) BMI 29.31 kg/m2 Last 3 Encounter Wt Readings: Date: Wt: 04/29/2019 83.9 kg (185 lb) 02/20/2019 84.4 kg (186 lb) 07/04/2016 87.2 kg (192 lb 4.8 oz) General appearance:ECOG PERFORMANCE STATUS: 0- Fully active, able to carry on all pre-disease performance w/o restriction. Patient in NAD. Skin: Skin color, texture, turgor normal. No rashes or lesions. Eyes: Anicteric sclera. Pupils are equally round and reactive to light. Extraocular movements are intact. Breast: No palpable breast masses. No nipple change or discharge. Lymph Nodes: No cervical, supraclavicular, axillary or inguinal adenopathy. Oropharynx: Lips, mucosa, and tongue normal. Back: No pain to percussion. Negative SLR test Lungs clear to auscultation, No wheezing or rhonchi Heart: RRR without murmur, gallop, or rubs. Abdomen soft, non-tender. No masses, organomegaly Extremities: No deformities. No edema Neuro: Gait and speech normal. Reflexes normal and symmetric. Muscular strength intact. Sensation grossly intact. Rectal: Deferred : Deferred LABS: Glucose (mg/dL) Date Value 03/18/2024 105 11/16/2021 87 Potassium (mmol/L) Date Value 03/18/2024 4.5 11/16/2021 4.4 Sodium (mmol/L) Date Value 03/18/2024 139 11/16/2021 140 Chloride (mmol/L) Date Value 03/18/2024 108 11/16/2021 108 CO2 (mmol/L) Date Value 03/18/2024 23 11/16/2021 26 Creatinine (mg/dL) Date Value 03/18/2024 1.19 11/16/2021 0.87 BUN (mg/dL) Date Value 03/18/2024 18 11/16/2021 14 Anion Gap (mmol/L) Date Value 03/18/2024 8 11/16/2021 6 Calcium (mg/dL) Date Value 11/16/2021 8.6 Calcium, Total (mg/dL) Date Value 03/18/2024 8.7 Protein, Total (g/dL) Date Value 03/18/2024 6.4 11/16/2021 5.9 Albumin (g/dL) Date Value 03/18/2024 4.0 11/16/2021 3.9 Bilirubin, Total (mg/dL) Date Value 03/18/2024 0.3 11/16/2021 0.3 Alkaline Phosphatase (U/L) Date Value 03/18/2024 101 11/16/2021 101 AST (U/L) Date Value 03/18/2024 26 11/16/2021 27 ALT (U/L) Date Value 03/18/2024 20 11/16/2021 27 WBC Date Value Ref Range Statu (more content not included)...[facility]08-01-2024 History of Present illness Narrative* Dionna Gutierrez MD - 06/20/2024 2:31 PM EDT PATIENT NAME: Bertha Green [facility] NO.: [id number] ATTENDING PHYSICIAN: Dionna Gutierrez MD DATE OF SERVICE: June 20, 2024 Some of the elements of the node have been extracted from my previous progress note dated 11/17/2023. All the information has been reviewed carefully. Dear Dr. Abimael Valenzuela MD, here is an update on a follow up visit on female Bertha H Green [facility] [address] June 20, 2024 Diagnosis: B12 and Iron deficiency Anemia SLE on Hydroxychlroquine. Treatment History: 1. Injectafer - Last Monoferric 03/03/2021- EGD- gastritis Venofer 4 doses last 08/2021 Repeat Venofer 11/2022 2. B12 Oral replacement 02/20/2019 3. EGD 12/2022: Normal esophagus. - Three gastric polyps. Resected and retrieved. Clip was placed. 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 - Non-bleeding gastric ulcers with no stigmata of bleeding. - Normal examined duodenum. HPI: Alesia is a 44 year old year old female here for follow up. Doing well and denies any new complaints. Continues to have a great relationship with her foster parents family. She had another EGD 12/2022 noted above. PAST MEDICAL HISTORY No date: Anemia No date: Gastric polyps No date: Gastric ulcer No date: Lupus (HCC) No date: Right flank pain Social History Tobacco Use Smoking status: Never Passive exposure: Past Smokeless tobacco: Never Vaping Use Vaping Use: Never used Substance Use Topics Alcohol use: Never Drug use: Never FAMILY HISTORY Problem Relation Age of Onset other (schitzoaffective disorder) Mother Hypertension Father Schizophrenia Brother Diabetes Other other (scieroderma) Other Past medical, social and family history reviewed without any changes. REVIEW OF SYSTEMS GENERAL: No weight loss, malaise or fevers. No night sweats. HEENT: Negative for headaches, No changes in hearing or vision, no nose bleeds or other nasal problems. RESPIRATORY: Negative for cough, wheezing and shortness of breath CARDIOVASCULAR: Negative for chest pain, leg swelling and palpitations GI: Negative for abdominal discomfort, blood in stools or black stools and change in bowel habits : Negative for dysuria, frequency and incontinence MUSCULOSKELETAL: Negative for joint pain or swelling, back pain, and muscle pain. SKIN: Negative for lesions, rash, and itching. HEMATOLOGY/LYMPHOLOGY Negative for prolonged bleeding, bruising easily, and swollen nodes. NEURO: Negative for numbness or tingling of hands/feet. No weakness. PHYSICAL EXAMINATION: BP 132/86 Pulse 87 Temp (Src) 98.5 (Oral) Resp 18 Ht 5' 7 (1.70m) Wt 166 lb 3.6 oz (75.4kg) SpO2 98% LMP 11/22/2022 BMI 26.03 kg/(m^2). Wt 83.9 kg (185 lb) BMI 29.31 kg/m2 Last 3 Encounter Wt Readings: Date: Wt: 04/29/2019 83.9 kg (185 lb) 02/20/2019 84.4 kg (186 lb) 07/04/2016 87.2 kg (192 lb 4.8 oz) General appearance:ECOG PERFORMANCE STATUS: 0- Fully active, able to carry on all pre-disease performance w/o restriction. Patient in NAD. Skin: Skin color, texture, turgor normal. No rashes or lesions. Eyes: Anicteric sclera. Pupils are equally round and reactive to light. Extraocular movements are intact. Breast: No palpable breast masses. No nipple change or discharge. Lymph Nodes: No cervical, supraclavicular, axillary or inguinal adenopathy. Oropharynx: Lips, mucosa, and tongue normal. Back: No pain to percussion. Negative SLR test Lungs clear to auscultation, No wheezing or rhonchi Heart: RRR without murmur, gallop, or rubs. Abdomen soft, non-tender. No masses, organomegaly Extremities: No deformities. No edema Neuro: Gait and speech normal. Reflexes normal and symmetric. Muscular strength intact. Sensation grossly intact. Rectal: Deferred : Deferred LABS: Glucose (mg/dL) Date Value 03/18/2024 105 11/16/2021 87 Potassium (mmol/L) Date Value 03/18/2024 4.5 11/16/2021 4.4 Sodium (mmol/L) Date Value 03/18/2024 139 11/16/2021 140 Chloride (mmol/L) Date Value 03/18/2024 108 11/16/2021 108 CO2 (mmol/L) Date Value 03/18/2024 23 11/16/2021 26 Creatinine (mg/dL) Date Value 03/18/2024 1.19 11/16/2021 0.87 BUN (mg/dL) Date Value 03/18/2024 18 11/16/2021 14 Anion Gap (mmol/L) Date Value 03/18/2024 8 11/16/2021 6 Calcium (mg/dL) Date Value 11/16/2021 8.6 Calcium, Total (mg/dL) Date Value 03/18/2024 8.7 Protein, Total (g/dL) Date Value 03/18/2024 6.4 11/16/2021 5.9 Albumin (g/dL) Date Value 03/18/2024 4.0 11/16/2021 3.9 Bilirubin, Total (mg/dL) Date Value 03/18/2024 0.3 11/16/2021 0.3 Alkaline Phosphatase (U/L) Date Value 03/18/2024 101 11/16/2021 101 AST (U/L) Date Value 03/18/2024 26 11/16/2021 27 ALT (U/L) Date Value 03/18/2024 20 11/16/2021 27 WBC Date Value Ref Range Status 03/18/2024 3.63 (L) 3.70 - 11.00 k/uL Final RBC Date Value Ref Range Status 03/18/2024 4.61 3.90 - 5.20 m/uL Final Hemoglobin Date Value Ref Range Status 03/18/2024 14.3 11.5 - 15.5 g/dL Final Hematocrit Date Value Ref Range Status 03/18/2024 42.8 36.0 - 46.0 % Final MCV Date Value Ref Range Status 03/18/2024 92.8 80.0 - 100.0 fL Final MCH Date Value Ref Range Status 03/18/2024 31.0 26.0 - 34.0 pg Final MCHC Date Value Ref Range Status 03/18/2024 33.4 30.5 - 36.0 g/dL Final RDW-CV Date Value Ref Range Status 03/18/2024 14.1 11.5 - 15.0 % Final Platelet Count Date Value Ref Range Status 03/18/2024 86 (L) 150 - 400 k/uL Final Comment: No clot detected. MPV Date Value Ref Range Status 03/18/2024 12.9 (H) 9.0 - 12.7 fL Final Abs Neut Date Value Ref Range Status 03/18/2024 1.67 1.45 - 7.50 k/uL Final Lymphocytes % Date Value Ref Range Status 03/18/2024 38.6 % Final Abs Lymph Date Value Ref Range Status 03/18/2024 1.40 1.00 - 4.00 k/uL Final Monocytes % Date Value Ref Range Status 03/18/2024 12.4 % Final Abs Bulloch Date Value Ref Range Status 03/18/2024 0.45 <0.87 k/uL Final Abs Eosin Date Value Ref Range Status 03/18/2024 0.08 <0.46 k/uL Final Basophils % Date Value Ref Range Status 03/18/2024 0.8 % Final Abs Baso Date Value Ref Range Status 03/18/2024 0.03 <0.11 k/uL Final Assessment and Plan: Bertha Green is a 44 year old year old female here for follow up. 1. Iron deficiency- Post infusion 11/2022. CBC improved and will follow up on Iron studies 2. B12 deficiency- Continue oral B12 replacement. 3. Follow up with Rheum, Off Plaquenil. 4. 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 Renal- etablished care with Nephrology 8. Gastric polyps- Follows GI See back in 4 months for repeat labs Thank you for the kind referral. If there are any questions and or concerns please do not hesitate to contact me at [phone]. Dionna Gutierrez MD Hematology/Medical Oncology [facility] CC: Abimael Valenzuela MD - (Active), In Basket (Inactive) - User (Inactive) [address] [facility] [id number] (Ph) documented in this encounterSycam[facility] Center07-29-2024 Telephone encounter Note * Telephone Encounter - Robyn Odell - 06/17/2024 10:02 AM EDT Hey there, This patient would like to reschedule her appt on 07/03 for labs and 16 week follow up with Dr. Gutierrez. Could you please reach out to her to get her scheduled. Thanks so much, Robyn PSS [facility]07-29-2024 Miscellaneous Notes* Telephone Encounter - Robyn Odell - 06/17/2024 10:02 AM EDT Hey there, This patient would like to reschedule her appt on 07/03 for labs and 16 week follow up with [address]. Gutierrez. Could you please reach out to her to get her scheduled. Thanks so much, Robyn PSS documented in this encounterSycamore Medical Center06-19-2024 History of Present illness Narrative* Jose Antonio Fenton MD - 05/08/2024 10:00 AM EDT She presents for follow-up evaluation without any significant musculoskeletal complaints. She does note loose skin involving the lower abdomen and the proximal medial aspect of the left thigh. She has been able to resume running exercise. She noted having spots on her legs with easy bruising. She did note some vaginal spotting despite taking control pills to regulate her hormones. She has not noted any rectal bleeding. She has not needed any iron infusions recently. Examination does not show any synovitis. The lungs, heart, abdomen, and extremities are benign. Laboratory (03/18/2024) WBC 3.63, hemoglobin 14.3, hematocrit 42.8, MCV 92.8, MCHC 33.4, platelets 86, BUN 18, creatinine 1.19, glucose 105, albumin 4.0, calcium 8.7, alkaline phosphatase 101, AST 26,ALT 20, ferritin 16.2, iron 105, TIBC 371, saturation 28%. She has history of lupus, migraine headaches, acne, prior history of iron deficiency anemia. The iron deficiency seems to be corrected. She has a slightly elevated serum creatinine. She has thrombocytopenia taking hydroxychloroquine 200 mg once per day. She is considering following up with nephrology regarding the elevated serum creatinine. She is to have laboratory for JAVIER panel spot urine protein/creatinine ratio and urinalysis. She is to return at the next available office appointment. documented in this encounter[facility] Work Phone: 1(165) 862-642304-30-2024 Telephone encounter Note* Telephone Encounter - Juve Israel RN - 03/19/2024 1:32 PM EDT Pt informed of MM message. Pt concerned kidney function steadily increasing . She did see nephrology in October and will call for their recommendations. Pt denies additional questions, needs or concerns at this time, for our provider at this time. Appointment verified. Juve Israel RN [facility]04-30-2024 Miscellaneous Notes* Telephone Encounter - Juve Israel RN - 03/19/2024 1:32 PM EDT Pt informed of MM message. Pt concerned kidney function steadily increasing . She did see nephrology in October and will call for their recommendations. Pt denies additional questions, needs or concerns at this time, for our provider at this time. Appointment verified. Juve Israel RN * Telephone Encounter - Cayla Ren PA-C - 03/19/2024 1:26 PM EDT Please call with lab results. Iron stable. And coag studies show no indication of any reason for her bruising. Cayla Ren PA-C documented in this encounterSycamore Medical Center04-30-2024 Telephone encounter Note * Telephone Encounter - Cayla Ren PA-C - 03/19/2024 1:26 PM EDT Please call with lab results. Iron stable. And coag studies show no indication of any reason for her bruising. Cayla Ren PA-C [facility]04-29-2024 NoteHNO ID: [id number] Author: CAYLA REN PA-C Service: ? Author Type: Physician Hammer Setter Type: Progress Notes Filed: 03/18/2024 15:08 Note Text: PATIENT NAME: Bertha Proctor Green [facility] NO.: [id number] ATTENDING PHYSICIAN: Dionna Gutierrez MD DATE OF SERVICE: March 18, 2024 (Elements copied from Dr. Gutierrez's note dated November 17, 2023, have been reviewed and updated where appropriate, and all reflect current assessment and medical decision making during today's encounter, March 18, 2024) CC: Follow up Diagnosis: B12 and Iron deficiency Anemia SLE on Hydroxychlroquine. Treatment History: 1. Injectafer - Last Monoferric 03/03/2021- EGD- gastritis Venofer 4 doses last 08/2021 Repeat Venofer 11/2022 2. B12 Oral replacement 02/20/2019 3. EGD 12/2022: Normal esophagus. - Three gastric polyps. Resected and retrieved. Clip was placed. 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 - Non-bleeding gastric ulcers with no stigmata of bleeding. - Normal examined duodenum. HPI: Alesia returns for 4 month follow up. Overall doing well. 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 She has noticed increased bruising on her arms and legs. They are always round bruises. No bleeding. PAST MEDICAL HISTORY Diagnosis Date Anemia Gastric polyps Gastric ulcer Lupus (HCC) Right flank pain Social History Tobacco Use Smoking status: Never Passive exposure: Past Smokeless tobacco: Never Vaping Use Vaping Use: Never used Substance Use Topics Alcohol use: Never Drug use: Never FAMILY HISTORY Problem Relation Age of Onset other (schitzoaffective disorder) Mother Hypertension Father Schizophrenia Brother Diabetes Other other (scieroderma) Other Past medical, social and family history reviewed without any changes. REVIEW OF SYSTEMS GENERAL: No weight loss, malaise or fevers. No night sweats. HEENT: Negative for headaches, No changes in hearing or vision, no nose bleeds or other nasal problems. RESPIRATORY: Negative for cough, wheezing and shortness of breath CARDIOVASCULAR: Negative for chest pain, leg swelling and palpitations GI: Negative for abdominal discomfort, blood in stools or black stools and change in bowel habits : Negative for dysuria, frequency and incontinence MUSCULOSKELETAL: Negative for joint pain or swelling, back pain, and muscle pain. SKIN: Negative for lesions, rash, and itching. HEMATOLOGY/LYMPHOLOGY Negative for prolonged bleeding, and swollen nodes. +easy bruising NEURO: Negative for numbness or tingling of hands/feet. No weakness. PHYSICAL EXAMINATION: BP 126/70 Pulse 70 Temp (Src) 98.7 (Temporal) Resp 16 Ht 5' 5.984 (1.68m) Wt 168 lb 3.4 oz (76.3kg) SpO2 100% LMP 11/22/2022 BMI 27.16 kg/(m2). ECOG PERFORMANCE STATUS: 0- Fully active, able to carry on all pre-disease performance w/o restriction. General: Alert and oriented, no distress, pleasant and cooperative. Heart: Regular, normal S1 and S2, no murmurs, rubs, or gallops Lungs: Clear to auscultation bilaterally Abdomen: Benign Extremities: Feet/ankles without edema, posterior tibial pulses full and symmetrical Skin: bruising noted to right arm LABS: Glucose (mg/dL) Date Value 03/18/2024 105 11/16/2021 87 Potassium (mmol/L) Date Value 03/18/2024 4.5 11/16/2021 4.4 Sodium (mmol/L) Date Value 03/18/2024 139 11/16/2021 140 Chloride (mmol/L) Date Value 03/18/2024 108 11/16/2021 108 CO2 (mmol/L) Date Value 03/18/2024 23 11/16/2021 26 Creatinine (mg/dL) Date Value 03/18/2024 1.19 11/16/2021 0.87 BUN (mg/dL) Date Value 03/18/2024 18 11/16/2021 14 Anion Gap (mmol/L) Date Value 03/18/2024 8 11/16/2021 6 Calcium (mg/dL) Date Value 11/16/2021 8.6 Calcium, Total (mg/dL) Date Value 03/18/2024 8.7 Protein, Total (g/dL) Date Value 03/18/2024 6.4 11/16/2021 5.9 Albumin (g/dL) Date Value 03/18/2024 4.0 11/16/2021 3.9 Bilirubin, Total (mg/dL) Date Value 03/18/2024 0.3 11/16/2021 0.3 Alkaline Phosphatase (U/L) Date Value 03/18/2024 101 11/16/2021 101 AST (U/L) Date Value 03/18/2024 26 11/16/2021 27 ALT (U/L) Date Value 03/18/2024 20 11/16/2021 27 WBC Date Value Ref Range Status 03/18/2024 3.63 (L) 3.70 - 11.00 k/uL Final RBC Date Value Ref Range Status 03/18/2024 4.61 3.90 - 5.20 m/uL Final Hemoglobin Date Value Ref Range Status 03/18/2024 14.3 11.5 - 15.5 g/dL Final Hematocrit Date Value Ref Range Status 03/18/2024 42.8 36.0 - 46.0 % Final MCV Date Value Ref Range Status 03/18/2024 92.8 80.0 - 100.0 fL Final MCH Date Value Ref Range Status 03/18/2024 31.0 26.0 - 34.0 pg Final MCHC Date Value Ref Range Status 03/18/2024 33.4 30.5 - 36.0 g/dL Final RDW-CV Date Value Ref Range Status 03/18/2024 14.1 11.5 - 15.0 % Final Platelet Count Date Value Ref Range Status (more content not included)...[facility]04-29-2024 History of Present illness Narrative* Cayla Ren PA-C - 03/18/2024 2:10 PM EDT PATIENT NAME: Bertha Green [facility] NO.: [id number] ATTENDING PHYSICIAN: Dionna Gutierrez MD DATE OF SERVICE: March 18, 2024 (Elements copied from Dr. Gutierrez's note dated November 17, 2023, have been reviewed and updated where appropriate, and all reflect current assessment and medical decision making during today's encounter, March 18, 2024) CC: Follow up Diagnosis: B12 and Iron deficiency Anemia SLE on Hydroxychlroquine. Treatment History: 1. Injectafer - Last Monoferric 03/03/2021- EGD- gastritis Venofer 4 doses last 08/2021 Repeat Venofer 11/2022 2. B12 Oral replacement 02/20/2019 3. EGD 12/2022: Normal esophagus. - Three gastric polyps. Resected and retrieved. Clip was placed. 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 - Non-bleeding gastric ulcers with no stigmata of bleeding. - Normal examined duodenum. HPI: Alesia returns for 4 month follow up. Overall doing well. 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 She has noticed increased bruising on her arms and legs. They are always round bruises. No bleeding. PAST MEDICAL HISTORY Diagnosis Date Anemia Gastric polyps Gastric ulcer Lupus (HCC) Right flank pain Social History Tobacco Use Smoking status: Never Passive exposure: Past Smokeless tobacco: Never Vaping Use Vaping Use: Never used Substance Use Topics Alcohol use: Never Drug use: Never FAMILY HISTORY Problem Relation Age of Onset other (schitzoaffective disorder) Mother Hypertension Father Schizophrenia Brother Diabetes Other other (scieroderma) Other Past medical, social and family history reviewed without any changes. REVIEW OF SYSTEMS GENERAL: No weight loss, malaise or fevers. No night sweats. HEENT: Negative for headaches, No changes in hearing or vision, no nose bleeds or other nasal problems. RESPIRATORY: Negative for cough, wheezing and shortness of breath CARDIOVASCULAR: Negative for chest pain, leg swelling and palpitations GI: Negative for abdominal discomfort, blood in stools or black stools and change in bowel habits : Negative for dysuria, frequency and incontinence MUSCULOSKELETAL: Negative for joint pain or swelling, back pain, and muscle pain. SKIN: Negative for lesions, rash, and itching. HEMATOLOGY/LYMPHOLOGY Negative for prolonged bleeding, and swollen nodes. +easy bruising NEURO: Negative for numbness or tingling of hands/feet. No weakness. PHYSICAL EXAMINATION: BP 126/70 Pulse 70 Temp (Src) 98.7 (Temporal) Resp 16 Ht 5' 5.984 (1.68m) Wt 168 lb 3.4 oz (76.3kg) SpO2 100% LMP 11/22/2022 BMI 27.16 kg/(m^2). ECOG PERFORMANCE STATUS: 0- Fully active, able to carry on all pre-disease performance w/o restriction. General: Alert and oriented, no distress, pleasant and cooperative. Heart: Regular, normal S1 and S2, no murmurs, rubs, or gallops Lungs: Clear to auscultation bilaterally Abdomen: Benign Extremities: Feet/ankles without edema, posterior tibial pulses full and symmetrical Skin: bruising noted to right arm LABS: Glucose (mg/dL) Date Value 03/18/2024 105 11/16/2021 87 Potassium (mmol/L) Date Value 03/18/2024 4.5 11/16/2021 4.4 Sodium (mmol/L) Date Value 03/18/2024 139 11/16/2021 140 Chloride (mmol/L) Date Value 03/18/2024 108 11/16/2021 108 CO2 (mmol/L) Date Value 03/18/2024 23 11/16/2021 26 Creatinine (mg/dL) Date Value 03/18/2024 1.19 11/16/2021 0.87 BUN (mg/dL) Date Value 03/18/2024 18 11/16/2021 14 Anion Gap (mmol/L) Date Value 03/18/2024 8 11/16/2021 6 Calcium (mg/dL) Date Value 11/16/2021 8.6 Calcium, Total (mg/dL) Date Value 03/18/2024 8.7 Protein, Total (g/dL) Date Value 03/18/2024 6.4 11/16/2021 5.9 Albumin (g/dL) Date Value 03/18/2024 4.0 11/16/2021 3.9 Bilirubin, Total (mg/dL) Date Value 03/18/2024 0.3 11/16/2021 0.3 Alkaline Phosphatase (U/L) Date Value 03/18/2024 101 11/16/2021 101 AST (U/L) Date Value 03/18/2024 26 11/16/2021 27 ALT (U/L) Date Value 03/18/2024 20 11/16/2021 27 WBC Date Value Ref Range Status 03/18/2024 3.63 (L) 3.70 - 11.00 k/uL Final RBC Date Value Ref Range Status 03/18/2024 4.61 3.90 - 5.20 m/uL Final Hemoglobin Date Value Ref Range Status 03/18/2024 14.3 11.5 - 15.5 g/dL Final Hematocrit Date Value Ref Range Status 03/18/2024 42.8 36.0 - 46.0 % Final MCV Date Value Ref Range Status 03/18/2024 92.8 80.0 - 100.0 fL Final MCH Date Value Ref Range Status 03/18/2024 31.0 26.0 - 34.0 pg Final MCHC Date Value Ref Range Status 03/18/2024 33.4 30.5 - 36.0 g/dL Final RDW-CV Date Value Ref Range Status 03/18/2024 14.1 11.5 - 15.0 % Final Platelet Count Date Value Ref Range Status 03/18/2024 86 (L) 150 - 400 k/uL Final Comment: No clot detected. MPV Date Value Ref Range Status 03/18/2024 12.9 (H) 9.0 - 12.7 fL Final Abs Neut Date Value Ref Range Status 03/18/2024 1.67 1.45 - 7.50 k/uL Final Lymphocytes % Date Value Ref Range Status 03/18/2024 38.6 % Final Abs Lymph Date Value Ref Range Status 03/18/2024 1.40 1.00 - 4.00 k/uL Final Monocytes % Date Value Ref Range Status 03/18/2024 12.4 % Final Abs Bulloch Date Value Ref Range Status 03/18/2024 0.45 <0.87 k/uL Final Abs Eosin Date Value Ref Range Status 03/18/2024 0.08 <0.46 k/uL Final Basophils % Date Value Ref Range Status 03/18/2024 0.8 % Final Abs Baso Date Value Ref Range Status 03/18/2024 0.03 <0.11 k/uL Final Assessment and Plan: Bertha Green is a 43 year old year old female here for follow up. 1. Iron deficiency- Post infusion 11/2022. Hemoglobin remains normal. Follow up on iron studies 2. B12 deficiency- Continue oral B12 replacement. 3. Follow up with Rheum, Off Plaquenil. 4. 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 Renal- etablished care with Nephrology 8. Gastric polyps- Follows GI 9. Bruising--check PT/PTT and fibrinogen Return in 4 months with repeat labs Cayla Ren PA-C CC: Abimael Valenzuela MD - (Active), In Basket (Inactive) - User (Inactive) [address] [facility] [phone] (Ph) I spent a total of 20 minutes on the date of the service which included preparing to see the patient, [id number] patient care, completing clinical documentation, performing a medically appropriate examination, counseling and educating the patient/family/caregiver, ordering medications, tests, or p rocedures, independently interpreting results (not separately reported), and communicating results to the patient/family/caregiver. documented in this encounterSycamore Medical Center02-01-2024 Evaluation note* Encounter Date Diagnosis Assessment Notes Treatment Notes Treatment Clinical Notes Dec, Chronic idiopathic constipation (ICD-10 - K59.04) Pt has previous success on medication. She is established w GI, Dr. Galicia She has maintained a diet rich in fiber along w adequate fluid intake She has tried stimulant laxative and magnesium citrated. She has no intestinal perforation or obstruction and testing has been negative for inflammatory bowel disease. She will be monitored appropriately for suicidal thoughts or depression. Dec, Hip flexor tendon tightness, right (ICD-10 - M24.551) HO given to pt about hip flexor stretches and injury She is seeing chiropractor and is scheduled for massage. [facility] Other 11-07-2023 Evaluation note* Encounter Date Diagnosis Assessment Notes Treatment Notes Treatment Clinical Notes Sep, Well adult exam (ICD-10 - Z00.00) Pt had wellness in Jul. This was noted after OV. Paperwork completed for foster care. 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 Sep, Depressed mood (ICD-10 - R45.89) Add low dose sertraline to present meds. [facility] Other 11-07-2023 Evaluation note* Encounter Date Diagnosis Assessment Notes Treatment Notes Treatment Clinical Notes Sep, Well adult exam (ICD-10 - Z00.00) Pt had wellness in Jul. This was noted after OV. Paperwork completed for foster care. 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 Sep, Depressed mood (ICD-10 - R45.89) Add low dose sertraline to present meds. This is a chronic problem and presently worsening due to stressors which were discussed at length. [facility] Other 09-25-2023 Miscellaneous Notes* Telephone Encounter - Juve Israel RN - 08/14/2023 1:14 PM EDT VM left with MM message. Encouraged to call with any questions or concerns. 11/17/23 appt left as previously scheduled/ Juve Israel RN * Telephone Encounter - Cayla Ren PA-C - 08/14/2023 12:15 PM EDT Please call with stable iron results. We will see her as planned in 3 months. Cayla Ren PA-C documented in this encounterSycamore Medical Center09-22-2023 Evaluation note* Encounter Date Diagnosis Assessment Notes Treatment Notes Treatment Clinical Notes Jul, Well adult exam (ICD-10 - Z00.00) We have discussed the necessity of following up with PCP regularly as well as specialists, as needed. Discussed F/U with dentistry and optometry at least yearly. Discussed all preventative measures/ cancer screenings as applicable to this patient. Emphasized the importance of a reduced fat, low carb diet to promote heart health and controlled blood sugars. Reviewed social history and ensured patient is safe within the home today. Pt denies any abuse of alcohol, nicotine, caffeine or recreational drugs. I have ensured patient is of stable mental and physical health today. We have discussed appropriate F/U schedule as well as blood work and vaccinations that apply. All questions answered and patient is sent home pleased, without concerns. [facility] Other 06-23-2023 Miscellaneous Notes* Telephone Encounter - Vicenta Syed RN - 05/12/2023 10:33 AM EDT Pt notified and verbalized understanding. Pt already reviewed results in my chart. Vicenta Syed RN * Telephone Encounter - Vicenta Syed RN - 05/12/2023 10:30 AM EDT ----- Message from Dionna Gutierrez MD sent at 05/11/2023 9:55 PM EDT ----- Let her know that Iron levels are OK and will repeat as scheduled documented in this encounterSycamore Medical Center06-22-2023 History of Present illness Narrative* Dionna Gutierrez MD - 05/11/2023 10:36 AM EDT [id number] ATTENDING PHYSICIAN: Dionna Gutierrez MD DATE OF SERVICE: May 11, 2023 Some of the elements of the node have been extracted from my previous progress note dated 02/01/2023. All the information has been reviewed carefully. Dear Dr. Abimael Valenzuela MD, here is an update on a follow up visit on female Bertha [facility] May 11, 2023 Diagnosis: B12 and Iron deficiency Anemia SLE on Hydroxychlroquine. Treatment History: 1. Injectafer - Last Monoferric 03/03/2021- EGD- gastritis Venofer 4 doses last 08/2021 Repeat Venofer 11/2022 2. B12 Oral replacement 02/20/2019 3. EGD 12/2022: Normal esophagus. - Three gastric polyps. Resected and retrieved. Clip was placed. 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 - Non-bleeding gastric ulcers with no stigmata of bleeding. - Normal examined duodenum. HPI: Alesia is a 43 year old year old female here for follow up. Doing well and denies any new complaints. 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 Denies any nausea and or abdominal pain. She is coming off the Plaquenil for a trial off the med. She had another EGD 12/2022 noted above. PAST MEDICAL HISTORY Diagnosis Date Anemia Gastric polyps Gastric ulcer Lupus (HCC) Right flank pain Social History Tobacco Use Smoking status: Never Passive exposure: Past Smokeless tobacco: Never Vaping Use Vaping Use: Never used Substance Use Topics Alcohol use: Never Drug use: Never FAMILY HISTORY Problem Relation Age of Onset other (schitzoaffective disorder) Mother Hypertension Father Schizophrenia Brother Diabetes Other other (scieroderma) Other Past medical, social and family history reviewed without any changes. REVIEW OF SYSTEMS GENERAL: No weight loss, malaise or fevers. No night sweats. HEENT: Negative for headaches, No changes in hearing or vision, no nose bleeds or other nasal problems. RESPIRATORY: Negative for cough, wheezing and shortness of breath CARDIOVASCULAR: Negative for chest pain, leg swelling and palpitations GI: Negative for abdominal discomfort, blood in stools or black stools and change in bowel habits : Negative for dysuria, frequency and incontinence MUSCULOSKELETAL: Negative for joint pain or swelling, back pain, and muscle pain. SKIN: Negative for lesions, rash, and itching. HEMATOLOGY/LYMPHOLOGY Negative for prolonged bleeding, bruising easily, and swollen nodes. NEURO: Negative for numbness or tingling of hands/feet. No weakness. PHYSICAL EXAMINATION: BP 129/76 Pulse 66 Temp (Src) 97.8 (Temporal) Resp 18 Ht 5' 5.984 (1.68m) Wt 160 lb 12.8oz (72.9kg) SpO2 100% LMP 11/22/2022 BMI 25.97 kg/(m^2). Wt 83.9 kg (185 lb) BMI 29.31 kg/m2 Last 3 Encounter Wt Readings: Date: Wt: 04/29/2019 83.9 kg (185 lb) 02/20/2019 84.4 kg (186 lb) 07/04/2016 87.2 kg (192 lb 4.8 oz) General appearance:ECOG PERFORMANCE STATUS: 0- Fully active, able to carry on all pre-disease performance w/o restriction. Patient in NAD. Skin: Skin color, texture, turgor normal. No rashes or lesions. Eyes: Anicteric sclera. Pupils are equally round and reactive to light. Extraocular movements are intact. Breast: No palpable breast masses. No nipple change or discharge. Lymph Nodes: No cervical, supraclavicular, axillary or inguinal adenopathy. Oropharynx: Lips, mucosa, and tongue normal. Back: No pain to percussion. Negative SLR test Lungs clear to auscultation, No wheezing or rhonchi Heart: RRR without murmur, gallop, or rubs. Abdomen soft, non-tender. No masses, organomegaly Extremities: No deformities. No edema Neuro: Gait and speech normal. Reflexes normal and symmetric. Muscular strength intact. Sensation grossly intact. Rectal: Deferred : Deferred LABS: Glucose (mg/dL) Date Value 02/01/2023 94 11/16/2021 87 Potassium (mmol/L) Date Value 02/01/2023 4.4 11/16/2021 4.4 Sodium (mmol/L) Date Value 02/01/2023 137 11/16/2021 140 Chloride (mmol/L) Date Value 02/01/2023 103 11/16/2021 108 CO2 (mmol/L) Date Value 02/01/2023 22 11/16/2021 26 Creatinine (mg/dL) Date Value 02/01/2023 1.08 11/16/2021 0.87 BUN (mg/dL) Date Value 02/01/2023 14 11/16/2021 14 Anion Gap (mmol/L) Date Value 02/01/2023 12 11/16/2021 6 Calcium (mg/dL) Date Value 11/16/2021 8.6 Calcium, Total (mg/dL) Date Value 02/01/2023 9.2 Protein, Total (g/dL) Date Value 02/01/2023 6.7 11/16/2021 5.9 Albumin (g/dL) Date Value 02/01/2023 4.2 11/16/2021 3.9 Bilirubin, Total (mg/dL) Date Value 02/01/2023 0.4 11/16/2021 0.3 Alkaline Phosphatase (U/L) Date Value 02/01/2023 71 11/16/2021 101 AST (U/L) Date Value 02/01/2023 23 11/16/2021 27 ALT (U/L) Date Value 02/01/2023 26 11/16/2021 27 WBC Date Value Ref Range Status 05/11/2023 3.11 (L) 3.70 - 11.00 k/uL Final RBC Date Value Ref Range Status 05/11/2023 4.90 3.90 - 5.20 m/uL Final Hemoglobin Date Value Ref Range Status 05/11/2023 15.4 11.5 - 15.5 g/dL Final Hematocrit Date Value Ref Range Status 05/11/2023 45.9 36.0 - 46.0 % Final MCV Date Value Ref Range Status 05/11/2023 93.7 80.0 - 100.0 fL Final MCH Date Value Ref Range Status 05/11/2023 31.4 26.0 - 34.0 pg Final MCHC Date Value Ref Range Status 05/11/2023 33.6 30.5 - 36.0 g/dL Final RDW-CV Date Value Ref Range Status 05/11/2023 13.6 11.5 - 15.0 % Final Platelet Count Date Value Ref Range Status 05/11/2023 75 (L) 150 - 400 k/uL Final Comment: No clot detected. MPV Date Value Ref Range Status 05/11/2023 12.3 9.0 - 12.7 fL Final Abs Neut Date Value Ref Range Status 05/11/2023 1.29 (L) 1.45 - 7.50 k/uL Final Lymphocytes % Date Value Ref Range Status 05/11/2023 43.7 % Final Abs Lymph Date Value Ref Range Status 05/11/2023 1.36 1.00 - 4.00 k/uL Final Monocytes % Date Value Ref Range Status 05/11/2023 10.9 % Final Abs Bulloch Date Value Ref Range Status 05/11/2023 0.34 <0.87 k/uL Final Eosinophils % Date Value Ref Range Status 05/11/2023 2.9 % Final Abs Eosin Date Value Ref Range Status 05/11/2023 0.09 <0.46 k/uL Final Basophils % Date Value Ref Range Status 05/11/2023 0.6 % Final Abs Baso Date Value Ref Range Status 05/11/2023 <0.03 <0.11 k/uL Final Assessment and Plan: Bertha Green is a 42 year old year old female here for follow up. 1. Iron deficiency- Post infusion 11/2022. CBC improved and will follow up on Iron studies 2. B12 deficiency- Continue oral B12 replacement. 3. Follow up with Rheum, Off Plaquenil. 4. 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 Renal- etablished care with Nephrology 8. Gastric polyps- Follows GI See back in 3 months for repeat labs Thank you for the kind referral. If there are any questions and or concerns please do not hesitate to contact me at [phone]. Dionna Gutierrez MD Hematology/Medical Oncology [facility] CC: Abimael Valenzuela MD - (Active), In Basket (Inactive) - User (Inactive) [address] [facility] [id number] (Ph) documented in this encounterSycamore Medical Center03-15-2023 History of Present illness Narrative* Dionna Gutierrez MD - 02/01/2023 10:01 AM EDT PATIENT NAME: Bertha Green [facility] NO.: [id number] ATTENDING PHYSICIAN: Dionna Gutierrez MD DATE OF SERVICE: February 01, 2023 Some of the elements of the node have been extracted from my previous progress note dated 04/12/2022. All the information has been reviewed carefully. Dear Dr. Abimael Valenzuela MD, here is an update on a follow up visit on female Bertha Green [facility] [address] February 01, 2023 Diagnosis: B12 and Iron deficiency Anemia SLE on Hydroxychlroquine. Treatment History: 1. Injectafer - Last Monoferric 03/03/2021- EGD- gastritis Venofer 4 doses last 08/2021 Repeat Venofer 11/2022 2. B12 Oral replacement 02/20/2019 3. EGD 12/2022: Normal esophagus. - Three gastric polyps. Resected and retrieved. Clip was placed. 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 - Non-bleeding gastric ulcers with no stigmata of bleeding. - Normal examined duodenum. HPI: Alesia is a 42 year old year old female here for follow up. Doing well and denies any new complaints. 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 She states that her Dad was diagnosed with bladder cancer and seeing urology She had another EGD 12/2022 noted above. PAST MEDICAL HISTORY Diagnosis Date Anemia Gastric polyps Gastric ulcer Lupus (HCC) Right flank pain Social History Tobacco Use Smoking status: Never Passive exposure: Past Smokeless tobacco: Never Vaping Use Vaping Use: Never used Substance Use Topics Alcohol use: Never Drug use: Never FAMILY HISTORY Problem Relation Age of Onset other (schitzoaffective disorder) Mother Hypertension Father Schizophrenia Brother Diabetes Other other (scieroderma) Other Past medical, social and family history reviewed without any changes. REVIEW OF SYSTEMS GENERAL: No weight loss, malaise or fevers. No night sweats. HEENT: Negative for headaches, No changes in hearing or vision, no nose bleeds or other nasal problems. RESPIRATORY: Negative for cough, wheezing and shortness of breath CARDIOVASCULAR: Negative for chest pain, leg swelling and palpitations GI: Negative for abdominal discomfort, blood in stools or black stools and change in bowel habits : Negative for dysuria, frequency and incontinence MUSCULOSKELETAL: Negative for joint pain or swelling, back pain, and muscle pain. SKIN: Negative for lesions, rash, and itching. HEMATOLOGY/LYMPHOLOGY Negative for prolonged bleeding, bruising easily, and swollen nodes. NEURO: Negative for numbness or tingling of hands/feet. No weakness. PHYSICAL EXAMINATION: BP 140/84 Pulse 70 Temp (Src) 98.2 (Temporal) Resp 16 Ht 5' 5.984 (1.68m) Wt 163 lb (73.9kg) SpO2 100% LMP 11/22/2022 BMI 26.32 kg/(m^2). Wt 83.9 kg (185 lb) BMI 29.31 kg/m2 Last 3 Encounter Wt Readings: Date: Wt: 04/29/2019 83.9 kg (185 lb) 02/20/2019 84.4 kg (186 lb) 07/04/2016 87.2 kg (192 lb 4.8 oz) General appearance:ECOG PERFORMANCE STATUS: 0- Fully active, able to carry on all pre-disease performance w/o restriction. Patient in NAD. Skin: Skin color, texture, turgor normal. No rashes or lesions. Eyes: Anicteric sclera. Pupils are equally round and reactive to light. Extraocular movements are intact. Breast: No palpable breast masses. No nipple change or discharge. Lymph Nodes: No cervical, supraclavicular, axillary or inguinal adenopathy. Oropharynx: Lips, mucosa, and tongue normal. Back: No pain to percussion. Negative SLR test Lungs clear to auscultation, No wheezing or rhonchi Heart: RRR without murmur, gallop, or rubs. Abdomen soft, non-tender. No masses, organomegaly Extremities: No deformities. No edema Neuro: Gait and speech normal. Reflexes normal and symmetric. Muscular strength intact. Sensation grossly intact. Rectal: Deferred : Deferred LABS: Glucose (mg/dL) Date Value 11/10/2022 93 11/16/2021 87 Potassium (mmol/L) Date Value 11/10/2022 4.0 11/16/2021 4.4 Sodium (mmol/L) Date Value 11/10/2022 140 11/16/2021 140 Chloride (mmol/L) Date Value 11/10/2022 105 11/16/2021 108 CO2 (mmol/L) Date Value 11/10/2022 25 11/16/2021 26 Creatinine (mg/dL) Date Value 11/10/2022 1.06 11/16/2021 0.87 BUN (mg/dL) Date Value 11/10/2022 13 11/16/2021 14 Anion Gap (mmol/L) Date Value 11/10/2022 10 11/16/2021 6 Calcium (mg/dL) Date Value 11/16/2021 8.6 Calcium, Total (mg/dL) Date Value 11/10/2022 8.9 Protein, Total (g/dL) Date Value 11/10/2022 6.7 11/16/2021 5.9 Albumin (g/dL) Date Value 11/10/2022 3.9 11/16/2021 3.9 Bilirubin, Total (mg/dL) Date Value 11/10/2022 0.3 11/16/2021 0.3 Alkaline Phosphatase (U/L) Date Value 11/10/2022 66 11/16/2021 101 AST (U/L) Date Value 11/10/2022 31 11/16/2021 27 ALT (U/L) Date Value 11/10/2022 25 11/16/2021 27 WBC Date Value Ref Range Status 02/01/2023 2.57 (L) 3.70 - 11.00 k/uL Final RBC Date Value Ref Range Status 02/01/2023 4.89 3.90 - 5.20 m/uL Final Hemoglobin Date Value Ref Range Status 02/01/2023 15.4 11.5 - 15.5 g/dL Final Hematocrit Date Value Ref Range Status 02/01/2023 45.2 36.0 - 46.0 % Final MCV Date Value Ref Range Status 02/01/2023 92.4 80.0 - 100.0 fL Final MCH Date Value Ref Range Status 02/01/2023 31.5 26.0 - 34.0 pg Final MCHC Date Value Ref Range Status 02/01/2023 34.1 30.5 - 36.0 g/dL Final RDW-CV Date Value Ref Range Status 02/01/2023 13.8 11.5 - 15.0 % Final Platelet Count Date Value Ref Range Status 02/01/2023 83 (L) 150 - 400 k/uL Final Comment: No clot detected. MPV Date Value Ref Range Status 02/01/2023 12.3 9.0 - 12.7 fL Final Abs Neut Date Value Ref Range Status 02/01/2023 0.95 (L) 1.45 - 7.50 k/uL Final Lymphocytes % Date Value Ref Range Status 02/01/2023 40.5 % Final Abs Lymph Date Value Ref Range Status 02/01/2023 1.04 1.00 - 4.00 k/uL Final Monocytes % Date Value Ref Range Status 02/01/2023 11.7 % Final Abs Bulloch Date Value Ref Range Status 02/01/2023 0.30 <0.87 k/uL Final Eosinophils % Date Value Ref Range Status 02/01/2023 9.7 % Final Abs Eosin Date Value Ref Range Status 02/01/2023 0.25 <0.46 k/uL Final Basophils % Date Value Ref Range Status 02/01/2023 1.2 % Final Abs Baso Date Value Ref Range Status 02/01/2023 0.03 <0.11 k/uL Final Assessment and Plan: Bertha Green is a 42 year old year old female here for follow up. 1. Iron deficiency- Post infusion 11/2022. CBC improved 2. B12 deficiency- Continue oral B12 replacement. 3. Follow up with Rheum, on Plaquenil- Will switch to [facility] for SLE. 4. 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 Renal- etablished care with Nephrology 8. Gastric polyps- Follows GI See back in 3 months Thank you for the kind referral. If there are any questions and or concerns please do not hesitate to contact me at [phone]. Dionna Gutierrez MD Hematology/Medical Oncology [facility] CC: Abimael Valenzuela MD - (Active), In Basket (Inactive) - User (Inactive) [address] [facility] [phone] (Ph) documented in this encounterSycamore Medical Center02-13-2023 Miscellaneous Notes* Telephone Encounter - Anan Figueroa RN - 01/02/2023 3:09 PM EST Patient aware of recommendations per Dr. Galicia. She will update office if any further symptoms Anna Figueroa RN * Telephone Encounter - Anna Figueroa RN - 12/28/2022 1:41 PM EST Pt is aware of the results and states understanding. She does report burning in her stomach but no vomiting. She is maintaining the Carafate/PPI. She also mentions she still has iron deficiency and unclear if she needs further testing. Last colonoscopy was done with you about 2 years ago. Please review and advise. Thank you Anna Figueroa RN * Telephone Encounter - Anna Figueroa RN - 12/28/2022 1:41 PM EST ----- Message from Micheal Galicia Jr., DO sent at 12/28/2022 9:41 AM EST ----- Gastric polyps benign. Maintain sucralfate and pantoprazole. Micheal Galicia Jr., DO * Telephone Encounter - Anna Figueroa RN - 12/28/2022 1:09 PM EST ----- Message from Micheal Galicia Jr., DO sent at 12/28/2022 9:41 AM EST ----- Gastric polyps benign. Maintain sucralfate and pantoprazole. Micheal Galicia Jr., DO documented in this encounterSycamore Medical Center01-13-2023 Miscellaneous Notes* Telephone Encounter - Almita Angelo - 12/02/2022 9:17 AM EST Left message on voicemail for patient to call and schedule * Telephone Encounter - Marge Loera - 12/02/2022 8:31 AM EST Ronny, can you please assist with scheduling EGD documented in this encounterSycamore Medical Center01-13-2023 Instructions* Patient Instructions* Micheal Galicia Jr., - 12/02/2022 8:25 AM EST Continue pantoprazole and Carafate Proceed with EGD documented in this encounterSycamore Medical Center01-13-2023 History of Present illness Narrative* Micheal Galicia Jr., DO - 12/02/2022 8:00 AM EST Patient presents with: Colon Polyps HPI: Bertha Green, 42 year old female, with Lupus presents in the office today for history ofulcers and stomach polyps. She has recurrent gastric ulcers and polyps treated on previous endoscopies. She remains on PPI and Carafate. Workup for ZE done twice which was negative. She has recurrence of epigastric pain and dyspepsia which she develops when ulcers recur. Last EGD one year ago. Negative family history. Past GI workup 05/16/22 Biopsies from EGD, Stomach, antrum, polyp, polypectomy - Inflamed gastric hyperplastic polyp with erosion and reactiveepithelial changes. - Negative for intestinal metaplasia and dysplasia. Helicobacter pylori immunostain is negative. Biopsy as follows: Biopsy/Polyp (ANTRUM INFLAMMATORY POLYPS) Negative for Helicobacter pylori, 05/11/22 acute abdominal series was done for c/o abdominal pain Moderate stool proximal colon. No pneumoperitoneum. 11/08/21 EGD was done per Dr. Galicia for epigastric pain, PUD and gastritis, h/o Lupus: Stomach, antrum, biopsy: - Mild chronic inactive gastritis with changes consistent with healing ulcer - No morphologic evidence of H. pylori microorganisms Superficial antral ulcers (-) biopsies Last labs as follows: IgA [Mass/volume] in Serum or Plasma Ordered By: Jose Antonio Fenton on 06-23-2022 IgA [Mass/Vol] 236 mg/ IgG [Mass/volume] in Serum or Plasma Ordered By: Jose Antonio Fenton on 06-23-2022 IgG [Mass/Vol] 947 mg/dL IgM [Mass/volume] in Serum or Plasma Ordered By: Jose Antonio Fenton on 06-23-2022 IgM [Mass/Vol] 176 mg/dL Gastrin on 02-12-2022 Gastrin 31 pg/mL Component Latest Ref Rng & Units 01/18/2022 04/12/2022 08/15/2022 09/26/2022 11/09/2022 11/10/2022 WBC 3.70 - 11.00 k/uL 4.06 2.75 (L) 2.23 (L) 3.18 (L) 2.59 (L) RBC 3.90 - 5.20 m/uL 4.33 3.96 4.13 4.51 4.49 Hemoglobin 11.5 - 15.5 g/dL 13.4 11.1 (L) 12.8 13.7 13.6 Hematocrit 36.0 - 46.0 % 41.6 36.2 37.3 41.0 41.5 MCV 80.0 - 100.0 fL 96.1 91.4 90.3 90.9 92.4 MCH 26.0 - 34.0 pg 30.9 28.0 31.0 30.4 30.3 MCHC 30.5 - 36.0 g/dL 32.2 30.7 34.3 33.4 32.8 RDW-CV 11.5 - 15.0 % 13.9 14.3 13.4 13.7 13.6 Platelet Count 150 - 400 k/uL 104 (L) 105 (L) 97 (L) 84 (L) 22 (L) MPV 9.0 - 12.7 fL 12.9 (H) 12.3 11.5 12.0 12.3 Neut% % 59.2 53.1 39.6 50.4 45.9 Abs Neut (ANC) 1.45 - 7.50 k/uL 2.40 1.46 0.88 (L) 1.60 1.19 (L) Lymph% % 25.6 24.4 44.8 35.8 42.1 Abs Lymph 1.00 - 4.00 k/uL 1.04 0.67 (L) 1.00 1.14 1.09 Bulloch% % 11.1 19.6 13.0 11.0 10.4 Abs Bulloch <0.87 k/uL 0.45 0.54 0.29 0.35 0.27 Eosin% % 3.4 1.8 1.3 1.9 0.8 Abs Eosin <0.46 k/uL 0.14 0.05 0.03 0.06 <0.03 Baso% % 0.5 0.7 1.3 0.9 0.8 Abs Baso <0.11 k/uL <0.03 <0.03 0.03 0.03 <0.03 Immature Gran % % 0.2 0.4 0.0 0.0 0.0 IMMATURE GRANS (ABS) <0.10 k/uL <0.03 <0.03 <0.03 <0.03 <0.03 NRBC /100 WBC 0.0 0.0 0.0 0.0 0.0 Absolute nRBC <0.01 k/uL <0.01 <0.01 <0.01 <0.01 <0.01 DTYPE Auto Auto Auto Auto Auto Protein, Total 6.3 - 8.0 g/dL 7.0 6.3 6.4 6.2 (L) 6.4 6.7 Albumin 3.9 - 4.9 g/dL 4.1 4.1 3.9 3.8 (L) 4.0 3.9 Calcium 8.5 - 10.2 mg/dL 9.5 9.0 8.7 8.7 8.8 8.9 Bilirubin, Total 0.2 - 1.3 mg/dL 0.3 0.2 0.3 0.3 0.5 0.3 Alkaline Phosphatase 34 - 123 U/L 104 79 57 59 72 66 AST 13 - 35 U/L 21 27 29 26 29 31 ALT 7 - 38 U/L 18 25 22 24 26 25 Glucose 74 - 99 mg/dL 99 73 (L) 95 104 (H) 105 (H) 93 BUN 7 - 21 mg/dL 16 18 9 13 14 13 Creatinine 0.58 - 0.96 mg/dL 0.84 1.00 (H) 1.13 (H) 1.02 (H) 1.08 (H) 1.06 (H) Sodium 136 - 144 mmol/L 139 140 132 (L) 139 136 140 Potassium 3.7 - 5.1 mmol/L 4.3 4.1 3.8 4.3 4.1 4.0 Chloride 97 - 105 mmol/L 104 105 100 106 (H) 103 105 CO2 22 - 30 mmol/L 26 26 25 27 27 25 Anion Gap 9 - 18 mmol/L 9 9 7 (L) 6 (L) 6 (L) 10 eGFR >=60 mL/min/1.73m 90 72 62 71 66 67 Iron 41 - 186 ug/dL 52 24 (L) 63 79 TIBC 232 - 386 ug/dL 344 394 (H) 339 374 Transferrin Saturation 15.0 - 57.0 % 15 6 (L) 18.6 21.1 Retic % 0.4 - 2.0 % 1.5 Abs Retic 0.018 - 0.100 M/uL 0.064 Ferritin 14.7 - 205.1 ng/mL 35.8 13.1 (L) 18.5 12.4 (L) JAVIER by EIA, Qual Negative Positive (A) PAST MEDICAL HISTORY Diagnosis Date Anemia Gastric polyps Gastric ulcer Lupus (HCC) Right flank pain PAST SURGICAL HISTORY Procedure Laterality Date EGD Current Outpatient Medications on File Prior to Visit Medication Sig buPROPion XL (WELLBUTRIN XL) 150 mg 24 hr tablet TAKE 1 TABLET BY MOUTH EVERY DAY IN THE MORNING levonorgestrel-ethinyl estradiol 0.15 mg-30 mcg (91) per tab, 3 month pack Take 1 tablet by mouth once daily. cyanocobalamin (VITAMIN B-12) 1,000 mcg tab TAKE 1 TABLET BY MOUTH EVERY DAY MOTEGRITY 2 mg tab tablet Take 1 tablet by mouth once daily. pantoprazole DR (PROTONIX) 40 mg tablet Take 40 mg by mouth twice daily. hydroxychloroquine (PLAQUENIL) 200 mg tablet Take 200 mg by mouth once daily. No current facility-administered medications on file prior to visit. Allergies: Environmental [Othe* Review of Systems Constitutional: Negative for chills, fatigue and fever. HENT: Negative for hearing loss, nosebleeds, tinnitus and trouble swallowing. Eyes: Negative for visual disturbance. Respiratory: Negative for cough, shortness of breath and wheezing. Cardiovascular: Negative for chest pain and palpitations. Gastrointestinal: Positive for abdominal pain and nausea. Negative for abdominal distention, blood in stool, constipation, diarrhea and vomiting. Endocrine: Negative for polyphagia. Genitourinary: Negative for dysuria, frequency and hematuria. Musculoskeletal: Positive for arthralgias. Negative for joint swelling. Skin: Negative for pallor and rash. Neurological: Negative for dizziness, tremors, seizures, syncope and headaches. Hematological: Does not bruise/bleed easily. BP 119/74 Pulse 66 Wt 76.2 kg (168 lb) LMP 08/22/2022 (Approximate) SpO2 100% BMI 27.13 kg/m Physical Exam Constitutional: General: She is not in acute distress. HENT: Mouth/Throat: Pharynx: Oropharynx is clear. Eyes: Conjunctiva/sclera: Conjunctivae normal. Cardiovascular: Rate and Rhythm: Normal rate and regular rhythm. Pulmonary: Effort: Pulmonary effort is normal. Breath sounds: Normal breath sounds. Abdominal: General: Bowel sounds are normal. There is no distension. Palpations: Abdomen is soft. There is no hepatomegaly or splenomegaly. Tenderness: There is abdominal tenderness in the epigastric area. There is no guarding or rebound. Hernia: No hernia is present. Musculoskeletal: General: No swelling. Skin: General: Skin is warm and dry. Coloration: Skin is not jaundiced. Neurological: Mental Status: She is alert. Mental status is at baseline. ASSESSMENT/PLAN: 42 y/o female with lupus, recurrent gastric ulcers and polyps. Ulcer symptoms have recurred. Will maintain pantoprazole and Carafate. Proceed with EGD. Lupus stable on Plaquenil. 1. Chronic gastric ulcer without hemorrhage and without perforation - ICD9: 531.70, ICD10: K25.7 (primary diagnosis) - EGD DIAGNOSTIC - maintain pantoprazole and Carafate. 2. Gastric polyps - ICD9: 211.1, ICD10: K31.7 - EGD 3. Systemic lupus erythematosus, unspecified SLE type, unspecified organ involvement status (HCC) -ICD9: 710.0, ICD10: M32.9 - stable on Plaquenil Micheal Galicia Jr. documented in this encounterSycamore Medical Center01-12-2023 History of Present illness Narrative* Karly Doan RN - 12/01/2022 3:03 PM EST Pt asking about drop in plts at the end of October. Dr. Gutierrez was gone for the day and I asked Dr. Amaya if any follow up is needed for this. We will repeat a CBC today. documented in this encounterSycamore Medical Center12-22-2022 History of Present illness Narrative* RT Cortez(R) - 11/10/2022 1:03 PM EST Radiology Service Progress Note PATIENT NAME: Bertha Green DATE OF SERVICE: November 10, 2022 TIME: 1:03 PM PATIENT IDENTITY VERIFICATION COMPLETED USING TWO (2) IDENTIFIERS: Name and Date of confirmedby patient verbally. FALL SCREENING: Has the patient had 2 falls in the last year or 1 fall with injury or currently using an Ambulatory Assistive Device (Walker, Cane, Wheelchair, Crutches, etc.)? No PATIENT GENDER DATA: Female. status: : No status: NO. PATIENT RELEVANT IMPLANT DATA REVIEWED: Not Applicable RADIOLOGY DEPARTMENT: Ultrasound PERIPHERAL IV DATA: Not applicable SIGNED BY: Evy Hills RDMS, RVT November 10, 2022 1:03 PM documented in this encounterSycamore Medical Center12-21-2022 History of Present illness Narrative* Dionna Gutierrez MD - 11/09/2022 9:56 AM EST PATIENT NAME: Bertha Green [facility] NO.: [id number] ATTENDING PHYSICIAN: Dionna Gutierrez MD DATE OF SERVICE: April 12, 2022 Some of the elements of the node have been extracted from my previous progress note dated 08/13/2021. All the information has been reviewed carefully. Dear Dr. Abimael Valenzuela MD, here is an update on a follow up visit on female Bertha Green [facility] [address] April 12, 2022 Diagnosis: B12 and Iron deficiency Anemia SLE on Hydroxychlroquine. Treatment History: 1. Injectafer - Last Monoferric 03/03/2021- EGD- gastritis Venofer 4 doses last 08/2021 2. B12 Oral replacement 02/20/2019 HPI: Alesia is a 42 year old year old female here for follow up. Doing well and denies any new complaints. 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 She is on a PPI and denies any NSAID use. PAST MEDICAL HISTORY Diagnosis Date Anemia Lupus (HCC) Right flank pain Social History Tobacco Use Smoking status: Never Passive exposure: Past Smokeless tobacco: Never Vaping Use Vaping Use: Never used Substance Use Topics Alcohol use: Never Drug use: Never FAMILY HISTORY Problem Relation Age of Onset other (schitzoaffective disorder) Mother Hypertension Father Schizophrenia Brother Diabetes Other other (scieroderma) Other Past medical, social and family history reviewed without any changes. REVIEW OF SYSTEMS GENERAL: No weight loss, malaise or fevers. No night sweats. HEENT: Negative for headaches, No changes in hearing or vision, no nose bleeds or other nasal problems. RESPIRATORY: Negative for cough, wheezing and shortness of breath CARDIOVASCULAR: Negative for chest pain, leg swelling and palpitations GI: Negative for abdominal discomfort, blood in stools or black stools and change in bowel habits : Negative for dysuria, frequency and incontinence MUSCULOSKELETAL: Negative for joint pain or swelling, back pain, and muscle pain. SKIN: Negative for lesions, rash, and itching. HEMATOLOGY/LYMPHOLOGY Negative for prolonged bleeding, bruising easily, and swollen nodes. NEURO: Negative for numbness or tingling of hands/feet. No weakness. PHYSICAL EXAMINATION: BP 124/72 Pulse 88 Temp (Src) 98.8 (Temporal) Resp 18 Ht 5' 5.984 (1.68m) Wt 165 lb 3.2 oz (74.9kg) SpO2 100% LMP 08/22/2022 BMI 26.68 kg/(m^2). Wt 83.9 kg (185 lb) BMI 29.31 kg/m2 Last 3 Encounter Wt Readings: Date: Wt: 04/29/2019 83.9 kg (185 lb) 02/20/2019 84.4 kg (186 lb) 07/04/2016 87.2 kg (192 lb 4.8 oz) General appearance:ECOG PERFORMANCE STATUS: 0- Fully active, able to carry on all pre-disease performance w/o restriction. Patient in NAD. Skin: Skin color, texture, turgor normal. No rashes or lesions. Eyes: Anicteric sclera. Pupils are equally round and reactive to light. Extraocular movements are intact. Breast: No palpable breast masses. No nipple change or discharge. Lymph Nodes: No cervical, supraclavicular, axillary or inguinal adenopathy. Oropharynx: Lips, mucosa, and tongue normal. Back: No pain to percussion. Negative SLR test Lungs clear to auscultation, No wheezing or rhonchi Heart: RRR without murmur, gallop, or rubs. Abdomen soft, non-tender. No masses, organomegaly Extremities: No deformities. No edema Neuro: Gait and speech normal. Reflexes normal and symmetric. Muscular strength intact. Sensation grossly intact. Rectal: Deferred : Deferred LABS: Glucose (mg/dL) Date Value 11/09/2022 105 11/16/2021 87 Potassium (mmol/L) Date Value 11/09/2022 4.1 11/16/2021 4.4 Sodium (mmol/L) Date Value 11/09/2022 136 11/16/2021 140 Chloride (mmol/L) Date Value 11/09/2022 103 11/16/2021 108 CO2 (mmol/L) Date Value 11/09/2022 27 11/16/2021 26 Creatinine (mg/dL) Date Value 11/09/2022 1.08 11/16/2021 0.87 BUN (mg/dL) Date Value 11/09/2022 14 11/16/2021 14 Anion Gap (mmol/L) Date Value 11/09/2022 6 11/16/2021 6 Calcium (mg/dL) Date Value 11/16/2021 8.6 Calcium, Total (mg/dL) Date Value 11/09/2022 8.8 Protein, Total (g/dL) Date Value 11/09/2022 6.4 11/16/2021 5.9 Albumin (g/dL) Date Value 11/09/2022 4.0 11/16/2021 3.9 Bilirubin, Total (mg/dL) Date Value 11/09/2022 0.5 11/16/2021 0.3 Alkaline Phosphatase (U/L) Date Value 11/09/2022 72 11/16/2021 101 AST (U/L) Date Value 11/09/2022 29 11/16/2021 27 ALT (U/L) Date Value 11/09/2022 26 11/16/2021 27 WBC Date Value Ref Range Status 11/09/2022 3.18 (L) 3.70 - 11.00 k/uL Final RBC Date Value Ref Range Status 11/09/2022 4.51 3.90 - 5.20 m/uL Final Hemoglobin Date Value Ref Range Status 11/09/2022 13.7 11.5 - 15.5 g/dL Final Hematocrit Date Value Ref Range Status 11/09/2022 41.0 36.0 - 46.0 % Final MCV Date Value Ref Range Status 11/09/2022 90.9 80.0 - 100.0 fL Final MCH Date Value Ref Range Status 11/09/2022 30.4 26.0 - 34.0 pg Final MCHC Date Value Ref Range Status 11/09/2022 33.4 30.5 - 36.0 g/dL Final RDW-CV Date Value Ref Range Status 11/09/2022 13.7 11.5 - 15.0 % Final Platelet Count Date Value Ref Range Status 11/09/2022 84 (L) 150 - 400 k/uL Final Comment: No clot detected. MPV Date Value Ref Range Status 11/09/2022 12.0 9.0 - 12.7 fL Final Abs Neut Date Value Ref Range Status 11/09/2022 1.60 1.45 - 7.50 k/uL Final Lymph% Date Value Ref Range Status 11/09/2022 35.8 % Final Abs Lymph Date Value Ref Range Status 11/09/2022 1.14 1.00 - 4.00 k/uL Final Bulloch% Date Value Ref Range Status 11/09/2022 11.0 % Final Abs Bulloch Date Value Ref Range Status 11/09/2022 0.35 <0.87 k/uL Final Eosin% Date Value Ref Range Status 11/09/2022 1.9 % Final Abs Eosin Date Value Ref Range Status 11/09/2022 0.06 <0.46 k/uL Final Baso% Date Value Ref Range Status 11/09/2022 0.9 % Final Abs Baso Date Value Ref Range Status 11/09/2022 0.03 <0.11 k/uL Final Assessment and Plan: Bertha Green is a 42 year old year old female here for follow up. 1. Iron deficiency- Iron studies pending and will review and see back in 3 months if all stable 2. B12 deficiency- Continue oral B12 replacement. 3. Follow up with Rheum, on Plaquenil- Will switch to [facility] for SLE. 4. 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 Renal- etablished care with Nephrology Thank you for the kind referral. If there are any questions and or concerns please do not hesitate to contact me at [phone]. Dionna Gutierrez MD Hematology/Medical Oncology [facility] CC: Abimael Valenzuela MD - (Active), In Basket (Inactive) - User (Inactive) [address] [facility] [id number] (Ph) documented in this encounterSycamore Medical Center11-15-2022 History of Present illness Narrative* Donaldo Mendez MD - 10/04/2022 10:12 AM EST [facility] NEPHROLOGY & HYPERTENSION [facility] SERVICE DATE: October 04, 2022 SERVICE TIME: 10:14 AM REASON FOR CONSULT: I am asked to see this patient in consultation for my opinion regarding elevated serum creatinine. My recommendations will be communicated by way of shared medical record, fax, ormail. REQUESTING PHYSICIAN: Cayla Ren PAJeremyC PRIMARY CARE PHYSICIAN: Abimael Valenzuela MD CHIEF COMPLAINT: evaluation of kidney function, elevated serum creatinine HPI: 42 yr old female History of SLE (since 2004) on hydroxychloroquine - rheumatology (plans to establish with rheumatology) Following with hematology for B12 and iron deficiency anemia, thrombocytopenia Cr 1.0-1.1 since March 2022, prior to that 0.8-0.9 No recent UA - today's UA with trace blood No recent renal imaging Medications reviewed - was on bactrim at time of last blood work (10 day course) On OCP - does have occassional breakthrough bleeding No NSAID use BP controlled No family history of kidney disease, lupus PAST MEDICAL HISTORY PAST MEDICAL HISTORY Diagnosis Date Anemia Lupus (HCC) Right flank pain PAST SURGICAL HISTORY PAST SURGICAL HISTORY Procedure Laterality Date NONE FAMILY HISTORY FAMILY HISTORY Problem Relation Age of Onset other (schitzoaffective disorder) Mother Hypertension Father Schizophrenia Brother Diabetes Other other (scieroderma) Other SOCIAL HISTORY Social History Tobacco Use Smoking status: Never Passive exposure: Past Smokeless tobacco: Never Vaping Use Vaping Use: Never used Substance Use Topics Alcohol use: Never Drug use: Never CURRENT MEDICATIONS As reviewed with patient, and recalled by patient levonorgestrel-ethinyl estradiol 0.15 mg-30 mcg (91) per tab, 3 month pack Take 1 tablet by mouth once daily. L-Norgest and E Estradiol-E Estrad 0.15 mg-30 mcg (84)/10 mcg (7) Take 1 tablet by mouth once daily. cyanocobalamin (VITAMIN B-12) 1,000 mcg tab TAKE 1 TABLET BY MOUTH EVERY DAY MOTEGRITY 2 mg tab tablet Take 1 tablet by mouth once daily. pantoprazole DR (PROTONIX) 40 mg tablet Take 40 mg by mouth twice daily. hydroxychloroquine (PLAQUENIL) 200 mg tablet Take 200 mg by mouth once daily. ALLERGIES ALLERGIES Allergen Reactions Environmental [Othe* REVIEW OF SYSTEMS: Constitutional: No fever, No chills, No fatigue, No night sweats, No malaise and No weakness Eyes: No complaints, No loss in vision and No photophobia Ear, Nose, and Throat: No complaints, No oral ulcers, No epistaxis and No nasal congestion Cardiovascular: No complaints, No chest pain or pressure, No orthopnea, No dyspnea on exertion, No edema, No palpitations, No dizziness, No lightheadedness and No syncope Respiratory: No complaints, No cough, No hemoptysis, No wheezing and No dyspnea Gastrointestinal: No complaints, No diarrhea, No constipation, No loss of appetite, No nausea, No emesis, No abdominal pain, No melena and No metallic or bitter taste Genitourinary: No complaints, No nocturia, No hesitancy, No frothy urine, No frequency, No pink or red urine, No flank pain, No dysuria, No oliguria, No polyuria, No incontinence and No straining Musculoskeletal: No complaints, No joint pain and No joint swelling, No muscle pain Skin: No complaints, No pruritis, No rash and No ulcers/wounds Neurological: No complaints, No tremor, No headache, No seizures, No numbness, No dysarthria, No facial droop, No paresthesias and No tingling Psychiatric: No complaints, No anxiety and No depression Endocrine: No complaints, No polydipsia, No heat intolerance and No cold intolerance Hematologic:No complaints, No issues with bruising easily and No issues with bleeding easily PHYSICAL EXAMINATION: BP 119/77 Pulse 66 Ht 167.6 cm (5' 6 ) Wt 71.7 kg (158 lb) LMP 08/22/2022 (Approximate) BMI 25.50 kg/m Last 3 Encounter BP Readings: Date: BP: 08/15/2022 122/71 04/26/2022 104/60 04/12/2022 130/79 BP - standardized method Pulse 1 BP #1: 119/78 Pulse #1: 70 beats/min 2 BP #2 : 120/75 Pulse #2 : 59 beats/min 3 BP #3 : 119/78 Pulse #3 : 70 beats/min Average Average BP: 119/77 Average Pulse: 66 beats/min Orthostatic vitals Supine Sitting Standing Standing BP : 127/82 Standing pulse : 77 BP cuff location BP cuff location: Right upper arm BP cuff size BP cuff size: regular adult Comments for BP values First BP (right) First BP (left) General appearance/ Constitutional - cooperative,in no acute distress,alert, responsive Skin - No rashes or lesions Eyes - Conjunctivae/corneas clear. Pupils are equally round and reactive to light. Ear, Nose and Throat - Hearing normal, Lips normal, moist mucosa, dentition normal Neck - No bruits. Trachea midline. No jugular venous distension Respiratory - normal respiratory effort, lungs clear to auscultation bilaterally, No wheezing or rhonchi Cardiovascular - regular rate and rhythm, normal S1 and S2, no rubs. No peripheral edema Abdomen - soft, non-tender, non-distended. Normal bowel sounds. No abdominal bruit Musculoskeletal - No joint swelling, deformity, or tenderness. Normocephalic. No clubbing or cyanosis of digits Neurologic - normal sensation, no asterixis Psychiatric - alert and oriented to self, place, time and setting. Normal mood and affect DIAGNOSTIC TESTS REVIEWED FOR TODAY'S VISIT Outside labs and imaging reports, if any were reviewed by sd LABS Creatinine (mg/dL) Date Value 09/26/2022 1.02 08/15/2022 1.13 04/12/2022 1.00 01/18/2022 0.84 11/16/2021 0.87 08/13/2021 Test reordered by [facility]. 08/13/2021 0.82 04/22/2021 0.87 02/19/2021 0.86 11/10/2020 0.79 08/21/2020 0.77 07/08/2020 0.79 06/04/2020 0.97 04/23/2020 0.90 01/06/2020 0.91 10/09/2019 0.89 08/05/2019 0.97 07/08/2019 1.07 02/20/2019 0.84 12/23/2010 0.60 06/26/2006 0.8 04/06/2006 0.8 01/26/2006 0.8 09/26/2005 0.9 BUN (mg/dL) Date Value 09/26/2022 13 08/15/2022 9 04/12/2022 18 01/18/2022 16 11/16/2021 14 08/13/2021 Test reordered by [facility]. 08/13/2021 23 04/22/2021 22 02/19/2021 22 11/10/2020 18 08/21/2020 23 07/08/2020 26 06/04/2020 23 04/23/2020 22 Potassium (mmol/L) Date Value 09/26/2022 4.3 08/15/2022 3.8 04/12/2022 4.1 01/18/2022 4.3 11/16/2021 4.4 08/13/2021 Test reordered by [facility]. 08/13/2021 4.6 04/22/2021 4.6 02/19/2021 4.3 11/10/2020 4.0 08/21/2020 4.0 07/08/2020 4.4 06/04/2020 4.1 04/23/2020 4.0 CO2 (mmol/L) Date Value 09/26/2022 27 08/15/2022 25 04/12/2022 26 01/18/2022 26 11/16/2021 26 08/13/2021 Test reordered by [facility]. 08/13/2021 24 04/22/2021 24 02/19/2021 28 11/10/2020 27 08/21/2020 27 07/08/2020 26 06/04/2020 26 04/23/2020 25 Hemoglobin (g/dL) Date Value 08/15/2022 12.8 04/12/2022 11.1 01/18/2022 13.4 11/16/2021 13.2 08/13/2021 12.6 04/22/2021 14.4 02/19/2021 12.7 11/10/2020 10.6 WBC (k/uL) Date Value 08/15/2022 2.23 04/12/2022 2.75 01/18/2022 4.06 11/16/2021 3.12 08/13/2021 2.26 04/22/2021 3.64 02/19/2021 3.45 11/10/2020 4.08 Platelet Count (k/uL) Date Value 08/15/2022 97 04/12/2022 105 01/18/2022 104 11/16/2021 86 08/13/2021 99 04/22/2021 85 02/19/2021 92 11/10/2020 97 No results found for: UCRR No results found for: PROTRAND No results found for: PROTTIMED Hemoglobin A1C Date Value Ref Range Status 11/17/2015 4.5 4.3 - 5.6 % Final 06/29/2015 5.8 4.0 - 6.0 % Final Comment: [place] [employer] guidelines indicate that patients with HgbA1c in the range 5.7-6.4% are at increased risk for development of diabetes, and intervention by lifestyle modification may be beneficial. HgbA1c greater or equal to 6.5% is considered diagnostic of diabetes. No results found for: CHOL, HDL, LDL, TG. Recent Labs 08/15/22 1432 MITA 18.5 TRANSFERSAT 18.6 HB 12.8 Recent Labs 09/26/22 1506 ALKPHOS 59 CA 8.7 ALB 3.8* IMAGING No recent renal imaging URINE ANALYSIS Urine chemistry findings reviewed pH, Urine Date Value Ref Range Status 03/16/2011 6.0 4.5 - 8.0 Specific [place], Ur Date Value Ref Range Status 03/16/2011 <=1.005 1.005 - 1.030 Glucose, Urine Date Value Ref Range Status 03/16/2011 neg Neg mg/dL Bilirubin, Urine Date Value Ref Range Status 03/16/2011 neg Neg Ketones, Urine Date Value Ref Range Status 03/16/2011 neg Neg Hemoglobin/Blood,Ur Date Value Ref Range Status 03/16/2011 neg Neg Protein, Urine Date Value Ref Range Status 03/16/2011 neg Neg mg/dL Urobilinogen Date Value Ref Range Status 12/23/2010 Normal NL Final Nitrites Date Value Ref Range Status 03/16/2011 neg Neg Leukocytes Date Value Ref Range Status 03/16/2011 neg Neg ASSESSMENT AND PLAN 42 year old yo female seen today, referred for my opinion by Cayla Ren [address] [place] [address] [place] [id number] regarding elevated serum creatinine My recommendations will be communicated by way of shared medical record, fax, or mail. Encounter Diagnosis ICD-10-CM 1. Elevated serum creatinine R79.89 COMP METABOLIC PANEL CBC + DIFF LD LACTATE DEHYDRO HAPTOGLOBIN BLD JAVIER BLOOD C3 COMPLEMENT BLD C4 COMPLEMENT BLD DNA ANTIBODY DS BLD US KIDNEY/BLADDER PROTEIN CREATININE RATIO URINALYSIS, DIPSTICK ONLY 2. Systemic lupus erythematosus, unspecified SLE type, unspecified organ involvement status ([facility]) M32.9 3. Iron deficiency anemia, unspecified iron deficiency anemia type D50.9 4. Thrombocytopenia ([facility]) D69.6 Elevated serum creatinine - history of lupus on HCQ - UA today with trace blood, no protein on dip - plan to check protein/Cr ratio - was on bactrim around time of last blood test (discussed potential elevation in creatinine with bactrim), no NSAID use - discussed hydration - plan to recheck renal function along with additional serologies JAVIER, anti ds DNA, complements - check US kidney SLE - on plaquenil - check protein/Cr ratio - check serologies Anemia and thrombocytopenia - following with hematology - check LDH, haptoglobin Recommended continued close follow up with other physicians for other medical conditions All of the above diagnoses stated are associated to the principal diagnosis and tests and labs ordered and interpreted are directly associated with one and other or may play a role in the pathophysiology of each of them. Portions of this note might have been copied from previous encounters, if any,but have been updated as necessary. SIGNATURE: Donaldo Mendez MD, FACP, FASN PATIENT NAME: Bertha Green DATE: October 04, 2022 TIME: 10:14 AM OFFICE NUMBER: [phone] CC: REFERRING PROVIDER: Cayla Ren [address] [place] [address] [place] [id number] PRIMARY CARE PHYSICIAN: Abimael Valenzuela MD documented in this encounterSycamore Medical Center09-28-2022 Miscellaneous Notes* Telephone Encounter - Vicenta Syed RN - 08/17/2022 1:42 PM EDT Pt notified Vicenta Syed RN * Telephone Encounter - Vicenta Syed RN - 08/17/2022 1:42 PM EDT ----- Message from Dionna Gutierrez MD sent at 08/16/2022 11:21 AM EDT ----- Call with OK Iron levels and check with next visit documented in this encounterSycamore Medical Center09-27-2022 Miscellaneous Notes* Telephone Encounter - Juve Israel RN - 08/16/2022 3:12 PM EDT Pt aware of Iron levels and they will be checked again with next visit. She denies any additional questions or concerns at this time. Juve Israel RN * Telephone Encounter - Juve Israel RN - 08/16/2022 3:11 PM EDT ----- Message from Vicenta Syed RN sent at 08/16/2022 2:25 PM EDT ----- ----- Message ----- From: Dionna Gutierrez MD Sent: 08/16/2022 11:21 AM EDT To: Vicenta G Kalama, RN Call with OK Iron levels and check with next visit documented in this encounterSycamore Medical Center09-09-2022 Miscellaneous Notes* Telephone Encounter - Lizeth Salazar Pss - 07/29/2022 12:50 PM EDT Patient called in to cancel her appt for 08/01/22 and stated that she is working on the paperwork for her insurance and will call back when she is sure that all of the paperwork has been taken care ofand her insurance is effective. I did offer to have her speak with a PFA regarding this or possibleprograms if need be. She stated at this time she will hold off on that and will call back as soon as she has more info to come up with a plan for future appointments. documented in this encounterSycamore Medical Center07-19-2022 Evaluation note* Encounter Date Diagnosis Assessment Notes Treatment Notes Treatment Clinical Notes May, Iron deficiency anemia, unspecified iron deficiency anemia type (ICD-10 - D50.9) [facility] Other 06-22-2022 Evaluation note* Encounter Date Diagnosis Assessment Notes Treatment Notes Treatment Clinical Notes Apr, Gastric polyps (ICD-10 - K31.7) Apr, Epigastric pain (ICD-10 - R10.13) Apr, Nausea & vomiting (ICD-10 - R11.2) Apr, Peptic ulcer disease (ICD-10 - K27.9) Apr, Other CONTINUE CARAFA TE AND PANTOPRAZOLE DIRECTED [facility] Other 06-08-2022 Evaluation note* Encounter Date Diagnosis Assessment Notes Treatment Notes Treatment Clinical Notes Apr, Chronic ulcer of pyloric antrum (ICD-10 - K25.7) PROCEED WITH EGD AT THIS TIME. Apr, Iron deficiency anemia, unspecified iron deficiency anemia type (ICD-10 - D50.9) PATIENT DID HAVE IRON INFUSION LABS REVIEWED Apr, Epigastric pain (ICD-10 - R10.13) Apr, Irritable bowel syndrome with constipation (ICD-10 - K58.1) [facility] Other 05-25-2022 Miscellaneous Notes* Telephone Encounter - Dionna Gutierrez MD - 04/13/2022 4:11 PM EDT Thanks * Telephone Encounter - Suraj Lunsford - 04/13/2022 12:16 PM EDT Patient has been scheduled for Monoferric 04/26. Patient notified. Suraj Lunsford * Telephone Encounter - Christie Paz RN - 04/13/2022 10:30 AM EDT Pt viewed results on [employer]. PSS: Please schedule pt for IV iron per Cayla's message below. Thank you. Christie Paz, RN * Telephone Encounter - Cayla Ren PA-C - 04/13/2022 10:15 AM EDT Please call patient and advise that her iron levels are low and Dr. Gutierrez would like her to haveIV iron (monoferric preferred). Please schedule and keep 3 month follow up as already scheduled. Cayla Ren PA-C * Telephone Encounter - Cayla Ren PA-C - 04/13/2022 10:14 AM EDT ----- Message from Dionna Gutierrez MD sent at 04/13/2022 8:19 AM EDT ----- Please have her scheduled for IV Iron monoferric preferred.... She already has a follow up with me in 3 months which should be adeqaute as well, Thanks documented in this encounterSycamore Medical Center05-24-2022 History of Present illness Narrative* Dionna Gutierrez MD - 04/12/2022 10:57 AM EDT PATIENT NAME: Bertha Green [facility] NO.: [id number] ATTENDING PHYSICIAN: Dionna Gutierrez MD DATE OF SERVICE: April 12, 2022 Some of the elements of the node have been extracted from my previous progress note dated 08/13/2021. All the information has been reviewed carefully. Dear Dr. Abimael Valenzuela MD, here is an update on a follow up visit on female Bertha H Green [facility] [address] April 12, 2022 Diagnosis: B12 and Iron deficiency Anemia SLE on Hydroxychlroquine. Treatment History: 1. Injectafer - Last Monoferric 03/03/2021- EGD- gastritis Venofer 4 doses last 08/2021 2. B12 Oral replacement 02/20/2019 HPI: Alesia is a 42 year old year old female here for follow up. Doing well and denies any new complaints. 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 She had another EGD 10/2021 which showed few small superficial antral ulcers. She is on a PPI and denies any NSAID use. PAST MEDICAL HISTORY Diagnosis Date Anemia Lupus (HCC) Right flank pain Social History Tobacco Use Smoking status: Never Smoker Smokeless tobacco: Never Used Vaping Use Vaping Use: Never used Substance Use Topics Alcohol use: Never Drug use: Never FAMILY HISTORY Problem Relation Age of Onset other (schitzoaffective disorder) Mother Hypertension Father Schizophrenia Brother Diabetes Other other (scieroderma) Other Past medical, social and family history reviewed without any changes. REVIEW OF SYSTEMS GENERAL: No weight loss, malaise or fevers. No night sweats. HEENT: Negative for headaches, No changes in hearing or vision, no nose bleeds or other nasal problems. RESPIRATORY: Negative for cough, wheezing and shortness of breath CARDIOVASCULAR: Negative for chest pain, leg swelling and palpitations GI: Negative for abdominal discomfort, blood in stools or black stools and change in bowel habits : Negative for dysuria, frequency and incontinence MUSCULOSKELETAL: Negative for joint pain or swelling, back pain, and muscle pain. SKIN: Negative for lesions, rash, and itching. HEMATOLOGY/LYMPHOLOGY Negative for prolonged bleeding, bruising easily, and swollen nodes. NEURO: Negative for numbness or tingling of hands/feet. No weakness. PHYSICAL EXAMINATION: BP 130/79 Pulse 67 Temp (Src) 97.6 (Temporal) Resp 16 Ht 5' 6.614 (1.69m) Wt 165 lb 3.2 oz (74.9kg) SpO2 100% LMP 10/24/2020 BMI 26.17 kg/(m^2). Wt 83.9 kg (185 lb) BMI 29.31 kg/m2 Last 3 Encounter Wt Readings: Date: Wt: 04/29/2019 83.9 kg (185 lb) 02/20/2019 84.4 kg (186 lb) 07/04/2016 87.2 kg (192 lb 4.8 oz) General appearance:ECOG PERFORMANCE STATUS: 0- Fully active, able to carry on all pre-disease performance w/o restriction. Patient in NAD. Skin: Skin color, texture, turgor normal. No rashes or lesions. Eyes: Anicteric sclera. Pupils are equally round and reactive to light. Extraocular movements are intact. Breast: No palpable breast masses. No nipple change or discharge. Lymph Nodes: No cervical, supraclavicular, axillary or inguinal adenopathy. Oropharynx: Lips, mucosa, and tongue normal. Back: No pain to percussion. Negative SLR test Lungs clear to auscultation, No wheezing or rhonchi Heart: RRR without murmur, gallop, or rubs. Abdomen soft, non-tender. No masses, organomegaly Extremities: No deformities. No edema Neuro: Gait and speech normal. Reflexes normal and symmetric. Muscular strength intact. Sensation grossly intact. Rectal: Deferred : Deferred LABS: Glucose (mg/dL) Date Value 04/12/2022 73 11/16/2021 87 Potassium (mmol/L) Date Value 04/12/2022 4.1 11/16/2021 4.4 Sodium (mmol/L) Date Value 04/12/2022 140 11/16/2021 140 Chloride (mmol/L) Date Value 04/12/2022 105 11/16/2021 108 CO2 (mmol/L) Date Value 04/12/2022 26 11/16/2021 26 Creatinine (mg/dL) Date Value 04/12/2022 1.00 11/16/2021 0.87 BUN (mg/dL) Date Value 04/12/2022 18 11/16/2021 14 Anion Gap (mmol/L) Date Value 04/12/2022 9 11/16/2021 6 Calcium (mg/dL) Date Value 11/16/2021 8.6 Calcium, Total (mg/dL) Date Value 04/12/2022 9.0 Protein, Total (g/dL) Date Value 04/12/2022 6.3 11/16/2021 5.9 Albumin (g/dL) Date Value 04/12/2022 4.1 11/16/2021 3.9 Bilirubin, Total (mg/dL) Date Value 04/12/2022 0.2 11/16/2021 0.3 Alkaline Phosphatase (U/L) Date Value 04/12/2022 79 11/16/2021 101 AST (U/L) Date Value 04/12/2022 27 11/16/2021 27 ALT (U/L) Date Value 04/12/2022 25 11/16/2021 27 WBC Date Value Ref Range Status 04/12/2022 2.75 (L) 3.70 - 11.00 k/uL Final RBC Date Value Ref Range Status 04/12/2022 3.96 3.90 - 5.20 m/uL Final Hemoglobin Date Value Ref Range Status 04/12/2022 11.1 (L) 11.5 - 15.5 g/dL Final Hematocrit Date Value Ref Range Status 04/12/2022 36.2 36.0 - 46.0 % Final MCV Date Value Ref Range Status 04/12/2022 91.4 80.0 - 100.0 fL Final MCH Date Value Ref Range Status 04/12/2022 28.0 26.0 - 34.0 pg Final MCHC Date Value Ref Range Status 04/12/2022 30.7 30.5 - 36.0 g/dL Final RDW-CV Date Value Ref Range Status 04/12/2022 14.3 11.5 - 15.0 % Final Platelet Count Date Value Ref Range Status 04/12/2022 105 (L) 150 - 400 k/uL Final MPV Date Value Ref Range Status 04/12/2022 12.3 9.0 - 12.7 fL Final Abs Neut Date Value Ref Range Status 04/12/2022 1.46 1.45 - 7.50 k/uL Final Lymph% Date Value Ref Range Status 04/12/2022 24.4 % Final Abs Lymph Date Value Ref Range Status 04/12/2022 0.67 (L) 1.00 - 4.00 k/uL Final Bull[place]% Date Value Ref Range Status 04/12/2022 19.6 % Final Abs [place] Date Value Ref Range Status 04/12/2022 0.54 <0.87 k/uL Final Eosin% Date Value Ref Range Status 04/12/2022 1.8 % Final Abs Eosin Date Value Ref Range Status 04/12/2022 0.05 <0.46 k/uL Final Baso% Date Value Ref Range Status 04/12/2022 0.7 % Final Abs Baso Date Value Ref Range Status 04/12/2022 <0.03 <0.11 k/uL Final Assessment and Plan: Bertha Green is a 42 year old year old female here for follow up. 1. Iron deficiency- Iron studies pending and will review and see back in 3 months if all stable 2. B12 deficiency- Continue oral B12 replacement. 3. Follow up with Rheum, on Plaquenil 4. Elevated LFT- resolved 5. 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 If there are any questions and or concerns please do not hesitate to contact me at [phone]. Dionna Gutierrez MD Hematology/Medical Oncology [facility] [place] CC: Abimael Valenzuela MD - (Active), In Basket (Inactive) - User (Inactive) [address] [facility] [id number] (Ph) documented in this encounterSycamore Medical Center03-14-2022 Evaluation note* Encounter Date Diagnosis Assessment Notes Treatment Notes Treatment Clinical Notes Jan, Iron deficiency anemia, unspecified iron deficiency anemia type (ICD-10 - D50.9) Jan, Chronic ulcer of pyloric antrum (ICD-10 - K25.7) Jan, Epigastric pain (ICD-10 - R10.13) Jan, Other forms of systemic lupus erythematosus, unspecified organ involvement status (ICD-10 - M32.8) [facility] Other 12-20-2021 History of Present illness Narrative* She denies any musculoskeletal pain. * On esophagogastroduodenoscopy 11/08/2021 she was found to have a few small superficial antral ulcers. * At that time she had noted some epigastric pain. * The epigastric discomfort resolved after starting Carafate. * She has not noted any rashes or recurrence of jaundice. She has not required any recent iron infusions. * She is planning to start low-dose estrogen replacement therapy because of hypermenorrhea. * She had increased menstrual periods with Blisovi Fe so that it was discontinued and replaced with Levonorgest/Estrad. * Examination shows preserved range of motion of the upper and lower extremity joints without joint effusions. There are no tender joints. * Laboratory (02/12/2022) WBC 2.8, hemoglobin 12.7, hematocrit 37.9, MCV 91.6, MCHC 33.5, platelets 107, BUN 12, creatinine 0.87, glucose 76, calcium 8.7, AST 33, ALT 34, alkaline phosphatase 74, albumin 3.5, gastrin 31 pg/mL (07/30/2021) G6PD normal, C4 17, C3 92, JOSE F panel negative, CRP <0.10, folate 5.3, vitamin B12 1370.. * She has recurrent gastric erosions of unclear etiology. She has systemic lupus erythematosus that appears to be stable and asymptomatic. She has leukopenia and mild thrombocytopenia. She has a history of iron deficiency anemia. * She is to continue hydroxychloroquine 1 tablet daily. She is to have laboratory for cryoglobulins, immunoglobulins IgG, IgA, and IgM as well as ANCA and urinalysis with her next laboratory testing. She is to return at the next available office appointment. [facility] Work Phone: Evaluation note* Diagnosis Iron deficiency anemia due to chronic blood loss- Primary Iron deficiency anemia secondary to blood loss (chronic) Leukopenia, unspecified type documented in this encounter [facility] CenterEvaludelaware [facility] note* Diagnosis Iron deficiency anemia due to chronic blood loss- Primary Iron deficiency anemia secondary to blood loss (chronic) documented in this encounter [facility] noteNo InformationNort iTagged Other Evaluation note* Diagnosis Onset Date Resolution Status Peptic ulcer disease [facility] Work Phone: Evaluation note* Diagnosis Elevated serum creatinine- Primary Other nonspecific findings on examination of blood Systemic lupus erythematosus, unspecified SLE type, unspecified organ involvement status (HCC) Iron deficiency anemia, unspecified iron deficiency anemia type Thrombocytopenia (HCC) Thrombocytopenia, unspecified [facility] Diagnosis Iron deficiency anemia due to chronic blood loss- Primary Iron deficiency anemia secondary to blood loss (chronic) [facility] Diagnosis Iron deficiency anemia due to chronic blood loss- Primary Iron deficiency anemia secondary to blood loss (chronic) [facility] Diagnosis Chronic gastric ulcer without hemorrhage and without perforation- Primary Gastric polyps Benign neoplasm of stomach Systemic lupus erythematosus, unspecified SLE type, unspecified organ involvement status (HCC) [facility] Diagnosis Iron deficiency anemia due to chronic blood loss- Primary Iron deficiency anemia secondary to blood loss (chronic) [facility] Diagnosis Chronic superficial gastritis with bleeding- Primary Atrophic gastritis with hemorrhage [facility] Diagnosis Iron deficiency anemia due to chronic blood loss- Primary Iron deficiency anemia secondary to blood loss (chronic) [facility] Diagnosis Iron deficiency anemia due to chronic blood loss- Primary Iron deficiency anemia secondary to blood loss (chronic) [facility] noteNo assessment information [facility] Work Phone: Evaluation note* Diagnosis Elevated serum creatinine Other nonspecific findings on examination of blood [facility]* Diagnosis Onset Date Resolution Status BPV (benign positional vertigo) [facility] Work Phone: Evaluation note* Diagnosis Iron deficiency anemia due to chronic blood loss- Primary Iron deficiency anemia secondary to blood loss (chronic) Other vitamin B12 deficiency anemia Bruising Contusion of unspecified site documented in this encounter [facility] note* Diagnosis Systemic lupus erythematosus, unspecified SLE type, unspecified organ involvement status (Multi)- Primary documented in this encounter [facility] Work Phone: Evaluation note* Diagnosis Onset Date Resolution Status BPV (benign positional vertigo) acute Cat scratch of lower leg acu te [facility] Work Phone: Evaluation note* Diagnosis Onset Date Resolution Status BPV (benign positional vertigo) acute Cat scratch of lower leg acu te Right otitis externa acute Wellness examination acute [facility] Work Phone: Evaluation note* Diagnosis Iron deficiency anemia due to chronic blood loss- Primary Iron deficiency anemia secondary to blood loss (chronic) documented in this encounter [facility] note* Diagnosis Sjogren syndrome with dental involvement- Primary documented in this encounter [facility] Work Phone: Evaluation note* Diagnosis Iron deficiency anemia due to chronic blood loss- Primary Iron deficiency anemia secondary to blood loss (chronic) documented in this encounter [facility] note* Diagnosis Sjogren's syndrome, with unspecified organ involvement (Multi)- Primary documented in this encounter [facility] Work Phone: Hismdze general Narrative - Reported* Type Description Date Medical History Systemic lupus eryth ematosus, unspecified SLE type, unspecified organ involvement status Medical History Sjogrens syndrome, with unspecif ied organ involvement VAZATA Other Hisoiyb general Narrative - Reported* Type Description Date Medical History Systemic lupus eryth ematosus, unspecified SLE type, unspecified organ involvement status Medical History Sjogrens syndrome, w ith unspecified organ involvement Surgical History EGD 2019,2020 Surgical History COLONOSCOPY 2019 Hospitalization History SEE SURGICAL HX VAZATA Other History of Present illness Narrative* She denies any musculoskeletal pain. * She has noted recurrent rashes initially involving the lateral aspect of the right calf that responded to topical antifungal medications. She most recently noted raised rash on the right anterior thigh that has been resolving using topical antifungal medication. She has not had similar rashes previously. She continues to be active running. She has completed her COVID-19 vaccinations. She has not required any recent blood transfusions but had laboratory test recently that demonstrated leukopeniaand thrombocytopenia. She continues to take hydroxychloroquine 200 mg once per day. She had a recent esophagogastroduodenoscopy that demonstrated gastritis. There is no signs of active bleeding. * There is normal passive range of motion of upper and lower extremity joints without joint effusions. The lungs, heart, abdomen, and extremities are benign. The integument is remarkable for irregularly shaped slightly erythematous dry rash of the right mid anterior thigh. * Laboratory (06/25/2021) WBC 2.8, hemoglobin 12.1, hematocrit 37.6, MCV 100.5, MCHC 32.2, platelets 78, (04/22/2021) WBC 3.64, hemoglobin 14.4, hematocrit 43.7, MCV 98 0, MCHC 33.0, platelets 85, calcium 9.1, albumin 4.0, alkaline phosphatase 124, AST 40, ALT 47, BUN 22, creatinine 0.87, glucose 70, iron 55, TIBC 321, saturation 17%, ferritin 58.4. * Abdominal ultrasound (05/18/2021) normal ultrasound of the liver. There is a small amount of mobile echogenic debris's within the gallbladder the right kidney is normal without hydronephrosis. * She has systemic lupus erythematosus with leukopenia and thrombocytopenia. There is slightly elevated liver enzymes. She has history of iron deficiency anemia of unclear etiology. * She is to have laboratory for G6PD screen, C3, C4, dsDNA, anti-Jackson antibody. Continue hydroxychloroquine 200 mg once per day. She is to continue with plans for follow-up with gastroenterology. She is to return at the next available office appointment. [facility] Work Phone: History of Present illness Narrative* She denies any joint pain. She has not had any significant abdominal pain. The Prilosec was discontinued because of gastric polyps. She continues to take Carafate. She is following up with gastroenterology and with hematology regarding leukopenia and thrombocytopenia. She does note recurrent rash in the malar aspect of the face bilaterally. She continues to take hydroxychloroquine 200 mg daily. * There is good passive range of motion of the upper and lower extremity joints without joint effusions. There is slight crepitus on range of motion of the knees. There is good active range of motion of the cervical spine. There is reddish discoloration in the malar aspect of the face bilaterally. The lungs, heart, abdomen, and extremities are benign. * Laboratory (02/01/2023) WBC 2.57, hemoglobin 15.4, hematocrit 45.2, MCV 92.4, MCHC 34.1, platelets 83, absolute neutrophil count 0.95, BUN 14, creatinine 1.08, glucose 94, sodium 137, potassium 4.4, chloride 103, bicarbonate 22, alkaline phosphatase 71, AST 23, ALT 26, (11/10/2022) C3 111, C4 22, hap toglobin 113. * Renal ultrasound (11/10/2022) normal echogenicity of both kidneys. The left kidney measures 11.5 cmin the right kidney 11.3 cm. There is a 5 mm calculus in the upper pole of the left kidney. * Esophagogastroduodenoscopy (12/26/2022) normal esophagus and normal duodenum. There are 3 gastric polyps with and nonbleeding gastric ulcers. * The systemic lupus appears to be under good control with respect to the musculoskeletal system. However she has chronic leukopenia and has some progression of the thrombocytopenia that may be either related to lupus or potentially related to the hydroxychloroquine. She has history of iron deficiency anemia and gastritis. She has slightly elevated serum creatinine. * She is to stop the hydroxychloroquine for 3 weeks and then have a repeat blood test for CBC with differential. * NAD to consider changing or discontinuing the hydroxychloroquine hematologic evaluation improves ofthe hydroxychloroquine. She is to return at the next available office appointment. [facility] Work Phone: Reason for referral (narrative)* Diagnostic Procedure Only (Routine) - Authorized Specialty Diagnoses / Procedures Referred By Contaixa t Referred To Contact US IMAGING Diagnoses Elevated serum creatinine Procedures US KIDNEY/BLADDER US RETROPERITONEAL REAL TIME W/IMAGE COMPLETE Donaldo Mendez MD [address] [place] [address] Us Imaging Referral ID Status Reason Start Date Expiration Date Visits Requested Visits Authorized [id number] Authorized Auto-Generat ed Referral 11/03/2023 1 1 [facility] for referral (narrative)* Outpatient Procedure (Routine) - Pending Review Specialty Diagnoses / Procedures Referred By mAbreenac t Referred To Contact [facility] Diagnoses Chronic gastric ulcer without hemorrhage and without perforation Procedures EGD DIAGNOSTIC ESOPHAGOGASTRODUODENOSC OPY TRANSORAL DIAGNOSTIC Micheal Galicia Jr., DO [address] [place] [address] [facility] [address] [place] [id number] Referral ID Status Reason Start Date Expiration Date Visits Requested Visits Authorized [id number] Pending Review Auto-Generat ed Referral 12/02/2022 12/02/2023 1 1 [facility] for referral (narrative)* Diagnostic Procedure Only (Routine) - Closed Specialty Diagnoses / Procedures Referred By Rj t Referred To Contact US IMAGING Diagnoses Elevated serum creatinine Procedures US KIDNEY/BLADDER US RETROPERITONEAL REAL TIME W/IMAGE COMPLETE Donaldo Mendez MD [address] [place] [address] Us Imaging Referral ID Status Reason Start Date Expiration Date V isits Requested Visits Authorized [id number] Closed Auto-Generate d Referral 10/04/2022 11/03/2023 1 1 [facility] for referral (narrative)No reason for referral [facility] Work [facility]: Reason for visit Narrative* Diagnostic Procedure Only (Routine) - Closed Specialty Diagnoses / Procedures Referred By Rj t Referred To Contact US IMAGING Diagnoses Elevated serum creatinine Procedures US KIDNEY/BLADDER US RETROPERITONEAL REAL TIME W/IMAGE COMPLETE Donaldo Mendez MD [address] [place] [address] Us Imaging Referral ID Status Reason Start Date Expiration Date V isits Requested Visits Authorized [id number] Closed Auto-Generate d Referral 10/04/2022 11/03/2023 1 1 [facility] Summary Purpose Family History Relationship Condition Age at Onset Recorded Date/T kenny Not Specified Heart valve disease Unknown Relationship Condition Age at Onset Recorded Date/T kenny Not Specified Heart valve disease Unknown brother Schizophrenia Unknown Family history of mental disorder Unknown father Hypertension Unknown Not Specified Family history of mental disorder Unknow n Schizophrenia Unknown Relationship Condition Age at Onset Recorded Date/T kenny mother Heart valve disease Unknown brother Schizophrenia Unknown Family history of mental disorder Unknown father Hypertension Unknown mother Family history of mental disorder Unknown Schizophrenia Unknown Advance Directives Advance Directive Response Recorded Date/ Time Advance Directives No September 2:58pm Advance Directive Response Recorded Date/ Time Advance Directives No September 1:58pm Chief Complaint 4 1/2 month f/u. RW8 month f/u. RW, MA6 month follow up visit. LW6 month follow up visit. LW Medications Administered Section Inactive Administered Medications - up to 3 most recent administrations Medication Order MAR Action Action Date Dose Rate Site acetaminophen 650 mg tab(s) (TYLENOL) 650 mg, ORAL, ONCE, 1 dose, On Mon04/26/22 at 1330, Give 30 minutes prior to infusion. No more than 4000 mg of acetaminophen should be given per day (FROM ALL SOURCES), If ordered PRN for pain, patient/guardian may elect to receive this medication for higher pain levels INSTEAD of the opioid, if preferred: N/A Given 04/26/2022 1:42 PM EDT 650 mg diphenhydrAMINE 50 mg (BENADRYL) 50 mg, ORAL, ONCE, 1 dose, On Mon04/26/22 at 1330, Give 30 minutes prior to infusion. Given 04/26/2022 1:42 PM EDT 50 mg ferric derisomaltose 1,000 mg in NaCl 0.9% 100 mL (MONOFERRIC) 1,000 mg (set by rule on 04/13/2022 10:15 AM), INTRAVENOUS, Administer over 45 Minutes, ONCE, 1 dose, On Mon04/26/22 at 1330, Monitor patient for hypersensitivity reactions during the infusion and for 30 minutes after infusion is complete. Approximate total volume: 120 ml EXP: 2145 EXP: (8 HR) New Bag/Syringe/Bottle 04/26/2022 2:13 PM EDT 1,000 mg Inactive Administered Medications - up to 3 most recent administrations Medication Order MAR Action Action Date Dose Rate Site iron sucrose 300 mg in NaCl 0.9% 250 mL (VENOFER) 300 mg, INTRAVENOUS, at 166.67 mL/hr, Administer over 90 Minutes, ONCE, 1 dose, On Mon12/01/22 at 1330, Please conduct a 30 minute post dose observation. New Bag/Syringe/Bottle 12/01/2022 1:25 PM EST 300 mg 166.67 mL/hr Inactive Administered Medications - up to 3 most recent administrations Medication Order MAR Action Action Date Dose Rate Site iron sucrose 300 mg in NaCl 0.9% 250 mL (VENOFER) 300 mg, INTRAVENOUS, at 166.67 mL/hr, Administer over 90 Minutes, ONCE, 1 dose, On Mon12/14/22 at 1000, Please conduct a 30 minute post dose observation. New Bag/Syringe/Bottle 12/14/2022 9:41 AM EST 300 mg 166.67 mL/hr Chief Complaint and Reason for Visit Chief Complaint Chronic Ulcer Pylori c Antrum Chronic Ulcer Pyloric Antrum R10.9 M32.9 Reason for Visit Peptic ulcer disease Chief Complaint M32.9 Chief Complaint Z12.31 Chief Complaint Medication Amb Documentation TB ER Follow Up Reason for Visit BPV (benign position al vertigo) Chief Complaint TB ER Follow Up cat scratch Reason for Visit BPV (benign position al vertigo) Chief Complaint cat scratch Bleeding from R ear Reason for Visit BPV (benign position al vertigo) Cat scratch of lower leg Chief Complaint cat scratch Bleeding from R ear wellness Reason for Visit BPV (benign position al vertigo) Cat scratch of lower leg Right otitis externa Wellness examination Chief Complaint Admit Date m32.9 October 16, 2024 10:28am Discuss Medical Concerns January 13, 2025 3:15pm Chief Complaint Admit Date rash on left knee May 13, 2025 9:13 am Screening June 19, 2025 2:26 pm Reason for Visit Admit Date Tinea corporis May 13, 2025 9:13 am Chief Complaint Admit Date rash on left knee May 13, 2025 9:13 am Screening June 19, 2025 2:26 pm Wellness August 06, 2025 10:37am Reason for Visit Admit Date Tinea corporis May 13, 2025 9:13 am Wellness examination August 06 10:37am Additional Source Comments INFORMATION SOURCE (unrecogn ized section and content) DATE CREATED AUTHOR 05/16/2018 [facility] DATE CREATED AUTHOR AUTHOR'S ORGANIZ ATION 02/18/2019 [facility] DATE CREATED AUTHOR AUTHOR'S ORGANIZ ATION 08/03/2021 [facility] DATE CREATED AUTHOR AUTHOR'S ORGANIZ ATION 08/31/2021 [facility] DATE CREATED AUTHOR AUTHOR'S ORGANIZ ATION 05/11/2023 [facility] DATE CREATED AUTHOR AUTHOR'S ORGANIZ ATION 05/13/2023 [facility] DATE CREATED AUTHOR AUTHOR'S ORGANIZ ATION 10/23/2024 [facility] DATE CREATED AUTHOR AUTHOR'S ORGANIZ ATION 03/01/2025 [facility] DATE CREATED AUTHOR AUTHOR'S ORGANIZ ATION 05/15/2025 [facility] DATE CREATED AUTHOR AUTHOR'S ORGANIZ ATION 06/22/2025 [facility] Source Comments (unrecognize d section and content) In the event this informatio n is protected by the Federal Confidentiality of Alcohol and Drug Abuse Patient Records regulations: The Federal rules restrict any use of the information to criminally investigate or prosecute any alcohol or drug abuse patient.[facility] the event this information is protected by the Federal Confidentiality of Alcohol and Drug Abuse Patient Records regulations: The Federal rules restrict any use of the information to criminally investigate or prosecute any alcohol or drug abuse patient.[facility] the event this information is protected by the Federal Confidentiality of Alcohol and Drug Abuse Patient Records regulations: The Federal rules restrict any use of the information to criminally investigate or prosecute any alcohol or drug abuse patient.[facility] CenterIn the event this information is protected by the Federal Confidentiality of Alcohol and Drug Abuse Patient Records regulations: The Federal rules restrict any use of the information to criminally investigate or prosecute any alcohol or drug abuse patient.[facility] the event this information is protected by the Federal Confidentiality of Alcohol and Drug Abuse Patient Records regulations: The Federal rules restrict any use of the information to criminally investigate or prosecute any alcohol or drug abuse patient.[facility] the event this information is protected by the Federal Confidentiality of Alcohol and Drug Abuse Patient Records regulations: The Federal rules restrict any use of the information to criminally investigate or prosecute any alcohol or drug abuse patient.[facility] Center[facility] the event this information is protected by the Federal Confidentiality of Alcohol and Drug Abuse Patient Records regulations: The Federal rules restrict any use of the information to criminally investigate or prosecute any alcohol or drug abuse patient.[facility] Center[facility] the event this information is protected by the Federal Confidentiality of Alcohol and Drug Abuse Patient Records regulations: The Federal rules restrict any use of the information to criminally investigate or prosecute any alcohol or drug abuse patient.[facility] Center[facility] the event this information is protected by the Federal Confidentiality of Alcohol and Drug Abuse Patient Records regulations: The Federal rules restrict any use of the information to criminally investigate or prosecute any alcohol or drug abuse patient.[facility] Center[facility] the event this information is protected by the Federal Confidentiality of Alcohol and Drug Abuse Patient Records regulations: The Federal rules restrict any use of the information to criminally investigate or prosecute any alcohol or drug abuse patient.[facility] CenterIn the event this information is protected by the Federal Confidentiality of Alcohol and Drug Abuse Patient Records regulations: The Federal rules restrict any use of the information to criminally investigate or prosecute any alcohol or drug abuse patient.[facility] CenterIn the event this information is protected by the Federal Confidentiality of Alcohol and Drug Abuse Patient Records regulations: The Federal rules restrict any use of the information to criminally investigate or prosecute any alcohol or drug abuse patient.[facility] Center[facility] the event this information is protected by the Federal Confidentiality of Alcohol and Drug Abuse Patient Records regulations: The Federal rules restrict any use of the information to criminally investigate or prosecute any alcohol or drug abuse patient.[facility] CenterIn the event this information is protected by the Federal Confidentiality of Alcohol and Drug Abuse Patient Records regulations: The Federal rules restrict any use of the information to criminally investigate or prosecute any alcohol or drug abuse patient.[facility] CenterIn the event this information is protected by the Federal Confidentiality of Alcohol and Drug Abuse Patient Records regulations: The Federal rules restrict any use of the information to criminally investigate or prosecute any alcohol or drug abuse patient.[facility] CenterIn the event this information is protected by the Federal Confidentiality of Alcohol and Drug Abuse Patient Records regulations: The Federal rules restrict any use of the information to criminally investigate or prosecute any alcohol or drug abuse patient.[facility] CenterIn the event this information is protected by the Federal Confidentiality of Alcohol and Drug Abuse Patient Records regulations: The Federal rules restrict any use of the information to criminally investigate or prosecute any alcohol or drug abuse patient.[facility] CenterIn the event this information is protected by the Federal Confidentiality of Alcohol and Drug Abuse Patient Records regulations: The Federal rules restrict any use of the information to criminally investigate or prosecute any alcohol or drug abuse patient.[facility] CenterIn the event this information is protected by the Federal Confidentiality of Alcohol and Drug Abuse Patient Records regulations: The Federal rules restrict any use of the information to criminally investigate or prosecute any alcohol or drug abuse patient.[facility] CenterIn the event this information is protected by the Federal Confidentiality of Alcohol and Drug Abuse Patient Records regulations: The Federal rules restrict any use of the information to criminally investigate or prosecute any alcohol or drug abuse patient.[facility] CenterIn the event this information is protected by the Federal Confidentiality of Alcohol and Drug Abuse Patient Records regulations: The Federal rules restrict any use of the information to criminally investigate or prosecute any alcohol or drug abuse patient.[facility] CenterIn the event this information is protected by the Federal Confidentiality of Alcohol and Drug Abuse Patient Records regulations: The Federal rules restrict any use of the information to criminally investigate or prosecute any alcohol or drug abuse patient.[facility] CenterIn the event this information is protected by the Federal Confidentiality of Alcohol and Drug Abuse Patient Records regulations: The Federal rules restrict any use of the information to criminally investigate or prosecute any alcohol or drug abuse patient.[facility] CenterIn the event this information is protected by the Federal Confidentiality of Alcohol and Drug Abuse Patient Records regulations: The Federal rules restrict any use of the information to criminally investigate or prosecute any alcohol or drug abuse patient.[facility] CenterIn the event this information is protected by the Federal Confidentiality of Alcohol and Drug Abuse Patient Records regulations: The Federal rules restrict any use of the information to criminally investigate or prosecute any alcohol or drug abuse patient.[facility] CenterIn the event this information is protected by the Federal Confidentiality of Alcohol and Drug Abuse Patient Records regulations: The Federal rules restrict any use of the information to criminally investigate or prosecute any alcohol or drug abuse patient.[facility] CenterIn the event this information is protected by the Federal Confidentiality of Alcohol and Drug Abuse Patient Records regulations: The Federal rules restrict any use of the information to criminally investigate or prosecute any alcohol or drug abuse patient.[facility] Center[facility] the event this information is protected by the Federal Confidentiality of Alcohol and Drug Abuse Patient Records regulations: The Federal rules restrict any use of the information to criminally investigate or prosecute any alcohol or drug abuse patient.[facility] Center[facility] the event this information is protected by the Federal Confidentiality of Alcohol and Drug Abuse Patient Records regulations: The Federal rules restrict any use of the information to criminally investigate or prosecute any alcohol or drug abuse patient.[facility] Center[facility] the event this information is protected by the Federal Confidentiality of Alcohol and Drug Abuse Patient Records regulations: The Federal rules restrict any use of the information to criminally investigate or prosecute any alcohol or drug abuse patient.[facility] Reason for Visit (unrecogniz ed section and content) Reason Comments Anemia 3 month follow up Reason Comments Results Specialty Diagnoses / Procedures Referred By Contac t Referred To Contact Diagnoses Iron deficiency anemia due to chronic blood loss Procedures INJECTION, FERRIC DERISOMALTOSE, 10 MG Dionna Gutierrez MD [address] [place] [address] [facility] [address] [place] [address] Referral ID Status Reason Start Date Expiration Date V isits Requested Visits Authorized [id number] Authorized 04/13/2022 11/19/2022 99 99 Reason Comments Appointment Reason Comments Care Coordination Lab results Reason Comments Follow Up Specialty Diagnoses / Procedures Referred By Contac t Referred To Contact Nephrology Diagnoses Elevated serum creatinine Procedures CONSULT TO KIDNEY MEDICINE OFFICE/OUTPATIENT NEW HIGH MDM 60-74 MINUTES Cayla Ren PA-C [address] [place] [address] [place] [address] Referral ID Status Reason Start Date Expiration Date V isits Requested Visits Authorized [id number] Closed PCP Requested Referral 09/27/2022 09/27/2023 1 1 Reason Comments Anemia Follow up Reason Comments Radiology US Specialty Diagnoses / Procedures Referred By Contac t Referred To Contact Diagnoses Iron deficiency anemia due to chronic blood loss Procedures IRON SUCROSE INJECTION PER 1 MG Tate Amaya MD [address] [place] [address] [place] [address] [facility] [address] [place] [address] Referral ID Status Reason Start Date Expiration Date V isits Requested Visits Authorized [id number] Authorized 11/16/2022 02/14/2023 4 4 Reason Comments Orders Reason Comments Colon Polyps Reason Comments Anemia Reason Comments Anemia 12 week follow up Reason Comments Results, Lab Reason Comments Anemia Followup Reason Comments Follow-up 6 months follow up. Reason Comments Established Patient Reason Onset Date Comments Results 06/21/2024 Specialty Diagnoses / Procedures Referred By Contac t Referred To Contact Diagnoses Iron deficiency anemia due to chronic blood loss Procedures INJECTION, FERRIC DERISOMALTOSE, 10 MG Dionna Gutierrez MD [address] [place] [address] [facility] [address] [address] [place] [address] Referral ID Status Reason Start Date Expiration Date V isits Requested Visits Authorized [id number] Authorized 06/20/2024 11/19/2024 99 99 Reason Comments Follow-up 6 month fuv Care Teams (unrecognized sec tion and content) Team Status: Active Member Role Status Dates Abimael Valenzuela MD Primary Care Provider Active Team Status: Inactive Member Role Status Dates Abimael Valenzuela MD Primary Care Provider Active Pendleton Eliceo Attending Provider Active [employer] Relationship Specialty Start Date End Date Abimael Valenzuela MD [address] [place] [address] PCP - General Family Practice 12/23/10 [employer] Relationship Specialty Start Date End Date Abimael Valenzuela MD [address] [place] [address] PCP - General Family Practice 12/23/10 [employer] Relationship Specialty Start Date End Date Abimael Valenzuela MD [address] [place] [facility] [place] [phone] PCP - General Family Practice 12/23/10 Team Status: Inactive Member Role Status Dates Abimael Valenzuela MD Primary Care Provider Active Micheal Galicia DO Attending Provider Active [employer] Relationship Specialty Start Date End Date Abimael Valenzuela MD [address] [place] [facility] [place] [phone] PCP - General Family Practice 12/23/10 [employer] Relationship Specialty Start Date End Date Abimael Valenzuela MD [address] [place] [facility] [place] [address] PCP - General Family Medicine 12/23/10 [employer] Relationship Specialty Start Date End Date Abimael Valenzuela MD [address] [place] [facility] [place] [address] PCP - General Family Medicine 12/23/10 [employer] Relationship Specialty Start Date End Date Abimael Valenzuela MD [address] [place] [facility] [place] [address] PCP - General Family Medicine 12/23/10 [employer] Relationship Specialty Start Date End Date Abimael Valenzuela MD [address] [place] [facility] [place] [phone] PCP - General Family Medicine 12/23/10 [employer] Relationship Specialty Start Date End Date Abimael Valenzuela MD [address] [place] [facility] [place] [address] PCP - General Family Medicine 12/23/10 [employer] Relationship Specialty Start Date End Date Abimael Valenzuela MD [address] [place] [facility] [place] [address] PCP - General Family Medicine 12/23/10 [employer] Relationship Specialty Start Date End Date Abimael Valenzuela MD [address] [place] [facility] [place] [address] PCP - General Family Medicine 12/23/10 [employer] Relationship Specialty Start Date End Date Abimael Valenzuela MD [address] [place] [facility] [place] [address] PCP - General Family Medicine 12/23/10 [employer] Relationship Specialty Start Date End Date Abimael Valenzuela MD [address] [place] [facility] [place] [address] PCP - General Family Medicine 12/23/10 [employer] Relationship Specialty Start Date End Date Abimael Valenzuela MD [address] [place] [facility] [place] [address] PCP - General Family Medicine 12/23/10 [employer] Relationship Specialty Start Date End Date Abimael Valenzuela MD [address] [place] [facility] [place] [address] PCP - General Family Medicine 12/23/10 [employer] Relationship Specialty Start Date End Date Abimael Valenzuela MD [address] [place] [facility] [place] [address] PCP - General Family Medicine 12/23/10 [employer] Relationship Specialty Start Date End Date Abimael Valenzuela MD [address] [place] [facility] [place] [address] PCP - General Family Medicine 12/23/10 Team Status: Inactive Member Role Status Dates Abimael Valenzuela MD Primary Care Provider, Attending Lamberto campbell Active Team Status: Inactive Member Role Status Dates Abimael Valenzuela MD Attending Provider Active St art: December 21, 2023 End: December 21, 2023 Team Status: Active Member Role Status Dates Abimael Valenzuela MD Primary Care Provider Active Start: January 08, 2024 CASTRO Newsome Attending Provider Active Start : January 08, 2024 Team Status: Active Member Role Status Dates Abimael Valenzuela MD Primary Care Provide r, Attending Provider Active Start: March 01, 2024 Team Status: Inactive Member Role Status Dates Abimael Valenzuela MD Primary Care Provide r, Attending Provider Active Start: March 01, 2024 End: March 01, 2024 [employer] Relationship Specialty Start Date End Date Abimael Valenzuela MD [address] [place] [facility] [place] [address] PCP - General Family Medicine 12/23/10 [employer] Relationship Specialty Start Date End Date Abimael Valenzuela MD [address] [place] [facility] [place] [address] PCP - General Family Medicine 12/23/10 [employer] Relationship Specialty Start Date End Date Abimael Valenzuela MD [address] [facility], [place] [phone] PCP - General 03/15/12 Team Status: Active Member Role Status Dates Abimael Valenzuela MD Primary Care Provider Active Start: March 18, 2024 Dionna Gutierrez MD Attending Provider Active St art: March 18, 2024 Team Status: Inactive Member Role Status Dates Abimael Valenzuela MD Primary Care Provide r, Attending Provider Active Start: May 30, 2024 End: May 30, 2024 [employer] Relationship Specialty Start Date End Date Abimael Valenzuela MD [address] [place] [facility] [place] [address] PCP - General Family Medicine 12/23/10 [employer] Relationship Specialty Start Date End Date Abimael Valenzuela MD [address] [place] [facility] [place] [phone] PCP - General Family Medicine 12/23/10 [employer] Relationship Specialty Start Date End Date Abimael Valenzuela MD [address] [place] [facility] [place] [phone] PCP - General Family Medicine 12/23/10 [employer] Relationship Specialty Start Date End Date Abimael Valenzuela MD [address] [place] [facility] [place] [phone] PCP - General Family Medicine 12/23/10 Team Status: Active Member Role Status Dates Abimael Valenzuela MD Primary Care Provider Active Start: June 20, 2024 Dionna Gutierrez MD Attending Provider Active St art: June 20, 2024 Team Status: Inactive Member Role Status Dates Abimael Valenzuela MD Primary Care Provider Active Start: July 22, 2024 End: July 22, 2024 Bekah Morelos APRN Attending Provider Active Start: July 22, 2024 End: July 22, 2024 Team Status: Inactive Member Role Status Dates Abimael Valenzuela MD Primary Care Provide r, Attending Provider Active Start: August 13, 2024 End: August 13, 2024 [employer] Relationship Specialty Start Date End Date Abimael Valenzuela MD [address] [place] [facility] [place] [phone] PCP - General Family Medicine 12/23/10 [employer] Relationship Specialty Start Date End Date Abimael Valenzuela MD [address] [facility], [place] [phone] PCP - General 03/15/12 Team Status: Inactive Member Role Status Dates Abimael Valenzuela MD Primary Care Provider Active Start: October 16, 2024 End: October 16, 2024 Jose Antonio Fenton Attending Provider Active Start: No [email or web address] End: October 16, 2024 Team Status: Active Member Role Status Dates Abimael Valenzuela MD Primary Care Provider Active Start: October 22, 2024 Dionna Gutierrez MD Attending Provider Active St art: October 22, 2024 Team Status: Inactive Member Role Status Dates Abimael Valenzuela MD Primary Care Provide r, Attending Provider Active Start: January 13, 2025 End: January 13, 2025 [employer] Relationship Specialty Start Date End Date Abimael Valenzuela MD [address] [place] [phone] PCP - General Family Medicine 12/23/10 [employer] Relationship Specialty Start Date End Date Abimael Valenzuela MD [address] [place] [id number] PCP - General 03/15/12 Team Status: Inactive Member Role Status Dates Abimael Valenzuela MD Primary Care Provider Active Start: May 13, 2025 End: May 13, 2025 Abimael Valenzuela MD Attending Provider Active St art: May 13, 2025 End: May 13, 2025 Team Status: Inactive Member Role Status Dates Abimael Valenzuela MD Primary Care Provider Active Start: June 19, 2025 End: June 19, 2025 Abimael Valenzuela MD Referring Provider Active St art: June 19, 2025 End: June 19, 2025 Referral Self Attending Provider Active Start: Pantera [email or web address] End: June 19, 2025 Team Status: Active Member Role Status Dates Abimael Valenzuela MD Primary Care Provider Active Start: June 24, 2025 Dionna Gutierrez MD Attending Provider Active St art: June 24, 2025 Team Status: Inactive Member Role Status Dates Abimael Valenzuela MD Primary Care Provider Active Start: August 06, 2025 End: August 06, 2025 Abimael Valenzuela MD Attending Provider Active St art: August 06, 2025 End: August 06, 2025 Goals (unrecognized section and content) Goals may be documented in a n alternate section FOR RECORDS PERTAINING TO PATIENTS WHO ARE OR HAVE BEEN ENROLLED IN A CHEMICAL DEPENDENCY/SUBSTANCEABUSE PROGRAM, SOME INFORMATION MAY BE OMITTED. This clinical summary was aggregated from multiple sources. Caution should be exercised in using it in the provision of clinical care. This summary normalizes information from multiple sources, and as a consequence, information in this document may materially change the coding, format and clinical context of patient data. In addition, data may be omitted in some cases. CLINICAL DECISIONS SHOULD BE BASED ON THE PRIMARY CLINICAL RECORDS. [facility] provides no warranty or guarantee of the accuracy or completeness of information in this document.
[2025-08-08 07:24] LABS: Cholesterol 131 mg/dL (<=200); Glucose 79 mg/dL (74-106); HDL Cholesterol 43 mg/dL (40-60); Triglycerides 72 mg/dL (<=150); VLDL CHOLESTEROL 14.4 mg/dL
== END 2025-08-08 06:45 | disposition home or self-care (01) ==
LOC: LAB 06:45
PROVIDERS: PCP Family Medicine; Visit Provider Family Medicine
DX: Z00.00 Encounter for general adult medical examination without abnormal findings (principal)
CPT/HCPCS: 36415; 80061; 82947